=== PATIENT | female | born 1980 ===

== ENCOUNTER 2017-04-30 23:40 | Emergency (ER) | payer OTHER | END 2017-05-01 00:08 | disposition left against medical advice (07) | LOC: ED 23:40 | DX: Z02.89 Encounter for other administrative examinations (principal); R10.9 Unspecified abdominal pain ==

== ENCOUNTER 2017-12-29 09:25 | Emergency (ER) | payer OTHER ==
[2017-12-29 09:26] VITALS: BMI 22.7
[2017-12-29] MEDS ORDERED: Lactated Ringer's 1,000 ML IV SCH (10:00)
--- NOTE | 2017-12-29 10:28 | ED PDOC ---
Arrival/HPI - General Chief Complaint: Abdominal Pain Time Seen by Provider: 12/29/17 09:35 Historian: Patient - History of Present Illness Narrative History of Present Illness (Text): 12/29/17 10:27 A 37 year old female, whose past medical history includes end stage renal disease under the care of Dr. Dana Seth, presents to the emergency department for 1 day of vomiting copious amounts of vomit yellow in color with associated epigastric pain. Pt states that she gets dialysis 3 times a week with the next one scheduled tomorrow. Pt was previously seen by Dr. Chaparro for placement of dialysis port. Denies fever, chest pain, shortness of breath, back pain, diarrhea, headache or any other complaints. 12/29/17 11:32 Time/Duration: 24 hours Symptom Onset: Sudden Symptom Course: Unchanged Quality: Other Severity Level: Mild Activities at Onset: Light Context: Home Past Medical History - Provider Review Nursing Documentation Reviewed: Yes - Travel History Have you recently traveled outside [place] w/in the past 3 mons?: No - Infectious Disease Hx of Infectious Diseases: None - Reproductive Menopause: No - Cardiac Hx Cardiac Disorders: Yes Hx Congestive Heart Failure: Yes (April 12 2017) Hx MD: Yes (Questionable per pt) Hx Hypertension: Yes - Pulmonary Hx Respiratory Disorders: No - Neurological Hx Neurological Disorder: No - HEENT Hx HEENT Disorder: No Other/Comment: eyeglasses for reading - Renal Hx Renal Disorder: Yes Type of Dialysis Access: right permacath Date of Last Dialysis Treatment: 11/27/17 Hx Kidney Stones: Yes (Left) Hx Renal Failure: Yes - Endocrine/Metabolic Hx Endocrine Disorders: No - Hematological/Oncological Hx Blood Disorders: Yes Hx Anemia: Yes - Integumentary Hx Dermatological Disorder: No - Musculoskeletal/Rheumatological Hx Musculoskeletal Disorders: No - Gastrointestinal Hx Gastrointestinal Disorders: Yes (Peritonitis) Hx Gall Bladder Disease: Yes - Genitourinary/Gynecological Hx Genitourinary Disorders: No - Psychiatric Hx Psychophysiologic Disorder: Yes Hx Anxiety: Yes Hx Depression: Yes Hx Substance Use: No - Surgical History Hx Cholecystectomy: Yes Hx Vascular Surgery: Yes (AV fistula ) Hx Vascular Access Device: Yes (Perma cath) Other/Comment: Peritoneal dialysis cath insertion and removal - Anesthesia Hx Anesthesia: Yes Hx Anesthesia Reactions: No Hx Malignant Hyperthermia: No Family/Social History - Physician Review Nursing Documentation Reviewed: Yes Family/Social History: No Known Family HX Smoking Status: Light Smoker < 10 Cigarettes Daily Hx Alcohol Use: No Hx Substance Use: No Allergies/Home Meds Allergies/Adverse Reactions: Allergies No Known Allergies Allergy (Verified 12/29/17 09:43) PER PATIENT Home Medications: Home Meds Medication Instructions Recorded Confirmed Escitalopram [Lexapro] 10 mg PO HS 06/05/17 12/30/17 Clonidine HCl [Catapres] 0.2 mg PO BID 08/28/17 12/30/17 Lisinopril [Zestril] 20 mg PO DAILY 08/28/17 12/30/17 amLODIPine [Norvasc] 10 mg PO DAILY 10/28/17 12/30/17 Review of Systems - Physician Review All systems were reviewed & negative as marked: Yes - Review of Systems Constitutional: Normal Eyes: Normal Respiratory: Normal Cardiovascular: Normal Gastrointestinal: Abdominal Pain, Nausea, Vomiting Skin: Normal Neurological: Normal Endocrine: Normal Hemo/Lymphatic: Normal Psychiatric: Normal Physical Exam Vital Signs Reviewed: Yes Vital Signs Temp Pulse Resp BP Pulse Ox 12/29/17 18:09 98.6 F 72 16 128/84 99 12/29/17 17:17 94 H 18 132/83 100 12/29/17 15:23 104 H 18 155/88 H 100 12/29/17 13:41 101 H 18 152/86 H 100 12/29/17 12:44 99 H 18 156/92 H 100 12/29/17 11:31 120 H 223/139 H 12/29/17 11:30 109 H 223/139 H 12/29/17 11:09 102 H 18 231/139 H 100 12/29/17 09:32 98.3 F 127 H 19 240/177 H 100 Temperature: Afebrile Blood Pressure: Hypertensive Pulse: Tachycardic Respiratory Rate: Normal Appearance: Positive for: Non-Toxic, Ill-Appearing, Uncomfortable Pain Distress: Moderate Mental Status: Positive for: Alert and Oriented X 3 - Systems Exam Head: Present: Atraumatic, Normocephalic Pupils: Present: PERRL Extroacular Muscles: Present: EOMI Conjunctiva: Present: Normal Mouth: Present: Moist Mucous Membranes Neck: Present: Normal Range of Motion Respiratory/Chest: Present: Clear to Auscultation, Good Air Exchange. No: Respiratory Distress, Accessory Muscle Use Cardiovascular: Present: Regular Rate and Rhythm, Normal S1, S2. No: Murmurs Abdomen: Present: Tenderness (epigastric tenderness ), Normal Bowel Sounds. No : Distention, Peritoneal Signs, Rebound, Guarding, McBurney's Point Tender, Rovsing's Sign Present, Hernias, Feeding Tubes, Ostomy Tubes, Mass/Organomegaly , Scars, Other Rectal: No: Occult Blood, Rectal Tenderness, Gross Blood, Melena, Hemorrhoids, Normal Rectal Tone, Fissures, Nodule/Mass/Lesions, Other Back: Present: Normal Inspection. No: CVA Tenderness, Midline Tenderness, Paraspinal Tenderness, Pain with Leg Raise, Decubitus Ulcer, Other Upper Extremity: Present: Normal Inspection. No: Cyanosis, Edema Lower Extremity: Present: Normal Inspection. No: Edema Neurological: Present: GCS=15, CN II-XII Intact, Speech Normal Skin: Present: Warm, Dry, Normal Color. No: Rashes Psychiatric: Present: Alert, Oriented x 3, Normal Insight, Normal Concentration Medical Decision Making ED Course and Treatment: 12/29/17 10:28 Impression: A 37 year old female with episodes of vomiting Differential Diagnosis included but are not limited to: Hypertensive urgency Gastroenteritis (viral or bacterial) Gastritis Plan: -- Labs -- Pepcid, LR, Reglan -- Urinalysis -- Reassess and disposition Prior Visits: Notes and results from previous visits were reviewed. Patient was last seen in the [facility] emergency department Progress Notes: Pt continued to vomit aggressively until receiving Reglan and fluids given BP remains elevated as she was unable to take her meds this am; Oral doses of Lisinopril, amlodipine and clonidine given STAT Pt's BP stabilized well; vomiting ceased acetaminophen for pain Discussed homecare and advised to return if vomiting continues along with severe abdominal pain; Tramadol 50mg PO given for mild abdominal pain,likely due to the aggressive vomiting and retching earlier Encouraged Pt to not miss scheduled dialysis appt Saturday VSS and pt ambulated well out of the ED 12/29/17 11:22 - Lab Interpretations Lab Results: 12/29/17 10:20 12/29/17 10:20 Lab Results 12/29/17 10:30: Urine Color Yellow, Urine Appearance Clear, Urine pH 8.5, Ur Specific Spencer 1.015, Urine Protein 100 H, Urine Glucose (UA) Negative, Urine Ketones Negative, Urine Blood Trace-intact H, Urine Nitrate Negative, Urine Bilirubin Negative, Urine Urobilinogen 0.2, Ur Leukocyte Esterase Negative, Urine RBC 1 - 3, Urine WBC 0 - 2, Ur Epithelial Cells 0 - 2, Urine Bacteria Trace 12/29/17 10:20: Sodium 143, Potassium 4.9, Chloride 102, Carbon Dioxide 25, Anion Gap 22 H, BUN 32 H, Creatinine 3.6 H, Est GFR ( Amer) 17, Est GFR ( Non-Af Amer) 14, Random Glucose 118 H, Calcium 10.9 H, Total Bilirubin 0.4, AST 28, ALT 55, Alkaline Phosphatase 132 H D, Total Protein 8.6 H, Albumin 5.0 H, Globulin 3.6, Albumin/Globulin Ratio 1.4 12/29/17 10:20: WBC 16.1 H, RBC 4.41, Hgb 13.7, Hct 40.4, MCV 91.6, MCH 31.1, MCHC 33.9, RDW 12.9, Plt Count 443, MPV 9.1, Gran % 90.1 H, Lymph % (Auto) 7.6 L , Gove % (Auto) 1.7, Eos % (Auto) 0.4 L, Baso % (Auto) 0.2, Gran # 14.44 H, Lymph # (Auto) 1.2, Gove # (Auto) 0.3, Eos # (Auto) 0.1, Baso # (Auto) 0.04, Neutrophils % (Manual) 90 H, Band Neutrophils % 1, Lymphocytes % (Manual) 8 L, Monocytes % (Manual) 1, Platelet Evaluation Normal I have reviewed the lab results: Yes (Labs indicative of ESRD; has scheduled dialysis tomorrow) - Medication Orders Current Medication Orders: Discontinued Medications Acetaminophen (Tylenol 325mg Tab) 650 mg PO STAT STA Stop: 12/29/17 11:31 Last Admin: 12/29/17 12:00 Dose: 650 mg MAR Pain/Vitals Document 12/29/17 12:00 EQ (Rec: 12/29/17 12:17 EQ [id number]) Pain Reassessment Is This A Pain ReAssessment? No Sleep Is patient sleeping during reassessment? No Presence of Pain Presence of Pain Yes Amlodipine Besylate (Norvasc) 10 mg PO STAT STA Stop: 12/29/17 11:21 Last Admin: 12/29/17 11:30 Dose: 10 mg MAR Blood Pressure Document 12/29/17 11:30 EQ (Rec: 12/29/17 11:31 EQ [id number]) Blood Pressure Blood Pressure (100/60-150/90) 223/139 Clonidine HCl (Catapres) 0.2 mg PO STAT STA Stop: 12/29/17 11:19 Last Admin: 12/29/17 11:31 Dose: 0.2 mg MAR Pulse and Blood Pressure Document 12/29/17 11:31 EQ (Rec: 12/29/17 11:31 EQ [id number]) Pulse Pulse Rate (60-90) 120 Blood Pressure Blood Pressure (100/60-150/90) 223/139 Famotidine (Pepcid) 20 mg IVP STAT STA Stop: 12/29/17 09:56 Last Admin: 12/29/17 10:17 Dose: 20 mg IVP Administration Document 12/29/17 10:17 EQ (Rec: 12/29/17 10:17 EQ [id number]) Charges for Administration # of IVP Administrations 1 Lactated Ringer's (Lactated Ringer's) 1,000 mls @ 500 mls/hr IV .Q2H KANDACE Last Admin: 12/29/17 10:17 Dose: 500 mls/hr eMAR Start Stop Document 12/29/17 10:17 EQ (Rec: 12/29/17 10:17 EQ [id number]) Intravenous Solution Start Date 12/29/17 Start Time 10:17 Lisinopril (Zestril) 20 mg PO STAT STA Stop: 12/29/17 11:22 Last Admin: 12/29/17 11:30 Dose: 20 mg MAR Pulse and Blood Pressure Document 12/29/17 11:30 EQ (Rec: 12/29/17 11:30 EQ [id number]) Pulse Pulse Rate (60-90) 109 Blood Pressure Blood Pressure (100/60-150/90) 223/139 Metoclopramide HCl (Reglan) 10 mg IVP STAT STA Stop: 12/29/17 09:52 Last Admin: 12/29/17 10:20 Dose: 10 mg IVP Administration Document 12/29/17 10:20 EQ (Rec: 12/29/17 10:20 EQ [id number]) Charges for Administration # of IVP Administrations 1 Tramadol HCl (Ultram) 50 mg PO STAT STA Stop: 12/29/17 17:35 Last Admin: 12/29/17 18:05 Dose: 50 mg MAR Pain Assessment Document 12/29/17 18:05 TA (Rec: 12/29/17 18:06 TA [id number]) Pain Reassessment Is this a pain reassessment? Yes Sleep Is patient sleeping during reassessment? No Presence of Pain Presence of Pain Yes Pain Scale Used Pain Scale Used Numeric Location Pain Location Body Site Abdomen Description Description Dull - Scribe Statement The provider has reviewed the documentation as recorded by the Scribe Pham Cruz Provider Scribe Attestation: All medical record entries made by the Scribe were at my direction and personally dictated by me. I have reviewed the chart and agree that the record accurately reflects my personal performance of the history, physical exam, medical decision making, and the department course for this patient. I have also personally directed, reviewed, and agree with the discharge instructions and disposition. Disposition/Present on Arrival - Present on Arrival Any Indicators Present on Arrival: Yes History of DVT/PE: No History of Uncontrolled Diabetes: No Urinary Catheter: No History of Decub. Ulcer: No History Surgical Site Infection Following: None - Disposition Have Diagnosis and Disposition been Completed?: Yes Diagnosis: Gastroenteritis Disposition: HOME/ ROUTINE Disposition Time: 15:30 Patient Plan: Discharge Condition: STABLE Discharge Instructions (ExitCare): Gastroenteritis (ED) Additional Instructions: Jeff Carmona, Please take the medication we have provided to assist you with any nausea or vomiting. You can take Tylenol for pain; make sure that you drink plenty of fluids and get rest as this may be a viral gastroenteritis that requires supportive care. Should you experience any alarming symptoms, return to the ED immediately. Follow up with dialysis tomorrow and see your your Primary doctor in the next 24 hrs Continue to take your blood pressure medication as recommended. All the best in your recovery Referrals: Raimundo Miller [Primary Care Provider] - Follow up with primary Forms: [employer] ([place])
[2017-12-29 10:38] LABS: PH,URINE 8.5 (4.7-8.0); URINE APPEARANCE CLEAR (CLEAR); URINE BILIRUBIN NEGATIVE (NEGATIVE); URINE BLOOD TRACE-INTACT (NEGATIVE); URINE COLOR YELLOW (YELLOW); URINE GLUCOSE (UA) NEGATIVE (NEGATIVE); URINE LEUKOCYTE ESTERASE NEGATIVE Leu/uL (NEGATIVE); URINE PROTEIN 100 mg/dL (<30 mg/dL); URINE UROBILINOGEN 0.2 E.U./dL (<1 E.U./dL)
[2017-12-29 10:41] LABS: BASO # 0.04 K/mm3 (0.0-2.0); BASO % 0.2 % (0.0-3.0); EOS # 0.1 (0.0-0.7); EOS % 0.4 % (1.5-5.0); GRAN # 14.44 (1.4-6.5); GRAN % 90.1 % (50.0-68.0); HEMOGLOBIN 13.7 g/dL (12.0-16.0); LYMPH # 1.2 (1.2-3.4); LYMPH % 7.6 % (22.0-35.0); MEAN CELL VOLUME 91.6 fl (80.0-105.0); MEAN CORPUSCULAR HEMOGLOBIN 31.1 pg (25.0-35.0); MEAN CORPUSCULAR HGB CONC 33.9 g/dl (31.0-37.0); MEAN PLATELET VOLUME 9.1 fl (7.0-11.0); MONO # 0.3 (0.1-0.6); MONO % 1.7 % (1.0-6.0); PLATELET COUNT 443 10^3/uL (120.0-450.0); RBC 4.41 10^6/uL (3.5-6.1); RED CELL DISTRIBUTION WIDTH 12.9 % (11.5-14.5); WHITE BLOOD COUNT 16.1 10^3/ul (4.5-11.0)
[2017-12-29 10:47] LABS: URINE BACTERIA TRACE (NEG); URINE EPITHELIAL CELLS 0 - 2 /hpf (0-5); URINE WBC 0 - 2 /hpf (0-6)
[2017-12-29 10:55] LABS: ALB/GLOB RATIO 1.4 (1.1-1.8); CALCIUM 10.9 mg/dL (8.4-10.5)
[2017-12-29 11:03] LABS: BAND 1 % (0-2); LYMPHOCYTE 8 % (22.0-35.0); MONOCYTE 1 % (1.0-6.0); NEUTROPHIL 90 % (50.0-70.0); PLATELET ESTIMATE NORMAL (NORMAL)
[2017-12-29 18:09] VITALS: BP 128/84; PULSE 72; RESP 16; TEMP 98.6; O2SAT 99
== END 2017-12-29 18:09 | disposition home or self-care (01) ==
LOC: ED 09:25
DX: K52.9 Noninfective gastroenteritis and colitis, unspecified (principal); I12.0 Hypertensive chronic kidney disease with stage 5 chronic kidney disease or end stage renal disease; N18.6 End stage renal disease; Z99.2 Dependence on renal dialysis; F17.210 Nicotine dependence, cigarettes, uncomplicated
CPT/HCPCS: 80053; 81001; 85025; 96374; 96375; 99284; J2765; J7120

== ENCOUNTER 2018-03-17 15:07 | Emergency (ER) | payer OTHER ==
[2018-03-17 15:08] VITALS: BMI 22.7
[2018-03-17] MEDS ORDERED: Pantoprazole 40 mg EC Tab PO STA (15:42)
[2018-03-17] MEDS ORDERED: Morphine 4 mg/ml ISec IM STA ×2 (15:43→17:21)
[2018-03-17 15:49] VITALS: RESP 18; TEMP 98
--- NOTE | 2018-03-17 15:50 | ED PDOC ---
Arrival/HPI - General Chief Complaint: Abdominal Pain Time Seen by Provider: 03/17/18 15:09 Historian: Patient - History of Present Illness Narrative History of Present Illness (Text): 03/17/18 15:43 37yo female with pmhx of CKD bib EMS for epigastric abdominal pain. She reports nonbloody/billious vomiting with the pain. she notes that she was seen at [facility] today for the symptom and was told that they is nothing else that can be done for her. States she sees Dr. Starkey for the pain and he gives her Tramadol. states it doesn't help the pain. She was advised to see a pain management Doctor by her PMD, but she states she have not seen one yet. she denies melena, hematemesis, hematuria, urinary symptoms, fever, chest pain, any other complaint. Past Medical History - Provider Review Nursing Documentation Reviewed: Yes - Infectious Disease Hx of Infectious Diseases: None - Cardiac Hx Cardiac Disorders: Yes Hx Congestive Heart Failure: Yes Hx MN: Yes Hx Hypertension: Yes Hx Peripheral Edema: Yes - Pulmonary Hx Respiratory Disorders: Yes Hx Pneumonia: Yes - Neurological Hx Neurological Disorder: No - HEENT Hx HEENT Disorder: Yes Other/Comment: eyeglasses for reading - Renal Hx Renal Disorder: Yes Hx Dialysis: Yes Type of Dialysis Access: AV L A - Endocrine/Metabolic Hx Endocrine Disorders: No - Hematological/Oncological Hx Blood Disorders: Yes Hx Anemia: Yes - Integumentary Hx Dermatological Disorder: No - Musculoskeletal/Rheumatological Hx Musculoskeletal Disorders: No - Gastrointestinal Hx Gastrointestinal Disorders: Yes Hx Gall Bladder Disease: Yes Hx Vomiting: Yes - Genitourinary/Gynecological Hx Genitourinary Disorders: No - Psychiatric Hx Psychophysiologic Disorder: Yes Hx Anxiety: Yes Hx Depression: Yes Hx Substance Use: No - Surgical History Hx Cholecystectomy: Yes Hx Vascular Surgery: Yes Other/Comment: AV SHUNT - Anesthesia Hx Anesthesia: Yes Hx Anesthesia Reactions: No Hx Malignant Hyperthermia: No Family/Social History - Physician Review Nursing Documentation Reviewed: Yes Family/Social History: Unknown Family HX Smoking Status: Light Smoker < 10 Cigarettes Daily Hx Alcohol Use: No Hx Substance Use: No Allergies/Home Meds Allergies/Adverse Reactions: Allergies No Known Allergies Allergy (Verified 03/17/18 15:20) PER PATIENT Home Medications: Home Meds Medication Instructions Recorded Confirmed Escitalopram [Lexapro] 10 mg PO HS 06/05/17 03/17/18 Clonidine HCl [Catapres] 0.2 mg PO BID 08/28/17 03/17/18 amLODIPine [Norvasc] 10 mg PO DAILY 10/28/17 03/17/18 Review of Systems - Physician Review All systems were reviewed & negative as marked: Yes - Review of Systems Constitutional: Normal Eyes: Normal ENT: Normal Respiratory: Normal Cardiovascular: Normal Gastrointestinal: Abdominal Pain, Nausea, Vomiting. absent: Constipation, Diarrhea, Hematochezia, Hematemesis Genitourinary Female: Normal Musculoskeletal: Normal Skin: Normal Neurological: Normal Endocrine: Normal Hemo/Lymphatic: Normal Psychiatric: Normal Physical Exam Vital Signs Reviewed: Yes Vital Signs Temp Pulse Resp BP Pulse Ox 03/17/18 17:56 98 F 95 H 18 120/60 99 03/17/18 15:48 98 F 100 H 18 124/53 L 100 03/17/18 15:21 98.0 F 79 18 158/85 H 99 Temperature: Afebrile Blood Pressure: Normal Pulse: Regular Respiratory Rate: Normal Appearance: Positive for: Well-Appearing, Non-Toxic, Comfortable Pain Distress: None Mental Status: Positive for: Alert and Oriented X 3 - Systems Exam Head: Present: Atraumatic, Normocephalic Pupils: Present: PERRL Extroacular Muscles: Present: EOMI Conjunctiva: Present: Normal Mouth: Present: Moist Mucous Membranes Neck: Present: Normal Range of Motion Respiratory/Chest: Present: Clear to Auscultation, Good Air Exchange. No: Respiratory Distress, Accessory Muscle Use Cardiovascular: Present: Regular Rate and Rhythm, Normal S1, S2. No: Murmurs Abdomen: Present: Tenderness (Mild epigastric tenderness with deep palpation), Normal Bowel Sounds, Guarding (Voluntary), Other (Soft). No: Distention, Peritoneal Signs, Rebound, McBurney's Point Tender, Rovsing's Sign Present Back: Present: Normal Inspection Upper Extremity: Present: Normal Inspection. No: Cyanosis, Edema Lower Extremity: Present: Normal Inspection. No: Edema Neurological: Present: GCS=15, CN II-XII Intact, Speech Normal Skin: Present: Warm, Dry, Normal Color. No: Rashes Psychiatric: Present: Alert, Oriented x 3, Normal Insight, Normal Concentration Medical Decision Making ED Course and Treatment: 03/17/18 20:23 PT presented for stated history. On review of her chart, pt was seen at [facility] today for same complain and her labs was unremarkable. Pt have been seen in [facility] ED for same complaint multiple times and have had multiple abdominal CT. Pt was asking for pain medication, exhibiting signs of drug seeking behavior. She was treated with Morphine and Protonix in ED. On re evaluation she notes that her pain improved. she was strongly advised to f/u with a pain management for her chronic abdominal pain. - Medication Orders Current Medication Orders: Discontinued Medications Morphine Sulfate (Morphine) 4 mg IM STAT STA Stop: 03/17/18 15:44 Last Admin: 03/17/18 15:56 Dose: 4 mg MAR Pain Assessment Document 03/17/18 15:56 LA (Rec: 03/17/18 15:57 LA [id number]) Pain Reassessment Is this a pain reassessment? No Sleep Is patient sleeping during reassessment? No Presence of Pain Presence of Pain Yes Pain Scale Used Pain Scale Used Numeric Location Upper or Lower Lower Pain Location Body Site Abdomen Description Description Constant Intensity of Pain at present 10 Pain Behavior Guarding IM Administration Charges Document 03/17/18 15:56 LA (Rec: 03/17/18 15:57 LA [id number]) Injection Site MAR Injection Site Right Arm Charges for Administration # of IM Administrations 1 Re-Assess: MAR Pain Assessment Document 03/17/18 16:56 LA (Rec: 03/17/18 17:25 LA [id number]) Pain Reassessment Is this a pain reassessment? Yes Sleep Is patient sleeping during reassessment? No Presence of Pain Presence of Pain Yes Location Pain Location Body Site Abdomen Description Description Intermittent Intensity of Pain at present 5 Morphine Sulfate (Morphine) 4 mg IM STAT STA Stop: 03/17/18 17:22 Last Admin: 03/17/18 17:27 Dose: 4 mg MAR Pain Assessment Document 03/17/18 17:27 LA (Rec: 03/17/18 17:28 LA [id number]) Pain Reassessment Is this a pain reassessment? Yes Sleep Is patient sleeping during reassessment? No Presence of Pain Presence of Pain Yes Pain Scale Used Pain Scale Used Numeric Location Pain Location Body Site Abdomen Description Intensity of Pain at present 5 IM Administration Charges Document 03/17/18 17:27 LA (Rec: 03/17/18 17:28 LA [id number]) Injection Site MAR Injection Site Left Arm Charges for Administration # of IM Administrations 1 Ondansetron HCl (Zofran Inj) 4 mg IM STAT STA Stop: 03/17/18 15:53 Last Admin: 03/17/18 15:57 Dose: 4 mg IM Administration Charges Document 03/17/18 15:57 LA (Rec: 03/17/18 15:58 LA [id number]) Injection Site MAR Injection Site Right Arm Charges for Administration # of IM Administrations 1 Pantoprazole Sodium (Protonix Ec Tab) 40 mg PO STAT STA Stop: 03/17/18 15:43 Last Admin: 03/17/18 15:57 Dose: 40 mg Disposition/Present on Arrival - Present on Arrival Any Indicators Present on Arrival: No History of DVT/PE: No History of Uncontrolled Diabetes: No Urinary Catheter: No History of Decub. Ulcer: No History Surgical Site Infection Following: None - Disposition Have Diagnosis and Disposition been Completed?: Yes Diagnosis: Nausea & vomiting, Abdominal pain Disposition: HOME/ ROUTINE Disposition Time: 16:55 Patient Plan: Discharge Condition: STABLE Discharge Instructions (ExitCare): Acute Abdomen (Belly Pain), Nausea and Vomiting, Adult (DC) Additional Instructions: Follow up with your doctor/Pain management Return to ED for any new symptoms Prescriptions: Pantoprazole Sodium [Protonix] 40 mg PO DAILY #10 ect Referrals: Michelle Quarles MD [Primary Care Provider] - Follow up with primary Adalberto Lucero MD [Staff Provider] - Follow up with primary Forms: [employer] (Lao)
[2018-03-17 18:00] VITALS: BP 120/60; PULSE 95; O2SAT 99
--- NOTE | 2018-03-18 10:37 | CARD ---
APPROVED REPORT EKG Measurement Heart [id number] TN [id number] <Conclusion> Sinus tachycardia LVH by voltage
== END 2018-03-17 17:56 | disposition home or self-care (01) ==
LOC: ED 15:07
DX: R10.9 Unspecified abdominal pain (principal); R11.2 Nausea with vomiting, unspecified; I10 Essential (primary) hypertension; F17.210 Nicotine dependence, cigarettes, uncomplicated
CPT/HCPCS: 93005; 96372; 99283; J2270; J2405

== ENCOUNTER 2018-03-17 23:50 | Inpatient (IN) | payer OTHER ==
[2018-03-17 23:55] VITALS: BMI 25.0
[2018-03-18] MEDS ORDERED: Morphine 4 mg/ml ISec IVP STA ×2 (00:20→03:08)
--- NOTE | 2018-03-18 00:26 | ED PDOC ---
Arrival/HPI - General Time Seen by Provider: 03/17/18 23:57 Historian: Patient - Critical Care Critical Care Minutes: 45 minutes - History of Present Illness Narrative History of Present Illness (Text): 03/18/18 00:18 37 year old female, whose past medical history includes anxiety, CHF, depression , hypertension, renal stone, cholecystectomy, and ESRD on HD (M,W, F), presents to the emergency department complaining of epigastric abdominal pain over the past 1.5 days associated with nausea and multiple episodes of non-bloody/non- bilious vomiting. Patient was seen on two prior occasions in the emergency department for similar complaints and discharged. Patient states her symptoms have not improved. Patient denies any fever, chills, chest pain, shortness of breath, diarrhea, urinary symptoms, back pain, neck pain, headache, dizziness, or any other complaints. PMD: Dr. Delio Quarles Time/Duration: Other (1.5 days) Symptom Onset: Gradual Symptom Course: Unchanged Activities at Onset: Light Context: Home Past Medical History - Provider Review Nursing Documentation Reviewed: Yes - Infectious Disease Hx of Infectious Diseases: None - Cardiac Hx AK: Yes (Questionable per pt) - Pulmonary Hx Respiratory Disorders: No - Neurological Hx Neurological Disorder: No - HEENT Hx HEENT Disorder: Yes Other/Comment: eyeglasses for reading - Renal Hx Renal Disorder: Yes Hx Dialysis: Yes - Endocrine/Metabolic Hx Endocrine Disorders: No - Hematological/Oncological Hx Blood Disorders: Yes Hx Anemia: Yes - Integumentary Hx Dermatological Disorder: No - Musculoskeletal/Rheumatological Hx Musculoskeletal Disorders: No - Gastrointestinal Hx Gastrointestinal Disorders: Yes (Peritonitis) - Genitourinary/Gynecological Hx Genitourinary Disorders: No - Psychiatric Hx Psychophysiologic Disorder: Yes Hx Anxiety: Yes Hx Depression: Yes Hx Substance Use: No - Surgical History Hx Vascular Surgery: Yes (AV fistula ) Other/Comment: Peritoneal dialysis cath insertion and removal - Anesthesia Hx Anesthesia: Yes Hx Anesthesia Reactions: No Hx Malignant Hyperthermia: No Family/Social History - Physician Review Nursing Documentation Reviewed: Yes Family/Social History: No Known Family HX Smoking Status: Light Smoker < 10 Cigarettes Daily Hx Alcohol Use: No Hx Substance Use: No Allergies/Home Meds Allergies/Adverse Reactions: Allergies No Known Allergies Allergy (Verified 03/17/18 23:54) PER PATIENT Home Medications: Home Meds Medication Instructions Recorded Confirmed Escitalopram [Lexapro] 10 mg PO HS 06/05/17 03/18/18 Clonidine HCl [Catapres] 0.2 mg PO BID 08/28/17 03/18/18 amLODIPine [Norvasc] 10 mg PO DAILY 10/28/17 03/18/18 Review of Systems - Physician Review All systems were reviewed & negative as marked: Yes - Review of Systems Constitutional: absent: Fevers, Other (Chills) Respiratory: absent: SOB Cardiovascular: absent: Chest Pain Gastrointestinal: Abdominal Pain (Epigastric ), Nausea, Vomiting (Multiple episodes). absent: Diarrhea Genitourinary Female: absent: Dysuria, Frequency Musculoskeletal: absent: Back Pain, Neck Pain Neurological: absent: Headache, Dizziness Physical Exam Vital Signs Reviewed: Yes Vital Signs Temp Pulse Resp BP Pulse Ox 03/18/18 04:56 98.4 F 03/18/18 04:50 83 19 95 03/18/18 04:45 169/101 H 03/18/18 04:40 80 15 91 L 03/18/18 04:30 89 26 H 169/101 H 96 03/18/18 04:20 80 15 99 03/18/18 04:16 82 19 161/98 H 98 03/18/18 04:10 87 19 99 03/18/18 04:08 89 25 H 98 03/18/18 03:50 213/133 H 03/18/18 03:26 98.9 F 92 H 18 213/133 H 99 03/18/18 02:54 92 H 18 228/145 H 99 03/18/18 02:38 94 H 18 210/120 H 98 03/18/18 02:16 101 H 18 214/129 H 99 03/18/18 01:57 99 H 03/18/18 01:35 123 H 238/143 H 03/18/18 01:10 126 H 14 242/139 H 98 03/18/18 00:55 239/141 H 03/18/18 00:00 98.9 F 125 H 16 99 Temperature: Afebrile Blood Pressure: Hypertensive Pulse: Tachycardic Respiratory Rate: Normal Appearance: Positive for: Well-Appearing, Non-Toxic, Other (Actively vomiting) Pain Distress: Mild Mental Status: Positive for: Alert and Oriented X 3 - Systems Exam Head: Present: Atraumatic, Normocephalic Pupils: Present: PERRL Extroacular Muscles: Present: EOMI Conjunctiva: Present: Normal Mouth: Present: Moist Mucous Membranes Neck: Present: Normal Range of Motion Respiratory/Chest: Present: Clear to Auscultation, Good Air Exchange. No: Respiratory Distress, Accessory Muscle Use Cardiovascular: Present: Regular Rate and Rhythm, Normal S1, S2. No: Murmurs Abdomen: Present: Tenderness (Mild Epigastric tenderness). No: Distention, Peritoneal Signs Back: Present: Normal Inspection Upper Extremity: Present: Normal Inspection. No: Cyanosis, Edema Lower Extremity: Present: Normal Inspection. No: Edema Neurological: Present: GCS=15, CN II-XII Intact, Speech Normal Skin: Present: Warm, Dry, Normal Color. No: Rashes Psychiatric: Present: Alert, Oriented x 3, Normal Insight, Normal Concentration Medical Decision Making ED Course and Treatment: 03/18/18 00:18 Impression: 37 year old female presents complaining of epigastric abdominal pain associated with nausea, and multiple episodes of vomiting for the past 1.5 days. Plan: -- CT Abd & Pelvis w/p Po or IV Contrast -- Chest X-Ray -- Flagyl, Trandate, Pepcid, Rocephin, IV Fluids, Zofran Inj -- Blood Culture -- Reassess and disposition Prior Visits: Notes and results from previous visits were reviewed. On 03/17/18 patient came in complaining of epigastric abdominal pain associated with vomiting. Patient was discharged. Progress Notes: 03/18/18 01:50 Case discussed with House Wirer Helper and Dr. Sunny Turcios who is aware and agrees with the plan. Accepts patient into hospitalist service for abdominal pain and Hypertensive emergency. 03/18/18 02:51 CXR Impression: As read by me, no acute process. EXAM: CT Abdomen and Pelvis Without Intravenous Contrast Dictated and Authenticated by: Johnson Wagner MD 03/18/2018 3:45 AM IMPRESSION: 1. Left adnexal lesion. Recommend ultrasound. 2. Interlobular septal thickening, nonspecific. Clinical correlation is needed. 3. Mild cystitis vs underdistention. Correlate with urinalysis. 4. Increased density of visualized bones may represent renal osteodystrophy. Clinical correlation is needed. 5. Multiple lytic lesions within visualized bones, nonspecific. Metastases or multiple myeloma not excluded. 6. Incidental/non-acute findings are described above - Lab Interpretations Lab Results: 03/18/18 00:34 03/18/18 00:34 Lab Results 03/18/18 00:34: Beta HCG, Quant < 2.39 03/18/18 00:34: WBC 18.9 H, RBC 4.72, Hgb 14.4, Hct 42.4, MCV 89.8, MCH 30.5, MCHC 34.0, RDW 14.2, Plt Count 378, MPV 9.2 03/18/18 00:34: Sodium 143, Potassium 4.7, Chloride 103, Carbon Dioxide 18 L, Anion Gap 26 H, BUN 32 H, Creatinine 3.7 H, Est GFR ( Amer) 17, Est GFR ( Non-Af Amer) 14, Random Glucose 139 H, Calcium 10.8 H, Total Bilirubin 0.7, AST 21, ALT 16, Alkaline Phosphatase 118, Total Protein 8.8 H, Albumin 5.4 H, Globulin 3.4, Albumin/Globulin Ratio 1.6, Lipase 71 I have reviewed the lab results: Yes - RAD Interpretation Radiology Orders: 03/18/18 01:45 ABD & PELVIS W/O PO OR IV CONT [CT] Stat 03/18/18 01:48 CHEST PORTABLE [RAD] Stat - Medication Orders Current Medication Orders: Amlodipine Besylate (Norvasc) 10 mg PO DAILY KANDACE Clonidine HCl (Catapres) 0.2 mg PO BID KANDACE Sodium Chloride (Sodium Chloride 0.9%) 1,000 mls @ 50 mls/hr IV .Q20H KANDACE Last Admin: 03/18/18 00:41 Dose: 50 mls/hr eMAR Start Stop Document 03/18/18 00:41 JOYCE (Rec: 03/18/18 00:41 JOYCE [facility] [place]-[id number]) Intravenous Solution Start Date 03/18/18 Start Time 00:41 End Date 03/18/18 End time 00:56 Total Infusion Time 15 Labetalol HCl 100 mg/ Sodium (Chloride) 100 mls @ 60 mls/hr IV .Q1H40M PRN; Protocol; 1 MG/MIN PRN Reason: TITRATE PER MD ORDER Last Titration: 03/18/18 05:04 Dose: 0 mg/min, 0 mls/hr Titration Intervention Document 03/18/18 05:04 PHAN (Rec: 03/18/18 05:04 PHAN [facility] [id number]) Titration Intake Titration Intake 0 Cumulative Intake 0 Cumulative Intake (Rx) 100 Waste Amount 0 Container Volume 100 Titration Dosing Titration Dose 0 IV Rate 0 Intake/Decrease Paused Cumulative Dose 100 Ondansetron HCl (Zofran Inj) 4 mg IVP Q6H PRN PRN Reason: Nausea/Vomiting Pantoprazole Sodium (Protonix Inj) 40 mg IVP DAILY KANDACE Discontinued Medications Amlodipine Besylate (Norvasc) 10 mg PO STAT STA Stop: 03/18/18 03:17 Last Admin: 03/18/18 03:50 Dose: 10 mg MAR Blood Pressure Document 03/18/18 03:50 RG (Rec: 03/18/18 03:51 RG [facility] [id number]) Blood Pressure Blood Pressure (100/60-150/90 mm Hg) 213/133 Clonidine HCl (Catapres) 0.2 mg PO STAT STA Stop: 03/18/18 03:17 Last Admin: 03/18/18 03:51 Dose: 0.2 mg Famotidine (Pepcid) 20 mg IVP STAT STA Stop: 03/18/18 00:21 Last Admin: 03/18/18 00:43 Dose: 20 mg IVP Administration Document 03/18/18 00:43 RG (Rec: 03/18/18 00:43 RG [facility] [place]-[id number]) Charges for Administration # of IVP Administrations 1 Metronidazole (Flagyl) 500 mg in 100 mls @ 100 mls/hr IVPB STAT STA PRN Reason: Protocol Stop: 03/18/18 02:45 Last Admin: 03/18/18 02:46 Dose: 100 mls/hr eMAR Start Stop Document 03/18/18 02:46 PHAN (Rec: 03/18/18 04:48 PHAN [facility] [place]-[id number]) Intravenous Solution Start Date 03/18/18 Start Time 02:46 Ceftriaxone Sodium (Rocephin 1 Gram Ivpb) 1 gm in 100 mls @ 200 mls/hr IV ONCE STA PRN Reason: Protocol Stop: 03/18/18 02:14 Last Admin: 03/18/18 02:21 Dose: 200 mls/hr eMAR Start Stop Document 03/18/18 02:21 RG (Rec: 03/18/18 02:21 [id number] Intravenous Solution Start Date 03/18/18 Start Time 02:21 End Date 03/18/18 Labetalol HCl (Trandate) 20 mg IV STAT STA Stop: 03/18/18 01:23 Last Admin: 03/18/18 01:35 Dose: 20 mg eMAR Start Stop Document 03/18/18 01:35 RG (Rec: 03/18/18 01:38 [id number][facility] Intravenous Solution Start Date 03/18/18 Start Time 01:35 End Date 03/18/18 End time 01:37 Total Infusion Time 2 DEC Pulse and Blood Pressure Document 03/18/18 01:35 RG (Rec: 03/18/18 01:38 [id number]) Pulse Pulse Rate (60-90 beats/min) 123 Blood Pressure Blood Pressure (100/60-150/90 mm Hg) 238/143 Labetalol HCl (Trandate) 40 mg IV STAT STA Stop: 03/18/18 01:58 Last Admin: 03/18/18 01:58 Dose: 40 mg eMAR Start Stop Document 03/18/18 01:58 RG (Rec: 03/18/18 02:20 [id number]) Intravenous Solution Start Date 03/18/18 Start Time 01:58 End Date 03/18/18 End time 02:03 Total Infusion Time 5 Morphine Sulfate (Morphine) 4 mg IVP STAT STA Stop: 03/18/18 00:21 Last Admin: 03/18/18 01:06 Dose: 4 mg MAR Pain Assessment Document 03/18/18 01:06 JOYCE (Rec: 03/18/18 01:07 [id number]) Pain Reassessment Is this a pain reassessment? Yes Location Upper or Lower Upper Pain Location Body Site Abdomen Description Description Sharp Pain Behavior Moaning Rubbing Site IVP Administration Document 03/18/18 01:06 JOYCE (Rec: 03/18/18 01:07 [id number]) Charges for Administration # of IVP Administrations 1 Re-Assess: MAR Pain Assessment Document 03/18/18 02:06 JOYCE (Rec: 03/18/18 04:06 [id number]) Pain Reassessment Is this a pain reassessment? Yes Sleep Is patient sleeping during reassessment? Yes Morphine Sulfate (Morphine) 4 mg IVP STAT STA Stop: 03/18/18 03:09 Last Admin: 03/18/18 03:36 Dose: 4 mg MAR Pain Assessment Document 03/18/18 03:36 (Rec: 03/18/18 03:39 [id number]) Pain Reassessment Is this a pain reassessment? Yes Sleep Is patient sleeping during reassessment? No Presence of Pain Presence of Pain Yes Location Upper or Lower Upper Pain Location Body Site Abdomen Description Description Burning Pain Behavior Moaning IVP Administration Document 03/18/18 03:36 (Rec: 03/18/18 03:39 [id number]) Charges for Administration # of IVP Administrations 1 Ondansetron HCl (Zofran Inj) 4 mg IVP ONCE ONE Stop: 03/18/18 00:21 Last Admin: 03/18/18 00:33 Dose: 4 mg IVP Administration Document 03/18/18 00:33 RG (Rec: 03/18/18 00:41 [id number]) Charges for Administration # of IVP Administrations 1 Ondansetron HCl (Zofran Inj) 4 mg IVP ONCE ONE Stop: 03/18/18 01:48 Last Admin: 03/18/18 01:47 Dose: 4 mg IVP Administration Document 03/18/18 01:47 RG (Rec: 03/18/18 02:21 [id number]) Charges for Administration # of IVP Administrations 1 - Scribe Statement The provider has reviewed the documentation as recorded by the Claire Page Provider Scribe Attestation: All medical record entries made by the Claire were at my direction and personally dictated by me. I have reviewed the chart and agree that the record accurately reflects my personal performance of the history, physical exam, medical decision making, and the department course for this patient. I have also personally directed, reviewed, and agree with the discharge instructions and disposition. Disposition/Present on Arrival - Present on Arrival Any Indicators Present on Arrival: No History of DVT/PE: No History of Uncontrolled Diabetes: No Urinary Catheter: No History Surgical Site Infection Following: None - Disposition Have Diagnosis and Disposition been Completed?: Yes Diagnosis: Hypertensive emergency, ESRD (end stage renal disease), Intractable abdominal pain, Intractable vomiting Disposition: HOSPITALIZED Disposition Time: 02:25 Patient Plan: Admission Patient Problems: Current Active Problems Problem Status Onset ESRD (end stage renal disease) Acute Hypertensive emergency Acute Intractable abdominal pain Acute Intractable vomiting Acute Condition: STABLE
[2018-03-18] MEDS ORDERED: Sodium Chloride 0.9% 1,000 ML IV SCH (00:30)
[2018-03-18 00:50] LABS: HEMOGLOBIN 14.4 g/dL (12.0-16.0); MEAN CELL VOLUME 89.8 fl (80.0-105.0); MEAN CORPUSCULAR HEMOGLOBIN 30.5 pg (25.0-35.0); MEAN PLATELET VOLUME 9.2 fl (7.0-11.0); RBC 4.72 10^6/uL (3.5-6.1); RED CELL DISTRIBUTION WIDTH 14.2 % (11.5-14.5); WHITE BLOOD COUNT 18.9 10^3/ul (4.5-11.0)
[2018-03-18 00:53] LABS: ALB/GLOB RATIO 1.6 (1.1-1.8); ALBUMIN 5.4 g/dL (3.0-4.8); CALCIUM 10.8 mg/dL (8.4-10.5)
[2018-03-18] MEDS ORDERED: Labetalol 5 mg/ml Inj 20ML IV STA ×2 (01:22→01:57)
[2018-03-18] MEDS ORDERED: cefTRIAXone 1 gm 1 GM/100 ML BAG IV STA (01:45)
[2018-03-18] MEDS ORDERED: metroNIDAZOLE IV 500 mg/100 ml 500 MG/100 ML BAG IVPB STA (01:46)
[2018-03-18] MEDS: Labetalol 100 MG in Sodium Chloride 0.9% 80 ML IV PRN ×2 (01:57→04:45)
--- NOTE | 2018-03-18 03:02 | CP.PCM.HP ---
<Elizabet Arrington - Last Filed: 03/18/18 03:02> History of Present Illness - History of Present Illness History of Present Illness: Patient is a 37 year old female with a past medical history of HTN, CHF, ESRD ( on HD -), anxiety, depression, chronic abdominal pain, and nephrolithiasis, who presents to the ED complaining of abdominal pain. Patient says this started about 2 days ago and describes it as burning pain that radiates straight through and upward to her back. Patient says it started when she woke up and has gradually worsened to the point that she could not keep anything down by mouth including her medications. She tried an antacid without any relief. She admits to associated nausea and multiple episodes of bilious, nonbloody vomiting , as well as constipation (last BM >1 week ago) and SOB. Patient says she has this pain at least once a month and per EMR, she has been seen multiple times this year at [facility] and [facility] for the same thing. She has been told that she has gastritis and "possible pancreatitis" at past ED visits. Per EMR, patient exhibits "drug seeking behavior". Her PMD, Dr. Quarles prescribes her tramadol for this pain and and referred her to pain management. She currently denies fever, chills, headache, changes in vision/hearing, chest pain, palpitations, diarrhea, hematemesis, hematochezia, melena, urinary output , lower extremity pain/swelling. PMD: Dr. Quarles Senior Hydrogeologist: Dr. Seth PMH: HTN, CHF, ESRD (on HD -), anxiety, depression, chronic abdominal pain, and nephrolithiasis Meds: Xanax, tramadol, labetalol, clonidine, amlodipine Allergies: NKDA FH: Mom and brother with DM; Mom on with ESRD, cardiac disease and pacemaker; uncles with heart disease SH: smokes 5 cig/day x20 years, denies alcohol and drug use Present on Admission - Present on Admission Any Indicators Present on Admission: No Review of Systems - Review of Systems All systems: reviewed and no additional remarkable complaints except (as per HPI ) Past Patient History - Infectious Disease Hx of Infectious Diseases: None - Past Medical History & Family History Past Medical History?: Yes - Past Social History Smoking Status: Light Smoker < 10 Cigarettes Daily - CARDIAC Hx Heart Attack: Yes (Questionable per pt) - PULMONARY Hx Respiratory Disorders: No - NEUROLOGICAL Hx Neurological Disorder: No - HEENT Hx HEENT Problems: Yes Other/Comment: eyeglasses for reading - RENAL Hx Chronic Kidney Disease: Yes Hx Dialysis: Yes - ENDOCRINE/METABOLIC Hx Endocrine Disorders: No - HEMATOLOGICAL/ONCOLOGICAL Hx Blood Disorders: Yes Hx Anemia: Yes - INTEGUMENTARY Hx Dermatological Problems: No - MUSCULOSKELETAL/RHEUMATOLOGICAL Hx Musculoskeletal Disorders: No - GASTROINTESTINAL Hx Gastrointestinal Disorders: Yes (Peritonitis) - GENITOURINARY/GYNECOLOGICAL Hx Genitourinary Disorders: No - PSYCHIATRIC Hx Psychophysiologic Disorder: Yes Hx Anxiety: Yes Hx Depression: Yes Hx Substance Use: No - SURGICAL HISTORY Hx Vascular Surgery: Yes (AV fistula ) Other/Comment: Peritoneal dialysis cath insertion and removal - ANESTHESIA Hx Anesthesia: Yes Hx Anesthesia Reactions: No Hx Malignant Hyperthermia: No Meds Allergies/Adverse Reactions: Allergies Allergy/AdvReac Type Severity Reaction Status Date / Time No Known Allergies Allergy Verified 03/17/18 23:54 Physical Exam - Constitutional Appears: Non-toxic, No Acute Distress - Head Exam Head Exam: ATRAUMATIC, NORMAL INSPECTION, NORMOCEPHALIC - Eye Exam Eye Exam: EOMI, Normal appearance, PERRL - ENT Exam ENT Exam: Mucous Membranes Dry - Neck Exam Neck exam: Positive for: Normal Inspection. Negative for: Tenderness - Respiratory Exam Respiratory Exam: Clear to Auscultation Bilateral, NORMAL BREATHING PATTERN. absent: Accessory Muscle Use, Rales, Rhonchi, Wheezes, Respiratory Distress - Cardiovascular Exam Cardiovascular Exam: Tachycardia, REGULAR RHYTHM, +S1, +S2. absent: Diastolic murmur, Gallop, Rubs, Systolic Murmur - GI/Abdominal Exam GI & Abdominal Exam: Normal Bowel Sounds, Soft, Tenderness (mild epigastric and LUQ tenderness to deep palpation). absent: Bruit, Distended, Guarding, Hernia, Organomegaly, Pulsatile Mass, Rigid - Extremities Exam Extremities exam: Positive for: normal capillary refill, normal inspection. Negative for: calf tenderness, pedal edema - Neurological Exam Neurological exam: Alert, Oriented x3 - Psychiatric Exam Psychiatric exam: Normal Affect, Normal Mood - Skin Skin Exam: Dry, Intact, Normal Color, Warm Results - Vital Signs Recent Vital Signs: Last Vital Signs Temp 98.9 F 03/18/18 00:00 Pulse 123 H 03/18/18 01:35 Resp 14 03/18/18 01:10 BP 238/143 H 03/18/18 01:35 Pulse Ox 98 03/18/18 01:10 - Labs Result Diagrams: 03/18/18 00:34 03/18/18 00:34 Labs: Laboratory Results - last 24 hr 03/18/18 03/18/18 03/18/18 00:34 00:34 00:34 WBC 18.9 H RBC 4.72 Hgb 14.4 Hct 42.4 MCV 89.8 MCH 30.5 MCHC 34.0 RDW 14.2 Plt Count 378 MPV 9.2 Sodium 143 Potassium 4.7 Chloride 103 Carbon Dioxide 18 L Anion Gap 26 H BUN 32 H Creatinine 3.7 H Est GFR ( Amer) 17 Est GFR (Non-Af Amer) 14 Random Glucose 139 H Calcium 10.8 H Total Bilirubin 0.7 AST 21 ALT 16 Alkaline Phosphatase 118 Total Protein 8.8 H Albumin 5.4 H Globulin 3.4 Albumin/Globulin Ratio 1.6 Lipase 71 Beta HCG, Quant < 2.39 Assessment & Plan - Assessment and Plan (Free Text) Assessment: 37 year old female with a past medical history of HTN, CHF, ESRD (on HD -), anxiety, depression, chronic abdominal pain, and nephrolithiasis, who presents with chronic abdominal pain and hypertensive crisis. Plan: Neuro * A&Ox3 * No neurological deficits, stable Cardio * Tachycardic * Hypertensive (239/141) likely due to medication noncompliance * ECG: sinus tachycardia @ 127 bpm with possible left atrial enlargement * CXR: pending * Labetalol 20 mg and 40 mg given in ED without response then drip started * Ordered STAT dose of other home medications (Clonidine 0.2 mg and amlodipine 10 mg) and will continue Respiratory * O2 sat 99% on RA * stable Renal * BUN/Cr: 32/3.7 * Nephrology consult (Dr. Barraza) - help appreciated * HD on Sat-Sat-Sat schedule Fluids, electrolytes, nutrition * Electrolytes WNL * Bicarb 18 * Calcium 10.8 * Started on NS @ 50 cc/h in ED * Nutrition: Heart healthy decaf, renal diet Infectious disease * Temp: 98.9 * WBC 18.9 - possibly reactive, doubt GI infection given chronic nature but cannot be ruled out * f/u blood cultures * Given flagyl and ceftriaxone in the ED Hematology * H&H and plts WNL * Stable GI * LFTs WNL * Lipase WNL * CT abdomen/pelvis: pending * Protonix 40 mg IV daily * Zofran 4 mg Q6H prn Endocrine * Blood sugar controlled - monitor Prophylaxis * GI: Protonix 40 mg IV daily * DVT: SCDs <Nahun Turcios N - Last Filed: 03/18/18 05:52> Results - Vital Signs Recent Vital Signs: Last Vital Signs Temp 98.4 F 03/18/18 04:56 Pulse 83 03/18/18 04:50 Resp 19 03/18/18 04:50 BP 169/101 H 03/18/18 04:45 Pulse Ox 95 03/18/18 04:50 - Labs Result Diagrams: 03/18/18 00:34 03/18/18 00:34
--- NOTE | 2018-03-18 03:46 | CT ---
EXAM: CT Abdomen and Pelvis Without Intravenous Contrast CLINICAL HISTORY: 37 years old, female; Pain; Abdominal pain TECHNIQUE: Axial computed tomography images of the abdomen and pelvis without intravenous contrast. All CT scans at this facility use one or more dose reduction techniques, viz.: automated exposure control; ma/kV adjustment per patient size (including targeted exams where dose is matched to indication; i.e. head); or iterative reconstruction technique. Coronal and sagittal reformatted images were created and reviewed. COMPARISON: No relevant prior studies available. FINDINGS: Limitations: Lack of intravenous contrast. Lung bases: Minimal atelectasis/scarring. Interlobular septal thickening. Mediastinum: Small hiatal hernia. ABDOMEN: Liver: Small calcification. Gallbladder and bile ducts: Cholecystectomy. No significant ductal dilation. Pancreas: Unremarkable. No ductal dilation. Spleen: No splenomegaly. Adrenals: Mild hypertrophy of adrenal glands. Kidneys and ureters: Mild atrophy of kidneys. Few small renal calculi. Too small to characterize lesion within LEFT kidney. No hydronephrosis. Stomach and bowel: Segmental areas of probable underdistention of sigmoid colon. No definite mural thickening. No obstruction. PELVIS: Appendix: Normal caliber. No inflammation. Bladder: Apparent mild bladder wall thickening. Incomplete distention, limiting evaluation. Incomplete distention, limiting evaluation. No stones. Reproductive: Lobulated uterus with periphery calcified fundal mass. 3.9 x 5.5 x 5.0 cm lobulated, septated hypodense lesion within LEFT adnexal region. ABDOMEN and PELVIS: Intraperitoneal space: No significant fluid collection. No free air. Bones/joints: Increased density of visualized bones. Multiple tiny lucencies throughout visualized bones. Mild degenerative changes of lower lumbar spine. No acute fracture. Soft tissues: Unremarkable. Vasculature: Minimal atherosclerotic disease. No aneurysm. Lymph nodes: No pathologically enlarged lymph nodes. IMPRESSION: 1. Left adnexal lesion. Recommend ultrasound. 2. Interlobular septal thickening, nonspecific. Clinical correlation is needed. 3. Mild cystitis vs underdistention. Correlate with urinalysis. 4. Increased density of visualized bones may represent renal osteodystrophy. Clinical correlation is needed. 5. Multiple lytic lesions within visualized bones, nonspecific. Metastases or multiple myeloma not excluded. 6. Incidental/non-acute findings are described above.
[2018-03-18 06:53] LABS: BASO # 0.04 K/mm3 (0.0-2.0); BASO % 0.3 % (0.0-3.0); GRAN # 11.08 (1.4-6.5); GRAN % 83.8 % (50.0-68.0); HEMOGLOBIN 12.8 g/dL (12.0-16.0); LYMPH # 1.5 (1.2-3.4); LYMPH % 11.4 % (22.0-35.0); MEAN CORPUSCULAR HEMOGLOBIN 30.2 pg (25.0-35.0); MEAN CORPUSCULAR HGB CONC 33.2 g/dl (31.0-37.0); MEAN PLATELET VOLUME 9.2 fl (7.0-11.0); MONO # 0.6 (0.1-0.6); MONO % 4.5 % (1.0-6.0); RBC 4.24 10^6/uL (3.5-6.1); RED CELL DISTRIBUTION WIDTH 14.2 % (11.5-14.5); WHITE BLOOD COUNT 13.2 10^3/ul (4.5-11.0)
[2018-03-18 07:40] LABS: ALB/GLOB RATIO 1.7 (1.1-1.8); ALBUMIN 4.3 g/dL (3.0-4.8); CALCIUM 9.8 mg/dL (8.4-10.5); TROPONIN I 0.15 ng/mL
--- NOTE | 2018-03-18 07:49 | RAD ---
HISTORY: epigastric pain COMPARISON: No prior. FINDINGS: LUNGS: No active pulmonary disease. PLEURA: No significant pleural effusion identified, no pneumothorax apparent. CARDIOVASCULAR: Mild vascular congestion OSSEOUS STRUCTURES: No significant abnormalities. VISUALIZED UPPER ABDOMEN: Normal. OTHER FINDINGS: None. IMPRESSION: Mild vascular congestion
[2018-03-18 10:38] LABS: HDL CHOLESTEROL 31 mg/dL (29-60)
[2018-03-18 10:50] LABS: LDL CHOLESTEROL 114 mg/dL (0-129)
--- NOTE | 2018-03-18 10:54 | CARD ---
APPROVED REPORT EKG Measurement Heart [id number] <Conclusion> Sinus tachycardia Possible Left atrial enlargement LVH by voltage PRWP Prolonged QTc
--- NOTE | 2018-03-18 12:27 | CP.PCM.CON ---
History of Present Illness - History of Present Illness History of Present Illness: 37 year old female with PMH of ESRD on HD, HTN, chronic CHF, anxiety, depression , chronic abdominal pain, history of nephrolithiasis came in to [facility] complaining of worsened abdominal pain for the past 2 days, with nausea but no vomiting and no diarrhea. She states that the abdominal pain is in the upper portion of the abdomen and it is exacerbated by food intake. She denies fever or chills, no headache or dizziness, no blurring of vision, no chest pain, no sore throat, no rhinorrhea or cough, no dysuria, no flank pain. In the ED, she was noted to have leukocytosis. Infectious diseases consult is requested to further evaluate and manage. Review of Systems - Review of Systems All systems: reviewed and no additional remarkable complaints except (as per HPI ) Past Patient History - Infectious Disease Hx of Infectious Diseases: None - Past Medical History & Family History Past Medical History?: Yes - Past Social History Smoking Status: Light Smoker < 10 Cigarettes Daily - CARDIAC Hx Heart Attack: Yes (Questionable per pt) - PULMONARY Hx Respiratory Disorders: No - NEUROLOGICAL Hx Neurological Disorder: No - HEENT Hx HEENT Problems: Yes Other/Comment: eyeglasses for reading - RENAL Hx Chronic Kidney Disease: Yes Hx Dialysis: Yes - ENDOCRINE/METABOLIC Hx Endocrine Disorders: No - HEMATOLOGICAL/ONCOLOGICAL Hx Blood Disorders: Yes Hx Anemia: Yes - INTEGUMENTARY Hx Dermatological Problems: No - MUSCULOSKELETAL/RHEUMATOLOGICAL Hx Musculoskeletal Disorders: No - GASTROINTESTINAL Hx Gastrointestinal Disorders: Yes (Peritonitis) - GENITOURINARY/GYNECOLOGICAL Hx Genitourinary Disorders: No - PSYCHIATRIC Hx Psychophysiologic Disorder: Yes Hx Anxiety: Yes Hx Depression: Yes Hx Substance Use: No - SURGICAL HISTORY Hx Vascular Surgery: Yes (AV fistula ) Other/Comment: Peritoneal dialysis cath insertion and removal - ANESTHESIA Hx Anesthesia: Yes Hx Anesthesia Reactions: No Hx Malignant Hyperthermia: No Meds Allergies/Adverse Reactions: Allergies Allergy/AdvReac Type Severity Reaction Status Date / Time No Known Allergies Allergy Verified 03/17/18 23:54 - Medications Medications: Current Medications Amlodipine Besylate (Norvasc) 10 mg PO DAILY [facility] Clonidine HCl (Catapres) 0.2 mg PO BID [facility] Ondansetron HCl (Zofran Inj) 4 mg IVP Q6H PRN PRN Reason: Nausea/Vomiting Pantoprazole Sodium (Protonix Inj) 40 mg IVP DAILY [facility] Physical Exam - Constitutional Appears: Chronically Ill - Head Exam Head Exam: NORMAL INSPECTION - ENT Exam ENT Exam: Mucous Membranes Moist - Neck Exam Neck exam: Negative for: Lymphadenopathy, Meningismus - Respiratory Exam Respiratory Exam: Decreased Breath Sounds - Cardiovascular Exam Cardiovascular Exam: +S1, +S2 - GI/Abdominal Exam GI & Abdominal Exam: Soft. absent: Tenderness Results - Vital Signs Recent Vital Signs: Last Vital Signs Temp 98.4 F 03/18/18 04:56 Pulse 66 03/18/18 05:58 Resp 13 03/18/18 05:41 BP 162/91 H 03/18/18 05:41 Pulse Ox 97 03/18/18 05:41 - Labs Result Diagrams: 03/18/18 06:00 03/18/18 06:00 Labs: Laboratory Results - last 24 hr 03/18/18 03/18/18 06:00 06:00 WBC 13.2 H D RBC 4.24 Hgb 12.8 Hct 38.6 MCV 91.0 MCH 30.2 MCHC 33.2 RDW 14.2 Plt Count 308 MPV 9.2 Gran % 83.8 H Lymph % (Auto) 11.4 L [place] % (Auto) 4.5 Eos % (Auto) 0.0 L Baso % (Auto) 0.3 Gran # 11.08 H Lymph # (Auto) 1.5 [place] # (Auto) 0.6 Eos # (Auto) 0.0 Baso # (Auto) 0.04 Sodium 141 Potassium 4.7 Chloride 105 Carbon Dioxide 20 L Anion Gap 20 BUN 34 H Creatinine 3.7 H Est GFR ( Amer) 17 Est GFR (Non-Af Amer) 14 Random Glucose 107 Calcium 9.8 Phosphorus 3.9 Magnesium 2.2 Total Bilirubin 0.4 AST 13 L D ALT 18 Alkaline Phosphatase 81 Lactate Dehydrogenase 349 Total Creatine Kinase 69 Troponin I 0.15 H* Total Protein 6.9 Albumin 4.3 Globulin 2.6 Albumin/Globulin Ratio 1.7 Assessment & Plan - Assessment and Plan (Free Text) Plan: Assessment Systemic Inflammatory response syndrome, R/O sepsis from intra-abdominal infection, R/O multiple myeloma in this patient with acute exacerbation of chronic abdominal pain ESRD on HD HTN chronic CHF anxiety depression chronic abdominal pain history of nephrolithiasis Plan Started patient on Zosyn pending blood, urine cx; CXR does not show infiltrates reviewed CT A/P which shows lytic lesions in the bone - follow up SPEP, UPEP will monitor clinically follow up HIV test
[2018-03-18] MEDS: Piperacillin/Tazobact 2.25gm 2.25 GM/100 ML BAG IVPB SCH ×2 (13:28→22:35)
--- NOTE | 2018-03-18 14:17 | CP.PCM.PN ---
Subjective - Date & Time of Evaluation Date of Evaluation: 03/18/18 Time of Evaluation: 07:05 - Subjective Subjective: Pt seen and examined. Reports no major complaints. Objective - Vital Signs/Intake and Output Vital Signs (last 24 hours): Temp Pulse Resp BP Pulse Ox 98.4 F 88 13 160/102 H 97 03/18/18 04:56 03/18/18 09:35 03/18/18 05:41 03/18/18 09:35 03/18/18 05:41 Intake and Output: 03/18/18 03/18/18 06:59 18:59 Intake Total 450 Output Total 0 Balance 450 - Medications Medications: Current Medications Amlodipine Besylate (Norvasc) 10 mg PO DAILY [facility] Last Admin: 03/18/18 09:35 Dose: 10 mg Aspirin (Aspirin Chewable) 81 mg PO DAILY [facility] Last Admin: 03/18/18 13:28 Dose: 81 mg Clonidine HCl (Catapres) 0.2 mg PO BID [facility] Last Admin: 03/18/18 09:35 Dose: 0.2 mg Docusate Sodium (Colace) 100 mg PO BID [facility] Piperacillin Sod/Tazobactam Sod (Zosyn 2.25 Gm In 0.9% 100 Ml) 2.25 gm in 100 mls @ 100 mls/hr IVPB Q8 [facility] PRN Reason: Protocol Stop: 03/25/18 14:01 Last Admin: 03/18/18 13:28 Dose: 100 mls/hr Ondansetron HCl (Zofran Inj) 4 mg IVP Q6H PRN PRN Reason: Nausea/Vomiting Pantoprazole Sodium (Protonix Inj) 40 mg IVP DAILY [facility] Last Admin: 03/18/18 09:35 Dose: 40 mg Polyethylene Glycol (Miralax) 17 gm PO BID [facility] Tramadol HCl (Ultram) 50 mg PO Q6 PRN PRN Reason: Pain, moderate (4-7) Last Admin: 03/18/18 11:38 Dose: 50 mg - Labs Labs: 03/18/18 06:00 03/18/18 06:00 - Constitutional Appears: Non-toxic, No Acute Distress - Head Exam Head Exam: NORMAL INSPECTION - Eye Exam Eye Exam: Normal appearance - ENT Exam ENT Exam: Mucous Membranes Moist - Neck Exam Neck Exam: Full ROM - Respiratory Exam Respiratory Exam: Clear to Ausculation Bilateral, NORMAL BREATHING PATTERN - Cardiovascular Exam Cardiovascular Exam: REGULAR RHYTHM, +S1, +S2 - GI/Abdominal Exam GI & Abdominal Exam: Soft, Normal Bowel Sounds - Extremities Exam Extremities Exam: Full ROM, Normal Inspection - Neurological Exam Neurological Exam: Alert, Awake, Oriented x3 Assessment and Plan - Assessment and Plan (Free Text) Assessment: 37 year old female with a past medical history of HTN, CHF, ESRD (on HD --), anxiety, depression, chronic abdominal pain, and nephrolithiasis, who presents to the ED with hypertensive emergency. Patient was on labetolol dirp, titrated off last night, currently on Norvasc, and Clonidine. Afebrile HD stable, comfortable in NAD, SBP 140-160s. Hypertensive urgency ESRD on HD HTN urgency Recommend: - supp o2 as needed - follow up cultures, UCx, BCx, procal, ID eval - BP control, resume home meds, goal map reduction by no more than 25% in 24hr - [facility] - lytic lesions, heme onc eval - Strap Cutting Machine Operator eval - GI ppx - DVT ppx - Stable transfer to telemetry
--- NOTE | 2018-03-18 14:47 | CP.PCM.CON ---
History of Present Illness - History of Present Illness History of Present Illness: Nephrology Consultation Note: Assessment: Stable severe uncontrolled HTN urgency, missed HD constipation b/l adrenal hypertrophy bone lytic lesions, adnexal lesion Hypertensive Chronic Kidney Disease (I12.0) End stage renal disease (N18.6) dependence on hemodialysis (Z99.2) (MWF) via AVG Anemia (D64.9), Hyperphosphatemia (E83.39), Secondary Hyperparathyroidism (E21.1 ), HTN (I12.0) Plan: Will plan for HD today as she missed yesterday. Will plan for dialysis tomorrow as per MWF schedule. Continue with Nephrovite 1 tab/day. PRBC as needed for anemia. Not on GOYO with dialysis as last Hb 12.8 Continue with phos binders, check phos level BP control with meds as ordered. Patient not on RAAS nisha consider to add. check renin/vic and metanephrines, renal artery doppler for sec HTN work up. Outpt Dexamethasone suppression test for hypercortisolism eval. Glycemic control, Dialysis consistent diet Further work up/management as per primary team Dose meds/antibiotics (if needed) for ESRD status. Avoid fleets enema/magnesium based laxatives. heme/onc eval for lytic lesions and INFORMATICS MANAGER eval for adnexal lesion SPEP/KIRSTEN and serum free light chain assay ordered. Thanks for allowing me to participate in care of your patient. Will follow patient with you. Please call if any Qs. d/w Team Dr Pramod Bobo Office: [phone] Chief Complaint: pain abdomen, nausea/vomiting reason for consult; ESRD management HPI: Pt is a 37 F with hx of ESRD on hemodialysis (MWF) via left AVG @ [facility] with Dr Seth for last 1 year (was also on PD in between but switched to HD due to recurrent peritonitis) , last dialysis saturday, chronic anemia, hyperphosphatemia, secondary hyperparathyroidism, hypertension presented with complaints of pain abdomen and nausea/vomitting, found to have HTN urgency and admitted to ICU Renal consult requested for ESRD management. Pt feels better now. SOB better. c/o constipation ROS: Cardiovascular: No chest pain. Pulmonary: No shortness of breath now Gastrointestinal: denies abdominal pain No nausea. No vomiting. has constipation Genitourinary: No pain while urinating. Denies blood in urine. All other negative except as mentioned in HPI Physical Examination: General Appearance: Comfortable, in no acute respiratory distress, co-operative . Vitals reviewed and noted as below Head; Atraumatic, normocephalic ENT: no ulcers no thrush. Tongue is midline. Oropharynx: no rash or ulcers. EYES: Pupils are equal, round and reactive to light accommodation. Eye muscles and extraocular movement intact. Sclera is anicteric. Neck; supple no lymphadenopathy, no thyromegaly or bruit Lungs: Normal respiratory rate/effort. Breath sounds bilateral equal and clear Heart: Normal rate. s1s2 normal. No rub or gallop. Extremities: no edema. No varicose veins Neurological: Patient is alert, awake and oriented to person, place and time. No focal deficit. Strength bilateral appropriate and equal Skin: Warm and dry. Normal turgor. No rash. Palpitation: Normal elasticity for age Abdomen: Abdomen is soft. Bowel sounds +. There is no abdominal tenderness, no guarding/rigidity or organomegaly Psych: normal insight and normal affect/mood MSK: no joint tenderness or swelling. Digits and nails normal, no deformity : kidney or bladder not palpable Access: left AVG Labs/imaging reviewed. Past medical history, past surgical history, family history, social history, allergy reviewed and noted as below Family Hx: mother was on HD due to DM. rest Non contributory Past Patient History - Infectious Disease Hx of Infectious Diseases: None - Past Medical History & Family History Past Medical History?: Yes - Past Social History Smoking Status: Light Smoker < 10 Cigarettes Daily - CARDIAC Hx Heart Attack: Yes (Questionable per pt) - PULMONARY Hx Respiratory Disorders: No - NEUROLOGICAL Hx Neurological Disorder: No - HEENT Hx HEENT Problems: Yes Other/Comment: eyeglasses for reading - RENAL Hx Chronic Kidney Disease: Yes Hx Dialysis: Yes - ENDOCRINE/METABOLIC Hx Endocrine Disorders: No - HEMATOLOGICAL/ONCOLOGICAL Hx Blood Disorders: Yes Hx Anemia: Yes - INTEGUMENTARY Hx Dermatological Problems: No - MUSCULOSKELETAL/RHEUMATOLOGICAL Hx Musculoskeletal Disorders: No - GASTROINTESTINAL Hx Gastrointestinal Disorders: Yes (Peritonitis) - GENITOURINARY/GYNECOLOGICAL Hx Genitourinary Disorders: No - PSYCHIATRIC Hx Psychophysiologic Disorder: Yes Hx Anxiety: Yes Hx Depression: Yes Hx Substance Use: No - SURGICAL HISTORY Hx Vascular Surgery: Yes (AV fistula ) Other/Comment: Peritoneal dialysis cath insertion and removal - ANESTHESIA Hx Anesthesia: Yes Hx Anesthesia Reactions: No Hx Malignant Hyperthermia: No Meds Allergies/Adverse Reactions: Allergies Allergy/AdvReac Type Severity Reaction Status Date / Time No Known Allergies Allergy Verified 03/17/18 23:54 - Medications Medications: Current Medications Amlodipine Besylate (Norvasc) 10 mg PO DAILY [facility] Last Admin: 03/18/18 09:35 Dose: 10 mg Aspirin (Aspirin Chewable) 81 mg PO DAILY [facility] Last Admin: 03/18/18 13:28 Dose: 81 mg Clonidine HCl (Catapres) 0.2 mg PO BID [facility] Last Admin: 03/18/18 09:35 Dose: 0.2 mg Docusate Sodium (Colace) 100 mg PO BID [facility] Piperacillin Sod/Tazobactam Sod (Zosyn 2.25 Gm In 0.9% 100 Ml) 2.25 gm in 100 mls @ 100 mls/hr IVPB Q8 [facility] PRN Reason: Protocol Stop: 03/25/18 14:01 Last Admin: 03/18/18 13:28 Dose: 100 mls/hr Ondansetron HCl (Zofran Inj) 4 mg IVP Q6H PRN PRN Reason: Nausea/Vomiting Pantoprazole Sodium (Protonix Inj) 40 mg IVP DAILY [facility] Last Admin: 03/18/18 09:35 Dose: 40 mg Polyethylene Glycol (Miralax) 17 gm PO BID [facility] Tramadol HCl (Ultram) 50 mg PO BID PRN PRN Reason: Pain, moderate (4-7) Results - Vital Signs Recent Vital Signs: Last Vital Signs Temp 98.4 F 03/18/18 04:56 Pulse 88 03/18/18 09:35 Resp 13 03/18/18 05:41 BP 160/102 H 03/18/18 09:35 Pulse Ox 97 03/18/18 05:41 - Labs Result Diagrams: 03/18/18 06:00 03/18/18 06:00 Labs: Laboratory Results - last 24 hr 03/18/18 03/18/18 03/18/18 06:00 06:00 06:00 WBC 13.2 H D RBC 4.24 Hgb 12.8 Hct 38.6 MCV 91.0 MCH 30.2 MCHC 33.2 RDW 14.2 Plt Count 308 MPV 9.2 Gran % 83.8 H Lymph % (Auto) 11.4 L [place] % (Auto) 4.5 Eos % (Auto) 0.0 L Baso % (Auto) 0.3 Gran # 11.08 H Lymph # (Auto) 1.5 [place] # (Auto) 0.6 Eos # (Auto) 0.0 Baso # (Auto) 0.04 Sodium 141 Potassium 4.7 Chloride 105 Carbon Dioxide 20 L Anion Gap 20 BUN 34 H Creatinine 3.7 H Est GFR ( Amer) 17 Est GFR (Non-Af Amer) 14 Random Glucose 107 Calcium 9.8 Phosphorus 3.9 Magnesium 2.2 Total Bilirubin 0.4 AST 13 L D ALT 18 Alkaline Phosphatase 81 Lactate Dehydrogenase 349 Total Creatine Kinase 69 Troponin I 0.15 H* Total Protein 6.9 Albumin 4.3 Globulin 2.6 Albumin/Globulin Ratio 1.7 Triglycerides 140 Cholesterol 182 LDL Cholesterol Direct 114 HDL Cholesterol 31 03/18/18 12:15 WBC RBC Hgb Hct MCV MCH MCHC RDW Plt Count MPV Gran % Lymph % (Auto) [place] % (Auto) Eos % (Auto) Baso % (Auto) Gran # Lymph # (Auto) [place] # (Auto) Eos # (Auto) Baso # (Auto) Sodium Potassium Chloride Carbon Dioxide Anion Gap BUN Creatinine Est GFR ( Amer) Est GFR (Non-Af Amer) Random Glucose Calcium Phosphorus Magnesium Total Bilirubin AST ALT Alkaline Phosphatase Lactate Dehydrogenase Total Creatine Kinase Troponin I 0.10 D Total Protein Albumin Globulin Albumin/Globulin Ratio Triglycerides Cholesterol LDL Cholesterol Direct HDL Cholesterol
--- NOTE | 2018-03-18 15:28 | US ---
HISTORY: Left adnexal lesion COMPARISON: CT abdomen and pelvis performed earlier the same day. TECHNIQUE: Transabdominal pelvic ultrasound was performed. FINDINGS: UTERUS: Measures 8.0 x 4.0 x 5.4 cm. Anteverted and normal in size. There is a 2.7 x 3.4 x 2.8 cm anterior wall intramural fibroid in the midbody of the uterus. ENDOMETRIUM: Measures 7.0 mm in diameter. The central endometrial echo complex is normal in appearance. CERVIX: No cervical abnormality identified. RIGHT OVARY: Measures 3.6 x 2.3 x 4.2 cm. No solid mass. Normal flow. LEFT OVARY: Measures 3.6 x 2.2 x 3.8 cm. No solid mass. Normal flow. There is a 3.7 x 2.2 x 3.5 cm simple cyst. FREE FLUID: No significant free fluid noted. OTHER FINDINGS: None. IMPRESSION: 1. 3.7 cm simple cyst in the left ovary. No evidence for torsion. Follow-up ultrasound in 3-6 month interval is recommended to assess stability/resolution. 2. 2.7 x 3.4 x 2.8 cm anterior wall intramural fibroid in the midbody of the uterus.
--- NOTE | 2018-03-18 16:24 | US ---
PROCEDURE: Bilateral renal artery duplex ultrasound. CLINICAL HISTORY: Renal artery stenosis. Uncontrolled hypertension. Evaluate for renovascular hypertension. PHYSICIAN(S): Yemi Gabriel M.D. TECHNIQUE: Duplex sonography with color-flow Doppler was used to evaluate the visualized segments of the main renal arteries. The patient was evaluated in a fasting state. Imaging in a supine and decubitus position was performed. Limited evaluation of the arcuate waveforms and resistive indices were performed. FINDINGS: The overall quality of the study is adequate. The renal parenchyma is normal in thickness but is very echogenic. There is poor cortical- medullary differentiation. The right kidney measures 9.4cm in length and the left kidney measures 9.8cm in length. No solid renal masses, abnormal calcifications, or hydronephrosis is seen. The main right renal artery is well visualized from the aorta to the hilum. The peak systolic velocity in the right main renal artery is 92 cm/sec. This is consistent with a 0 to 49% stenosis in the main right renal artery. The arcuate waveforms are normal. The resistive index is normal. The main left renal artery is also well seen from its origin to the renal hilum. The peak systolic velocity in the main left renal artery is 79cm/sec. This corresponds to a 0 to 49% stenosis in the main left renal artery. The arcuate waveforms and resistive indices are normal. IMPRESSION: 1. The main renal arteries are well visualized. 2. No sonographically significant stenosis is identified. 3. The renal parenchyma is echogenic. No evidence of solid mass or hydronephrosis is seen.
--- NOTE | 2018-03-18 16:28 | CP.PCM.CON ---
History of Present Illness - History of Present Illness History of Present Illness: 37 year old female with a history of CHF, HTN, ESRD on HD, presenting with abdominal pain, admitted with hypertensive urgency, found to have an adnexal mass with lytic bone lesions. The patient notes to intermittent but progressive abdominal pain associated with nausea. Her pain is worse when eating. She denies fevers and chills. She does note to a 10 pound weightloss in the last month. A CT A/P revealed multiple lytic lesions and a left adnexal mass. The patient also complains of a right sided breast mass. Past medical history: HTN, ESRD on HD, CHF Past surgical history: denies Family history: Denies hematologic and oncologic problems Social history: 5 cigs daily x 20 years, denies alcohol, and illicit drug use Allergies: NKA Review of systems: All remaining review of systems including HEENT, cardiovascular, respiratory, gastrointestinal, genitourinary musculoskeletal, dermatologic, neurologic, and psychiatric are negative unless mentioned in the HPI. Past Patient History - Infectious Disease Hx of Infectious Diseases: None - Past Medical History & Family History Past Medical History?: Yes - Past Social History Smoking Status: Light Smoker < 10 Cigarettes Daily - CARDIAC Hx Heart Attack: Yes (Questionable per pt) - PULMONARY Hx Respiratory Disorders: No - NEUROLOGICAL Hx Neurological Disorder: No - HEENT Hx HEENT Problems: Yes Other/Comment: eyeglasses for reading - RENAL Hx Chronic Kidney Disease: Yes Hx Dialysis: Yes - ENDOCRINE/METABOLIC Hx Endocrine Disorders: No - HEMATOLOGICAL/ONCOLOGICAL Hx Blood Disorders: Yes Hx Anemia: Yes - INTEGUMENTARY Hx Dermatological Problems: No - MUSCULOSKELETAL/RHEUMATOLOGICAL Hx Musculoskeletal Disorders: No - GASTROINTESTINAL Hx Gastrointestinal Disorders: Yes (Peritonitis) - GENITOURINARY/GYNECOLOGICAL Hx Genitourinary Disorders: No - PSYCHIATRIC Hx Psychophysiologic Disorder: Yes Hx Anxiety: Yes Hx Depression: Yes Hx Substance Use: No - SURGICAL HISTORY Hx Vascular Surgery: Yes (AV fistula ) Other/Comment: Peritoneal dialysis cath insertion and removal - ANESTHESIA Hx Anesthesia: Yes Hx Anesthesia Reactions: No Hx Malignant Hyperthermia: No Meds Allergies/Adverse Reactions: Allergies Allergy/AdvReac Type Severity Reaction Status Date / Time No Known Allergies Allergy Verified 03/17/18 23:54 - Medications Medications: Current Medications Amlodipine Besylate (Norvasc) 10 mg PO DAILY [facility] Last Admin: 03/18/18 09:35 Dose: 10 mg Aspirin (Aspirin Chewable) 81 mg PO DAILY [facility] Last Admin: 03/18/18 13:28 Dose: 81 mg Clonidine HCl (Catapres) 0.2 mg PO BID [facility] Last Admin: 03/18/18 09:35 Dose: 0.2 mg Docusate Sodium (Colace) 100 mg PO BID [facility] Heparin Sodium (Porcine) (Heparin) 2,000 units IVP MWF [facility] PRN Reason: Protocol Piperacillin Sod/Tazobactam Sod (Zosyn 2.25 Gm In 0.9% 100 Ml) 2.25 gm in 100 mls @ 100 mls/hr IVPB Q8 [facility] PRN Reason: Protocol Stop: 03/25/18 14:01 Last Admin: 03/18/18 13:28 Dose: 100 mls/hr Ondansetron HCl (Zofran Inj) 4 mg IVP Q6H PRN PRN Reason: Nausea/Vomiting Pantoprazole Sodium (Protonix Inj) 40 mg IVP DAILY [facility] Last Admin: 03/18/18 09:35 Dose: 40 mg Polyethylene Glycol (Miralax) 17 gm PO BID [facility] Tramadol HCl (Ultram) 50 mg PO BID PRN PRN Reason: Pain, moderate (4-7) Physical Exam - Head Exam Head Exam: ATRAUMATIC - Eye Exam Eye Exam: Normal appearance - ENT Exam ENT Exam: Mucous Membranes Dry - Respiratory Exam Respiratory Exam: NORMAL BREATHING PATTERN - Cardiovascular Exam Cardiovascular Exam: +S1, +S2 - GI/Abdominal Exam GI & Abdominal Exam: Normal Bowel Sounds - Extremities Exam Extremities exam: Positive for: pedal edema - Neurological Exam Neurological exam: Oriented x3 - Psychiatric Exam Psychiatric exam: Normal Affect, Normal Mood - Skin Skin Exam: Warm Results - Vital Signs Recent Vital Signs: Last Vital Signs Temp 98.4 F 03/18/18 04:56 Pulse 67 03/18/18 14:00 Resp 13 03/18/18 05:41 BP 160/102 H 03/18/18 09:35 Pulse Ox 97 03/18/18 05:41 - Labs Result Diagrams: 03/18/18 06:00 03/18/18 06:00 Labs: Laboratory Results - last 24 hr 03/18/18 03/18/18 03/18/18 06:00 06:00 06:00 WBC 13.2 H D RBC 4.24 Hgb 12.8 Hct 38.6 MCV 91.0 MCH 30.2 MCHC 33.2 RDW 14.2 Plt Count 308 MPV 9.2 Gran % 83.8 H Lymph % (Auto) 11.4 L [place] % (Auto) 4.5 Eos % (Auto) 0.0 L Baso % (Auto) 0.3 Gran # 11.08 H Lymph # (Auto) 1.5 [place] # (Auto) 0.6 Eos # (Auto) 0.0 Baso # (Auto) 0.04 Sodium 141 Potassium 4.7 Chloride 105 Carbon Dioxide 20 L Anion Gap 20 BUN 34 H Creatinine 3.7 H Est GFR ( Amer) 17 Est GFR (Non-Af Amer) 14 Random Glucose 107 Calcium 9.8 Phosphorus 3.9 Magnesium 2.2 Total Bilirubin 0.4 AST 13 L D ALT 18 Alkaline Phosphatase 81 Lactate Dehydrogenase 349 Total Creatine Kinase 69 Troponin I 0.15 H* Total Protein 6.9 Albumin 4.3 Globulin 2.6 Albumin/Globulin Ratio 1.7 Triglycerides 140 Cholesterol 182 LDL Cholesterol Direct 114 HDL Cholesterol 31 03/18/18 12:15 WBC RBC Hgb Hct MCV MCH MCHC RDW Plt Count MPV Gran % Lymph % (Auto) [place] % (Auto) Eos % (Auto) Baso % (Auto) Gran # Lymph # (Auto) [place] # (Auto) Eos # (Auto) Baso # (Auto) Sodium Potassium Chloride Carbon Dioxide Anion Gap BUN Creatinine Est GFR ( Amer) Est GFR (Non-Af Amer) Random Glucose Calcium Phosphorus Magnesium Total Bilirubin AST ALT Alkaline Phosphatase Lactate Dehydrogenase Total Creatine Kinase Troponin I 0.10 D Total Protein Albumin Globulin Albumin/Globulin Ratio Triglycerides Cholesterol LDL Cholesterol Direct HDL Cholesterol Assessment & Plan (1) Lytic bone lesions on xray Assessment and Plan: monoclonal protein w/u sent will send skeletal survey to further evaluate ? malignancy Status: Acute (2) Adnexal mass Assessment and Plan: recommend pelvic ultrasound for further evaluation will send CA-125 Status: Acute (3) Breast mass Assessment and Plan: pt reports to right sided mass recommend mammogram and breast ultrasound Status: Acute (4) Leukocytosis Assessment and Plan: improving with antibiotics Thank you for this interesting consult. Status: Acute
[2018-03-18] MEDS ORDERED: Labetalol 5 mg/ml Inj 20ML IV PRN (17:20)
[2018-03-18] MEDS ORDERED: POLYETHYLENE GLYCOL 3350 17 GM/Dose PACKET PO SCH (18:00)
--- NOTE | 2018-03-18 18:30 | CARD ---
APPROVED REPORT EXAM: Two-dimensional and M-mode echocardiogram with Doppler and color Doppler. INDICATION 2D DIMENSIONS Left Atrium (2D)3.6 (1.6-4.0cm)IVSd1.4 (0.7-1.1cm) LVDd5.1 (3.9-5.9cm)PWd1.2 (0.7-1.1cm) LVDs3.3 (2.5-4.0cm)FS (%) 35.2 % LVEF (%)64.3 (>50%) M-Mode DIMENSIONS Aortic Root3.30 (2.2-3.7cm)Aortic Cusp Exc.1.90 (1.5-2.0cm) Aortic Valve AoV Peak Axmsgkub647.0cm/Dariana Peak GR.13mmHg Mitral Valve MV E Uevymhei038.0cm/sMV A Crlferem15.0cm/sE/A ratio1.7 TDI Lateral E' Peak V7.21cm/sMedial E' Peak V6.43cm/sE/Lateral E'17.6 E/Medial E'19.8 Tricuspid Valve TR Peak Nvilkyqo783su/sRAP [id number] Peak Gr.45mmHg [id number] LEFT VENTRICLE The left ventricle is normal size. There is mild to moderate concentric left ventricular hypertrophy. The left ventricular function is normal. The left ventricular ejection fraction is within the normal range. There is normal LV segmental wall motion. RIGHT VENTRICLE The right ventricle is normal size. The right ventricular systolic function is normal. ATRIA The left atrium size is normal. The right atrium size is normal. The interatrial septum is intact with no evidence for an atrial septal defect. AORTIC VALVE The aortic valve is normal in structure. There is trace aortic regurgitation. There is no aortic valvular stenosis. MITRAL VALVE The mitral valve is normal in structure. Mitral regurgitation is mild. TRICUSPID VALVE The tricuspid valve is normal in structure. There is moderate tricuspid regurgitation. PULMONIC VALVE The pulmonary valve is normal in structure. GREAT VESSELS The aortic root is normal in size. The IVC is normal in size and collapses >50% with inspiration. PERICARDIAL EFFUSION There is no pleural effusion. There is no pericardial effusion. <Conclusion> Normal chamber size. Mild to moderate concentric LVH. Normal LV systolic function. Mild mitral regurgitation. Moderate tricuspid regurgitation.
[2018-03-19] MEDS: Piperacillin/Tazobact 2.25gm 2.25 GM/100 ML BAG IVPB SCH ×3 (06:11→22:51)
[2018-03-19 07:13] LABS: BASO # 0.04 K/mm3 (0.0-2.0); BASO % 0.5 % (0.0-3.0); EOS # 0.2 (0.0-0.7); EOS % 2.9 % (1.5-5.0); GRAN # 5.07 (1.4-6.5); GRAN % 64.2 % (50.0-68.0); HEMOGLOBIN 12.2 g/dL (12.0-16.0); LYMPH % 25.9 % (22.0-35.0); MEAN CORPUSCULAR HEMOGLOBIN 29.8 pg (25.0-35.0); MEAN CORPUSCULAR HGB CONC 33.2 g/dl (31.0-37.0); MEAN PLATELET VOLUME 9.4 fl (7.0-11.0); MONO # 0.5 (0.1-0.6); MONO % 6.5 % (1.0-6.0); RBC 4.09 10^6/uL (3.5-6.1); WHITE BLOOD COUNT 7.9 10^3/ul (4.5-11.0)
[2018-03-19 07:31] LABS: ALB/GLOB RATIO 1.5 (1.1-1.8); ALBUMIN 4.1 g/dL (3.0-4.8); CALCIUM 9.5 mg/dL (8.4-10.5)
--- NOTE | 2018-03-19 09:51 | RAD ---
PROCEDURE: SKELETAL SURVEY HISTORY: lytic lesions by CT COMPARISON: Abdomen and Pelvis CT examination 03/18/2018. TECHNIQUE: Multiple anterior-posterior radiographs of the axial and proximal appendicular skeleton and submitted for interpretation including the skull. FINDINGS: No suspicious destructive bony lesions appreciated in numerous axial and appendicular radiographs throughout the skeleton. IMPRESSION: Unremarkable bone survey. Numerous tiny lucent defects are identified in the bony elements of the abdomen pelvis CT examination not only throughout multiple vertebral bodies of the inferior thoracolumbar spine but also the sacrum and iliac bones. Whole-body nuclear bone scan may be helpful for added evaluation would be more sensitive than skeletal survey or possibly hematopoetic evaluation.
[2018-03-19] MEDS ORDERED: POLYETHYLENE GLYCOL 3350 17 GM/Dose PACKET PO SCH (10:00)
[2018-03-19] MEDS: POLYETHYLENE GLYCOL 3350 17 GM/Dose PACKET PO SCH ×2 (12:48→18:18)
[2018-03-19 12:50] LABS: ALBUMIN (PEP) 4.8 g/dL (3.8-4.8); ALPHA-1-GLOBULIN (PEP) 0.4 g/dL (0.2-0.3)
--- NOTE | 2018-03-19 13:48 | CP.PCM.PN ---
<Gunner Arce - Last Filed: 03/19/18 13:41> Subjective - Date & Time of Evaluation Date of Evaluation: 03/19/18 Time of Evaluation: 13:41 - Subjective Subjective: Patient seen and evaluated this AM. No acute events overnight. Patient denies chest pain, shortness of breath, diarrhea, nausea, vomiting. Patient stable. Objective - Vital Signs/Intake and Output Vital Signs (last 24 hours): Temp Pulse Resp BP Pulse Ox 98 F 101 H 18 177/97 H 98 03/19/18 12:00 03/19/18 12:00 03/19/18 12:00 03/19/18 12:00 03/19/18 06:00 Intake and Output: 03/19/18 03/19/18 06:59 18:59 Intake Total 440 Output Total 200 Balance 240 - Medications Medications: Current Medications Alprazolam (Xanax) 0.5 mg PO BID PRN; Protocol PRN Reason: Anxiety Amlodipine Besylate (Norvasc) 10 mg PO DAILY [facility] Last Admin: 03/18/18 09:35 Dose: 10 mg Aspirin (Aspirin Chewable) 81 mg PO DAILY [facility] Last Admin: 03/18/18 13:28 Dose: 81 mg Clonidine HCl (Catapres) 0.2 mg PO BID [facility] Last Admin: 03/18/18 09:35 Dose: 0.2 mg Docusate Sodium (Colace) 100 mg PO BID [facility] Last Admin: 03/19/18 09:08 Dose: 100 mg Heparin Sodium (Porcine) (Heparin) 2,000 units IVP MWF [facility] PRN Reason: Protocol Piperacillin Sod/Tazobactam Sod (Zosyn 2.25 Gm In 0.9% 100 Ml) 2.25 gm in 100 mls @ 100 mls/hr IVPB Q8 [facility] PRN Reason: Protocol Stop: 03/25/18 14:01 Last Admin: 03/19/18 06:11 Dose: 100 mls/hr Labetalol HCl (Trandate) 20 mg IV BID PRN PRN Reason: Systolic Blood Pressure Ondansetron HCl (Zofran Inj) 4 mg IVP Q6H PRN PRN Reason: Nausea/Vomiting Pantoprazole Sodium (Protonix Inj) 40 mg IVP DAILY [facility] Last Admin: 03/18/18 09:35 Dose: 40 mg Polyethylene Glycol (Miralax) 17 gm PO BID [facility] Last Admin: 03/19/18 12:48 Dose: Not Given Tramadol HCl (Ultram) 50 mg PO BID PRN PRN Reason: Pain, moderate (4-7) Last Admin: 03/19/18 06:11 Dose: 50 mg Zolpidem Tartrate (Ambien) 5 mg PO HS PRN; Protocol PRN Reason: Insomnia - Labs Labs: 03/19/18 06:30 03/19/18 06:30 - Constitutional Appears: No Acute Distress - Head Exam Head Exam: ATRAUMATIC, NORMAL INSPECTION, NORMOCEPHALIC - Eye Exam Eye Exam: EOMI, PERRL - ENT Exam ENT Exam: Mucous Membranes Moist - Respiratory Exam Respiratory Exam: Clear to Ausculation Bilateral, NORMAL BREATHING PATTERN. absent: Rhonchi, Wheezes - Cardiovascular Exam Cardiovascular Exam: +S1, +S2 - GI/Abdominal Exam GI & Abdominal Exam: Soft, Tenderness, Normal Bowel Sounds - Extremities Exam Extremities Exam: absent: Pedal Edema, Tenderness - Neurological Exam Neurological Exam: Alert, Awake, Normal Gait, Oriented x3 Neuro motor strength exam: Left Upper Extremity: 5, Right Upper Extremity: 5, Left Lower Extremity: 5, Right Lower Extremity: 5 - Psychiatric Exam Psychiatric exam: Normal Affect, Normal Mood - Skin Skin Exam: Dry, Warm Assessment and Plan - Assessment and Plan (Free Text) Assessment: 37 year old female with a past medical history of HTN, CHF, ESRD (on HD --), anxiety, depression, chronic abdominal pain, and nephrolithiasis, who presented to the ED with hypertensive emergency. Patient was placed on labetolol gtt and titrated off in past 24 hours. Patient BP stable on norvasc, clonidine and labatelol prn. Patient currently undergoing work up for etiology of lytic bone lesion and adrenal mass findings on imaging. Plan: Hypertensive Urgency - resolved - Initial elevation of BP - Initial elevation of troponin with downtrending, initial elevation likely secondary to renal insufficiency in setting of elevated BP - Patient off labatelol gtt - Continue current BP med regiment - BP stable, cont to monitor - Follow up further workup for HTN - Aldosterone level f/u Lytic bone lesions on CT imaging - Abd CT showing lytic bone lesions - Unknown etiology - Heme/onc consulted, f/u recs and testing - SPEP, UPEP, free light chains - CA 125 - Pelvic US: simple cyst of 3.7cm on Left ovary, recommend follow up within 3 -6 months, Fibroid at midbody of uterus - Recommending mammogram and breast US SIRS - resolved - ID consulted appreciate recs, f/u recs per note - r/o sepsis from intra-abdominal ifnfection, multiple myeloma in the patient with acute exacerbation of chronic abdominal pain - Started patient on Zosyn - f/u blood, urine clx - CXR negative for infiltrates - f/u SPEP, UPEP - HIV test negative - leukocytosis improved with antibiotics ESRD on HD - Nephrology consulted and following, recs per note - Felecia peter for BP - Check renin/vic and metanephrines - Renal artery doppler: negative - Outpatient dexamethasone suppresion test for hypercortisolism eval - Glycemic control - Continue nephrovite 1 tab/day, phos binders, follow up phos levels - HD MWF, HD today - Does not produce urine - Cr function Pelvic mass - Pelvic US showing simple cyst of 3.7cm on Left ovary, recommend follow up within 3-6 months, Fibroid at midbody of uterus - Supervisor Weaving consulted, recommending outpatient US f/u in 3 months HTN - Currently stable - Amlodipine, Clonidine, Labetolol prn - Continue to monitor GI/DVT ppx - Protonix - SCD Case and plan discussed with attending <Migdalia Chamberlain - Last Filed: 03/20/18 07:44> Objective - Vital Signs/Intake and Output Vital Signs (last 24 hours): Temp Pulse Resp BP Pulse Ox 98.4 F 72 18 129/86 96 03/20/18 05:58 03/20/18 05:58 03/20/18 05:58 03/20/18 05:58 03/20/18 05:58 Intake and Output: 03/20/18 03/20/18 06:59 18:59 Intake Total 360 Balance 360 - Medications Medications: Current Medications Alprazolam (Xanax) 0.5 mg PO BID PRN; Protocol PRN Reason: Anxiety Last Admin: 03/19/18 18:18 Dose: 0.5 mg Amlodipine Besylate (Norvasc) 10 mg PO DAILY [facility] Last Admin: 03/19/18 18:33 Dose: 10 mg Aspirin (Aspirin Chewable) 81 mg PO DAILY [facility] Last Admin: 03/19/18 18:19 Dose: 81 mg Clonidine HCl (Catapres) 0.2 mg PO Q8 [facility] Last Admin: 03/20/18 05:52 Dose: 0.2 mg Docusate Sodium (Colace) 100 mg PO BID [facility] Last Admin: 03/19/18 18:19 Dose: 100 mg Heparin Sodium (Porcine) (Heparin) 2,000 units IVP MWF [facility] PRN Reason: Protocol Last Admin: 03/19/18 10:30 Dose: Not Given Piperacillin Sod/Tazobactam Sod (Zosyn 2.25 Gm In 0.9% 100 Ml) 2.25 gm in 100 mls @ 100 mls/hr IVPB Q8 [facility] PRN Reason: Protocol Stop: 03/25/18 14:01 Last Admin: 03/20/18 05:53 Dose: 100 mls/hr Labetalol HCl (Trandate) 20 mg IV BID PRN PRN Reason: Systolic Blood Pressure Losartan Potassium (Cozaar) 100 mg PO QPM [facility] Last Admin: 03/19/18 18:18 Dose: 100 mg Ondansetron HCl (Zofran Inj) 4 mg IVP Q6H PRN PRN Reason: Nausea/Vomiting Pantoprazole Sodium (Protonix Inj) 40 mg IVP DAILY [facility] Last Admin: 03/19/18 18:17 Dose: 40 mg Polyethylene Glycol (Miralax) 17 gm PO BID [facility] Last Admin: 03/19/18 18:18 Dose: 17 gm Tramadol HCl (Ultram) 50 mg PO BID PRN PRN Reason: Pain, moderate (4-7) Last Admin: 03/19/18 18:32 Dose: 50 mg Zolpidem Tartrate (Ambien) 5 mg PO HS PRN; Protocol PRN Reason: Insomnia Last Admin: 03/20/18 01:17 Dose: 5 mg - Labs Labs: 03/19/18 06:30 03/19/18 06:30 Attending/Attestation - Attestation I have personally seen and examined this patient.: Yes I have fully participated in the care of the patient.: Yes I have reviewed all pertinent clinical information, including history, physical exam and plan: Yes Notes (Text): 03/19/18 37 year old female with past medical history of hypertension, CHF, ESRD, anxiety , depression and chronic abdominal pain who presented with hypertensive urgency possibly secondary to noncompliance. Her blood pressure has improved on labetalol prn, norvasc, and clonidine. She was counselled on medication compliance. Initial troponin was elevated but trended down. Patient denies any chest pain or shortness of breath. Cardiology evaluation was appreciated who recommended outpatient stress test. Nephrology is following and recommended outpatient dexamethasone suppression test. Renin/aldosterone levels ordered. Renal artery doppler study was negative. CT abd/pelvis showed lytic bone lesions. Hematology evaluation was appreciated and addition workup including SPEP/UPEP is ordered. Skeletal survey was reviewed. Hematology recommended mammogram, breast US and CA125. Case was discussed with gynecology, Dr. Weston, regarding ovarian cyst. He recommended outpatient gynecology follow up and repeat US in 3 months. Leukocytosis has improved. She is on iv antibiotics and ID is following. Continue with dialysis as per nephrology. Migdalia Chamberlain MD Hospitalist.
--- NOTE | 2018-03-19 14:44 | CP.PCM.PN ---
Subjective - Date & Time of Evaluation Date of Evaluation: 03/19/18 Time of Evaluation: 10:55 - Subjective Subjective: Improving abdominal pain, no fevers, not in distress. Objective - Vital Signs/Intake and Output Vital Signs (last 24 hours): Temp Pulse Resp BP Pulse Ox 98.7 F 71 18 143/86 98 03/19/18 06:00 03/19/18 06:00 03/19/18 06:00 03/19/18 06:00 03/19/18 06:00 Intake and Output: 03/19/18 03/19/18 06:59 18:59 Intake Total 440 Output Total 200 Balance 240 - Medications Medications: Current Medications Amlodipine Besylate (Norvasc) 10 mg PO DAILY [facility] Last Admin: 03/18/18 09:35 Dose: 10 mg Aspirin (Aspirin Chewable) 81 mg PO DAILY [facility] Last Admin: 03/18/18 13:28 Dose: 81 mg Clonidine HCl (Catapres) 0.2 mg PO BID [facility] Last Admin: 03/18/18 09:35 Dose: 0.2 mg Docusate Sodium (Colace) 100 mg PO BID [facility] Last Admin: 03/19/18 09:08 Dose: 100 mg Heparin Sodium (Porcine) (Heparin) 2,000 units IVP MWF [facility] PRN Reason: Protocol Piperacillin Sod/Tazobactam Sod (Zosyn 2.25 Gm In 0.9% 100 Ml) 2.25 gm in 100 mls @ 100 mls/hr IVPB Q8 [facility] PRN Reason: Protocol Stop: 03/25/18 14:01 Last Admin: 03/19/18 06:11 Dose: 100 mls/hr Labetalol HCl (Trandate) 20 mg IV BID PRN PRN Reason: Systolic Blood Pressure Ondansetron HCl (Zofran Inj) 4 mg IVP Q6H PRN PRN Reason: Nausea/Vomiting Pantoprazole Sodium (Protonix Inj) 40 mg IVP DAILY [facility] Last Admin: 03/18/18 09:35 Dose: 40 mg Polyethylene Glycol (Miralax) 17 gm PO BID [facility] Tramadol HCl (Ultram) 50 mg PO BID PRN PRN Reason: Pain, moderate (4-7) Last Admin: 03/19/18 06:11 Dose: 50 mg - Labs Labs: 03/19/18 06:30 03/19/18 06:30 - Constitutional Appears: Chronically Ill - Head Exam Head Exam: NORMAL INSPECTION - Neck Exam Neck Exam: absent: Meningismus - Respiratory Exam Respiratory Exam: Decreased Breath Sounds - Cardiovascular Exam Cardiovascular Exam: +S1, +S2 - GI/Abdominal Exam GI & Abdominal Exam: Soft. absent: Tenderness Assessment and Plan - Assessment and Plan (Free Text) Plan: Assessment Systemic Inflammatory response syndrome, R/O sepsis from intra-abdominal infection, R/O multiple myeloma in this patient with acute exacerbation of chronic abdominal pain ESRD on HD HTN chronic CHF anxiety depression chronic abdominal pain history of nephrolithiasis Plan continue Zosyn day 2 pending final blood, urine cx results; CXR does not show infiltrates reviewed CT A/P which shows lytic lesions in the bone - follow up SPEP, UPEP and Heme/Onc is follwoing will continue to monitor clinically HIV test is non-reactive
--- NOTE | 2018-03-19 16:03 | CP.PCM.PN ---
Subjective - Date & Time of Evaluation Date of Evaluation: 03/19/18 Time of Evaluation: 16:02 - Subjective Subjective: Nephrology Consultation Note: Assessment: Stable severe uncontrolled HTN urgency, missed HD constipation b/l adrenal hypertrophy bone lytic lesions, adnexal lesion Hypertensive Chronic Kidney Disease (I12.0) End stage renal disease (N18.6) dependence on hemodialysis (Z99.2) (MWF) via AVG Anemia (D64.9), Hyperphosphatemia (E83.39), Secondary Hyperparathyroidism (E21.1 ), HTN (I12.0) Plan: Will plan for HD today as per MWF schedule. Continue with Nephrovite 1 tab/day. PRBC as needed for anemia. Not on GOYO with dialysis as last Hb 12.8 Continue with phos binders, check phos level BP control with meds as ordered. Patient not on RAAS nisha hence started losartan 100 mg/day. check renin/vic and metanephrines, renal artery doppler ( NEG) for sec HTN work up. Outpt Dexamethasone suppression test for hypercortisolism eval. Glycemic control, Dialysis consistent diet Further work up/management as per primary team Dose meds/antibiotics (if needed) for ESRD status. Avoid fleets enema/magnesium based laxatives. heme/onc eval for lytic lesions and [employer] eval for adnexal lesion SPEP/KIRSTEN and serum free light chain assay ordered. Thanks for allowing me to participate in care of your patient. Will follow patient with you. Please call if any Qs. d/w Team Dr Pramod Bobo Office: [phone] Chief Complaint: pain abdomen, nausea/vomiting reason for consult; ESRD management HPI: Pt is a 37 F with hx of ESRD on hemodialysis (MWF) via left AVG @ [facility] with Dr Seth for last 1 year (was also on PD in between but switched to HD due to recurrent peritonitis) , last dialysis saturday, chronic anemia, hyperphosphatemia, secondary hyperparathyroidism, hypertension presented with complaints of pain abdomen and nausea/vomitting, found to have HTN urgency and admitted to ICU Renal consult requested for ESRD management. Pt feels better now. SOB better. c/o constipation ROS: Cardiovascular: No chest pain. Pulmonary: No shortness of breath now Gastrointestinal: denies abdominal pain No nausea. No vomiting. has constipation Genitourinary: No pain while urinating. Denies blood in urine. All other negative except as mentioned in HPI Physical Examination: seen on HD General Appearance: Comfortable, in no acute respiratory distress, co-operative . Vitals reviewed and noted as below Head; Atraumatic, normocephalic ENT: no ulcers no thrush. Tongue is midline. Oropharynx: no rash or ulcers. EYES: Pupils are equal, round and reactive to light accommodation. Eye muscles and extraocular movement intact. Sclera is anicteric. Neck; supple no lymphadenopathy, no thyromegaly or bruit Lungs: Normal respiratory rate/effort. Breath sounds bilateral equal and clear Heart: Normal rate. s1s2 normal. No rub or gallop. Extremities: no edema. No varicose veins Neurological: Patient is alert, awake and oriented to person, place and time. No focal deficit. Strength bilateral appropriate and equal Skin: Warm and dry. Normal turgor. No rash. Palpitation: Normal elasticity for age Abdomen: Abdomen is soft. Bowel sounds +. There is no abdominal tenderness, no guarding/rigidity or organomegaly Psych: normal insight and normal affect/mood MSK: no joint tenderness or swelling. Digits and nails normal, no deformity : kidney or bladder not palpable Access: left AVG Labs/imaging reviewed. Past medical history, past surgical history, family history, social history, allergy reviewed and noted as below Family Hx: mother was on HD due to DM. rest Non contributory Objective - Vital Signs/Intake and Output Vital Signs (last 24 hours): Temp Pulse Resp BP Pulse Ox 98 F 78 18 177/97 H 98 03/19/18 12:00 03/19/18 14:00 03/19/18 12:00 03/19/18 12:00 03/19/18 06:00 Intake and Output: 03/19/18 03/19/18 06:59 18:59 Intake Total 440 300 Output Total 200 300 Balance 240 0 - Medications Medications: Current Medications Alprazolam (Xanax) 0.5 mg PO BID PRN; Protocol PRN Reason: Anxiety Amlodipine Besylate (Norvasc) 10 mg PO DAILY [facility] Last Admin: 03/18/18 09:35 Dose: 10 mg Aspirin (Aspirin Chewable) 81 mg PO DAILY [facility] Last Admin: 03/18/18 13:28 Dose: 81 mg Clonidine HCl (Catapres) 0.2 mg PO BID [facility] Last Admin: 03/18/18 09:35 Dose: 0.2 mg Docusate Sodium (Colace) 100 mg PO BID [facility] Last Admin: 03/19/18 09:08 Dose: 100 mg Heparin Sodium (Porcine) (Heparin) 2,000 units IVP MWF [facility] PRN Reason: Protocol Piperacillin Sod/Tazobactam Sod (Zosyn 2.25 Gm In 0.9% 100 Ml) 2.25 gm in 100 mls @ 100 mls/hr IVPB Q8 [facility] PRN Reason: Protocol Stop: 03/25/18 14:01 Last Admin: 03/19/18 06:11 Dose: 100 mls/hr Labetalol HCl (Trandate) 20 mg IV BID PRN PRN Reason: Systolic Blood Pressure Losartan Potassium (Cozaar) 100 mg PO QPM [facility] Ondansetron HCl (Zofran Inj) 4 mg IVP Q6H PRN PRN Reason: Nausea/Vomiting Pantoprazole Sodium (Protonix Inj) 40 mg IVP DAILY [facility] Last Admin: 03/18/18 09:35 Dose: 40 mg Polyethylene Glycol (Miralax) 17 gm PO BID [facility] Last Admin: 03/19/18 12:48 Dose: Not Given Tramadol HCl (Ultram) 50 mg PO BID PRN PRN Reason: Pain, moderate (4-7) Last Admin: 03/19/18 06:11 Dose: 50 mg Zolpidem Tartrate (Ambien) 5 mg PO HS PRN; Protocol PRN Reason: Insomnia - Labs Labs: 03/19/18 06:30 03/19/18 06:30
--- NOTE | 2018-03-19 19:39 | CON ---
DATE: 03/19/2018 REQUESTING PHYSICIAN: Dr. Chamberlain. REASON FOR CONSULTATION: Chest pain, accelerated hypertension. HISTORY OF PRESENT ILLNESS: This is a 37-year-old woman with a history of hypertension, prior heart failure, and chronic renal failure, maintained on hemodialysis, followed by Dr. Erick Seth, who was admitted with complaints of abdominal discomfort and chest pain. She was noted be hypertensive and admitted for evaluation and management. She has been on dialysis for the past several months. Her renal failure is poorly on the basis of hypertensive nephrosclerosis. She is currently pain free. She denies any prior cardiac history. She does have a history of hypertension and she is not diabetic. She believes her cholesterol is normal. She is a smoker of several cigarettes a day. There is also a very strong family history of premature heart disease. PAST MEDICAL HISTORY: Her past history is known for the problems mentioned above. She also has a history of anxiety, depression, and chronic abdominal discomfort. MEDICATIONS: Her medications at home included Xanax, tramadol, labetalol, clonidine, and amlodipine. ALLERGIES: NONE. SOCIAL HISTORY: As mentioned, she has no history of alcohol use, but does smoke. FAMILY HISTORY: Her mother and brother are diabetic. Mother also has heart disease. Multiple other family members have premature heart disease as well. The 10-point review of systems is, otherwise, unremarkable. PHYSICAL EMANATION: GENERAL: She is a middle-aged woman, who appears comfortable at rest. VITAL SIGNS: Her blood pressure is 142/86 with a pulse of 60 in sinus, respirations are 16, blood pressure on admission have been 228/145. She is currently afebrile. HEENT: Head: Normocephalic, atraumatic. NECK: Supple. No JVD noted. CHEST: A few scattered rhonchi heard. HEART: PMI displaced laterally with a soft systolic murmur at the lower left sternal border. ABDOMEN: Soft, nontender, normoactive bowel sounds. EXTREMITIES: No clubbing, cyanosis, or edema. SKIN: Warm and dry. PSYCHIATRIC: Normal mood and affect. NEUROLOGIC: No gross motor or sensory appreciable. She is alert and oriented x3. DIAGNOSTICS DATA: Potassium 3.6, BUN and creatinine 26 and 3.2. White count 7.9, hemoglobin and hematocrit 12.2 and 36.8 with a platelet of 277,000. Electrocardiogram reveals sinus tachycardia, left atrial abnormality, and voltage criteria for LVH as well as poor R-wave progression. Chest x-ray reveals borderline cardiac silhouette enlargement with mild pulmonary vascular congestion. Echocardiogram was reviewed and this revealed normal chamber size with [id number] concentric LVH, normal LV systolic function, mild mitral regurgitation, moderate tricuspid regurgitation. IMPRESSION: 1. Accelerated hypertension, now clinically improved. 2. Chest pain, no clear evidence of cardiac ischemia. 3. Chronic renal failure, maintained on hemodialysis. 4. Rest of the problems as noted. RECOMMENDATIONS: 1. Continued intensified antihypertensive therapy is advised. 2. Smoking abstinence was strongly encouraged. 3. Despite her relatively young age, eventual outpatient stress test should be considered given her very strong family history of heart disease and other cardiac risk factors. Thank you for this consultation. We will be happy to follow along as needed. Tony Castañeda MD
[2018-03-20] MEDS: Piperacillin/Tazobact 2.25gm 2.25 GM/100 ML BAG IVPB SCH (05:53)
[2018-03-20 05:59] VITALS: RESP 18; TEMP 98.4; O2SAT 96
--- NOTE | 2018-03-20 09:28 | CP.PCM.PN ---
Subjective - Date & Time of Evaluation Date of Evaluation: 03/20/18 Time of Evaluation: 07:00 - Subjective Subjective: Stable on 2R. No CP or SOB. She feels better. V/S noted. RSR 129/86 PE: Lungs: clear Cor: S1S2 Abd.: soft Ext.: no edema Neuro.: alert I/O= 860/300 recorded Trops: 0.15, 0.10, 0.06 Echo noted: NL LV EF with conc. LVH, mild MR and mod. TR BC X 2 NG at 48 hrs ECGs noted. Objective - Vital Signs/Intake and Output Vital Signs (last 24 hours): Temp Pulse Resp BP Pulse Ox 98.4 F 72 18 129/86 96 03/20/18 05:58 03/20/18 05:58 03/20/18 05:58 03/20/18 05:58 03/20/18 05:58 Intake and Output: 03/20/18 03/20/18 06:59 18:59 Intake Total 560 Balance 560 - Medications Medications: Current Medications Alprazolam (Xanax) 0.5 mg PO BID PRN; Protocol PRN Reason: Anxiety Last Admin: 03/19/18 18:18 Dose: 0.5 mg Amlodipine Besylate (Norvasc) 10 mg PO DAILY [facility] Last Admin: 03/19/18 18:33 Dose: 10 mg Aspirin (Aspirin Chewable) 81 mg PO DAILY [facility] Last Admin: 03/19/18 18:19 Dose: 81 mg Clonidine HCl (Catapres) 0.2 mg PO Q8 [facility] [place] Last Admin: 03/20/18 05:52 Dose: 0.2 mg Docusate Sodium (Colace) 100 mg PO BID [facility] Last Admin: 03/19/18 18:19 Dose: 100 mg Heparin Sodium (Porcine) (Heparin) 2,000 units IVP MWF [facility] [place] PRN Reason: Protocol Last Admin: 03/19/18 10:30 Dose: Not Given Piperacillin Sod/Tazobactam Sod (Zosyn 2.25 Gm In 0.9% 100 Ml) 2.25 gm in 100 mls @ 100 mls/hr IVPB Q8 [facility] [place] PRN Reason: Protocol Stop: 03/25/18 14:01 Last Admin: 03/20/18 05:53 Dose: 100 mls/hr Labetalol HCl (Trandate) 20 mg IV BID PRN PRN Reason: Systolic Blood Pressure Losartan Potassium (Cozaar) 100 mg PO QPM [facility] [place] Last Admin: 03/19/18 18:18 Dose: 100 mg Ondansetron HCl (Zofran Inj) 4 mg IVP Q6H PRN PRN Reason: Nausea/Vomiting Pantoprazole Sodium (Protonix Inj) 40 mg IVP DAILY [facility] [place] Last Admin: 03/19/18 18:17 Dose: 40 mg Polyethylene Glycol (Miralax) 17 gm PO BID [facility] Last Admin: 03/19/18 18:18 Dose: 17 gm Tramadol HCl (Ultram) 50 mg PO BID PRN PRN Reason: Pain, moderate (4-7) Last Admin: 03/20/18 08:07 Dose: 50 mg Zolpidem Tartrate (Ambien) 5 mg PO HS PRN; Protocol PRN Reason: Insomnia Last Admin: 03/20/18 01:17 Dose: 5 mg - Labs Labs: 03/19/18 06:30 03/19/18 06:30 Assessment and Plan - Assessment and Plan (Free Text) Assessment: Nausea and vomiting Accelerated HBP CKD/HD CHF Smoker Strong FH of CAD Anxiety/Depression Ovarian Cyst/Fibroid Uterus Abn bones on CT and bone survey Chronic Abd. Pain Plan: Will arrange out-pt nuclear stress test in our office. D/C tobacco d/w her. BP meds to be titrated as per renal
[2018-03-20 09:37] LABS: HEMOGLOBIN 11.8 g/dL (12.0-16.0); MEAN CELL VOLUME 91.8 fl (80.0-105.0); MEAN CORPUSCULAR HEMOGLOBIN 30.3 pg (25.0-35.0); MEAN PLATELET VOLUME 9.5 fl (7.0-11.0); RBC 3.9 10^6/uL (3.5-6.1); RED CELL DISTRIBUTION WIDTH 14.2 % (11.5-14.5); WHITE BLOOD COUNT 7.3 10^3/ul (4.5-11.0)
[2018-03-20] MEDS: POLYETHYLENE GLYCOL 3350 17 GM/Dose PACKET PO SCH (09:51)
[2018-03-20 09:59] VITALS: BP 142/92
[2018-03-20 10:30] LABS: ALB/GLOB RATIO 1.8 (1.1-1.8); ALBUMIN 4.1 g/dL (3.0-4.8)
--- NOTE | 2018-03-20 13:15 | CP.PCM.PN ---
Subjective - Date & Time of Evaluation Date of Evaluation: 03/19/18 Time of Evaluation: 19:00 - Subjective Subjective: No complaints. Objective - Vital Signs/Intake and Output Vital Signs (last 24 hours): Temp Pulse Resp BP Pulse Ox 98.4 F 72 18 142/92 H 96 03/20/18 05:58 03/20/18 05:58 03/20/18 05:58 03/20/18 09:50 03/20/18 05:58 Intake and Output: 03/20/18 03/20/18 06:59 18:59 Intake Total 560 Balance 560 - Medications Medications: Current Medications Alprazolam (Xanax) 0.5 mg PO BID PRN; Protocol PRN Reason: Anxiety Last Admin: 03/19/18 18:18 Dose: 0.5 mg Amlodipine Besylate (Norvasc) 10 mg PO DAILY [facility] Last Admin: 03/20/18 09:50 Dose: 10 mg Aspirin (Aspirin Chewable) 81 mg PO DAILY [facility] Last Admin: 03/20/18 09:51 Dose: 81 mg Clonidine HCl (Catapres) 0.2 mg PO Q8 [facility] Last Admin: 03/20/18 05:52 Dose: 0.2 mg Docusate Sodium (Colace) 100 mg PO BID [facility] Last Admin: 03/20/18 09:51 Dose: 100 mg Heparin Sodium (Porcine) (Heparin) 2,000 units IVP MWF [facility] PRN Reason: Protocol Last Admin: 03/19/18 10:30 Dose: Not Given Piperacillin Sod/Tazobactam Sod (Zosyn 2.25 Gm In 0.9% 100 Ml) 2.25 gm in 100 mls @ 100 mls/hr IVPB Q8 [facility] PRN Reason: Protocol Stop: 03/25/18 14:01 Last Admin: 03/20/18 05:53 Dose: 100 mls/hr Labetalol HCl (Trandate) 20 mg IV BID PRN PRN Reason: Systolic Blood Pressure Losartan Potassium (Cozaar) 100 mg PO QPM [facility] Last Admin: 03/19/18 18:18 Dose: 100 mg Ondansetron HCl (Zofran Inj) 4 mg IVP Q6H PRN PRN Reason: Nausea/Vomiting Pantoprazole Sodium (Protonix Ec Tab) 40 mg PO ACB [facility] Polyethylene Glycol (Miralax) 17 gm PO BID [facility] Last Admin: 03/20/18 09:51 Dose: 17 gm Tramadol HCl (Ultram) 50 mg PO BID PRN PRN Reason: Pain, moderate (4-7) Last Admin: 03/20/18 08:07 Dose: 50 mg Zolpidem Tartrate (Ambien) 5 mg PO HS PRN; Protocol PRN Reason: Insomnia Last Admin: 03/20/18 01:17 Dose: 5 mg - Labs Labs: 03/20/18 09:30 03/20/18 09:30 - Head Exam Head Exam: ATRAUMATIC - Eye Exam Eye Exam: Normal appearance - ENT Exam ENT Exam: Mucous Membranes Dry - Respiratory Exam Respiratory Exam: NORMAL BREATHING PATTERN - Cardiovascular Exam Cardiovascular Exam: +S1, +S2 - GI/Abdominal Exam GI & Abdominal Exam: Normal Bowel Sounds Assessment and Plan (1) Lytic bone lesions on xray Assessment & Plan: not seen on skeletal survey f/u monoclonal protein w/u; if positive, will need outpatient bone marrow evaluation may need outpatient PET CT scan for further evaluation Status: Acute (2) Adnexal mass Assessment & Plan: 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
--- NOTE | 2018-03-20 13:30 | CP.PCM.DIS ---
Provider - Provider Date of Admission: 03/18/18 02:14 Attending physician: Migdlaia Chamberlain MD Primary care physician: Michelle Quarles MD Consults: Cardiology: Dr. Grimes Infectious Disease: Dr. Montemayor Nephrology: Dr. Bobo Heme/Onc: Dr. Morris Time Spent in preparation of Discharge (in minutes): 40 Hospital Course - Lab Results Lab Results: Micro Results 03/18/18 05:10 Naris MRSA Culture (Admit) - Final MRSA NOT DETECTED Most Recent Lab Values WBC 7.3 10^3/ul (4.5-11.0) 03/20/18 09:30 RBC 3.90 10^6/uL (3.5-6.1) 03/20/18 09:30 Hgb 11.8 g/dL (12.0-16.0) L 03/20/18 09:30 Hct 35.8 % (36.0-48.0) L 03/20/18 09:30 MCV 91.8 fl (80.0-105.0) 03/20/18 09:30 MCH 30.3 pg (25.0-35.0) 03/20/18 09:30 MCHC 33.0 g/dl (31.0-37.0) 03/20/18 09:30 RDW 14.2 % (11.5-14.5) 03/20/18 09:30 Plt Count 257 10^3/uL (120.0-450.0) 03/20/18 09:30 MPV 9.5 fl (7.0-11.0) 03/20/18 09:30 Gran % 64.2 % (50.0-68.0) 03/19/18 06:30 Lymph % (Auto) 25.9 % (22.0-35.0) 03/19/18 06:30 Garfield % (Auto) 6.5 % (1.0-6.0) H 03/19/18 06:30 Eos % (Auto) 2.9 % (1.5-5.0) 03/19/18 06:30 Baso % (Auto) 0.5 % (0.0-3.0) 03/19/18 06:30 Gran # 5.07 (1.4-6.5) 03/19/18 06:30 Lymph # (Auto) 2.0 (1.2-3.4) 03/19/18 06:30 Garfield # (Auto) 0.5 (0.1-0.6) 03/19/18 06:30 Eos # (Auto) 0.2 (0.0-0.7) 03/19/18 06:30 Baso # (Auto) 0.04 K/mm3 (0.0-2.0) 03/19/18 06:30 Sodium 144 mmol/L (132-148) 03/20/18 09:30 Potassium 4.4 mmol/L (3.6-5.0) 03/20/18 09:30 Chloride 103 mmol/L (98-107) 03/20/18 09:30 Carbon Dioxide 26 mmol/L (21-33) 03/20/18 09:30 Anion Gap 19 (10-20) 03/20/18 09:30 BUN 33 mg/dL (7-21) H 03/20/18 09:30 Creatinine 3.1 mg/dl (0.7-1.2) H 03/20/18 09:30 Est GFR ( Amer) 20 03/20/18 09:30 Est GFR (Non-Af Amer) 17 03/20/18 09:30 Random Glucose 104 mg/dL (70-110) 03/20/18 09:30 Calcium 9.0 mg/dL (8.4-10.5) 03/20/18 09:30 Phosphorus 4.1 mg/dL (2.5-4.5) 03/20/18 09:30 Magnesium 2.3 mg/dL (1.7-2.2) H 03/20/18 09:30 Total Bilirubin 0.3 mg/dL (0.2-1.3) 03/20/18 09:30 AST 21 U/L (14-36) 03/20/18 09:30 ALT 23 U/L (7-56) 03/20/18 09:30 Alkaline Phosphatase 68 U/L (38-126) 03/20/18 09:30 Lactate Dehydrogenase 349 U/L (333-699) 03/18/18 06:00 Total Creatine Kinase 69 U/L (35-230) 03/18/18 06:00 Troponin I 0.06 ng/mL D 03/18/18 19:30 Total Protein 6.4 g/dL (5.8-8.3) 03/20/18 09:30 Total Protein (PEP) 7.4 g/dL (6.1-8.1) 03/18/18 09:29 Albumin 4.1 g/dL (3.0-4.8) 03/20/18 09:30 Albumin (PEP) 4.8 g/dL (3.8-4.8) 03/18/18 09:29 Globulin 2.3 gm/dL 03/20/18 09:30 Albumin/Globulin Ratio 1.8 (1.1-1.8) 03/20/18 09:30 Ukard-0-Zqqyidfnx 0.4 g/dL (0.2-0.3) H 03/18/18 09:29 Wajoj-4-Vbrrryomr 0.8 g/dL (0.5-0.9) 03/18/18 09:29 Ihbk-1-Gpsglqmr 0.4 g/dL (0.4-0.6) 03/18/18 09:29 Oqaq-4-Wbzvjctc 0.3 g/dL (0.2-0.5) 03/18/18 09:29 Gamma Globulins 0.8 g/dL (0.8-1.7) 03/18/18 09:29 Abnorm Protein Band 1 TEST NOT PERFORMED 03/18/18 09:29 Abnorm Protein Band 2 TEST NOT PERFORMED 03/18/18 09:29 Abnorm Protein Band 3 TEST NOT PERFORMED 03/18/18 09:29 Triglycerides 140 mg/dL (35-160) 03/18/18 06:00 Cholesterol 182 mg/dL (130-200) 03/18/18 06:00 LDL Cholesterol Direct 114 mg/dL (0-129) 03/18/18 06:00 HDL Cholesterol 31 mg/dL (29-60) 03/18/18 06:00 Lipase 71 U/L (23-300) 03/18/18 00:34 Beta HCG, Quant < 2.39 mIU/mL (0-6.15) 03/18/18 00:34 PTH Intact Whole Molec 121 pg/mL (14-64) H 03/18/18 13:15 KIRSTEN & SPEP Interp See note 03/18/18 09:29 Serum Immunofixation Not detected (Not Detected) 03/18/18 13:15 HIV 1&2 Ag/Ab, 4th Gen Nonreactive (Nonreactive) 03/18/18 13:15 Discharge Exam - Head Exam Head Exam: ATRAUMATIC - Eye Exam Eye Exam: EOMI, PERRL - Neck Exam Neck exam: Full Rom - Respiratory Exam Respiratory Exam: Clear to PA & Lateral, NORMAL BREATHING PATTERN - Cardiovascular Exam Cardiovascular Exam: REGULAR RHYTHM, +S1, +S2 - GI/Abdominal Exam GI & Abdominal Exam: Normal Bowel Sounds, Soft. absent: Tenderness - Extremities Exam Extremities exam: normal capillary refill, pedal pulses present - Neurological Exam Neurological exam: Alert, CN II-XII Intact, Normal Gait, Oriented x3 - Psychiatric Exam Psychiatric exam: Normal Affect, Normal Mood - Skin Skin Exam: Dry, Warm - Additional Findings Additional findings: Breast Exam in presence of female hide tanner - Right breast with 1x1 cm firm nodule, mobile in upper lateral quad Discharge Plan - Follow Up Plan Condition: STABLE Disposition: HOME/ ROUTINE Instructions: Renal Failure Diet (DC) Additional Instructions: Follow up with primary care physician within 3-5 days of discharge Follow up with heme/onc Dr. Morris within 1-2 weeks of discharge, phone number [phone] Follow up with tool radial drill press set up operator Dr. Weston for appointment, you will need a repeat of your pelvic ultrasound in the next 3 months Follow up with your Promotion Producer within 1-2 weeks of discharge Take medications as prescribed to you Return to ED if you begin experiencing chest pain, shortness of breath, nausea, vomiting, changes in vision, extreme headache Referrals: Michelle Quarles MD [Primary Care Provider] -
--- NOTE | 2018-03-20 13:35 | CP.PCM.PN ---
Subjective - Date & Time of Evaluation Date of Evaluation: 03/20/18 Time of Evaluation: 09:45 - Subjective Subjective: No fevers, not in distress, no abdominal pain, no headache. Objective - Vital Signs/Intake and Output Vital Signs (last 24 hours): Temp Pulse Resp BP Pulse Ox 98.4 F 72 18 129/86 96 03/20/18 05:58 03/20/18 05:58 03/20/18 05:58 03/20/18 05:58 03/20/18 05:58 Intake and Output: 03/20/18 03/20/18 06:59 18:59 Intake Total 560 Balance 560 - Medications Medications: Current Medications Alprazolam (Xanax) 0.5 mg PO BID PRN; Protocol PRN Reason: Anxiety Last Admin: 03/19/18 18:18 Dose: 0.5 mg Amlodipine Besylate (Norvasc) 10 mg PO DAILY [facility] Last Admin: 03/19/18 18:33 Dose: 10 mg Aspirin (Aspirin Chewable) 81 mg PO DAILY [facility] Last Admin: 03/19/18 18:19 Dose: 81 mg Clonidine HCl (Catapres) 0.2 mg PO Q8 [facility] Last Admin: 03/20/18 05:52 Dose: 0.2 mg Docusate Sodium (Colace) 100 mg PO BID [facility] Last Admin: 03/19/18 18:19 Dose: 100 mg Heparin Sodium (Porcine) (Heparin) 2,000 units IVP MWF [facility] PRN Reason: Protocol Last Admin: 03/19/18 10:30 Dose: Not Given Piperacillin Sod/Tazobactam Sod (Zosyn 2.25 Gm In 0.9% 100 Ml) 2.25 gm in 100 mls @ 100 mls/hr IVPB Q8 [facility] PRN Reason: Protocol Stop: 03/25/18 14:01 Last Admin: 03/20/18 05:53 Dose: 100 mls/hr Labetalol HCl (Trandate) 20 mg IV BID PRN PRN Reason: Systolic Blood Pressure Losartan Potassium (Cozaar) 100 mg PO QPM [facility] Last Admin: 03/19/18 18:18 Dose: 100 mg Ondansetron HCl (Zofran Inj) 4 mg IVP Q6H PRN PRN Reason: Nausea/Vomiting Pantoprazole Sodium (Protonix Inj) 40 mg IVP DAILY [facility] Last Admin: 03/19/18 18:17 Dose: 40 mg Polyethylene Glycol (Miralax) 17 gm PO BID [facility] Last Admin: 03/19/18 18:18 Dose: 17 gm Tramadol HCl (Ultram) 50 mg PO BID PRN PRN Reason: Pain, moderate (4-7) Last Admin: 03/20/18 08:07 Dose: 50 mg Zolpidem Tartrate (Ambien) 5 mg PO HS PRN; Protocol PRN Reason: Insomnia Last Admin: 03/20/18 01:17 Dose: 5 mg - Labs Labs: 03/19/18 06:30 03/19/18 06:30 - Constitutional Appears: Non-toxic, Chronically Ill - Head Exam Head Exam: NORMAL INSPECTION - Respiratory Exam Respiratory Exam: Decreased Breath Sounds - Cardiovascular Exam Cardiovascular Exam: +S1, +S2 - GI/Abdominal Exam GI & Abdominal Exam: Soft. absent: Tenderness Assessment and Plan - Assessment and Plan (Free Text) Plan: Assessment Systemic Inflammatory response syndrome, R/O multiple myeloma in this patient with acute exacerbation of chronic abdominal pain - no evidence of infection or sepsis identified ESRD on HD HTN chronic CHF anxiety depression chronic abdominal pain history of nephrolithiasis Plan cultures are negative, CT A/P did not show source of infection, CXR does not show infiltrates - will d/c antibiotics and observe reviewed CT A/P which shows lytic lesions in the bone - follow up SPEP, UPEP and Heme/Onc is following will continue to monitor clinically HIV test is non-reactive
--- NOTE | 2018-03-20 14:06 | CP.PCM.PN ---
Subjective - Date & Time of Evaluation Date of Evaluation: 03/20/18 Time of Evaluation: 14:04 - Subjective Subjective: Nephrology Consultation Note: Assessment: Stable severe uncontrolled HTN urgency, missed HD constipation b/l adrenal hypertrophy bone lytic lesions, adnexal lesion Hypertensive Chronic Kidney Disease (I12.0) End stage renal disease (N18.6) dependence on hemodialysis (Z99.2) (MWF) via AVG Anemia (D64.9), Hyperphosphatemia (E83.39), Secondary Hyperparathyroidism (E21.1 ), HTN (I12.0) Plan: Will plan for HD tomorrow as per MWF schedule. Continue with Nephrovite 1 tab/ day. PRBC as needed for anemia. Not on GOYO with dialysis as last Hb 12.8 Continue with phos binders, check phos level BP control with meds as ordered. Patient not on RAAS nisha hence started losartan 100 mg/day. check renin/vic and metanephrines, renal artery doppler ( NEG) for sec HTN work up. Outpt Dexamethasone suppression test for hypercortisolism eval. Glycemic control, Dialysis consistent diet Further work up/management as per primary team Dose meds/antibiotics (if needed) for ESRD status. Avoid fleets enema/magnesium based laxatives. heme/onc eval for lytic lesions and DESIGN TECHNICIAN eval for adnexal lesion SPEP/KIRSTEN and serum free light chain assay ordered. pt stable for d/c from renal perspective when planned. she was advised to f/up her Renal within 1 week post d/c Thanks for allowing me to participate in care of your patient. Please call if any Qs. had d/w Team Dr Pramod Bobo Office: [phone] Chief Complaint: none now reason for consult; ESRD management HPI: Pt is a 37 F with hx of ESRD on hemodialysis (MWF) via left AVG @ [facility] with Dr Seth for last 1 year (was also on PD in between but switched to HD due to recurrent peritonitis) , last dialysis saturday, chronic anemia, hyperphosphatemia, secondary hyperparathyroidism, hypertension presented with complaints of pain abdomen and nausea/vomitting, found to have HTN urgency and admitted to ICU Renal consult requested for ESRD management. Pt feels better now. SOB better. c/o constipation ROS: Cardiovascular: No chest pain. Pulmonary: No shortness of breath now Gastrointestinal: denies abdominal pain No nausea. No vomiting. had constipation Genitourinary: No pain while urinating. Denies blood in urine. All other negative except as mentioned in HPI Physical Examination: General Appearance: Comfortable, in no acute respiratory distress, co-operative . Vitals reviewed and noted as below Head; Atraumatic, normocephalic ENT: no ulcers no thrush. Tongue is midline. Oropharynx: no rash or ulcers. EYES: Pupils are equal, round and reactive to light accommodation. Eye muscles and extraocular movement intact. Sclera is anicteric. Neck; supple no lymphadenopathy, no thyromegaly or bruit Lungs: Normal respiratory rate/effort. Breath sounds bilateral equal and clear Heart: Normal rate. s1s2 normal. No rub or gallop. Extremities: no edema. No varicose veins Neurological: Patient is alert, awake and oriented to person, place and time. No focal deficit. Strength bilateral appropriate and equal Skin: Warm and dry. Normal turgor. No rash. Palpitation: Normal elasticity for age Abdomen: Abdomen is soft. Bowel sounds +. There is no abdominal tenderness, no guarding/rigidity or organomegaly Psych: normal insight and normal affect/mood MSK: no joint tenderness or swelling. Digits and nails normal, no deformity : kidney or bladder not palpable Access: left AVG Labs/imaging reviewed. Past medical history, past surgical history, family history, social history, allergy reviewed and noted as below Family Hx: mother was on HD due to DM. rest Non contributory Objective - Vital Signs/Intake and Output Vital Signs (last 24 hours): Temp Pulse Resp BP Pulse Ox 98.4 F 72 18 142/92 H 96 03/20/18 05:58 03/20/18 05:58 03/20/18 05:58 03/20/18 09:50 03/20/18 05:58 Intake and Output: 03/20/18 03/20/18 06:59 18:59 Intake Total 560 Balance 560 - Medications Medications: Current Medications Alprazolam (Xanax) 0.5 mg PO BID PRN; Protocol PRN Reason: Anxiety Last Admin: 03/19/18 18:18 Dose: 0.5 mg Amlodipine Besylate (Norvasc) 10 mg PO DAILY [facility] Last Admin: 03/20/18 09:50 Dose: 10 mg Aspirin (Aspirin Chewable) 81 mg PO DAILY [facility] Last Admin: 03/20/18 09:51 Dose: 81 mg Clonidine HCl (Catapres) 0.2 mg PO Q8 [facility] Last Admin: 03/20/18 05:52 Dose: 0.2 mg Docusate Sodium (Colace) 100 mg PO BID [facility] Last Admin: 03/20/18 09:51 Dose: 100 mg Heparin Sodium (Porcine) (Heparin) 2,000 units IVP MWF [facility] PRN Reason: Protocol Last Admin: 03/19/18 10:30 Dose: Not Given Labetalol HCl (Trandate) 20 mg IV BID PRN PRN Reason: Systolic Blood Pressure Losartan Potassium (Cozaar) 100 mg PO QPM [facility] Last Admin: 03/19/18 18:18 Dose: 100 mg Ondansetron HCl (Zofran Inj) 4 mg IVP Q6H PRN PRN Reason: Nausea/Vomiting Pantoprazole Sodium (Protonix Ec Tab) 40 mg PO ACB [facility] Polyethylene Glycol (Miralax) 17 gm PO BID [facility] Last Admin: 03/20/18 09:51 Dose: 17 gm Tramadol HCl (Ultram) 50 mg PO BID PRN PRN Reason: Pain, moderate (4-7) Last Admin: 03/20/18 08:07 Dose: 50 mg Zolpidem Tartrate (Ambien) 5 mg PO HS PRN; Protocol PRN Reason: Insomnia Last Admin: 03/20/18 01:17 Dose: 5 mg - Labs Labs: 03/20/18 09:30 03/20/18 09:30
[2018-03-20 15:31] VITALS: PULSE 57
[2018-03-21] MEDS ORDERED: Pantoprazole 40 mg EC Tab PO SCH (07:30)
[2018-03-22 03:40] LABS: ALDO/PRA RATIO 3.4 Ratio (0.9-28.9)
== END 2018-03-20 15:53 | disposition home or self-care (01) | DRG 543 ==
LOC: ED 23:50 → ERH 03-18 02:14 → ICU 03-18 04:06 → 2RNO 03-18 19:11 → 2RSO 03-19 02:05
PROVIDERS: ADMIT Internal Medicine; ATTEND Internal Medicine
PROC: 5A1D70Z Performance of Urinary Filtration, Intermittent, Less than 6 Hours Per Day (ICD-10-PCS; principal; 2018-03-18)
PROC: 5A1D70Z Performance of Urinary Filtration, Intermittent, Less than 6 Hours Per Day (ICD-10-PCS; 2018-03-19)
DX: I16.1 Hypertensive emergency (principal); R65.10 Systemic inflammatory response syndrome (SIRS) of non-infectious origin without acute organ dysfunction; I50.9 Heart failure, unspecified; N18.6 End stage renal disease; I13.2 Hypertensive heart and chronic kidney disease with heart failure and with stage 5 chronic kidney disease, or end stage renal disease; D25.9 Leiomyoma of uterus, unspecified; D64.9 Anemia, unspecified; D72.829 Elevated white blood cell count, unspecified; E83.39 Other disorders of phosphorus metabolism; F17.210 Nicotine dependence, cigarettes, uncomplicated; F32.89 Other specified depressive episodes; F41.9 Anxiety disorder, unspecified; G89.29 Other chronic pain; I25.2 Old myocardial infarction; K29.70 Gastritis, unspecified, without bleeding; K59.00 Constipation, unspecified; N25.81 Secondary hyperparathyroidism of renal origin; N63.0 Unspecified lump in unspecified breast; N83.209 Unspecified ovarian cyst, unspecified side; Z76.5 Malingerer [conscious simulation]; Z87.442 Personal history of urinary calculi; Z99.2 Dependence on renal dialysis; Z82.49 Family history of ischemic heart disease and other diseases of the circulatory system; Z83.3 Family history of diabetes mellitus; R00.0 Tachycardia, unspecified; Z91.14 Patient's other noncompliance with medication regimen; R40.2412 Glasgow coma scale score 13-15, at arrival to emergency department

== ENCOUNTER 2018-03-23 22:17 | Emergency (ER) | payer OTHER ==
[2018-03-23 22:17] VITALS: BMI 25.0
[2018-03-23 22:27] VITALS: PULSE 120; RESP 18; TEMP 97.9; O2SAT 100
[2018-03-23 22:34] VITALS: BP 190/121
--- NOTE | 2018-03-23 22:52 | ED PDOC ---
Arrival/HPI - General Chief Complaint: Pain, Chronic Time Seen by Provider: 03/23/18 22:18 Historian: Patient - History of Present Illness Narrative History of Present Illness (Text): 03/23/18 22:48 37 year old female, whose past medical history includes anxiety, CHF, depression , htn, renal stone, and ESRD on HD, who presents to the emergency department complaining of general body aches. Patient was recently seen in the Emergency department this week. Patient denies any fevers, chills, chest pain, shortness of breath, nausea, vomiting, diarrhea, headache, dizziness, or any other complaint. Time/Duration: Prior to Arrival Symptom Onset: Sudden Symptom Course: Unchanged Activities at Onset: Light Context: Home Past Medical History - Provider Review Nursing Documentation Reviewed: Yes - Infectious Disease Hx of Infectious Diseases: None - Cardiac Hx Cardiac Disorders: Yes Hx [place]: Yes (Questionable per pt) Hx Hypertension: Yes - Pulmonary Hx Respiratory Disorders: No - Neurological Hx Neurological Disorder: No - HEENT Hx HEENT Disorder: Yes Other/Comment: eyeglasses for reading - Renal Hx Renal Disorder: Yes Hx Dialysis: Yes (MWF) Type of Dialysis Access: LUE graft Date of Last Dialysis Treatment: 03/21/18 - Endocrine/Metabolic Hx Endocrine Disorders: No - Hematological/Oncological Hx Blood Disorders: Yes Hx Anemia: Yes - Integumentary Hx Dermatological Disorder: No - Musculoskeletal/Rheumatological Hx Musculoskeletal Disorders: No - Gastrointestinal Hx Gastrointestinal Disorders: Yes (Peritonitis) - Genitourinary/Gynecological Hx Genitourinary Disorders: No - Psychiatric Hx Psychophysiologic Disorder: Yes Hx Anxiety: Yes Hx Depression: Yes Hx Substance Use: No - Surgical History Hx Cholecystectomy: Yes Hx Vascular Surgery: Yes (AV fistula ) Other/Comment: Peritoneal dialysis cath insertion and removal - Anesthesia Hx Anesthesia: Yes Hx Anesthesia Reactions: No Hx Malignant Hyperthermia: No Family/Social History - Physician Review Nursing Documentation Reviewed: Yes Family/Social History: Unknown Family HX Smoking Status: Light Smoker < 10 Cigarettes Daily Hx Alcohol Use: No Hx Substance Use: No Allergies/Home Meds Allergies/Adverse Reactions: Allergies No Known Allergies Allergy (Verified 03/17/18 23:54) PER PATIENT Home Medications: Home Meds Medication Instructions Recorded Confirmed Clonidine HCl [Catapres] 0.2 mg PO DAILY 08/28/17 03/23/18 amLODIPine [Norvasc] 20 mg PO DAILY 10/28/17 03/23/18 Alprazolam [Xanax] 0.5 mg PO BID 03/23/18 03/23/18 Labetalol Hydrochloride [Normodyne] 300 mg PO DAILY 03/23/18 03/23/18 traMADol [Ultram] 50 mg PO Q6 PRN 03/23/18 03/23/18 Review of Systems - Physician Review All systems were reviewed & negative as marked: Yes - Review of Systems Constitutional: Normal Eyes: Normal ENT: Normal Respiratory: Normal. absent: SOB, Cough Cardiovascular: Normal. absent: Chest Pain Gastrointestinal: Normal. absent: Abdominal Pain Genitourinary Female: Normal. absent: Dysuria, Frequency, Hematuria, Urine Output Changes Musculoskeletal: Other (General Body aches) Skin: Normal. absent: Rash Neurological: Normal. absent: Headache, Dizziness Endocrine: Normal Hemo/Lymphatic: Normal Psychiatric: Normal Physical Exam Vital Signs Reviewed: Yes Vital Signs Temp Pulse Resp BP Pulse Ox 03/23/18 22:33 190/121 H 03/23/18 22:26 97.9 F 120 H 18 100 Temperature: Afebrile Blood Pressure: Normal Pulse: Tachycardic Respiratory Rate: Normal Appearance: Positive for: Well-Appearing, Non-Toxic, Comfortable Pain Distress: None Mental Status: Positive for: Alert and Oriented X 3 - Systems Exam Head: Present: Atraumatic, Normocephalic Pupils: Present: PERRL Extroacular Muscles: Present: EOMI Conjunctiva: Present: Normal Mouth: Present: Moist Mucous Membranes Neck: Present: Normal Range of Motion Respiratory/Chest: Present: Clear to Auscultation, Good Air Exchange. No: Respiratory Distress, Accessory Muscle Use Cardiovascular: Present: Regular Rate and Rhythm, Normal S1, S2. No: Murmurs Abdomen: No: Tenderness, Distention, Peritoneal Signs Back: Present: Normal Inspection. No: CVA Tenderness, Midline Tenderness, Paraspinal Tenderness Upper Extremity: Present: Normal Inspection. No: Cyanosis, Edema Lower Extremity: Present: Normal Inspection. No: Edema, CALF TENDERNESS Neurological: Present: GCS=15, CN II-XII Intact, Speech Normal Skin: Present: Warm, Dry, Normal Color. No: Rashes Psychiatric: Present: Alert, Oriented x 3, Normal Insight, Normal Concentration Medical Decision Making ED Course and Treatment: 03/23/18 22:52 Impression: 29 year old female who presents to the emergency department complaining of generalized body aches. Plan: -- Labs -- Tylenol -- HCG, Qualitative Urine Stat -- Urinalysis -- Reassess and disposition Progress Notes: 03/24/18 02:57 pt eloped prior to final dsipo reassessement with iv in place [place] notified. - Lab Interpretations Lab Results: 03/23/18 23:00 03/23/18 23:00 Lab Results 03/23/18 23:00: Beta HCG, Quant < 2.39 03/23/18 23:00: Sodium 143, Potassium 4.0, Chloride 110 H, Carbon Dioxide 16 L, Anion Gap 21 H, BUN 44 H, Creatinine 3.2 H, Est GFR ( Amer) 20, Est GFR ( Non-Af Amer) 16, Random Glucose 122 H, Calcium 9.1, Total Bilirubin 0.3, AST 18 , ALT 48, Alkaline Phosphatase 82, Total Protein 6.9, Albumin 4.2, Globulin 2.7 , Albumin/Globulin Ratio 1.5 03/23/18 23:00: PT 9.9, INR 0.87 L, APTT 27.8 03/23/18 23:00: WBC 11.5 H D, RBC 3.98, Hgb 12.0, Hct 35.7 L, MCV 89.7, MCH 30.2 , MCHC 33.6, RDW 13.8, Plt Count 306, MPV 9.2, Gran % 66.7, Lymph % (Auto) 22.8 , [place] % (Auto) 4.5, Eos % (Auto) 5.4 H, Baso % (Auto) 0.6, Gran # 7.65 H, Lymph # (Auto) 2.6, [place] # (Auto) 0.5, Eos # (Auto) 0.6, Baso # (Auto) 0.07 - Medication Orders Current Medication Orders: Discontinued Medications Acetaminophen (Tylenol 325mg Tab) 975 mg PO STAT STA Stop: 03/23/18 22:47 Last Admin: 03/23/18 23:05 Dose: 975 mg - Scribe Statement The provider has reviewed the documentation as recorded by the Scribe Cayla Fatima All medical record entries made by the Scribe were at my direction and personally dictated by me. I have reviewed the chart and agree that the record accurately reflects my personal performance of the history, physical exam, medical decision making, and the department course for this patient. I have also personally directed, reviewed, and agree with the discharge instructions and disposition. Disposition/Present on Arrival - Present on Arrival Any Indicators Present on Arrival: No History of DVT/PE: No History of Uncontrolled Diabetes: No Urinary Catheter: No History of Decub. Ulcer: No History Surgical Site Infection Following: None - Disposition Have Diagnosis and Disposition been Completed?: Yes Diagnosis: Body aches Disposition: ELOPEMENT - ER ONLY Disposition Time: 22:00 Condition: UNKNOWN Discharge Instructions (ExitCare): Acute Pain, Adult, Chronic Pain Additional Instructions: please follow up with your doctor. return to emergency room with worsening symptoms or concerns. Forms: [employer] (Czech)
[2018-03-23 23:20] LABS: BASO # 0.07 K/mm3 (0.0-2.0); BASO % 0.6 % (0.0-3.0); EOS # 0.6 (0.0-0.7); EOS % 5.4 % (1.5-5.0); GRAN # 7.65 (1.4-6.5); GRAN % 66.7 % (50.0-68.0); LYMPH # 2.6 (1.2-3.4); LYMPH % 22.8 % (22.0-35.0); MEAN CELL VOLUME 89.7 fl (80.0-105.0); MEAN CORPUSCULAR HEMOGLOBIN 30.2 pg (25.0-35.0); MEAN CORPUSCULAR HGB CONC 33.6 g/dl (31.0-37.0); MEAN PLATELET VOLUME 9.2 fl (7.0-11.0); MONO # 0.5 (0.1-0.6); MONO % 4.5 % (1.0-6.0); RBC 3.98 10^6/uL (3.5-6.1); RED CELL DISTRIBUTION WIDTH 13.8 % (11.5-14.5); WHITE BLOOD COUNT 11.5 10^3/ul (4.5-11.0)
[2018-03-23 23:24] LABS: ALB/GLOB RATIO 1.5 (1.1-1.8); ALBUMIN 4.2 g/dL (3.0-4.8); CALCIUM 9.1 mg/dL (8.4-10.5)
[2018-03-23 23:44] LABS: INR 0.87 (0.93-1.08); PARTIAL THROMBOPLASTIN TIME 27.8 Seconds (25.1-36.5); PROTHROMBIN TIME 9.9 SECONDS (9.4-12.5)
== END 2018-03-24 00:15 | disposition left against medical advice (07) ==
LOC: ED 22:17
DX: R52 Pain, unspecified (principal); F17.210 Nicotine dependence, cigarettes, uncomplicated; I12.0 Hypertensive chronic kidney disease with stage 5 chronic kidney disease or end stage renal disease; N18.6 End stage renal disease; I50.9 Heart failure, unspecified; Z99.2 Dependence on renal dialysis

== ENCOUNTER 2018-05-02 20:15 | Inpatient (IN) | payer OTHER ==
--- NOTE | 2018-05-02 21:30 | ED PDOC ---
Arrival/HPI - General Chief Complaint: Abdominal Pain Time Seen by Provider: 05/02/18 21:03 Historian: Patient - History of Present Illness Narrative History of Present Illness (Text): 05/02/18 21:31 A 37 year old female, whose past medical history includes ESRD, hypertension, depression, and anxiety, presents to the emergency department complaining of multiple episodes of non-bilious/non-bloody vomiting and epigastric pain since this morning. Patient reports during dialysis patient began experiencing symptoms. She was instructed after dialysis if symptoms continued to go to the ER. Patient denies any chest pain, shortness of breath, fever, chills, or any other complaints. No PMD Past Medical History - Provider Review Nursing Documentation Reviewed: Yes - Infectious Disease Hx of Infectious Diseases: None - Cardiac Hx Cardiac Disorders: Yes Hx [place]: Yes (Questionable per pt) Hx Hypertension: Yes - Pulmonary Hx Respiratory Disorders: No - Neurological Hx Neurological Disorder: No - HEENT Hx HEENT Disorder: Yes Other/Comment: eyeglasses for reading - Renal Hx Renal Disorder: Yes Hx Dialysis: Yes (MWF) Date of Last Dialysis Treatment: 03/21/18 - Endocrine/Metabolic Hx Endocrine Disorders: No - Hematological/Oncological Hx Blood Disorders: Yes Hx Anemia: Yes - Integumentary Hx Dermatological Disorder: No - Musculoskeletal/Rheumatological Hx Musculoskeletal Disorders: No - Gastrointestinal Hx Gastrointestinal Disorders: Yes (Peritonitis) - Genitourinary/Gynecological Hx Genitourinary Disorders: No - Psychiatric Hx Psychophysiologic Disorder: Yes Hx Anxiety: Yes Hx Depression: Yes Hx Substance Use: No - Surgical History Hx Cholecystectomy: Yes Hx Vascular Surgery: Yes (AV fistula ) Other/Comment: Peritoneal dialysis cath insertion and removal - Anesthesia Hx Anesthesia: Yes Hx Anesthesia Reactions: No Hx Malignant Hyperthermia: No Family/Social History - Physician Review Nursing Documentation Reviewed: Yes Family/Social History: No Known Family HX Smoking Status: Light Smoker < 10 Cigarettes Daily Hx Alcohol Use: No Hx Substance Use: No Allergies/Home Meds Allergies/Adverse Reactions: Allergies No Known Allergies Allergy (Verified 05/02/18 20:56) PER PATIENT Home Medications: Home Meds Medication Instructions Recorded Confirmed Clonidine HCl [Catapres] 0.2 mg PO DAILY 08/28/17 05/02/18 Alprazolam [Xanax] 0.5 mg PO BID 03/23/18 05/02/18 Labetalol Hydrochloride [Normodyne] 300 mg PO DAILY 03/23/18 05/02/18 Review of Systems - Physician Review All systems were reviewed & negative as marked: Yes - Review of Systems Constitutional: absent: Fevers, Night Sweats Respiratory: absent: SOB Cardiovascular: absent: Chest Pain Gastrointestinal: Abdominal Pain (epigastric pain), Vomiting Physical Exam Vital Signs Reviewed: Yes Vital Signs Temp Pulse Resp BP Pulse Ox 05/02/18 22:08 85 19 144/98 H 96 05/02/18 20:51 99.2 F 97 H 19 172/113 H 97 Temperature: Afebrile Blood Pressure: Normal Pulse: Regular Respiratory Rate: Normal Appearance: Positive for: Well-Appearing, Non-Toxic, Comfortable Pain Distress: None Mental Status: Positive for: Alert and Oriented X 3 - Systems Exam Head: Present: Atraumatic, Normocephalic Pupils: Present: PERRL Extroacular Muscles: Present: EOMI Conjunctiva: Present: Normal Mouth: Present: Moist Mucous Membranes Neck: Present: Normal Range of Motion Respiratory/Chest: Present: Clear to Auscultation, Good Air Exchange. No: Respiratory Distress, Accessory Muscle Use Cardiovascular: Present: Regular Rate and Rhythm, Normal S1, S2. No: Murmurs Abdomen: Present: Tenderness (epigastric). No: Distention, Peritoneal Signs, Rebound, Guarding Back: Present: Normal Inspection Upper Extremity: Present: Normal Inspection. No: Cyanosis, Edema Lower Extremity: Present: Normal Inspection. No: Edema Neurological: Present: GCS=15, CN II-XII Intact, Speech Normal Skin: Present: Warm, Dry, Normal Color. No: Rashes Psychiatric: Present: Alert, Oriented x 3, Normal Insight, Normal Concentration Medical Decision Making ED Course and Treatment: 05/02/18 21:33 Impression: 37 year old female with non-bilious/non-bloody vomiting and epigastric pain. Plan: -- EKG -- Labs -- Chest X-ray -- Pepcid -- Zofran -- Reassess and disposition Progress Notes: EKG: Ordered, reviewed, and independently interpreted the EKG. Rate : 82 BPM Rhythm : NSR Interpretation : No ST-segment elevations or depressions, no T-wave inversions, normal intervals, LVH. Comparison : No previous EKG for comparison. - Lab Interpretations Lab Results: 05/02/18 21:17 05/02/18 21:17 Lab Results 05/02/18 21:17: Sodium 143, Chloride 95 L, Potassium 4.0, Carbon Dioxide 30, Anion Gap 21 H, BUN 16, Creatinine 2.3 H, Est GFR ( Amer) 29, Est GFR ( Non-Af Amer) 24, Random Glucose 130 H, Calcium 10.4, Magnesium 2.0, Total Bilirubin 0.6, AST 42 H D, ALT 47, Alkaline Phosphatase 124, Total Protein 8.8 H , Albumin 5.3 H, Globulin 3.6, Albumin/Globulin Ratio 1.5, Lipase 258 05/02/18 21:17: pO2 43, VBG pH 7.43, VBG pCO2 52.0, VBG HCO3 34.5 H, VBG Total CO2 36.1 H, VBG O2 Sat (Calc) 84.2 H, VBG Base Excess 8.5 H, VBG Potassium 4.0, Sodium 139.0, Chloride 100.0, Glucose 137 H, Lactate 1.0, FiO2 21.0, Venous Blood Potassium 4.0 05/02/18 21:17: Urine Color Yellow, Urine Appearance Clear, Urine pH 7.5, Ur Specific Hessel 1.020, Urine Protein >=300 H, Urine Glucose (UA) Negative, Urine Ketones Negative, Urine Blood Negative, Urine Nitrate Negative, Urine Bilirubin Negative, Urine Urobilinogen 0.2, Ur Leukocyte Esterase Trace H, Urine RBC 0 - 2, Urine WBC 5 - 10, Ur Epithelial Cells 3 - 4, Urine Bacteria Mod 05/02/18 21:17: WBC 17.1 H D, RBC 4.56, Hgb 13.6, Hct 39.2, MCV 86.0 D, MCH 29.8, MCHC 34.7, RDW 14.1, Plt Count 360, MPV 8.3, Gran % 88.6 H, Lymph % (Auto ) 6.9 L, [place] % (Auto) 3.5, Eos % (Auto) 0.7 L, Baso % (Auto) 0.3, Gran # 15.17 H, Lymph # (Auto) 1.2, [place] # (Auto) 0.6, Eos # (Auto) 0.1, Baso # (Auto) 0.05 - RAD Interpretation Radiology Orders: 05/02/18 21:17 CXR [CHEST ONE VIEW] [RAD] Stat - Medication Orders Current Medication Orders: Ceftriaxone Sodium (Rocephin 1 Gram Ivpb) 1 gm in 100 mls @ 200 mls/hr IVPB STAT STA PRN Reason: Protocol Stop: 05/02/18 22:37 Discontinued Medications Famotidine (Pepcid) 20 mg IVP STAT STA Stop: 05/02/18 21:04 Last Admin: 05/02/18 21:33 Dose: 20 mg IVP Administration Document 05/02/18 21:33 MS (Rec: 05/02/18 21:33 MS [id number]) Charges for Administration # of IVP Administrations 1 Ondansetron HCl (Zofran Inj) 4 mg IVP STAT STA Stop: 05/02/18 21:04 Last Admin: 05/02/18 21:32 Dose: 4 mg IVP Administration Document 05/02/18 21:32 MS (Rec: 05/02/18 21:32 MS [id number]) Charges for Administration # of IVP Administrations 1 - Scribe Statement The provider has reviewed the documentation as recorded by the Claire Savage Provider Scribe Attestation: All medical record entries made by the Trishaibcarline were at my direction and personally dictated by me. I have reviewed the chart and agree that the record accurately reflects my personal performance of the history, physical exam, medical decision making, and the department course for this patient. I have also personally directed, reviewed, and agree with the discharge instructions and disposition. Disposition/Present on Arrival - Present on Arrival Any Indicators Present on Arrival: No History of DVT/PE: No History of Uncontrolled Diabetes: No Urinary Catheter: No History of Decub. Ulcer: No History Surgical Site Infection Following: None - Disposition Have Diagnosis and Disposition been Completed?: Yes Diagnosis: Pyelonephritis, ESRD (end stage renal disease) Disposition Time: 22:35 Patient Plan: Admission Condition: GOOD Forms: [employer] (Romansh)
[2018-05-02 21:32] LABS: VENOUS BLOOD GAS BASE EXCESS 8.5 mmol/L (0.0-2.0); VENOUS BLOOD GAS PO2 43 mm/Hg (30-55); VENOUS BLOOD PH 7.43 (7.32-7.43)
[2018-05-02 21:38] LABS: BASO # 0.05 K/mm3 (0.0-2.0); BASO % 0.3 % (0.0-3.0); EOS # 0.1 (0.0-0.7); EOS % 0.7 % (1.5-5.0); GRAN # 15.17 (1.4-6.5); GRAN % 88.6 % (50.0-68.0); HEMOGLOBIN 13.6 g/dL (12.0-16.0); LYMPH # 1.2 (1.2-3.4); LYMPH % 6.9 % (22.0-35.0); MEAN CORPUSCULAR HEMOGLOBIN 29.8 pg (25.0-35.0); MEAN CORPUSCULAR HGB CONC 34.7 g/dl (31.0-37.0); MEAN PLATELET VOLUME 8.3 fl (7.0-11.0); MONO # 0.6 (0.1-0.6); MONO % 3.5 % (1.0-6.0); RBC 4.56 10^6/uL (3.5-6.1); RED CELL DISTRIBUTION WIDTH 14.1 % (11.5-14.5); WHITE BLOOD COUNT 17.1 10^3/ul (4.5-11.0)
[2018-05-02 21:39] LABS: PH,URINE 7.5 (4.7-8.0); URINE BILIRUBIN NEGATIVE (NEGATIVE); URINE BLOOD NEGATIVE (NEGATIVE); URINE GLUCOSE (UA) NEGATIVE (NEGATIVE); URINE LEUKOCYTE ESTERASE TRACE Leu/uL (NEGATIVE); URINE PROTEIN >=300 mg/dL (<30 mg/dL); URINE UROBILINOGEN 0.2 E.U./dL (<1 E.U./dL)
[2018-05-02 21:42] LABS: ALB/GLOB RATIO 1.5 (1.1-1.8); ALBUMIN 5.3 g/dL (3.0-4.8); CALCIUM 10.4 mg/dL (8.4-10.5)
[2018-05-02 21:47] LABS: URINE APPEARANCE CLEAR (CLEAR); URINE COLOR YELLOW (YELLOW)
[2018-05-02 21:58] LABS: URINE BACTERIA MOD (NEG); URINE RBC 0 - 2 /hpf (0-2)
[2018-05-02] MEDS ORDERED: cefTRIAXone 1 gm 1 GM/100 ML BAG IVPB STA (22:08)
[2018-05-02] MEDS ORDERED: DiphenhydrAMINE 50 mg/ml Inj ONE (23:20)
[2018-05-02] MEDS ORDERED: Sodium Chloride 0.9% 1,000 ML IV SCH (23:45)
[2018-05-02] MEDS ORDERED: Linezolid 600 mg in D5W 300 ml 600 MG/300 ML BAG IVPB SCH (23:45)
[2018-05-03] MEDS ORDERED: Piperacillin/Tazobact 3.375 gm 100 ML IVPB SCH
--- NOTE | 2018-05-03 00:03 | CP.PCM.HP ---
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 Stated that abdominal pain woke her up on 7 AM w/ abdominal pain. States that the abdominal pain is located in her epigastric region, and her LUQ and radiates to the R side of her back. She says that the pain is constant, and has worsened since onset this morning, described it as a burning sensation, 10/10 severity. Pain is not described as a throbbing/ pulsatile sensation. Not associated w/ any PO intake, nothing alleviates the pain or worsens it. Does report multiple episodes of NBNB vomitus. She reports that she was diagnosed w/ acute pancreatitis approximately 2 months ago. Upon ROS pt denies: headache, blurry vision, chest pain, palpitations, shortness of breath, cough, diarrhea constipation, dysuria, LE weakness/ numbness. Remainder of 12 system ROS otherwise negative. Of note, patient [place] [facility] [place], she has had multiple hospitalizations. Prior ED note states that patient sees Dr. Quarles for pain management During previous admission, patient was found to be in hypertensive urgency, and sepsis 2/2 intraabdominal infection. Patient underwent multiple myeloma work up as well. She was instructed upon discharge to follow up outpatient with mammogram and breast ultrasound. Also was noted to have ovarian cyst on pelvic ultrasound, and recommended for outpatient gynecology follow up with repeat US. Follows up w/ E[facility] Ritchie for dialysis MWF PMD: Michelle Florentino Pharmacy: [id number] PMH: As above PSH: Cholecystectomy Home Rx: Amlodipine, Labetolol, Clonidine, Xanax Social: Denies EtOH, Smokes 10 cig/day, denies illicit drug use Present on Admission - Present on Admission Any Indicators Present on Admission: No Review of Systems - Review of Systems All systems: reviewed and no additional remarkable complaints except Review of Systems: As per HPI Past Patient History - Infectious Disease Hx of Infectious Diseases: None - Past Medical History & Family History Past Medical History?: Yes - Past Social History Smoking Status: Light Smoker < 10 Cigarettes Daily - CARDIAC Hx Cardiac Disorders: Yes Hx Heart Attack: Yes (Questionable per pt) Hx Hypertension: Yes - PULMONARY Hx Respiratory Disorders: No - NEUROLOGICAL Hx Neurological Disorder: No - HEENT Hx HEENT Problems: Yes Other/Comment: eyeglasses for reading - RENAL Hx Chronic Kidney Disease: Yes Hx Dialysis: Yes (MWF) Date of Last Dialysis Treatment: 03/21/18 - ENDOCRINE/METABOLIC Hx Endocrine Disorders: No - HEMATOLOGICAL/ONCOLOGICAL Hx Blood Disorders: Yes Hx Anemia: Yes - INTEGUMENTARY Hx Dermatological Problems: No - MUSCULOSKELETAL/RHEUMATOLOGICAL Hx Musculoskeletal Disorders: No - GASTROINTESTINAL Hx Gastrointestinal Disorders: Yes (Peritonitis) - GENITOURINARY/GYNECOLOGICAL Hx Genitourinary Disorders: No - PSYCHIATRIC Hx Psychophysiologic Disorder: Yes Hx Anxiety: Yes Hx Depression: Yes Hx Substance Use: No - SURGICAL HISTORY Hx Cholecystectomy: Yes Hx Vascular Surgery: Yes (AV fistula ) Other/Comment: Peritoneal dialysis cath insertion and removal - ANESTHESIA Hx Anesthesia: Yes Hx Anesthesia Reactions: No Hx Malignant Hyperthermia: No Meds Allergies/Adverse Reactions: Allergies Allergy/AdvReac Type Severity Reaction Status Date / Time No Known Allergies Allergy Verified 05/02/18 20:56 Physical Exam - Constitutional Additional comments: Appearing to be uncomfortable, acutely distressed 2/2 pain. - Head Exam Head Exam: ATRAUMATIC, NORMOCEPHALIC - Eye Exam Eye Exam: EOMI, PERRL. absent: Scleral icterus - ENT Exam ENT Exam: Mucous Membranes Moist - Respiratory Exam Respiratory Exam: Clear to Auscultation Bilateral, NORMAL BREATHING PATTERN. absent: Rhonchi, Wheezes - Cardiovascular Exam Cardiovascular Exam: RRR, +S1, +S2 - GI/Abdominal Exam GI & Abdominal Exam: Hypoactive Bowel Sounds, Soft, Tenderness (Epigastric/ LUQ) - Extremities Exam Extremities exam: Positive for: normal inspection, pedal pulses present Additional comments: JUAN FRANCISCO Fistula w/ thrill; 1/2 cm lesion proximal to AV fistula; possible abscess. - Back Exam Back exam: absent: CVA tenderness (L), CVA tenderness (R), vertebral tenderness - Neurological Exam Neurological exam: Alert, CN II-XII Intact, Oriented x3 - Psychiatric Exam Psychiatric exam: Normal Mood - Skin Skin Exam: Dry, Intact, Warm Results - Vital Signs Recent Vital Signs: Last Vital Signs Temp 99.2 F 05/02/18 20:51 Pulse 85 05/02/18 22:08 Resp 19 05/02/18 22:08 BP 144/98 H 05/02/18 22:08 Pulse Ox 96 05/02/18 22:08 - Labs Result Diagrams: 05/02/18 21:17 05/02/18 21:17 Assessment & Plan - Assessment and Plan (Free Text) Assessment: 37F w/ a PMH of HTN, ESRD (on HD --), anxiety, depression, chronic abdominal pain, and nephrolithiasis, presented to [facility] ED on 05/02 PM w/ a chief complaint of epigastric and LUQ abdominal pain w/ assoc intractable nausea/ vomit x1 day. Chronic Abdominal Pain w/ Nausea/Vomiting Unknown etiology; CT AP - No acute findings; C/w pain management - Ultram 50mg Q6H PRN NPO IVF - NS 150/hr Zofran 4mg Q4 PRN Zosyn Blood cx pending Urine cx pending Procal pending CBC/ CMP/ ID Consulted Hx Hypertension continue home Clonididne 0.2 mg daily continue home Labetalol 300 QD Hx End stage renal disease w/ HD on MWF Nephorlogy consulted GI/DVT - [place]/ SCD Pt. seen and examined at bedside w/ attending physician Dr. 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 - Date & Time Date: 05/03/18 Time: 05:02 <Celio Gregory - Last Filed: 05/03/18 06:47> Results - Vital Signs Recent Vital Signs: Last Vital Signs Temp 98.2 F 05/03/18 02:05 Pulse 82 05/03/18 02:05 Resp 18 05/03/18 02:05 BP 150/90 05/03/18 02:05 Pulse Ox 94 L 05/03/18 00:10 - Labs Result Diagrams: 05/03/18 06:00 05/02/18 21:17 Labs: Laboratory Results - last 24 hr 05/03/18 06:00 WBC 16.3 H RBC 4.32 Hgb 12.7 Hct 37.1 MCV 85.9 MCH 29.4 MCHC 34.2 RDW 14.2 Plt Count 386 MPV 8.4 Gran % 91.8 H Lymph % (Auto) 6.3 L [place] % (Auto) 1.6 Eos % (Auto) 0.1 L Baso % (Auto) 0.2 Gran # 14.93 H Lymph # (Auto) 1.0 L [place] # (Auto) 0.3 Eos # (Auto) 0.0 Baso # (Auto) 0.04 Attending/Attestation - Attestation Notes (Text): Patient seen and examined with the residents, agree with above f/u on CT imaging of the abdomen possible UTI - f/u on urine cx and started on Abx
[2018-05-03] MEDS ORDERED: Morphine 2 mg/ml ISec IVP STA (03:21)
[2018-05-03 04:37] VITALS: BMI 23.9
[2018-05-03 06:30] LABS: BASO # 0.04 K/mm3 (0.0-2.0); BASO % 0.2 % (0.0-3.0); EOS % 0.1 % (1.5-5.0); GRAN # 14.93 (1.4-6.5); GRAN % 91.8 % (50.0-68.0); HEMOGLOBIN 12.7 g/dL (12.0-16.0); LYMPH % 6.3 % (22.0-35.0); MEAN CELL VOLUME 85.9 fl (80.0-105.0); MEAN CORPUSCULAR HEMOGLOBIN 29.4 pg (25.0-35.0); MEAN CORPUSCULAR HGB CONC 34.2 g/dl (31.0-37.0); MEAN PLATELET VOLUME 8.4 fl (7.0-11.0); MONO # 0.3 (0.1-0.6); MONO % 1.6 % (1.0-6.0); PLATELET COUNT 386 10^3/uL (120.0-450.0); RBC 4.32 10^6/uL (3.5-6.1); RED CELL DISTRIBUTION WIDTH 14.2 % (11.5-14.5); WHITE BLOOD COUNT 16.3 10^3/ul (4.5-11.0)
[2018-05-03 07:21] LABS: ALB/GLOB RATIO 1.6 (1.1-1.8); ALBUMIN 5.2 g/dL (3.0-4.8); CALCIUM 10.3 mg/dL (8.4-10.5)
[2018-05-03 09:01] LABS: EOSINOPHIL 1 % (0.0-3.0); HYPOCHROMIA 1+; LYMPHOCYTE 5 % (22.0-35.0); MONOCYTE 2 % (1.0-6.0); NEUTROPHIL 92 % (50.0-70.0); PLATELET ESTIMATE HIGH (NORMAL); ROULEAU 1+; TOXIC GRANULATION 2+
[2018-05-03] MEDS: Morphine 2 mg/ml ISec IVP PRN ×3 (10:21→23:14)
--- NOTE | 2018-05-03 12:15 | CARD ---
APPROVED REPORT Date of service: 05/02/2018 EKG Measurement Heart [id number] <Conclusion> Normal sinus rhythm Minimal voltage criteria for LVH, may be normal variant Borderline ECG
[2018-05-03] MEDS: Meropenem 500 MG in Sodium Chloride 0.9% 50 ML IVPB SCH (12:30)
--- NOTE | 2018-05-03 12:59 | CT ---
Date of service: 05/03/2018 PROCEDURE: CT Abdomen and Pelvis without intravenous contrast HISTORY: abdominal pain and n/v COMPARISON: 03/18/2018. TECHNIQUE: CT scan of the abdomen and pelvis was performed without administration of intravenous contrast. Oral contrast was not administered. Coronal and sagittal reformatted images were obtained. Radiation dose: Total exam DLP = 267.82 mGy-cm. This CT exam was performed using one or more of the following dose reduction techniques: Automated exposure control, adjustment of the mA and/or kV according to patient size, and/or use of iterative reconstruction technique. FINDINGS: LOWER THORAX: The visualized lungs are clear. LIVER: Normal in size. Stable nonspecific calcification, likely a granuloma in the right hepatic No gross lesion or ductal dilatation. GALLBLADDER AND BILE DUCTS: Surgically absent. PANCREAS: Normal in size. No gross lesion or ductal dilatation. SPLEEN: Normal in size. ADRENALS: Bilateral adrenal gland thickening without discrete nodule. KIDNEYS AND URETERS: Normal in size. Punctate nonobstructing stones in the left upper pole. No hydronephrosis. Stable subcentimeter high attenuation cyst in the left lower pole, likely a hemorrhagic cyst. VASCULATURE: No aortic aneurysm. BOWEL: Scratched the small bowel loops are normal in caliber. There is moderate amount of stool in the colon. No bowel dilatation or obstruction. APPENDIX: Normal appendix. PERITONEUM: No free fluid. No free air. LYMPH NODES: No enlarged lymph nodes. BLADDER: Unremarkable. REPRODUCTIVE: The uterus is bulky. There is a 4.0 cm peripherally calcified fibroid posterior wall. There is a 4.8 x 3.0 cm complicated cyst in the left ovary. 4.4 x 1.9 cm complicated cyst in the right ovary. BONES: No acute fracture. Redemonstration of tiny lucent lesions in the bones. The osseous architecture is abnormal and renal osteodystrophy remains a differential consideration. Clinical follow-up is advised. OTHER FINDINGS: None. IMPRESSION: 1. No acute abdominal or pelvic abnormality. Punctate nonobstructing stones in the upper pole of the left kidney. 2. 4.8 x 3.0 cm complicated cyst in the left ovary. 4.4 x 1.9 cm complicated cyst in the right ovary. Please correlate with pelvic ultrasound. 3. 4.0 cm peripherally calcified posterior wall fibroid. A preliminary report was provided by [employer].
--- NOTE | 2018-05-03 13:28 | RAD ---
Date of service: 05/02/2018 PROCEDURE: CHEST RADIOGRAPH, 1 VIEW HISTORY: epigastric pain and vomiting COMPARISON: 03/18/2018. FINDINGS: LUNGS: The lungs are well inflated and clear. PLEURA: No pneumothorax or pleural fluid seen. CARDIOVASCULAR: Normal. OSSEOUS STRUCTURES: No significant abnormalities. VISUALIZED UPPER ABDOMEN: Normal. OTHER FINDINGS: None. IMPRESSION: No active pulmonary disease.
--- NOTE | 2018-05-03 14:46 | US ---
Date of service: 05/03/2018 HISTORY: abd pain / bili tree size of cbd COMPARISON: CT abdomen and pelvis from 05/03/2018 TECHNIQUE: Sonographic evaluation of the abdomen. FINDINGS: LIVER: Measures 13.1 cm. There is mild diffuse increased echogenicity of the liver parenchyma most compatible with fatty infiltration. No mass. No intrahepatic bile duct dilatation. GALLBLADDER: Surgically absent. COMMON BILE DUCT: Measures 8.2 mm. No stones. Mild diffuse dilatation is likely in keeping with postcholecystectomy status. PANCREAS: Unremarkable as visualized. No mass. No ductal dilatation. RIGHT KIDNEY: Measures 9.6cm. Normal echogenicity. No calculus, mass, or hydronephrosis. LEFT KIDNEY: Measures 9.2cm. Normal echogenicity. No calculus, mass, or hydronephrosis. There is a 3 x 2 x 4 mm nonobstructing stone in the upper pole. SPLEEN: Normal in size and contour. No mass. AORTA: No aneurysmal dilatation. IVC: Unremarkable. OTHER FINDINGS: None. IMPRESSION: 3 mm nonobstructing stone in the upper pole of the left kidney. No hydronephrosis. Mild diffuse dilatation of the common bile duct is likely in keeping with cholecystectomy status place
[2018-05-03 15:06] VITALS: RESP 20
--- NOTE | 2018-05-03 15:18 | CON ---
DATE: 05/03/2018 LOCATION: The patient is seen earlier today in room 571, bed 2. CHIEF COMPLAINT: Epigastric pain times several days' duration. HISTORY OF PRESENT ILLNESS: This is a 37-year-old female with history of hypertension; congestive heart failure; end-stage renal disease, on hemodialysis; depression; anxiety; who was admitted with epigastric pain associated with vomiting. The pain is dull in nature without radiation. At times, it radiates to the back. There are no fevers and no chills. No shortness of breath or cough. No diarrhea or constipation. No dysuria or frequency. REVIEW OF SYSTEMS: A 12-point review of systems performed. PAST MEDICAL HISTORY: Significant for hypertension; chronic renal failure, on hemodialysis; congestive heart failure; depression; anxiety; coronary artery disease; myocardial infarction. PAST SURGICAL HISTORY: Significant for cholecystectomy in 03/2017, left arm arteriovenous shunt placement 6 months ago. The patient did have peritoneal dialysis cath, which was removed. MEDICATIONS AT HOME: Revealed the Catapres, Xanax, labetalol. ALLERGIES: THE PATIENT HAS NO KNOWN ALLERGY TO ANY ANTIBIOTICS. PHYSICAL EXAMINATION: GENERAL: On exam, the patient is in bed. VITAL SIGNS: Temperature of 99.2, heart rate of 97, respiratory rate of 19, blood pressure of 170/113, pulse oximetry is 97. The patient's BMI is 24, the highest. She did have a heart rate of up to 100 and respiratory rate of up to 19. HEENT: Examination of HEENT is unremarkable. NECK: Supple. LUNGS: Have decreased breath sounds. HEART: Normal S1, S2. ABDOMEN: Mild tenderness in the epigastric area. No rebound or guarding. No masses. There is no CVA tenderness. LABORATORY DATA: Laboratory examination reveals a white count of 17,100, hemoglobin of 13, platelets of 360. Chemistries reveals a BUN of 16, creatinine of 2.3, the patient's lipase is 258 and glucose is 130 and AST is 42 and bilirubin is normal. Urinalysis is unremarkable. Review of microbiology from previously shows urine culture in 11/2017 of gram-positive cocci. Blood cultures have been negative in the past. The patient also had a CAT scan of the abdomen and pelvis, which has not been read. The emergency room chart is reviewed. The chest x-ray is also results are not available. Dr. Peterson's history and physical examination is noted. ASSESSMENT AND PLAN: A 37-year-old female with chronic renal failure, on hemodialysis; hypertension; congestive heart failure; depression; anxiety; coronary artery disease; myocardial infarction. Presenting with tachycardia, low-grade fevers and with systemic inflammatory response syndrome, leukocytosis of 17,000 with an unremarkable urinalysis. #1 is systemic inflammatory response syndrome. We will treat the patient with meropenem pending blood cultures and urine cultures, CAT scan of the abdomen and pelvis, chest x-ray and initial workup results and the patient had an human immunodeficiency virus test in 03/2018, which was negative. We will follow closely with you. Lucho Rollins MD
--- NOTE | 2018-05-03 16:06 | CP.PCM.CON ---
History of Present Illness - History of Present Illness History of Present Illness: renal consult note 37F w/ a PMH of HTN, ESRD (on HD --), anxiety, depression, chronic abdominal pain, and nephrolithiasis, presented to [facility] ED on 05/02 PM w/ a chief complaint of abdominal pain and intractable nausea/ vomit x1 day. complete ros is negative f/h negative for renal disease social hx non smoker, no alcohol medications reviewed her hd days are mwf, at [facility] with Dr Seth group pe: vitals reviewed heent normal op moist no jvd no icterus s1s2 present no resp distress abd soft bs+ tender ao times 3 skin normal cooperative A&P: esrd/htn/abdominal pain hd days mwf continue per schedule, no missed hd sessions lytes reviewed anemia stable epo with hd bp ok abdominal pain work up per primary team Past Patient History - Infectious Disease Hx of Infectious Diseases: None - Past Medical History & Family History Past Medical History?: Yes - Past Social History Smoking Status: Light Smoker < 10 Cigarettes Daily - CARDIAC Hx Cardiac Disorders: Yes Hx Heart Attack: Yes (Questionable per pt) Hx Hypertension: Yes - PULMONARY Hx Respiratory Disorders: No - NEUROLOGICAL Hx Neurological Disorder: No - HEENT Hx HEENT Problems: Yes Other/Comment: eyeglasses for reading - RENAL Hx Chronic Kidney Disease: Yes Hx Dialysis: Yes (MWF) Date of Last Dialysis Treatment: 03/21/18 - ENDOCRINE/METABOLIC Hx Endocrine Disorders: No - HEMATOLOGICAL/ONCOLOGICAL Hx Blood Disorders: Yes Hx Anemia: Yes - INTEGUMENTARY Hx Dermatological Problems: No - MUSCULOSKELETAL/RHEUMATOLOGICAL Hx Musculoskeletal Disorders: No - GASTROINTESTINAL Hx Gastrointestinal Disorders: Yes (Peritonitis) - GENITOURINARY/GYNECOLOGICAL Hx Genitourinary Disorders: No - PSYCHIATRIC Hx Psychophysiologic Disorder: Yes Hx Anxiety: Yes Hx Depression: Yes Hx Substance Use: No - SURGICAL HISTORY Hx Cholecystectomy: Yes Hx Vascular Surgery: Yes (AV fistula ) Other/Comment: Peritoneal dialysis cath insertion and removal - ANESTHESIA Hx Anesthesia: Yes Hx Anesthesia Reactions: No Hx Malignant Hyperthermia: No Meds Allergies/Adverse Reactions: Allergies Allergy/AdvReac Type Severity Reaction Status Date / Time No Known Allergies Allergy Verified 05/02/18 20:56 - Medications Medications: Current Medications Clonidine HCl (Catapres) 0.2 mg PO DAILY [facility] Sodium Chloride (Sodium Chloride 0.9%) 1,000 mls @ 150 mls/hr IV .Q6H40M [facility] Meropenem 500 mg/ Sodium (Chloride) 50 mls @ 100 mls/hr IVPB Q12 [facility] PRN Reason: Protocol Stop: 05/12/18 11:01 Last Admin: 05/03/18 12:30 Dose: 100 mls/hr Labetalol HCl (Trandate) 300 mg PO DAILY [facility] Last Admin: 05/03/18 10:09 Dose: 300 mg Morphine Sulfate (Morphine) 1 mg IVP Q4H PRN PRN Reason: Pain, severe (8-10) Last Admin: 05/03/18 10:21 Dose: 1 mg Ondansetron HCl (Zofran Inj) 4 mg IVP Q4H PRN PRN Reason: Nausea/Vomiting Last Admin: 05/03/18 02:46 Dose: 4 mg Pantoprazole Sodium (Protonix Inj) 40 mg IVP DAILY [facility] Last Admin: 05/03/18 10:10 Dose: 40 mg Tramadol HCl (Ultram) 50 mg PO Q6H PRN PRN Reason: Pain, severe (8-10) Results - Vital Signs Recent Vital Signs: Last Vital Signs Temp 98.7 F 05/03/18 15:05 Pulse 71 05/03/18 15:05 Resp 20 05/03/18 15:05 BP 143/87 05/03/18 15:05 Pulse Ox 100 05/03/18 15:05 - Labs Result Diagrams: 05/03/18 06:00 05/03/18 06:00 Labs: Laboratory Results - last 24 hr 05/03/18 05/03/18 06:00 06:00 WBC 16.3 H RBC 4.32 Hgb 12.7 Hct 37.1 MCV 85.9 MCH 29.4 MCHC 34.2 RDW 14.2 Plt Count 386 MPV 8.4 Gran % 91.8 H Lymph % (Auto) 6.3 L Bulloch % (Auto) 1.6 Eos % (Auto) 0.1 L Baso % (Auto) 0.2 Gran # 14.93 H Lymph # (Auto) 1.0 L Bulloch # (Auto) 0.3 Eos # (Auto) 0.0 Baso # (Auto) 0.04 Neutrophils % (Manual) 92 H Lymphocytes % (Manual) 5 L Monocytes % (Manual) 2 Eosinophils % (Manual) 1 Toxic Granulation 2+ Platelet Evaluation High Hypochromasia 1+ Rouleaux 1+ Sodium 139 Potassium 4.1 Chloride 96 L Carbon Dioxide 27 Anion Gap 20 BUN 20 Creatinine 2.8 H Est GFR ( Amer) 23 Est GFR (Non-Af Amer) 19 Random Glucose 140 H Calcium 10.3 Phosphorus 3.3 Magnesium 2.0 Total Bilirubin 0.7 AST 35 ALT 40 Alkaline Phosphatase 119 Total Protein 8.5 H Albumin 5.2 H Globulin 3.3 Albumin/Globulin Ratio 1.6
--- NOTE | 2018-05-03 17:58 | CP.PCM.PN ---
Subjective - Date & Time of Evaluation Date of Evaluation: 05/03/18 Time of Evaluation: 09:40 - Subjective Subjective: This is a follow up visit to overnight admission. Patient states she is having pain. Complains of epigastric pain. Patient does not radiate and is constant. States tramadol is not helping the pain. States she has been having associated nausea and vomiting. No chest pain or shortness of breath. No fevers or chills. No headaches or dizziness. No dysuria. No diarrhea or constipation. Physical exam: Gen: Awake and alert lying in bed in no acute distress HEENT: Normocephalic atraumatic. Extraocular muscles intact, pupils equal reactive. Oropharynx is pink and moist, no pharyngeal erythema or exudate appreciated. Neck is supple. Cardiovascular: Normal rhythm, normal S1-S2. No rubs or gallops appreciated. Positive bruit from AV fistula LUE. Pulmonary: Normal respiratory effort. No rhonchi, rales or wheezing appreciated. Gastrointestinal: Soft, positive epigastric tenderness, nondistended, positive bowel sounds all 4 quadrants, no guarding Musculoskeletal: Moves all extremities, no calf tenderness Central nervous system: AAOx3 Dermatologic: Skin warm and dry Assessment and plan: Patient is a 37-year-old female with past medical history significant for a hypertension, end-stage renal disease on dialysis Saturday, Saturday, Saturday, anxiety, depression, chronic abdominal pain, and nephrolithiasis that presented to the emergency room with abdominal pain and intractable nausea and vomiting. 1. Nausea, vomiting, abdominal pain. CT abd/pelvis from admission per radiologist shows no acute abdominal or pelvic abnormality, punctate nonobstructing stones in the upper pole of left kidney, 4.8 x 3 cm complicated cyst in the left ovary, 4.4 x 1.9 cm complicated cyst in the right ovary, 4 cm peripherally calcified posterior wall fibroid. Abdominal ultrasound per radiologist shows 3 mm nonobstructing stone in the upper pole of the left kidney , no hydronephrosis, mild diffuse dilatation of the common bile duct likely in keeping with cholecystectomy status place. Repeat CT abdomen pelvis with contrast ordered. GI consulted, follow up recommendations. Continue Protonix. Continue Zofran as needed 2. Leukocytosis. Patient afebrile. ID consulted. Recommendations appreciated. Patient started on meropenem. UA shows possible infection however patient asymptomatic. Blood cultures pending. 3. Ovarian cyst seen on CT abdomen and pelvis. Will get pelvic ultrasound 4. End-stage renal disease on dialysis. Nephrology following, recommendations appreciated. Continue dialysis Saturday, Saturday, Saturday 5. Essential hypertension. Continue Clonidine and Labetalol. 6. GI/DVT prophylaxis. Protonix and SCDs with early ambulation Case was discussed in detail with the patient regarding current diagnosis and treatment plan. Objective - Vital Signs/Intake and Output Vital Signs (last 24 hours): Temp Pulse Resp BP Pulse Ox 98.7 F 71 20 143/87 100 05/03/18 15:05 05/03/18 15:05 05/03/18 15:05 05/03/18 15:05 05/03/18 15:05 Intake and Output: 05/03/18 05/03/18 06:59 18:59 Intake Total 0 Balance 0 - Medications Medications: Current Medications Clonidine HCl (Catapres) 0.2 mg PO DAILY [facility] Sodium Chloride (Sodium Chloride 0.9%) 1,000 mls @ 150 mls/hr IV .Q6H40M [facility] Meropenem 500 mg/ Sodium (Chloride) 50 mls @ 100 mls/hr IVPB Q12 [facility] PRN Reason: Protocol Stop: 05/12/18 11:01 Last Admin: 05/03/18 12:30 Dose: 100 mls/hr Labetalol HCl (Trandate) 300 mg PO DAILY [facility] Last Admin: 05/03/18 10:09 Dose: 300 mg Morphine Sulfate (Morphine) 1 mg IVP Q4H PRN PRN Reason: Pain, severe (8-10) Last Admin: 05/03/18 10:21 Dose: 1 mg Ondansetron HCl (Zofran Inj) 4 mg IVP Q4H PRN PRN Reason: Nausea/Vomiting Last Admin: 05/03/18 02:46 Dose: 4 mg Pantoprazole Sodium (Protonix Inj) 40 mg IVP DAILY [facility] Last Admin: 05/03/18 10:10 Dose: 40 mg Tramadol HCl (Ultram) 50 mg PO Q6H PRN PRN Reason: Pain, severe (8-10) - Labs Labs: 05/03/18 06:00 05/03/18 06:00
[2018-05-03 19:11] LABS: URINE BILIRUBIN NEGATIVE (NEGATIVE); URINE BLOOD TRACE-LYSED (NEGATIVE); URINE GLUCOSE (UA) NEGATIVE (NEGATIVE); URINE LEUKOCYTE ESTERASE TRACE Leu/uL (NEGATIVE); URINE PROTEIN 100 mg/dL (<30 mg/dL); URINE UROBILINOGEN 0.2 E.U./dL (<1 E.U./dL)
[2018-05-03 19:17] LABS: URINE APPEARANCE SLIGHT-CLOUDY (CLEAR); URINE COLOR YELLOW (YELLOW)
[2018-05-03 19:23] LABS: URINE BACTERIA RARE (NEG)
[2018-05-04] MEDS ORDERED: Iohexol 240 (50 ml) ONE (08:20)
[2018-05-04 08:27] VITALS: O2SAT 98
[2018-05-04] MEDS: Meropenem 500 MG in Sodium Chloride 0.9% 50 ML IVPB SCH (09:12)
--- NOTE | 2018-05-04 09:44 | CP.PCM.CON ---
<Maranda Bill - Last Filed: 05/04/18 09:38> History of Present Illness - History of Present Illness History of Present Illness: GI Fellow PGY5 Consult Note This is a 37yF with a PMH of HTN, ESRD (on HD ), anxiety, depression, chronic abdominal pain, and nephrolithiasis, presented to [facility] ED for abdominal pain and nausea/ vomit x1 day. She states that the abdominal pain is located in her epigastric region, described it as a burning sensation. Not associated w/ any PO intake, nothing alleviates the pain or worsens it. Pt had a EGD on 2016 and found to have gastritis and 1cm hiatal hernia, path neg for H.pylori. Pt denies being on any acid suppressive medication like PPI. She also endorses constipation with no BM for days and is not on a bowel regimen at home, last BM was last week. Denies any rectal bleeding or melena. Pt has an US which showed non obstructing 3mm kidney stone and CT without contrast showed calcified fibroid and BL ovarian cysts. ROS: A 12pt ROS was negative except as above PMH: As above PSH: Cholecystectomy Social: Denies EtOH, Smokes 10 cig/day, denies illicit drug use FHx: neg for colon cancer Past Patient History - Infectious Disease Hx of Infectious Diseases: None - Past Medical History & Family History Past Medical History?: Yes - Past Social History Smoking Status: Light Smoker < 10 Cigarettes Daily - CARDIAC Hx Cardiac Disorders: Yes Hx Heart Attack: Yes (Questionable per pt) Hx Hypertension: Yes - PULMONARY Hx Respiratory Disorders: No - NEUROLOGICAL Hx Neurological Disorder: No - HEENT Hx HEENT Problems: Yes Other/Comment: eyeglasses for reading - RENAL Hx Chronic Kidney Disease: Yes Hx Dialysis: Yes (MWF) Date of Last Dialysis Treatment: 03/21/18 - ENDOCRINE/METABOLIC Hx Endocrine Disorders: No - HEMATOLOGICAL/ONCOLOGICAL Hx Blood Disorders: Yes Hx Anemia: Yes - INTEGUMENTARY Hx Dermatological Problems: No - MUSCULOSKELETAL/RHEUMATOLOGICAL Hx Musculoskeletal Disorders: No - GASTROINTESTINAL Hx Gastrointestinal Disorders: Yes (Peritonitis) - GENITOURINARY/GYNECOLOGICAL Hx Genitourinary Disorders: No - PSYCHIATRIC Hx Psychophysiologic Disorder: Yes Hx Anxiety: Yes Hx Depression: Yes Hx Substance Use: No - SURGICAL HISTORY Hx Cholecystectomy: Yes Hx Vascular Surgery: Yes (AV fistula ) Other/Comment: Peritoneal dialysis cath insertion and removal - ANESTHESIA Hx Anesthesia: Yes Hx Anesthesia Reactions: No Hx Malignant Hyperthermia: No Meds Allergies/Adverse Reactions: Allergies Allergy/AdvReac Type Severity Reaction Status Date / Time No Known Allergies Allergy Verified 05/02/18 20:56 - Medications Medications: Current Medications Clonidine HCl (Catapres) 0.2 mg PO DAILY [facility] Last Admin: 05/04/18 09:13 Dose: 0.2 mg Sodium Chloride (Sodium Chloride 0.9%) 1,000 mls @ 150 mls/hr IV .Q6H40M [facility] Meropenem 500 mg/ Sodium (Chloride) 50 mls @ 100 mls/hr IVPB Q12 [facility]ACE PRN Reason: Protocol Stop: 05/12/18 11:01 Last Admin: 05/04/18 09:12 Dose: 100 mls/hr Labetalol HCl (Trandate) 300 mg PO DAILY [facility] Last Admin: 05/04/18 09:15 Dose: 300 mg Morphine Sulfate (Morphine) 1 mg IVP Q4H PRN PRN Reason: Pain, severe (8-10) Last Admin: 05/03/18 23:14 Dose: 1 mg Ondansetron HCl (Zofran Inj) 4 mg IVP Q4H PRN PRN Reason: Nausea/Vomiting Last Admin: 05/03/18 02:46 Dose: 4 mg Pantoprazole Sodium (Protonix Inj) 40 mg IVP [facility]ILY [facility] Last Admin: 05/04/18 09:12 Dose: 40 mg Polyethylene Glycol (Miralax) 17 gm PO DAILY [facility] Tramadol HCl (Ultram) 50 mg PO Q6H PRN PRN Reason: Pain, severe (8-10) Last Admin: 05/04/18 05:51 Dose: 50 mg Physical Exam - Constitutional Appears: Non-toxic, No Acute Distress - Head Exam Head Exam: ATRAUMATIC, NORMAL INSPECTION, NORMOCEPHALIC - Eye Exam Eye Exam: EOMI, Normal appearance, PERRL Pupil Exam: PERRL - ENT Exam ENT Exam: Mucous Membranes Moist - Neck Exam Neck exam: Positive for: Normal Inspection - Respiratory Exam Respiratory Exam: Clear to Auscultation Bilateral, NORMAL BREATHING PATTERN - Cardiovascular Exam Cardiovascular Exam: REGULAR RHYTHM - GI/Abdominal Exam GI & Abdominal Exam: Normal Bowel Sounds, Soft, Tenderness. absent: Distended, Guarding, Organomegaly - Extremities Exam Extremities exam: Positive for: full ROM, normal inspection - Neurological Exam Neurological exam: Alert, Oriented x3 - Psychiatric Exam Psychiatric exam: Normal Affect, Normal Mood - Skin Skin Exam: Dry, Intact, Normal Color Results - Vital Signs Recent Vital Signs: Last Vital Signs Temp 98.4 F 05/04/18 06:00 Pulse 86 05/04/18 09:15 Resp 20 05/04/18 06:00 BP 166/109 H 05/04/18 09:15 Pulse Ox 98 05/04/18 06:00 - Labs Result Diagrams: 05/03/18 06:00 05/03/18 06:00 Labs: Laboratory Results - last 24 hr 05/03/18 19:00 Urine Color Yellow Urine Appearance Slight-cloudy Urine pH 7.0 Ur Specific [place] 1.015 Urine Protein 100 H Urine Glucose (UA) Negative Urine Ketones Trace H Urine Blood Trace-lysed H Urine Nitrate Negative Urine Bilirubin Negative Urine Urobilinogen 0.2 Ur Leukocyte Esterase Trace H Urine RBC 1 - 3 Urine WBC 5 - 10 Ur Epithelial Cells 1 - 3 Urine Bacteria Rare Assessment & Plan - Assessment and Plan (Free Text) Assessment: This is a 37yF presenting with complaints of abdominal pain, N/V. 1. Abdominal pain, epigastric 2. GERD 3. Hiatal hernia 4. Constipation Plan: -Continue supportive care -Epigatric abdominal pain likely from GERD -EGD 04/2017 with gastritis, hiatal hernia, path neg H.pylori -Recommend PPI 40mg daily -Pepcid prn qhs for GERD -Constipation, will start bowel regimen with miralax daily, this can be causing abdominal pain and nausea -Please followup as an outpt for colonoscopy <Norman Underwood - Last Filed: 05/04/18 11:30> Meds - Medications Medications: Current Medications Clonidine HCl (Catapres) 0.2 mg PO [facility]ILY [facility] Last Admin: 05/04/18 09:13 Dose: 0.2 mg Sodium Chloride (Sodium Chloride 0.9%) 1,000 mls @ 150 mls/hr IV .Q6H40M [facility] Meropenem 500 mg/ Sodium (Chloride) 50 mls @ 100 mls/hr IVPB Q12 KANDACE PRN Reason: Protocol Stop: 05/12/18 11:01 Last Admin: 05/04/18 09:12 Dose: 100 mls/hr Labetalol HCl (Trandate) 300 mg PO [facility]ILY [facility] Last Admin: 05/04/18 09:15 Dose: 300 mg Morphine Sulfate (Morphine) 1 mg IVP Q4H PRN PRN Reason: Pain, severe (8-10) Last Admin: 05/03/18 23:14 Dose: 1 mg Ondansetron HCl (Zofran Inj) 4 mg IVP Q4H PRN PRN Reason: Nausea/Vomiting Last Admin: 05/03/18 02:46 Dose: 4 mg Pantoprazole Sodium (Protonix Inj) 40 mg IVP [facility] Last Admin: 05/04/18 09:12 Dose: 40 mg Polyethylene Glycol (Miralax) 17 gm PO [facility] Tramadol HCl (Ultram) 50 mg PO Q6H PRN PRN Reason: Pain, severe (8-10) Last Admin: 05/04/18 05:51 Dose: 50 mg Results - Vital Signs Recent Vital Signs: Last Vital Signs Temp 98.4 F 05/04/18 06:00 Pulse 86 05/04/18 09:15 Resp 20 05/04/18 06:00 BP 166/109 H 05/04/18 09:15 Pulse Ox 98 05/04/18 06:00 - Labs Result Diagrams: 05/04/18 10:00 05/04/18 10:00 Labs: Laboratory Results - last 24 hr 05/03/18 05/04/18 05/04/18 19:00 10:00 10:00 WBC 9.6 D RBC 3.74 Hgb 11.1 L Hct 32.9 L MCV 88.0 MCH 29.7 MCHC 33.7 RDW 14.5 Plt Count 281 MPV 8.6 Gran % 74.1 H Lymph % (Auto) 19.0 L [place] % (Auto) 5.6 Eos % (Auto) 0.9 L Baso % (Auto) 0.4 Gran # 7.08 H Lymph # (Auto) 1.8 [place] # (Auto) 0.5 Eos # (Auto) 0.1 Baso # (Auto) 0.04 Sodium 140 Potassium 4.1 Chloride 102 Carbon Dioxide 23 Anion Gap 19 BUN 29 H Creatinine 3.5 H Est GFR ( Amer) 18 Est GFR (Non-Af Amer) 15 Random Glucose 90 Calcium 8.9 Total Bilirubin 0.5 AST 13 L D ALT 32 Alkaline Phosphatase 75 Total Protein 6.3 Albumin 3.9 Globulin 2.4 Albumin/Globulin Ratio 1.6 Urine Color Yellow Urine Appearance Slight-cloudy Urine pH 7.0 Ur Specific [place] 1.015 Urine Protein 100 H Urine Glucose (UA) Negative Urine Ketones Trace H Urine Blood Trace-lysed H Urine Nitrate Negative Urine Bilirubin Negative Urine Urobilinogen 0.2 Ur Leukocyte Esterase Trace H Urine RBC 1 - 3 Urine WBC 5 - 10 Ur Epithelial Cells 1 - 3 Urine Bacteria Rare Attending/Attestation - Attestation I have personally seen and examined this patient.: Yes I have fully participated in the care of the patient.: Yes I have reviewed all pertinent clinical information: Yes Notes (Text): 05/04/18 11:27 This is a 37 year old F presenting with complaints of abdominal pain, nausea and vomiting which has all resolved now. On antibiotics for presumed UTI ? Last EGD last year showed hiatal hernia and gastritis, H pylori negative. Continue supportive care. Epigatric abdominal pain likely from GERD. PPI daily and bowel regimen for chronic cnstipation. No further GI work up. Thank you for letting us participate in the care of your patient
[2018-05-04] MEDS ORDERED: POLYETHYLENE GLYCOL 3350 17 GM/Dose PACKET PO SCH (10:00)
[2018-05-04 10:45] LABS: ALB/GLOB RATIO 1.6 (1.1-1.8); ALBUMIN 3.9 g/dL (3.0-4.8); CALCIUM 8.9 mg/dL (8.4-10.5)
[2018-05-04 10:47] LABS: BASO # 0.04 K/mm3 (0.0-2.0); BASO % 0.4 % (0.0-3.0); EOS # 0.1 (0.0-0.7); EOS % 0.9 % (1.5-5.0); GRAN # 7.08 (1.4-6.5); GRAN % 74.1 % (50.0-68.0); HEMOGLOBIN 11.1 g/dL (12.0-16.0); LYMPH # 1.8 (1.2-3.4); MEAN CORPUSCULAR HEMOGLOBIN 29.7 pg (25.0-35.0); MEAN CORPUSCULAR HGB CONC 33.7 g/dl (31.0-37.0); MEAN PLATELET VOLUME 8.6 fl (7.0-11.0); MONO # 0.5 (0.1-0.6); MONO % 5.6 % (1.0-6.0); RBC 3.74 10^6/uL (3.5-6.1); RED CELL DISTRIBUTION WIDTH 14.5 % (11.5-14.5); WHITE BLOOD COUNT 9.6 10^3/ul (4.5-11.0)
--- NOTE | 2018-05-04 12:22 | CT ---
Date of service: 05/04/2018 PROCEDURE: CT Abdomen and Pelvis with contrast HISTORY: r/o collection COMPARISON: 05/03/2018. TECHNIQUE: CT scan of the abdomen and pelvis was performed without administration of intravenous contrast. Oral contrast was administered. Coronal and sagittal reformatted images were obtained. Radiation dose: Total exam DLP = 338.33 mGy-cm. This CT exam was performed using one or more of the following dose reduction techniques: Automated exposure control, adjustment of the mA and/or kV according to patient size, and/or use of iterative reconstruction technique. FINDINGS: LOWER THORAX: The visualized right lung is clear. There is a 5 mm subpleural nodule in the left lung base. There is minimal subsegmental atelectasis in the left lower lobe. LIVER: Normal in size. Nonspecific benign calcifications. No gross lesion or ductal dilatation. GALLBLADDER AND BILE DUCTS: Surgically absent. PANCREAS: Normal in size. No gross lesion or ductal dilatation. SPLEEN: Normal in size. ADRENALS: No discrete nodule. Bilateral adrenal thickening. KIDNEYS AND URETERS: Normal in size. No hydronephrosis. Punctate nonobstructing stones in the left. VASCULATURE: No aortic aneurysm. BOWEL: The small bowel loops are normal in caliber. Scattered left colonic diverticulosis without CT evidence for acute diverticulitis. No bowel dilatation or obstruction. APPENDIX: Normal appendix. PERITONEUM: No free fluid. No free air. LYMPH NODES: No enlarged lymph nodes. BLADDER: Grossly normal in appearance. REPRODUCTIVE: The uterus is normal in size. There is redemonstration of 4.6 x 2.5 cm complicated cyst in the right ovary and 4.1 x 3.1 cm complicated cyst in the left ovary. BONES: No acute fracture. Stable in appearance with osseous changes of renal osteodystrophy. OTHER FINDINGS: None. IMPRESSION: 1. No evidence of fluid collection in the abdomen or pelvis. 2. Redemonstration of complicated cysts in both ovaries. 3. No other significant interval change.
--- NOTE | 2018-05-04 14:39 | PN ---
DATE: 05/04/2018 SUBJECTIVE: The patient is seen early this morning in room 572, bed 2. The patient is doing much better. She is comfortable. No fevers, no chills. Her abdominal pain is improved. PHYSICAL EXAMINATION: VITAL SIGNS: Temperature of 98, blood pressure is 170/90, respiratory rate of 20, heart rate of 84. HEENT: Examination of HEENT is unremarkable. NECK: Supple. LUNGS: Have decreased breath sounds. HEART: Normal S1, S2. ABDOMEN: Soft, nontender. LABORATORY DATA: Laboratory examination reveals a white count 9.6, hemoglobin 11, platelets of 281 and 92% granulocytosis. The patient's BUN of 29, creatinine of 3.5. Procalcitonin is elevated at 0.66. Urinalysis is unremarkable. Microbiology reveals blood cultures are no growth. Urine culture has gram-positive cocci and with less than 10,000 colonies. The patient had a CAT scan of the abdomen and pelvis, which no evidence of fluid collection in the abdomen, a cyst in the ovary. No significant findings. ASSESSMENT AND PLAN: A 37-year-old female with chronic renal failure, on hemodialysis with hypertension, congestive heart failure, depression, anxiety, coronary artery disease, myocardial infarction, presenting with tachycardia, low-grade fevers with systemic inflammatory response syndrome. The leukocytosis is resolved. Etiology of which is unclear with gram-positive cocci in the urine; however, the urinalysis is unremarkable with 5-10 wbc's. No real evidence of an infection. Mild elevation of procalcitonin and most likely from the renal failure and currently on meropenem day #2 with all cultures remain negative. We will discontinue the antibiotics in next 24 hours. Lucho Rollins MD
[2018-05-04 14:58] VITALS: BP 128/82; PULSE 61; TEMP 98.7
--- NOTE | 2018-05-04 15:42 | US ---
Date of service: 05/04/2018 HISTORY: complicated ovarian cysts COMPARISON: CT abdomen and pelvis from 05/04/2018 and 05/03/2018. . TECHNIQUE: Transabdominal pelvic ultrasound was performed FINDINGS: UTERUS: Measures 8.2 x 5.1 x 4.7 cm. Normal in size and appearance. There is a 2.7 x 2.1 x 2.5 cm intramural fibroid in the anterior wall. ENDOMETRIUM: Measures 7.1 mm in diameter. Unremarkable. CERVIX: No cervical abnormality identified. RIGHT OVARY: Measures 3.6 x 2.9 x 2.7 cm. No solid mass. Normal flow. There is a 1.8 x 1.7 x 2.1 cm septated cyst. LEFT OVARY: Measures 3.7 x 3.1 x 3.2 cm. No solid mass. Normal flow. There is a 3.3 x 2.1 x 2.4 cm septated cyst. FREE FLUID: No significant free fluid noted. OTHER FINDINGS: None. IMPRESSION: 1. 2.7 x 2.1 x 2.5 cm intramural peripherally calcified fibroid in the midbody of the anterior wall of the uterus. 2. 1.8 x 1.7 x 2.1 cm septated cyst in the right ovary. 3. 3.3 x 2.1 x 2.4 cm septated cyst in the left ovary.
--- NOTE | 2018-05-04 18:14 | CP.PCM.DIS ---
Provider - Provider Date of Admission: 05/02/18 22:26 Attending physician: Cherry Peterson DO Primary care physician: Michelle Quarles MD Consults: Gastroenterology: Dr. Underwood Infectious Disease: Dr. Montemayor Nephrology: Dr. Marsh Time Spent in preparation of Discharge (in minutes): 45 Diagnosis - Discharge Diagnosis (1) GERD (gastroesophageal reflux disease) Status: Chronic Priority: Medium (2) DANIELLA (acute kidney injury) Status: Chronic Priority: Medium (3) ESRD (end stage renal disease) Status: Chronic Priority: Medium Hospital Course - Lab Results Lab Results: Micro Results 05/03/18 06:15 Blood-Venous Blood Culture - Preliminary NO GROWTH AFTER 24 HOURS 05/03/18 06:00 Blood-Venous Blood Culture - Preliminary NO GROWTH AFTER 24 HOURS Most Recent Lab Values WBC 9.6 10^3/ul (4.5-11.0) D 05/04/18 10:00 RBC 3.74 10^6/uL (3.5-6.1) 05/04/18 10:00 Hgb 11.1 g/dL (12.0-16.0) L 05/04/18 10:00 Hct 32.9 % (36.0-48.0) L 05/04/18 10:00 MCV 88.0 fl (80.0-105.0) 05/04/18 10:00 MCH 29.7 pg (25.0-35.0) 05/04/18 10:00 MCHC 33.7 g/dl (31.0-37.0) 05/04/18 10:00 RDW 14.5 % (11.5-14.5) 05/04/18 10:00 Plt Count 281 10^3/uL (120.0-450.0) 05/04/18 10:00 MPV 8.6 fl (7.0-11.0) 05/04/18 10:00 Gran % 74.1 % (50.0-68.0) H 05/04/18 10:00 Lymph % (Auto) 19.0 % (22.0-35.0) L 05/04/18 10:00 [place] % (Auto) 5.6 % (1.0-6.0) 05/04/18 10:00 Eos % (Auto) 0.9 % (1.5-5.0) L 05/04/18 10:00 Baso % (Auto) 0.4 % (0.0-3.0) 05/04/18 10:00 Gran # 7.08 (1.4-6.5) H 05/04/18 10:00 Lymph # (Auto) 1.8 (1.2-3.4) 05/04/18 10:00 Harris # (Auto) 0.5 (0.1-0.6) 05/04/18 10:00 Eos # (Auto) 0.1 (0.0-0.7) 05/04/18 10:00 Baso # (Auto) 0.04 K/mm3 (0.0-2.0) 05/04/18 10:00 Neutrophils % (Manual) 92 % (50.0-70.0) H 05/03/18 06:00 Lymphocytes % (Manual) 5 % (22.0-35.0) L 05/03/18 06:00 Monocytes % (Manual) 2 % (1.0-6.0) 05/03/18 06:00 Eosinophils % (Manual) 1 % (0.0-3.0) 05/03/18 06:00 Toxic Granulation 2+ 05/03/18 06:00 Platelet Evaluation High (NORMAL) 05/03/18 06:00 Hypochromasia 1+ 05/03/18 06:00 Rouleaux 1+ 05/03/18 06:00 pO2 43 mm/Hg (30-55) 05/02/18 21: VBG pH 7.43 (7.32-7.43) 05/02/18 21: VBG pCO2 52.0 (40-60) 05/02/18 21: VBG HCO3 34.5 mmol/l (21-28) H 05/02/18 21:17 VBG Total CO2 36.1 mmol.L (22-28) H 05/02/18 21: VBG O2 Sat (Calc) 84.2 % (40-65) H 05/02/18 21:17 VBG Base Excess 8.5 mmol/L (0.0-2.0) H 05/02/18 21: VBG Potassium 4.0 mmol/L (3.6-5.2) 05/02/18 21:17 Sodium 139.0 mmol/L (132-148) 05/02/18 21:17 Chloride 100.0 mmol/L (98-107) 05/02/18 21:17 Glucose 137 mg/dl (65-105) H 05/02/18 21:17 Lactate 1.0 mmol/L (0.7-2.1) 05/02/18 21:17 FiO2 21.0 % 05/02/18 21:17 Sodium 140 mmol/L (132-148) 05/04/18 10:00 Potassium 4.1 mmol/L (3.6-5.0) 05/04/18 10:00 Chloride 102 mmol/L (98-107) 05/04/18 10:00 Carbon Dioxide 23 mmol/L (21-33) 05/04/18 10:00 Anion Gap 19 (10-20) 05/04/18 10:00 BUN 29 mg/dL (7-21) H 05/04/18 10:00 Creatinine 3.5 mg/dl (0.7-1.2) H 05/04/18 10:00 Est GFR ( Amer) 18 05/04/18 10:00 Est GFR (Non-Af Amer) 15 05/04/18 10:00 Random Glucose 90 mg/dL (70-110) 05/04/18 10:00 Calcium 8.9 mg/dL (8.4-10.5) 05/04/18 10:00 Phosphorus 3.3 mg/dL (2.5-4.5) 05/03/18 06:00 Magnesium 2.0 mg/dL (1.7-2.2) 05/03/18 06:00 Total Bilirubin 0.5 mg/dL (0.2-1.3) 05/04/18 10:00 AST 13 U/L (14-36) L D 05/04/18 10:00 ALT 32 U/L (7-56) 05/04/18 10:00 Alkaline Phosphatase 75 U/L (38-126) 05/04/18 10:00 Total Protein 6.3 g/dL (5.8-8.3) 05/04/18 10:00 Albumin 3.9 g/dL (3.0-4.8) 05/04/18 10:00 Globulin 2.4 gm/dL 05/04/18 10:00 Albumin/Globulin Ratio 1.6 (1.1-1.8) 05/04/18 10:00 Amylase 114 U/L (35-125) 05/02/18 21:17 Lipase 258 U/L (23-300) 05/02/18 21:17 Procalcitonin 0.66 NG/ML (0.19-0.49) H 05/02/18 21:17 Venous Blood Potassium 4.0 mmol/L (3.6-5.2) 05/02/18 21:17 Urine Color Yellow (YELLOW) 05/03/18 19:00 Urine Appearance Slight-cloudy (CLEAR) 05/03/18 19:00 Urine pH 7.0 (4.7-8.0) 05/03/18 19:00 Ur Specific [place] 1.015 (1.005-1.035) 05/03/18 19:00 Urine Protein 100 mg/dL (<30 mg/dL) H 05/03/18 19:00 Urine Glucose (UA) Negative mg/dL (NEGATIVE) 05/03/18 19:00 Urine Ketones Trace mg/dL (NEGATIVE) H 05/03/18 19:00 Urine Blood Trace-lysed (NEGATIVE) H 05/03/18 19:00 Urine Nitrate Negative (NEGATIVE) 05/03/18 19:00 Urine Bilirubin Negative (NEGATIVE) 05/03/18 19:00 Urine Urobilinogen 0.2 E.U./dL (<1 E.U./dL) 05/03/18 19:00 Ur Leukocyte Esterase Trace Davy/uL (NEGATIVE) H 05/03/18 19:00 Urine RBC 1 - 3 /hpf (0-2) 05/03/18 19:00 Urine WBC 5 - 10 /hpf (0-6) 05/03/18 19:00 Ur Epithelial Cells 1 - 3 /hpf (0-5) 05/03/18 19:00 Urine Bacteria Rare (NEG) 05/03/18 19:00 - Hospital Course Hospital Course: Faraz Strickland PGY1 -- Discharge Summary Hospital Course Patient is a 37 year old female with past medical history of ESRD (on hemodialysis M-W-F), anxiety, CAD, CHF, [place], hypertension, depression, chronic abdominal pain, and nephrolithiasis who presented to [facility] ED for abdominal pain and nausea / vomiting for 1 day. Of note, patient is frequently seen in [facility] ED for abdominal pain, and she has had multiple hospitalizations. While in the ED, the patient was given pecpid and zofran for her symptoms. EKG was obtained and showed normal sinus rhythm at 82bpm. Chest x-ray was obtained and showed no active pulmonary disease. CBC was obtained and revealed leukocytosis. Patient was treated with empiric rocephin 1 gm IVPB. Patient was subsequently admitted for evaluation and treatment of her nausea and vomiting. Patient was placed NPO and received IVF. Intake/output was monitored. CT abdomen and pelvis revealed no acute findings, and the patient's pain and nausea were managed medically. Nephrology was consulted and recommended to continue monitoring electrolytes and blood pressure, and for the patient to continue with dialysis as scheduled. Gastroenterology was consulted and noted that the patient underwent EGD on in April 2017. Per report, the patient was found to have gastritis and 1cm hiatal hernia. Pathology negative for H.pylori. Patient continued to receive supportive care, and was treated with pepcid and protonix daily abdominal pain secondary to GERD. Patient is to follow-up for outpatient colonoscopy, as it could be exacerbating her symptoms, per GI recommendation. Urine cultures revealed gram-positive cocci. Infectious disease was consulted and recommended treatment with meropenem IVP. Patient received 2 days of antibiotics. On hospital day 2, the patient's leukocytosis improved, and the patient admitted her pain was improved. Furthermore, CT abdomen and pelvis obtained on April 02, 2018 revealed 2 complicated ovarian cysts 4.8x3.0cm on left ovary and 4.4x1.9cm on right ovary. CT abdomen and pelvis also revealed 4cm peripherally calcified posterior wall fibroid. note, during a previous admission, the patient was found to be in hypertensive urgency and sepsis secondary to intraabdominal infection. Upon being discharged from her previous admission, the patient was instructed to follow up outpatient with mammogram and breast ultrasound. Patient was instructed to follow-up with gynecology as an outpatient again. The patient also has a history of hypertension. Patient was started on home meds , and blood pressure was monitored. On hospital day 3, the patient's leukocytosis resolved, and the patient said she felt better. Patient stated she wanted to go home, and patient refused to continue antibiotics for 1 more day, which was recommended by infectious disease. Patient proceeded to sign out of the hospital against medical advice despite being informed of the possible complications and risks that could occur. Discharge Medications: Alprazolam 0.5mg PO BID Catapres 0.2mg PO Daily Normodyne 300mg PO Daily Pantoprazole 40mg PO Daily - Rx Discharge Exam - Head Exam Head Exam: ATRAUMATIC, NORMAL INSPECTION, NORMOCEPHALIC - Eye Exam Eye Exam: EOMI, Normal appearance, PERRL. absent: Scleral icterus - ENT Exam ENT Exam: Mucous Membranes Moist - Respiratory Exam Respiratory Exam: NORMAL BREATHING PATTERN, UNREMARKABLE. absent: Rhonchi, Wheezes, Respiratory Distress - Cardiovascular Exam Cardiovascular Exam: REGULAR RHYTHM, Systolic Murmur (loud harsh murmur appreciated upon auscultation of the right second intercostal space along the sternal boarder ) - GI/Abdominal Exam GI & Abdominal Exam: Normal Bowel Sounds, Soft, Unremarkable - Extremities Exam Extremities exam: normal inspection, pedal pulses present Additional comments: left upper extremity AV fistula with thrill. - Back Exam Back exam: NORMAL INSPECTION. absent: CVA tenderness (L), CVA tenderness (R) - Neurological Exam Neurological exam: Alert, Normal Gait, Oriented x3 - Psychiatric Exam Psychiatric exam: Normal Affect, Normal Mood - Skin Skin Exam: Dry, Intact Discharge Plan - Discharge Medications Prescriptions: Pantoprazole [Protonix] 40 mg PO DAILY #14 ect - Follow Up Plan Condition: IMPROVED Disposition: AGAINST MEDICAL ADVICE Instructions: Acute Abdominal Pain (DC), Acute Abdominal Pain (GEN) Referrals: Michelle Quarles MD [Primary Care Provider] -
== END 2018-05-04 19:36 | disposition left against medical advice (07) | DRG 551 ==
LOC: ED 20:15 → ERH 22:26 → 5RSO 05-03 00:28
PROVIDERS: ADMIT Hospitalist; ATTEND Hospitalist
DX: K21.9 Gastro-esophageal reflux disease without esophagitis (principal); N17.9 Acute kidney failure, unspecified; R65.10 Systemic inflammatory response syndrome (SIRS) of non-infectious origin without acute organ dysfunction; I13.2 Hypertensive heart and chronic kidney disease with heart failure and with stage 5 chronic kidney disease, or end stage renal disease; N18.6 End stage renal disease; I50.9 Heart failure, unspecified; N20.0 Calculus of kidney; I25.10 Atherosclerotic heart disease of native coronary artery without angina pectoris; K29.70 Gastritis, unspecified, without bleeding; K44.9 Diaphragmatic hernia without obstruction or gangrene; N83.292 Other ovarian cyst, left side; N83.291 Other ovarian cyst, right side; F17.210 Nicotine dependence, cigarettes, uncomplicated; K59.00 Constipation, unspecified; F41.8 Other specified anxiety disorders; I25.2 Old myocardial infarction; Z99.2 Dependence on renal dialysis

== ENCOUNTER 2018-05-08 16:53 | Emergency (ER) | payer OTHER ==
[2018-05-08 17:03] VITALS: BMI 25.2
[2018-05-08 17:10] VITALS: TEMP 99.5
--- NOTE | 2018-05-08 17:48 | ED PDOC ---
Arrival/HPI - General Chief Complaint: Abdominal Pain Time Seen by Provider: 05/08/18 17:11 Historian: Patient - History of Present Illness Narrative History of Present Illness (Text): 05/08/18 17:35 A 37 year old female, whose past medical history includes ESRD, hypertension, depression, and anxiety, presents to the emergency room with a complaint of left sided abdominal pain. Patient states that she normally has chronic epigastric abdominal pain, but today she is experiencing similar pain to the left side. Her last dialysis treatment was yesterday. The patient requests Morphine for her pain. The patient denies fevers, chills, headache, dizziness, sore throat, cough, chest pain, shortness of breath, dyspnea on exertion, nausea , vomiting, diarrhea, neck/back pain, urinary/bowel changes, hematuria, dysuria or any other complaint. Time/Duration: Other (Today) Symptom Onset: Sudden Symptom Course: Unchanged Activities at Onset: Rest, Light Context: Home Past Medical History - Provider Review Nursing Documentation Reviewed: Yes - Infectious Disease Hx of Infectious Diseases: None - Cardiac Hx Cardiac Disorders: Yes Hx VT: Yes (march 2017) Hx Hypertension: Yes - Pulmonary Hx Respiratory Disorders: No - Neurological Hx Neurological Disorder: No - HEENT Hx HEENT Disorder: Yes Other/Comment: eyeglasses for reading - Renal Hx Renal Disorder: Yes Hx Dialysis: Yes (MWF) Date of Last Dialysis Treatment: 03/21/18 - Endocrine/Metabolic Hx Endocrine Disorders: No - Hematological/Oncological Hx Blood Disorders: Yes Hx Anemia: Yes - Integumentary Hx Dermatological Disorder: No - Musculoskeletal/Rheumatological Hx Musculoskeletal Disorders: No - Gastrointestinal Hx Gastrointestinal Disorders: Yes (Peritonitis) - Genitourinary/Gynecological Hx Genitourinary Disorders: No - Psychiatric Hx Psychophysiologic Disorder: Yes Hx Anxiety: Yes Hx Depression: Yes Hx Substance Use: No - Surgical History Hx Cholecystectomy: Yes Hx Vascular Surgery: Yes (AV fistula ) Other/Comment: Peritoneal dialysis cath insertion and removal - Anesthesia Hx Anesthesia: Yes Hx Anesthesia Reactions: No Hx Malignant Hyperthermia: No Family/Social History - Physician Review Nursing Documentation Reviewed: Yes Family/Social History: No Known Family HX Smoking Status: Light Smoker < 10 Cigarettes Daily Hx Alcohol Use: No Hx Substance Use: No Allergies/Home Meds Allergies/Adverse Reactions: Allergies No Known Allergies Allergy (Verified 05/02/18 20:56) PER PATIENT Home Medications: Home Meds Medication Instructions Recorded Confirmed RX: Clonidine HCl [Catapres] 0.2 mg PO DAILY 08/28/17 05/08/18 Alprazolam [Xanax] 0.5 mg PO BID 03/23/18 05/08/18 Labetalol Hydrochloride [Normodyne] 300 mg PO DAILY 03/23/18 05/08/18 RX: amLODIPine [Norvasc] 10 mg PO DAILY 05/08/18 05/08/18 Review of Systems - Physician Review All systems were reviewed & negative as marked: Yes - Review of Systems Constitutional: absent: Fevers, Night Sweats Respiratory: absent: SOB, Cough Cardiovascular: absent: Chest Pain, AL[place]A Gastrointestinal: Abdominal Pain. absent: Diarrhea, Nausea, Vomiting Genitourinary Female: absent: Dysuria, Hematuria, Urine Output Changes Musculoskeletal: absent: Back Pain, Neck Pain Neurological: absent: Headache, Dizziness Physical Exam Vital Signs Reviewed: Yes Vital Signs Temp Pulse Resp BP Pulse Ox 05/08/18 19:02 120 H 204/130 H 05/08/18 16:53 99.5 F 124 H 18 210/130 H 99 Temperature: Afebrile Blood Pressure: Hypertensive Pulse: Tachycardic Respiratory Rate: Normal Appearance: Positive for: Well-Appearing, Non-Toxic, Comfortable Pain Distress: None Mental Status: Positive for: Alert and Oriented X 3 - Systems Exam Head: Present: Atraumatic, Normocephalic Pupils: Present: PERRL Extroacular Muscles: Present: EOMI Conjunctiva: Present: Normal Mouth: Present: Moist Mucous Membranes Neck: Present: Normal Range of Motion Respiratory/Chest: Present: Clear to Auscultation, Good Air Exchange. No: Respiratory Distress, Accessory Muscle Use Cardiovascular: Present: Regular Rate and Rhythm, Normal S1, S2. No: Murmurs Abdomen: No: Tenderness, Distention, Peritoneal Signs Back: Present: Normal Inspection Upper Extremity: Present: Normal Inspection. No: Cyanosis, Edema Lower Extremity: Present: Normal Inspection. No: Edema Neurological: Present: GCS=15, CN II-XII Intact, Speech Normal Skin: Present: Warm, Dry, Normal Color. No: Rashes Psychiatric: Present: Alert, Oriented x 3, Normal Insight, Normal Concentration Medical Decision Making ED Course and Treatment: 05/08/18 17:49 Impression: A 37 year old female pesents to the emergency room with a complaint of left sided abdominal pain. Plan: -- Labs -- Morphine -- Reassess and disposition Progress Notes: 05/08/18 19:03: On re-evaluation, patient states that she feels better. She will be following up with GI. Patient is toleration PO. Patient is hypertensive , but denies any symptoms. Will give home blood pressure medication. 05/08/18 19:07 Patient is in no acute distress. I have discussed the results and plan with the patient, who expresses understanding. Patient given the opportunity to ask question, all questions were answered and there is agreement with the plan to discharge the patient home. Patient is stable for discharge. - Lab Interpretations Lab Results: 05/08/18 17:43 05/08/18 17:43 Lab Results 05/08/18 17:43: Sodium 146, Potassium 3.6, Chloride 104, Carbon Dioxide 27, Anion Gap 19, BUN 27 H, Creatinine 3.0 H, Est GFR ( Amer) 21, Est GFR ( Non-Af Amer) 17, Random Glucose 107, Calcium 9.3, Total Bilirubin 0.5, AST 16, ALT 24, Alkaline Phosphatase 84, Total Protein 7.6, Albumin 4.7, Globulin 2.9, Albumin/Globulin Ratio 1.6 05/08/18 17:43: WBC 12.0 H D, RBC 4.12, Hgb 12.1, Hct 36.0, MCV 87.4, MCH 29.4, MCHC 33.6, RDW 14.6 H, Plt Count 314, MPV 8.8, Gran % 73.3 H, Lymph % (Auto) 18.8 L, [place] % (Auto) 4.7, Eos % (Auto) 2.7, Baso % (Auto) 0.5, Gran # 8.81 H, Lymph # (Auto) 2.3, [place] # (Auto) 0.6, Eos # (Auto) 0.3, Baso # (Auto) 0.06 - Medication Orders Current Medication Orders: Discontinued Medications Labetalol HCl (Trandate) 20 mg IV STAT STA Stop: 05/08/18 19:03 Morphine Sulfate (Morphine) 1 mg IVP STAT STA Stop: 05/08/18 17:50 Last Admin: 05/08/18 18:11 Dose: 1 mg MAR Pain Assessment Document 05/08/18 18:11 SF (Rec: 05/08/18 18:11 [id number]) Pain Reassessment Is this a pain reassessment? Yes Sleep Is patient sleeping during reassessment? No Presence of Pain Presence of Pain Yes Pain Scale Used Pain Scale Used Numeric IVP Administration Document 05/08/18 18:11 SF (Rec: 05/08/18 18:11 SF [id number]) Charges for Administration # of IVP Administrations 1 - Scribe Statement The provider has reviewed the documentation as recorded by the Scribe Lilly Mijares Provider Scribe Attestation: All medical record entries made by the Scribe were at my direction and personally dictated by me. I have reviewed the chart and agree that the record accurately reflects my personal performance of the history, physical exam, medical decision making, and the department course for this patient. I have also personally directed, reviewed, and agree with the discharge instructions and disposition. Disposition/Present on Arrival - Present on Arrival Any Indicators Present on Arrival: No History of DVT/PE: No History of Uncontrolled Diabetes: No Urinary Catheter: No History of Decub. Ulcer: No History Surgical Site Infection Following: Abdominal Surgery - Disposition Have Diagnosis and Disposition been Completed?: Yes Diagnosis: Abdominal pain Disposition: HOME/ ROUTINE Disposition Time: 18:57 Patient Plan: Discharge Patient Problems: Current Active Problems Problem Status Onset Abdominal pain Acute Condition: GOOD Discharge Instructions (ExitCare): Chronic Pain (DC) Additional Instructions: Follow-up with PMD within 2 days. Return to ED if condition worsens. Follow- up with GI Forms: [employer] (Kyrgyz)
[2018-05-08] MEDS ORDERED: Morphine 2 mg/ml ISec IVP STA (17:49)
[2018-05-08 18:20] LABS: BASO # 0.06 K/mm3 (0.0-2.0); BASO % 0.5 % (0.0-3.0); EOS # 0.3 (0.0-0.7); EOS % 2.7 % (1.5-5.0); GRAN # 8.81 (1.4-6.5); GRAN % 73.3 % (50.0-68.0); HEMOGLOBIN 12.1 g/dL (12.0-16.0); LYMPH # 2.3 (1.2-3.4); LYMPH % 18.8 % (22.0-35.0); MEAN CELL VOLUME 87.4 fl (80.0-105.0); MEAN CORPUSCULAR HEMOGLOBIN 29.4 pg (25.0-35.0); MEAN CORPUSCULAR HGB CONC 33.6 g/dl (31.0-37.0); MEAN PLATELET VOLUME 8.8 fl (7.0-11.0); MONO # 0.6 (0.1-0.6); MONO % 4.7 % (1.0-6.0); RBC 4.12 10^6/uL (3.5-6.1); RED CELL DISTRIBUTION WIDTH 14.6 % (11.5-14.5)
[2018-05-08 18:30] LABS: ALB/GLOB RATIO 1.6 (1.1-1.8); ALBUMIN 4.7 g/dL (3.0-4.8); CALCIUM 9.3 mg/dL (8.4-10.5)
[2018-05-08] MEDS ORDERED: Labetalol 5 mg/ml Inj 20ML IV STA (19:02)
[2018-05-08 19:53] VITALS: BP 191/120; PULSE 100; RESP 17; O2SAT 99
== END 2018-05-08 19:54 | disposition home or self-care (01) ==
LOC: ED 16:53
DX: R10.9 Unspecified abdominal pain (principal); I12.0 Hypertensive chronic kidney disease with stage 5 chronic kidney disease or end stage renal disease; N18.6 End stage renal disease; F17.210 Nicotine dependence, cigarettes, uncomplicated; Z99.2 Dependence on renal dialysis
CPT/HCPCS: 80053; 85025; 96374; 99285; J2270

== ENCOUNTER 2018-05-09 21:55 | Emergency (ER) | payer OTHER ==
[2018-05-09 21:55] VITALS: BMI 25.2
[2018-05-09 22:11] VITALS: TEMP 98.4
--- NOTE | 2018-05-09 22:33 | ED PDOC ---
Arrival/HPI - General Chief Complaint: Abdominal Pain Time Seen by Provider: 05/09/18 22:13 Historian: Patient - History of Present Illness Narrative History of Present Illness (Text): 05/09/18 22:27 Kristine Brizuela is a 37 year old female, whose past medical history includes ESRD , hypertension, depression, anxiety, and cholecystectomy, who presents to the Emergency department complaining of intermittent left sided aching abdominal pain. Patient presented to emergency department yesterday on 05/08/2018 for same complaint, was discharged, also recently admitted for same and signed out Leaving Against Medical Advice (AMA). Patient notes she did not get Dialysis today as scheduled due feeling unwell. Patient notes she has not taken medication for hypertension. Patient notes she has not taken her medication for reflux, as she has lost it. Patient denies any chills, chest pain, shortness of breath, nausea, vomiting, diarrhea, back pain, neck pain, urinary symptoms, headache, dizziness, or any other complaint. Time/Duration: < week (went to ER for same complaint yesterday) Symptom Onset: Gradual Symptom Course: Unchanged Quality: Aching Activities at Onset: Light Past Medical History - Provider Review Nursing Documentation Reviewed: Yes - Infectious Disease Hx of Infectious Diseases: None - Cardiac Hx Cardiac Disorders: Yes Hx CA: Yes Hx Hypertension: Yes - Pulmonary Hx Respiratory Disorders: No - Neurological Hx Neurological Disorder: No - HEENT Hx HEENT Disorder: Yes Other/Comment: eyeglasses for reading - Renal Hx Renal Disorder: Yes Hx Dialysis: Yes (MWF) - Endocrine/Metabolic Hx Endocrine Disorders: No - Hematological/Oncological Hx Blood Disorders: Yes Hx Anemia: Yes - Integumentary Hx Dermatological Disorder: No - Musculoskeletal/Rheumatological Hx Musculoskeletal Disorders: No - Gastrointestinal Hx Gastrointestinal Disorders: Yes - Genitourinary/Gynecological Hx Genitourinary Disorders: No - Psychiatric Hx Psychophysiologic Disorder: Yes Hx Anxiety: Yes Hx Depression: Yes Hx Substance Use: No - Surgical History Hx Cholecystectomy: Yes Hx Vascular Surgery: Yes (AV SHUNT) - Anesthesia Hx Anesthesia: Yes Hx Anesthesia Reactions: No Hx Malignant Hyperthermia: No Family/Social History - Physician Review Nursing Documentation Reviewed: Yes Family/Social History: No Known Family HX Smoking Status: Light Smoker < 10 Cigarettes Daily Hx Alcohol Use: No Hx Substance Use: No Allergies/Home Meds Allergies/Adverse Reactions: Allergies No Known Allergies Allergy (Verified 05/09/18 22:03) PER PATIENT Home Medications: Home Meds Medication Instructions Recorded Confirmed Clonidine HCl [Catapres] 0.2 mg PO BID 08/28/17 05/09/18 Alprazolam [Xanax] 0.5 mg PO BID 03/23/18 05/09/18 Labetalol Hydrochloride [Normodyne] 300 mg PO BID 03/23/18 05/09/18 amLODIPine [Norvasc] 10 mg PO DAILY 05/08/18 05/09/18 Review of Systems - Physician Review All systems were reviewed & negative as marked: Yes - Review of Systems Respiratory: absent: SOB Cardiovascular: absent: Chest Pain Physical Exam - Physical Exam Narrative Physical Exam (Text): 05/09/18 22:27 Constitutional: No acute distress. Head: Normocephalic. Atraumatic. Eyes: PERRL. ENT: Moist mucous membranes. Neck: Supple. Cardiovascular: Regular rate. Chest: No tenderness. Respiratory: Clear to auscultation bilaterally. GI: Soft. Nontender. Nondistended. Back: No CVA tenderness. Musculoskeletal: No tenderness or swelling of extremities. Skin: No rash. Neurologic: Alert, no focal deficit. Vital Signs Reviewed: Yes Vital Signs Temp Pulse Resp BP Pulse Ox 05/10/18 00:36 94 H 18 189/105 H 100 05/10/18 00:35 94 H 19 189/105 H 100 05/09/18 22:31 96 H 18 194/118 H 100 05/09/18 22:04 98.4 F 114 H 19 232/143 H 99 Temperature: Afebrile Blood Pressure: Hypertensive Pulse: Tachycardic Respiratory Rate: Normal Appearance: Positive for: Well-Appearing, Non-Toxic Mental Status: Positive for: Alert and Oriented X 3 Medical Decision Making ED Course and Treatment: 05/09/18 22:27 Impression: Kristine Brizuela is a 37 year old female who presents to the emergency department complaining of abdominal pain. Plan: -- Labs --X-Ray of chest -- Pepcid -- Protonix -- Urinalysis -- Reassess and disposition Prior Visits: Notes and results from previous visits were reviewed. Patient was last seen in the emergency department on 05/08/18 for same complaint. Progress Notes: 05/09/18 22:42 Chest X-RAY read by me, shows: No active disease. Re-advised patient to follow up with OBGYN and Sewing Room Supervisor, based on her previous admission findings. Discharged on antibiotics. No indication for emergent dialysis but instructed patient to return to ED for emergent dialysis before Saturday if she develops any worsening symptoms. - Lab Interpretations Lab Results: 05/09/18 22:38 05/09/18 22:38 Lab Results 05/09/18 22:38: Sodium 146, Potassium 3.7, Chloride 107, Carbon Dioxide 24, Anion Gap 19, BUN 26 H, Creatinine 3.1 H, Est GFR ( Amer) 20, Est GFR ( Non-Af Amer) 17, Random Glucose 94, Calcium 9.8, Total Bilirubin 0.4, AST 14, ALT 18, Alkaline Phosphatase 88, Total Protein 7.3, Albumin 4.8, Globulin 2.5, Albumin/Globulin Ratio 1.9 H, Lipase 528 H 05/09/18 22:38: WBC 13.2 H, RBC 4.04, Hgb 12.2, Hct 35.4 L, MCV 87.6, MCH 30.2, MCHC 34.5, RDW 14.6 H, Plt Count 324, MPV 8.7, Gran % 76.0 H, Lymph % (Auto) 18.1 L, [place] % (Auto) 4.3, Eos % (Auto) 1.4 L, Baso % (Auto) 0.2, Gran # 10.02 H , Lymph # (Auto) 2.4, [place] # (Auto) 0.6, Eos # (Auto) 0.2, Baso # (Auto) 0.03 05/09/18 22:10: Urine Color Yellow, Urine Appearance Clear, Urine pH 7.0, Ur Specific [place] 1.020, Urine Protein 100 H, Urine Glucose (UA) 250 H, Urine Ketones Negative, Urine Blood Trace-lysed H, Urine Nitrate Negative, Urine Bilirubin Negative, Urine Urobilinogen 0.2, Ur Leukocyte Esterase Negative, Urine RBC Negative, Urine WBC Negative, Ur Epithelial Cells 4 - 5, Urine Bacteria Neg, Urine HCG, Qual Negative - RAD Interpretation Radiology Orders: 05/09/18 22:27 CHEST PORTABLE [RAD] Stat Broom Handle Dipper: ED Physician - Medication Orders Current Medication Orders: Discontinued Medications Famotidine (Pepcid) 20 mg IVP STAT STA Stop: 05/09/18 22:29 Last Admin: 05/09/18 22:40 Dose: 20 mg IVP Administration Document 05/09/18 22:40 RD (Rec: 05/09/18 22:40 RD [id number]) Charges for Administration # of IVP Administrations 1 Pantoprazole Sodium (Protonix Inj) 40 mg IVP STAT STA Stop: 05/09/18 22:29 Last Admin: 05/09/18 22:38 Dose: 40 mg IVP Administration Document 05/09/18 22:38 RD (Rec: 05/09/18 22:40 RD [id number]) Charges for Administration # of IVP Administrations 1 - Scribe Statement The provider has reviewed the documentation as recorded by the Scribe Elba Lehman All medical record entries made by the Scribe were at my direction and personally dictated by me. I have reviewed the chart and agree that the record accurately reflects my personal performance of the history, physical exam, medical decision making, and the department course for this patient. I have also personally directed, reviewed, and agree with the discharge instructions and disposition. Disposition/Present on Arrival - Present on Arrival Any Indicators Present on Arrival: No History of DVT/PE: No History of Uncontrolled Diabetes: No Urinary Catheter: No History of Decub. Ulcer: No History Surgical Site Infection Following: None - Disposition Have Diagnosis and Disposition been Completed?: Yes Diagnosis: Abdominal pain Disposition: HOME/ ROUTINE Disposition Time: 00:19 Patient Plan: Discharge Condition: STABLE Discharge Instructions (ExitCare): Acute Abdomen (Belly Pain) Additional Instructions: You need to make appointments with Gastroenterology and OBGYN. Please ask Dr. Quarles for these referrals. Prescriptions: Amoxicillin/Clavulanate [Augmentin 875 MG-125 MG] 1 tab PO BID #20 tab Referrals: Michelle Quarles MD [Family Provider] - Follow up with primary Forms: [employer] (Nepali)
[2018-05-09 22:35] VITALS: O2SAT 100
[2018-05-09 23:05] LABS: BASO # 0.03 K/mm3 (0.0-2.0); BASO % 0.2 % (0.0-3.0); EOS # 0.2 (0.0-0.7); EOS % 1.4 % (1.5-5.0); GRAN # 10.02 (1.4-6.5); HEMOGLOBIN 12.2 g/dL (12.0-16.0); LYMPH # 2.4 (1.2-3.4); LYMPH % 18.1 % (22.0-35.0); MEAN CELL VOLUME 87.6 fl (80.0-105.0); MEAN CORPUSCULAR HEMOGLOBIN 30.2 pg (25.0-35.0); MEAN CORPUSCULAR HGB CONC 34.5 g/dl (31.0-37.0); MEAN PLATELET VOLUME 8.7 fl (7.0-11.0); MONO # 0.6 (0.1-0.6); MONO % 4.3 % (1.0-6.0); RBC 4.04 10^6/uL (3.5-6.1); RED CELL DISTRIBUTION WIDTH 14.6 % (11.5-14.5); WHITE BLOOD COUNT 13.2 10^3/ul (4.5-11.0)
[2018-05-09 23:06] LABS: URINE APPEARANCE CLEAR (CLEAR); URINE BILIRUBIN NEGATIVE (NEGATIVE); URINE BLOOD TRACE-LYSED (NEGATIVE); URINE COLOR YELLOW (YELLOW); URINE GLUCOSE (UA) 250 mg/dL (NEGATIVE); URINE LEUKOCYTE ESTERASE NEGATIVE Leu/uL (NEGATIVE); URINE PROTEIN 100 mg/dL (<30 mg/dL); URINE UROBILINOGEN 0.2 E.U./dL (<1 E.U./dL)
[2018-05-09 23:09] LABS: URINE BACTERIA NEG (NEG); URINE RBC NEGATIVE /hpf (0-2); URINE WBC NEGATIVE /hpf (0-6)
[2018-05-09 23:10] LABS: HCG,QUALITATIVE URINE NEGATIVE (NEGATIVE)
[2018-05-09 23:23] LABS: ALB/GLOB RATIO 1.9 (1.1-1.8); ALBUMIN 4.8 g/dL (3.0-4.8); CALCIUM 9.8 mg/dL (8.4-10.5)
[2018-05-10 00:35] VITALS: BP 189/105; PULSE 94
[2018-05-10 00:37] VITALS: RESP 18
--- NOTE | 2018-05-10 10:26 | RAD ---
Date of service: 05/09/2018 HISTORY: Abdominal pain. COMPARISON: 05/02/2018. FINDINGS: LUNGS: No active pulmonary disease. PLEURA: No significant pleural effusion identified, no pneumothorax apparent. CARDIOVASCULAR: Normal. OSSEOUS STRUCTURES: No significant abnormalities. VISUALIZED UPPER ABDOMEN: Normal. OTHER FINDINGS: None. IMPRESSION: No active disease.
== END 2018-05-10 00:35 | disposition home or self-care (01) ==
LOC: ED 21:55
DX: R10.9 Unspecified abdominal pain (principal); I12.0 Hypertensive chronic kidney disease with stage 5 chronic kidney disease or end stage renal disease; N18.6 End stage renal disease; I25.2 Old myocardial infarction; Z99.2 Dependence on renal dialysis; Z90.49 Acquired absence of other specified parts of digestive tract; F17.210 Nicotine dependence, cigarettes, uncomplicated
CPT/HCPCS: 71045; 80053; 81001; 83690; 84703; 85025; 87086; 96374; 96375; 99283; C9113

== ENCOUNTER 2018-06-03 09:46 | Emergency (ER) | payer MEDICAID, OTHER ==
[2018-06-03 09:46] VITALS: BMI 25.2
[2018-06-03 10:05] VITALS: RESP 18; TEMP 99.5
--- NOTE | 2018-06-03 10:46 | ED PDOC ---
Arrival/HPI - General Chief Complaint: Lower Extremity Problem/Injury Time Seen by Provider: 06/03/18 09:53 - History of Present Illness Narrative History of Present Illness (Text): PGY-[address] Whitney Miss Brizuela is a 37 year old female with PMHx HTN and ESRD on HD MWF who presents with L leg pain. The patient states that on Saturday afternoon she noticed both legs become very swollen which was followed by severe pain in her L buttocks and hip, shooting into proximal leg. She had spent about 6 hours walking around a parade on Saturday prior the onset of her symptoms, but denies any history of trauma or injury. The patient states that the edema subsided by Saturday, but her pain remained. Pain does not shoot past the knee. She is able to bear weight but ambulation has been significantly limited secondary to pain. Patient did mention that a few months ago she was diagnosed with ovarian cysts and on CT the radiologist found some lesions which were noted to be possible metastatic lesions, however the patient did not have any prior diagnosis of cancer. She was referred to oncology and was sent for PET scan, from which she is awaiting results. She has taken toradol that she had at home which did not provide much relief. Pt denies any fevers, chills, chest pain, headaches, dizziness, calf swelling. (Yoni Veliz) Past Medical History - Provider Review Nursing Documentation Reviewed: Yes - Infectious Disease Hx of Infectious Diseases: None - Reproductive Menopause: No - Cardiac Hx Cardiac Disorders: Yes Hx VT: Yes Hx Hypertension: Yes - Pulmonary Hx Respiratory Disorders: No - Neurological Hx Neurological Disorder: No - HEENT Hx HEENT Disorder: Yes Other/Comment: eyeglasses for reading - Renal Hx Renal Disorder: Yes Hx Dialysis: Yes (MWF) Date of Last Dialysis Treatment: 06/02/18 Hx Renal Failure: Yes - Endocrine/Metabolic Hx Endocrine Disorders: No - Hematological/Oncological Hx Blood Disorders: Yes Hx Anemia: Yes - Integumentary Hx Dermatological Disorder: No - Musculoskeletal/Rheumatological Hx Musculoskeletal Disorders: No - Gastrointestinal Hx Gastrointestinal Disorders: Yes - Genitourinary/Gynecological Hx Genitourinary Disorders: No - Psychiatric Hx Psychophysiologic Disorder: Yes Hx Anxiety: Yes Hx Depression: Yes Hx Substance Use: No - Surgical History Hx Cholecystectomy: Yes Hx Vascular Surgery: Yes ([facility]) - Anesthesia Hx Anesthesia: Yes Hx Anesthesia Reactions: No Hx Malignant Hyperthermia: No Family/Social History - Physician Review Nursing Documentation Reviewed: Yes Family/Social History: Unknown Family HX Smoking Status: Light Smoker < 10 Cigarettes Daily Hx Alcohol Use: No Hx Substance Use: No Allergies/Home Meds Allergies/Adverse Reactions: Allergies No Known Allergies Allergy (Verified 05/09/18 22:03) PER PATIENT Home Medications: Home Meds Medication Instructions Recorded Confirmed Clonidine HCl [Catapres] 0.2 mg PO BID 08/28/17 06/03/18 Alprazolam [Xanax] 0.5 mg PO BID 03/23/18 06/03/18 Labetalol Hydrochloride [Normodyne] 300 mg PO BID 03/23/18 06/03/18 amLODIPine [Norvasc] 10 mg PO DAILY 05/08/18 06/03/18 Review of Systems - Physician Review All systems were reviewed & negative as marked: Yes - Review of Systems Constitutional: Normal. absent: Fatigue, Weight Change, Fevers Eyes: Normal. absent: Vision Changes ENT: Normal. absent: Sore Throat, Rhinorrhea Respiratory: Normal. absent: SOB, Cough Cardiovascular: Normal. absent: Chest Pain, Palpitations Gastrointestinal: Normal. absent: Abdominal Pain, Nausea, Vomiting Genitourinary Female: Other (On dialysis MWF). absent: Dysuria, Frequency Musculoskeletal: Back Pain. absent: Neck Pain Skin: Normal. absent: Rash, Pruritis Neurological: Normal. absent: Headache, Dizziness Physical Exam Vital Signs Reviewed: Yes Temperature: Afebrile Blood Pressure: Hypertensive Pulse: Regular Respiratory Rate: Normal Appearance: Positive for: Uncomfortable Pain Distress: Moderate Mental Status: Positive for: Alert and Oriented X 3. No: Confused, Agitated - Systems Exam Head: Present: Atraumatic, Normocephalic Pupils: Present: PERRL. No: Sluggish, Non-Reactive Extroacular Muscles: Present: EOMI Conjunctiva: Present: Normal. No: Injected, Icteric Mouth: Present: Moist Mucous Membranes, Normal Tounge, Normal Teeth Nose (External): Present: Atraumatic. No: Abrasion Neck: Present: Normal Range of Motion. No: JVD Respiratory/Chest: Present: Clear to Auscultation, Good Air Exchange. No: Respiratory Distress, Accessory Muscle Use, Wheezes, Rhonchi Cardiovascular: Present: Regular Rate and Rhythm, Normal S1, S2. No: Murmurs Abdomen: Present: Normal Bowel Sounds. No: Tenderness, Distention Back: No: Midline Tenderness, Paraspinal Tenderness, Pain with Leg Raise Upper Extremity: Present: Normal Inspection, NORMAL PULSES. No: Cyanosis, Edema , Tenderness, Swelling Lower Extremity: Present: NORMAL PULSES, Other (+Pain in L buttocks radiating to leg, not tender to palpation. Pain is reproducable with internal rotation.) . No: Edema, CALF TENDERNESS, Cyanosis, Tenderness, Swelling Neurological: Present: GCS=15, CN II-XII Intact, Speech Normal Skin: Present: Warm, Dry, Normal Color. No: Rashes Psychiatric: Present: Alert, Oriented x 3 Vital Signs Temp Pulse Resp BP Pulse Ox 06/03/18 16:14 99 06/03/18 16:13 18 168/101 H 99 06/03/18 14:00 98 H 18 170/109 H 99 06/03/18 12:20 92 H 17 171/121 H 99 06/03/18 09:59 99.5 F 102 H 18 173/113 H 96 Medical Decision Making - RAD Interpretation [employer] Clerk: Radiologist ED Course and Treatment: 06/03/18 11:22 Left leg pain (DDx: Fracture vs metastatic disease vs MSK/radicular causes ie piriformis syndrome): * L Hip X-ray 2 view * LLE dopplers * CBC w dif * CMP * UA * POC Urine * Tylenol 650 PO stat for pain 06/03/18 15:58 * Plan to d/c, discussed pt to f/u with ortho and PMD * Discharged with crutches and instructed how to use * [place] [employer] checked, last Rx for tramadol was for 20 tabs on May 03 (Yoni Veliz) Patient Seen With Resident: In agreement with resident note which contains more details about the patient. Patient was seen and evaluated with resident. Came up with plan and treatment together. 06/03/18 18:30 Us unremarkable, negative for DVT XR unremarkable, negative for fx clear for d/c home (Ray Whitney) - Lab Interpretations Lab Results: 06/03/18 10:50 06/03/18 10:50 Lab Results 06/03/18 10:50: Sodium 139, Potassium 3.5 L, Chloride 99, Carbon Dioxide 25, Anion Gap 20, BUN 31 H, Creatinine 2.7 H, Est GFR ( Amer) 24, Est GFR ( Non-Af Amer) 20, Random Glucose 105, Calcium 9.6, Total Bilirubin 0.4, AST 26, ALT 55, Alkaline Phosphatase 122, Total Protein 7.2, Albumin 4.3, Globulin 3.0, Albumin/Globulin Ratio 1.4 06/03/18 10:50: Urine Color Yellow, Urine Appearance Clear, Urine pH 7.5, Ur Specific [place] 1.015, Urine Protein >=300 H, Urine Glucose (UA) Negative, Urine Ketones Negative, Urine Blood Trace-intact H, Urine Nitrate Negative, Urine Bilirubin Negative, Urine Urobilinogen 0.2, Ur Leukocyte Esterase Negative , Urine RBC 2 - 5, Urine WBC 1 - 3, Ur Epithelial Cells 6 - 8, Amorphous Sediment Few, Urine Bacteria Many, Coarse Granular Casts Trace H, Urine Other Uyeast 06/03/18 10:50: WBC 12.9 H, RBC 4.03, Hgb 12.0, Hct 35.2 L, MCV 87.3, MCH 29.8, MCHC 34.1, RDW 14.4, Plt Count 249, MPV 8.8, Gran % 85.3 H, Lymph % (Auto) 7.4 L , [place] % (Auto) 6.8 H, Eos % (Auto) 0.3 L, Baso % (Auto) 0.2, Gran # 10.97 H, Lymph # (Auto) 1.0 L, [place] # (Auto) 0.9 H, Eos # (Auto) 0.0, Baso # (Auto) 0.02 - RAD Interpretation Narrative RAD Interpretations (Text): Hip/Pelvis X-ray: No evidence of fracture or dislocation LE Dopplers negative for DVT (Yoni Veliz) Radiology Orders: 06/03/18 10:47 HIP MIN 2V W/ PELVIS LT [RAD] Stat 06/03/18 11:06 DUPLEX LOWER EXTRM VEIN LEFT [US] Stat - Medication Orders Current Medication Orders: Discontinued Medications Acetaminophen (Tylenol 325mg Tab) 650 mg PO STAT STA Stop: 06/03/18 10:54 Last Admin: 06/03/18 11:20 Dose: Cyclobenzaprine HCl (Flexeril) 5 mg PO STAT STA Stop: 06/03/18 12:47 Last Admin: 06/03/18 13:22 Dose: 5 mg Disposition/Present on Arrival - Present on Arrival Any Indicators Present on Arrival: No History of DVT/PE: No History of Uncontrolled Diabetes: No Urinary Catheter: No History of Decub. Ulcer: No History Surgical Site Infection Following: None - Disposition Have Diagnosis and Disposition been Completed?: Yes Disposition Time: 15:30 - Disposition Diagnosis: Left hip pain Disposition: HOME/ ROUTINE Condition: GOOD Prescriptions: Cyclobenzaprine [Flexeril] 5 mg PO Q12H PRN 2 Days #4 tab PRN Reason: Pain, Moderate (4-7) Referrals: Michelle Quarles MD [Primary Care Provider] - Follow up with primary Casimiro Rausch MD [Staff Provider] - Follow up with primary Forms: CareTriage (Serbian)
[2018-06-03 11:48] LABS: BASO # 0.02 K/mm3 (0.0-2.0); BASO % 0.2 % (0.0-3.0); EOS % 0.3 % (1.5-5.0); GRAN # 10.97 (1.4-6.5); GRAN % 85.3 % (50.0-68.0); LYMPH % 7.4 % (22.0-35.0); MEAN CELL VOLUME 87.3 fl (80.0-105.0); MEAN CORPUSCULAR HEMOGLOBIN 29.8 pg (25.0-35.0); MEAN CORPUSCULAR HGB CONC 34.1 g/dl (31.0-37.0); MEAN PLATELET VOLUME 8.8 fl (7.0-11.0); MONO # 0.9 (0.1-0.6); MONO % 6.8 % (1.0-6.0); RBC 4.03 10^6/uL (3.5-6.1); RED CELL DISTRIBUTION WIDTH 14.4 % (11.5-14.5); WHITE BLOOD COUNT 12.9 10^3/ul (4.5-11.0)
[2018-06-03 12:04] LABS: PH,URINE 7.5 (4.7-8.0); URINE BILIRUBIN NEGATIVE (NEGATIVE); URINE BLOOD TRACE-INTACT (NEGATIVE); URINE GLUCOSE (UA) NEGATIVE (NEGATIVE); URINE LEUKOCYTE ESTERASE NEGATIVE Leu/uL (NEGATIVE); URINE PROTEIN >=300 mg/dL (<30 mg/dL); URINE UROBILINOGEN 0.2 E.U./dL (<1 E.U./dL)
[2018-06-03 12:08] LABS: URINE APPEARANCE CLEAR (CLEAR); URINE COLOR YELLOW (YELLOW)
[2018-06-03 12:22] LABS: URINE AMORPHOUS SEDIMENT FEW; URINE BACTERIA MANY (NEG); URINE COARSE GRANULAR CAST TRACE /hpf (0-2)
--- NOTE | 2018-06-03 13:02 | RAD ---
PROCEDURE: Left Hip X-ray Radiographs. HISTORY: Pain COMPARISON: None. FINDINGS: BONES: Bone alignment and mineralization are normal. There is no acute displaced fracture or bone destruction. JOINTS: Normal. SOFT TISSUES: Normal. OTHER FINDINGS: None. IMPRESSION: No acute fracture or dislocation.
[2018-06-03 13:35] LABS: ALB/GLOB RATIO 1.4 (1.1-1.8); ALBUMIN 4.3 g/dL (3.0-4.8); CALCIUM 9.6 mg/dL (8.4-10.5)
[2018-06-03 16:12] VITALS: PULSE 98; O2SAT 99
[2018-06-03 16:14] VITALS: BP 168/101
--- NOTE | 2018-06-04 17:18 | US ---
PROCEDURE: Left lower extremity venous US HISTORY: Leg pain and swelling. Evaluate for DVT. PHYSICIAN(S): Yemi Gabriel MD. TECHNIQUE: Duplex sonography and color-flow Doppler with graded compression were used to evaluate the deep venous system of the left lower extremity. FINDINGS: The visualized deep venous system of the left lower extremity is sonographically normal and compressible. Normal wave forms and augmentation are seen. There is no sonographic evidence for deep venous thrombosis in the visualized segments of the left lower extremity. IMPRESSION: 1. No sonographic evidence for deep venous thrombosis in the visualized segments of the left lower extremity.
== END 2018-06-03 16:14 | disposition home or self-care (01) ==
LOC: ED 09:46
DX: M25.552 Pain in left hip (principal); I12.0 Hypertensive chronic kidney disease with stage 5 chronic kidney disease or end stage renal disease; N18.6 End stage renal disease; F17.210 Nicotine dependence, cigarettes, uncomplicated; Z99.2 Dependence on renal dialysis

== ENCOUNTER 2018-07-12 05:55 | Observation (INO) | payer MEDICAID, OTHER ==
[2018-07-12 06:06] VITALS: BMI 23.3
[2018-07-12] MEDS ORDERED: Morphine 2 mg/ml ISec IVP STA (06:21)
[2018-07-12] MEDS ORDERED: Sodium Chloride 0.9% 1,000 ML IV SCH (06:30)
--- NOTE | 2018-07-12 06:33 | ED PDOC ---
Arrival/HPI - General Time Seen by Provider: 07/12/18 06:14 Historian: Patient - History of Present Illness Narrative History of Present Illness (Text): 07/12/18 06:20 Kristine Brizuela is a 37 year old female, whose past medical history includes ESRD on HD, CHF, hypertension, cholecystectomy, depression, and anxiety, who presents to the ED brought in by EMS complaining of vomiting. Patient states she has been experiencing nausea with associated multiple episodes of vomiting and upper abdominal pain for the past 2 days. Patient notes she was fully dialyzed yesterday and seen at [facility] afterwards for hypertension. Patient denies diarrhea, fever, chills, urinary symptoms, headache, dizziness, or any other complaints. Time/Duration: < week Symptom Onset: Gradual Symptom Course: Unchanged Activities at Onset: Light Context: Home Past Medical History - Provider Review Nursing Documentation Reviewed: Yes - Infectious Disease Hx of Infectious Diseases: None - Cardiac Hx Congestive Heart Failure: Yes Hx Hypertension: Yes Hx Peripheral Edema: Yes - Pulmonary Hx Pneumonia: Yes - Neurological Hx Neurological Disorder: No - HEENT Hx HEENT Disorder: Yes Other/Comment: eyeglasses for reading - Renal Date of Last Dialysis Treatment: 07/07/18 - Endocrine/Metabolic Hx Endocrine Disorders: No - Hematological/Oncological Hx Anemia: Yes - Integumentary Hx Dermatological Disorder: No - Musculoskeletal/Rheumatological Hx Arthritis: Yes (L HIP) - Gastrointestinal Hx Gall Bladder Disease: Yes - Genitourinary/Gynecological Hx Genitourinary Disorders: No - Psychiatric Hx Anxiety: Yes Hx Depression: Yes Hx Substance Use: No - Surgical History Hx Cholecystectomy: Yes - Anesthesia Hx Anesthesia: Yes Hx Anesthesia Reactions: No Hx Malignant Hyperthermia: No Family/Social History - Physician Review Nursing Documentation Reviewed: Yes Family/Social History: Unknown Family HX Smoking Status: Light Smoker < 10 Cigarettes Daily Hx Alcohol Use: No Hx Substance Use: No Allergies/Home Meds Allergies/Adverse Reactions: Allergies No Known Allergies Allergy (Verified 07/12/18 06:00) PER PATIENT Home Medications: Home Meds Medication Instructions Recorded Confirmed Clonidine HCl [Catapres] 0.2 mg PO BID 08/28/17 07/12/18 Labetalol Hydrochloride [Normodyne] 300 mg PO BID 03/23/18 07/12/18 amLODIPine [Norvasc] 10 mg PO DAILY 05/08/18 07/12/18 Alprazolam [Xanax] 0.5 mg PO BID 07/11/18 07/12/18 Ondansetron HCl [Zofran] 4 mg PO PRN PRN 07/11/18 07/12/18 Review of Systems - Physician Review All systems were reviewed & negative as marked: Yes - Review of Systems Constitutional: Normal. absent: Fevers Eyes: Normal ENT: Normal Respiratory: Normal. absent: SOB, Cough Cardiovascular: Normal. absent: Chest Pain Gastrointestinal: Abdominal Pain, Nausea, Vomiting. absent: Diarrhea Genitourinary Female: Normal. absent: Dysuria, Frequency, Hematuria, Urine Output Changes Musculoskeletal: Normal. absent: Back Pain, Neck Pain Skin: Normal. absent: Rash Neurological: Normal. absent: Headache, Dizziness Endocrine: Normal Hemo/Lymphatic: Normal Psychiatric: Normal Physical Exam Vital Signs Reviewed: Yes Temperature: Afebrile Blood Pressure: Normal Pulse: Regular Respiratory Rate: Normal Appearance: Positive for: Well-Appearing, Non-Toxic, Comfortable Pain Distress: None Mental Status: Positive for: Alert and Oriented X 3 - Systems Exam Head: Present: Atraumatic, Normocephalic Pupils: Present: PERRL Extroacular Muscles: Present: EOMI Conjunctiva: Present: Normal Mouth: Present: Moist Mucous Membranes Neck: Present: Normal Range of Motion Respiratory/Chest: Present: Clear to Auscultation, Good Air Exchange. No: Res piratory Distress, Accessory Muscle Use Cardiovascular: Present: Regular Rate and Rhythm, Normal S1, S2. No: Murmurs Abdomen: Present: Tenderness (Upper abdominal tenderness). No: Distention, Peritoneal Signs Back: Present: Normal Inspection Upper Extremity: Present: Normal Inspection. No: Cyanosis, Edema Lower Extremity: Present: Normal Inspection. No: Edema Neurological: Present: GCS=15, CN II-XII Intact, Speech Normal Skin: Present: Warm, Dry, Normal Color. No: Rashes Psychiatric: Present: Alert, Oriented x 3, Normal Insight, Normal Concentration Medical Decision Making ED Course and Treatment: 07/12/18 06:20 Impression: 37 year old female c/o nausea, vomiting, and upper abdominal pain x 2 days. Plan: -- EKG -- CXR -- Labs, Beta-HCG, lipase -- IV fluids -- Morphine -- Pepcid -- Zofran -- Reassess and disposition Prior Visits: Notes and results from previous visits were reviewed. Progress Notes: Reviewed EKG, sinus bradycardia at [address]pm[address] Non-specific ST/T wave changes. 07/12/18 07:[address] Weeks, pending labs, imaging, re-evaluation, and disposition. - RAD Interpretation Radiology Orders: 07/12/18 06:19 CHEST PORTABLE [RAD] Stat - EKG Interpretation Interpreted by ED Physician: Yes Type: 12 lead EKG - Medication Orders Current Medication Orders: Sodium Chloride (Sodium Chloride 0.9%) 1,000 mls @ 50 mls/hr IV .Q20H KANDACE Discontinued Medications Famotidine (Pepcid) 20 mg IVP STAT STA Stop: 07/12/18 06:21 Morphine Sulfate (Morphine) 2 mg IVP STAT STA Stop: 07/12/18 06:22 Ondansetron HCl (Zofran Inj) 4 mg IVP ONCE ONE Stop: 07/12/18 06:21 - Scribe Statement The provider has reviewed the documentation as recorded by the Scribcarline Colmenares All medical record entries made by the Scribe were at my direction and personally dictated by me. I have reviewed the chart and agree that the record accurately reflects my personal performance of the history, physical exam, medical decision making, and the department course for this patient. I have also personally directed, reviewed, and agree with the discharge instructions and disposition. Disposition/Present on Arrival - Present on Arrival Any Indicators Present on Arrival: No History of DVT/PE: No History of Uncontrolled Diabetes: No Urinary Catheter: No History of Decub. Ulcer: No History Surgical Site Infection Following: None - Disposition Have Diagnosis and Disposition been Completed?: No Diagnosis: Abdominal pain, Vomiting Disposition Time: 07:00 Condition: STABLE Referrals: Michelle Quarles MD [Primary Care Provider] - Follow up with primary
[2018-07-12 06:56] LABS: HEMOGLOBIN 13.2 g/dL (12.0-16.0); MEAN CELL VOLUME 87.6 fl (80.0-105.0); MEAN CORPUSCULAR HEMOGLOBIN 30.8 pg (25.0-35.0); MEAN CORPUSCULAR HGB CONC 35.2 g/dl (31.0-37.0); MEAN PLATELET VOLUME 9.5 fl (7.0-11.0); RBC 4.28 10^6/uL (3.5-6.1); RED CELL DISTRIBUTION WIDTH 13.4 % (11.5-14.5); WHITE BLOOD COUNT 13.9 10^3/ul (4.5-11.0)
[2018-07-12 07:01] LABS: ALB/GLOB RATIO 1.7 (1.1-1.8); ALBUMIN 5.2 g/dL (3.0-4.8); CALCIUM 10.8 mg/dL (8.4-10.5)
[2018-07-12] MEDS ORDERED: Morphine 4 mg/ml ISec IVP STA (07:23)
[2018-07-12 08:42] LABS: INR 0.98; PROTHROMBIN TIME 11.3 SECONDS (9.4-12.5)
[2018-07-12 08:53] LABS: PH,URINE 8.5 (4.7-8.0); URINE BILIRUBIN MODERATE (NEGATIVE); URINE BLOOD LARGE (NEGATIVE); URINE GLUCOSE (UA) 100 mg/dL (NEGATIVE); URINE LEUKOCYTE ESTERASE NEGATIVE Leu/uL (NEGATIVE); URINE PROTEIN >=300 mg/dL (<30 mg/dL)
[2018-07-12 08:58] LABS: URINE APPEARANCE SL CLOUDY (CLEAR); URINE COLOR YELLOW (YELLOW)
[2018-07-12 09:12] LABS: URINE RBC 20 - 25 /hpf (0-2)
--- NOTE | 2018-07-12 09:12 | CARD ---
APPROVED REPORT Date of service: 07/12/2018 EKG Measurement Heart [id number] ID [id number] <Conclusion> Sinus bradycardia with sinus arrhythmia Moderate voltage criteria for LVH, may be normal variant No change
[2018-07-12 09:13] LABS: URINE BACTERIA MANY (NEG)
[2018-07-12 09:14] LABS: URINE AMORPHOUS SEDIMENT FEW
[2018-07-12 09:29] LABS: BENZODIAZEPINES, UR NEGATIVE (NEGATIVE); OPIATES, UR NEGATIVE (NEGATIVE)
[2018-07-12 09:35] LABS: BARBITURATES, UR NEGATIVE (NEGATIVE); PHENCYCLIDINE, UR NEGATIVE (NEGATIVE)
--- NOTE | 2018-07-12 13:35 | RAD ---
Date of service: 07/12/2018 HISTORY: Abdominal pain. COMPARISON: 05/09/2018. FINDINGS: LUNGS: No active pulmonary disease. PLEURA: No significant pleural effusion identified, no pneumothorax apparent. CARDIOVASCULAR: No radiographic findings to suggest acute or significant cardiovascular disease. Venous access catheter in satisfactory position. OSSEOUS STRUCTURES: No significant abnormalities. VISUALIZED UPPER ABDOMEN: Normal. OTHER FINDINGS: None. IMPRESSION: No active disease. Satisfactory position of recently placed venous access catheter.
--- NOTE | 2018-07-12 14:17 | US ---
Date of service: 07/12/2018 HISTORY: elevated LFT, r/o CBD stone COMPARISON: 05/03/2018 TECHNIQUE: Sonographic evaluation of the abdomen. FINDINGS: LIVER: Measures 14.2 cm. Hepatopedal blood flow. Fatty infiltration manifest ultrasonographically as increased echogenicity of the liver parenchyma. No mass. No intrahepatic bile duct dilatation. GALLBLADDER: Status post cholecystectomy. No abnormality is seen in the gallbladder fossa. COMMON BILE DUCT: Measures 10.6 mm. Dilated common bile duct 10.6 mm. No intrahepatic bile duct dilatation. The findings are likely post cholecystectomy related. On the prior study the common duct measured 8.2 mm. PANCREAS: Unremarkable as visualized. No mass. No ductal dilatation. RIGHT KIDNEY: Measures 4.6 x 9.3cm. Normal echogenicity. No calculus, mass, or hydronephrosis. LEFT KIDNEY: Measures 4.4 x 9.3cm. Echogenic focus lower pole 2 x 5 mm in likely nonobstructing calculus. SPLEEN: Normal in size and contour. No mass. AORTA: No aneurysmal dilatation. IVC: Unremarkable. OTHER FINDINGS: None. IMPRESSION: Status post cholecystectomy with persistent dilated common duct 10.6 mm. Nonobstructing calculus left kidney. No significant interval changes compared to the prior study 05/03/2018.
[2018-07-12] MEDS ORDERED: Pneumococcal 23-Valent Vaccine IM ONE (14:25)
[2018-07-12] MEDS ORDERED: Influenza Vaccine 60 mcg/0.5 mL SYR (4YR UP) IM ONE (14:25)
--- NOTE | 2018-07-12 15:03 | CP.PCM.CON ---
History of Present Illness - History of Present Illness History of Present Illness: Nephrology Consultation Note: Assessment: Stable pancreatitis with abnormal LFT severe uncontrolled HTN urgency constipation b/l adrenal hypertrophy Hypertensive Chronic Kidney Disease (I12.0) End stage renal disease (N18.6) dependence on hemodialysis (Z99.2) (MWF) via PC Anemia (D64.9), Hyperphosphatemia (E83.39), Secondary Hyperparathyroidism (E21.1), HTN (I12.0) Plan: Will plan for HD saturday as per [facility] schedule. Continue with Nephrovite 1 tab/day. PRBC as needed for anemia. Not on GOYO with dialysis as last Hb 13.2 Continue with phos binders, check phos level BP control with meds as ordered. Patient not on RAAS nisha hence started losartan 100 mg/day. renin/vic and metanephrines, renal artery doppler for sec HTN work up NEGATIVE in past. Outpt Dexamethasone suppression test for hypercortisolism eval. Glycemic control, Dialysis consistent diet Further work up/management as per primary team Dose meds/antibiotics (if needed) for ESRD status. Avoid fleets enema/magnesium based laxatives. Thanks for allowing me to participate in care of your patient. Please call if any Qs. Dr Pramod Bobo Office: [phone] Chief Complaint: abdomen pain reason for consult; ESRD management HPI: Pt is a 37 F with hx of ESRD on hemodialysis (MWF) via left AVG @ [facility] with Dr Seth for last 1 year (was also on PD in between but switched to HD due to recurrent peritonitis) , last dialysis saturday, chronic anemia, hyperphosphatemia, secondary hyperparathyroidism, hypertension presented with complaints of pain abdomen and nausea/vomitting, found to have HTN urgency and admitted to hospital Renal consult requested for ESRD management. Pt feels better now. denies SOB. has chronic constipation. pain abdomen and nausea/vomitting better ROS: Cardiovascular: No chest pain. Pulmonary: No shortness of breath Gastrointestinal: improved abdominal pain No nausea. No vomiting. had constipation Genitourinary: No pain while urinating. Denies blood in urine. All other negative except as mentioned in HPI Physical Examination: General Appearance: Comfortable, in no acute respiratory distress, co-operative . Vitals reviewed and noted as below Head; Atraumatic, normocephalic ENT: no ulcers no thrush. Tongue is midline. Oropharynx: no rash or ulcers. EYES: Pupils are equal, round and reactive to light accommodation. Eye muscles and extraocular movement intact. Sclera is anicteric. Neck; supple no lymphadenopathy, no thyromegaly or bruit Lungs: Normal respiratory rate/effort. Breath sounds bilateral equal and clear Heart: Normal rate. s1s2 normal. No rub or gallop. Extremities: no edema. No varicose veins Neurological: Patient is alert, awake and oriented to person, place and time. No focal deficit. Strength bilateral appropriate and equal Skin: Warm and dry. Normal turgor. No rash. Palpitation: Normal elasticity for age Abdomen: Abdomen is soft. Bowel sounds +. There is no abdominal tenderness, no guarding/rigidity or organomegaly Psych: normal insight and normal affect/mood MSK: no joint tenderness or swelling. Digits and nails normal, no deformity : kidney or bladder not palpable Access: permacath Labs/imaging reviewed. Past medical history, past surgical history, family history, social history, allergy reviewed and noted as below Family Hx: mother was on HD due to DM. rest Non contributory Past Patient History - Infectious Disease Hx of Infectious Diseases: None - Past Medical History & Family History Past Medical History?: Yes - Past Social History Smoking Status: Current Some Days Smoker - CARDIAC Hx Cardiac Disorders: Yes Hx Congestive Heart Failure: Yes Hx Hypertension: Yes Hx Peripheral Edema: Yes - PULMONARY Hx Respiratory Disorders: Yes Hx Pneumonia: Yes - NEUROLOGICAL Hx Neurological Disorder: No - HEENT Hx HEENT Problems: Yes Other/Comment: eyeglasses for reading - RENAL Hx Chronic Kidney Disease: Yes Date of Last Dialysis Treatment: 07/11/18 Hx Kidney Stones: Yes (Left) - ENDOCRINE/METABOLIC Hx Endocrine Disorders: No - HEMATOLOGICAL/ONCOLOGICAL Hx Blood Disorders: Yes Hx Anemia: Yes - INTEGUMENTARY Hx Dermatological Problems: Yes Other/Comment: SCARRING TO LEFT UPPER ARM DUE TO PLACEMENT OF SHUNT. NF.3X HAD SURGERY. - MUSCULOSKELETAL/RHEUMATOLOGICAL Hx Musculoskeletal Disorders: Yes Hx Arthritis: Yes (L HIP) Hx Falls: No - GASTROINTESTINAL Hx Gastrointestinal Disorders: Yes (CHRONIC ABDOMINAL PAIN,H/O PERITONEAL DIALYSIS.) Hx Gall Bladder Disease: Yes (CHOLECYSTECTOMY) Hx Pancreatitis: Yes (07-12-18) Hx Ulcer: Yes Other/Comment: GASTROENTERITIS - GENITOURINARY/GYNECOLOGICAL Hx Genitourinary Disorders: No - PSYCHIATRIC Hx Psychophysiologic Disorder: Yes Hx Anxiety: Yes Hx Depression: Yes Hx Substance Use: No - SURGICAL HISTORY Hx Surgeries: Yes Hx Cholecystectomy: Yes Other/Comment: 3 X HAD SURGERY TO LEFT UPPER ARM FOR PLACEMENT OF SHUNT.RIGHT CHEST WALL UDALL. H/O PERITONEAL DIALYSIS. - ANESTHESIA Hx Anesthesia: Yes Hx Anesthesia Reactions: No Hx Malignant Hyperthermia: No Meds Allergies/Adverse Reactions: Allergies Allergy/AdvReac Type Severity Reaction Status Date / Time No Known Allergies Allergy Verified 07/12/18 12:31 - Medications Medications: Current Medications Amlodipine Besylate (Norvasc) 10 mg PO DAILY [facility] Last Admin: 07/12/18 11:29 Dose: Not Given Clonidine HCl (Catapres) 0.2 mg PO BID [facility] Last Admin: 07/12/18 08:30 Dose: 0.2 mg Heparin Sodium (Porcine) (Heparin) 2,000 units IV MWF [facility] Sodium Chloride (Sodium Chloride 0.9%) 1,000 mls @ 50 mls/hr IV .Q20H [facility] Last Admin: 07/12/18 06:35 Dose: 50 mls/hr Labetalol HCl (Trandate) 200 mg PO BID [facility] Last Admin: 07/12/18 11:29 Dose: Not Given Losartan Potassium (Cozaar) 100 mg PO DAILY [facility] Last Admin: 07/12/18 11:30 Dose: Not Given Ondansetron HCl (Zofran Inj) 4 mg IVP Q6H [facility] Vitamin B Complex/Vit C/Folic Acid (Nephro-Socorro) 1 tab PO 0800 [facility] Results - Vital Signs Recent Vital Signs: Last Vital Signs Temp 98.3 F 07/12/18 13:55 Pulse 85 07/12/18 13:55 Resp 19 07/12/18 13:55 BP 146/87 07/12/18 13:55 Pulse Ox 97 07/12/18 09:49 - Labs Result Diagrams: 07/12/18 06:20 07/12/18 06:20 Labs: Laboratory Results - last 24 hr 07/12/18 07/12/18 07/12/18 06:20 06:20 06:20 WBC 13.9 H RBC 4.28 Hgb 13.2 Hct 37.5 MCV 87.6 MCH 30.8 MCHC 35.2 RDW 13.4 Plt Count 301 MPV 9.5 PT INR Sodium 139 Potassium 3.5 L Chloride 100 Carbon Dioxide 26 Anion Gap 17 BUN 31 H Creatinine 3.4 H Est GFR ( Amer) 18 Est GFR (Non-Af Amer) 15 Random Glucose 148 H Calcium 10.8 H Phosphorus 3.9 Magnesium 2.0 Total Bilirubin 4.4 H AST 1683 H ALT 657 H Alkaline Phosphatase 159 H D Total Protein 8.2 Albumin 5.2 H Globulin 3.0 Albumin/Globulin Ratio 1.7 Lipase 1158 H Beta HCG, Quant < 2.39 Urine Color Urine Appearance Urine pH Ur Specific [place] Urine Protein Urine Glucose (UA) Urine Ketones Urine Blood Urine Nitrate Urine Bilirubin Urine Urobilinogen Ur Leukocyte Esterase Urine RBC Urine WBC Ur Epithelial Cells Amorphous Sediment Urine Bacteria Urine Other Urine Opiates Screen Urine Methadone Screen Acetaminophen Ur Barbiturates Screen Ur Phencyclidine Scrn Ur Amphetamines Screen U Benzodiazepines Scrn U Oth Cocaine Metabols U Cannabinoids Screen Alcohol, Quantitative 07/12/18 07/12/18 07/12/18 08:20 08:20 08:20 WBC RBC Hgb Hct MCV MCH MCHC RDW Plt Count MPV PT 11.3 INR 0.98 Sodium Potassium Chloride Carbon Dioxide Anion Gap BUN Creatinine Est GFR ( Amer) Est GFR (Non-Af Amer) Random Glucose Calcium Phosphorus Magnesium Total Bilirubin AST ALT Alkaline Phosphatase Total Protein Albumin Globulin Albumin/Globulin Ratio Lipase Beta HCG, Quant Urine Color Urine Appearance Urine pH Ur Specific [place] Urine Protein Urine Glucose (UA) Urine Ketones Urine Blood Urine Nitrate Urine Bilirubin Urine Urobilinogen Ur Leukocyte Esterase Urine RBC Urine WBC Ur Epithelial Cells Amorphous Sediment Urine Bacteria Urine Other Urine Opiates Screen Urine Methadone Screen Acetaminophen < 10.0 L Ur Barbiturates Screen Ur Phencyclidine Scrn Ur Amphetamines Screen U Benzodiazepines Scrn U Oth Cocaine Metabols U Cannabinoids Screen Alcohol, Quantitative < 10 07/12/18 07/12/18 08:30 08:30 WBC RBC Hgb Hct MCV MCH MCHC RDW Plt Count MPV PT INR Sodium Potassium Chloride Carbon Dioxide Anion Gap BUN Creatinine Est GFR ( Amer) Est GFR (Non-Af Amer) Random Glucose Calcium Phosphorus Magnesium Total Bilirubin AST ALT Alkaline Phosphatase Total Protein Albumin Globulin Albumin/Globulin Ratio Lipase Beta HCG, Quant Urine Color Yellow Urine Appearance Sl cloudy Urine pH 8.5 Ur Specific [place] 1.020 Urine Protein >=300 H Urine Glucose (UA) 100 H Urine Ketones Negative Urine Blood Large H Urine Nitrate Positive H Urine Bilirubin Moderate H Urine Urobilinogen 1.0 H Ur Leukocyte Esterase Negative Urine RBC 20 - 25 Urine WBC 1 - 3 Ur Epithelial Cells None Amorphous Sediment Few Urine Bacteria Many Urine Other Uyeast Urine Opiates Screen Negative Urine Methadone Screen Negative Acetaminophen Ur Barbiturates Screen Negative Ur Phencyclidine Scrn Negative Ur Amphetamines Screen Negative U Benzodiazepines Scrn Negative U Oth Cocaine Metabols Negative U Cannabinoids Screen Negative Alcohol, Quantitative
--- NOTE | 2018-07-12 15:17 | CP.PCM.HP ---
<Shabbir Argueta - Last Filed: 07/12/18 15:13> History of Present Illness - History of Present Illness History of Present Illness: Shabbir Argueta PGY1 H&P for Dr. Chamberlain This is a 37 year old female, with a past medical history of ESRD on HD, CHF, hypertension, cholecystectomy, constipation, depression, and anxiety who was admitted after presenting to the emergency department with 1 day history of 20/10 left upper quadrant abdominal pain with associated nausea and vomiting. One day ago she was sent to the [facility] ED for elevated blood pressure after being fully dialyzed. Upon discharge from the ED, symptoms gradually worsened and she was unable to tolerate PO. Patient also began experiencing hot flashes and cold sweats. She took Protonix, but experienced no relief, prompting her to return to the hospital. Patient notes that she has similar episodes of pain and vomiting every few months, for which she was counseled to use Protonix; however, she rarely experiences relief and usually presents to the hospital for management. Patient notes that she has been told that she has pancreatitis in the past, but did not receive treatment for it. She denies alcohol and drug use, but admits to smoking 5 cigarettes a day. She also states that her overnight her urine was very dark, which has never happened in the past. She usually urinates 3x a day. Denies hematuria and dysuria. She notes midsternal chest discomfort that radiates to the back. She denies SOB, cough, congestion, vision changes, PHAN, arm or jaw pain. ED: CXR negative. Elevated lipase and transaminases. SxH: cholecystectomy FamHx: Mother- at 49 y/o due to diabetes; father - COPD. SocHx: denies alcohol use Allergies: NKDA PMD: Dr. Quarles Present on Admission - Present on Admission Any Indicators Present on Admission: No Review of Systems - Review of Systems Review of Systems: as per HPI Past Patient History - Infectious Disease Hx of Infectious Diseases: None - Past Medical History & Family History Past Medical History?: Yes - Past Social History Smoking Status: Current Some Days Smoker - CARDIAC Hx Cardiac Disorders: Yes Hx Congestive Heart Failure: Yes Hx Hypertension: Yes Hx Peripheral Edema: Yes - PULMONARY Hx Respiratory Disorders: Yes Hx Pneumonia: Yes - NEUROLOGICAL Hx Neurological Disorder: No - HEENT Hx HEENT Problems: Yes Other/Comment: eyeglasses for reading - RENAL Hx Chronic Kidney Disease: Yes Date of Last Dialysis Treatment: 07/11/18 Hx Kidney Stones: Yes (Left) - ENDOCRINE/METABOLIC Hx Endocrine Disorders: No - HEMATOLOGICAL/ONCOLOGICAL Hx Blood Disorders: Yes Hx Anemia: Yes - INTEGUMENTARY Hx Dermatological Problems: Yes Other/Comment: SCARRING TO LEFT UPPER ARM DUE TO PLACEMENT OF SHUNT. NF.3X HAD SURGERY. - MUSCULOSKELETAL/RHEUMATOLOGICAL Hx Musculoskeletal Disorders: Yes Hx Arthritis: Yes (L HIP) Hx Falls: No - GASTROINTESTINAL Hx Gastrointestinal Disorders: Yes (CHRONIC ABDOMINAL PAIN,H/O PERITONEAL DIALYSIS.) Hx Gall Bladder Disease: Yes (CHOLECYSTECTOMY) Hx Pancreatitis: Yes (07-12-18) Hx Ulcer: Yes Other/Comment: GASTROENTERITIS - GENITOURINARY/GYNECOLOGICAL Hx Genitourinary Disorders: No - PSYCHIATRIC Hx Psychophysiologic Disorder: Yes Hx Anxiety: Yes Hx Depression: Yes Hx Substance Use: No - SURGICAL HISTORY Hx Surgeries: Yes Hx Cholecystectomy: Yes Other/Comment: 3 X HAD SURGERY TO LEFT UPPER ARM FOR PLACEMENT OF SHUNT.RIGHT CHEST WALL UDALL. H/O PERITONEAL DIALYSIS. - ANESTHESIA Hx Anesthesia: Yes Hx Anesthesia Reactions: No Hx Malignant Hyperthermia: No Meds Allergies/Adverse Reactions: Allergies Allergy/AdvReac Type Severity Reaction Status Date / Time No Known Allergies Allergy Verified 07/12/18 12:31 Physical Exam - Constitutional Appears: In Acute Distress - Head Exam Head Exam: ATRAUMATIC, NORMOCEPHALIC - Eye Exam Eye Exam: EOMI, PERRL Pupil Exam: NORMAL ACCOMODATION - Respiratory Exam Respiratory Exam: Clear to Auscultation Bilateral, NORMAL BREATHING PATTERN. absent: Decreased Breath Sounds, Rales, Rhonchi, Wheezes - Cardiovascular Exam Cardiovascular Exam: REGULAR RHYTHM, +S1, +S2. absent: Gallop, Rubs, Systolic Murmur - GI/Abdominal Exam GI & Abdominal Exam: Normal Bowel Sounds, Soft, Tenderness. absent: Distended, Firm, Guarding Additional comments: tenderness to palpation of epigastric region and LUQ - Extremities Exam Extremities exam: Positive for: normal inspection. Negative for: pedal edema - Back Exam Back exam: absent: CVA tenderness (L), CVA tenderness (R), paraspinal tenderness - Neurological Exam Neurological exam: Alert, Oriented x3 Results - Vital Signs Recent Vital Signs: Last Vital Signs Temp 98.3 F 07/12/18 13:55 Pulse 85 07/12/18 13:55 Resp 19 07/12/18 13:55 BP 146/87 07/12/18 13:55 Pulse Ox 97 07/12/18 09:49 - Labs Result Diagrams: 07/12/18 06:20 07/12/18 06:20 Labs: Laboratory Results - last 24 hr 07/12/18 07/12/18 07/12/18 06:20 06:20 06:20 WBC 13.9 H RBC 4.28 Hgb 13.2 Hct 37.5 MCV 87.6 MCH 30.8 MCHC 35.2 RDW 13.4 Plt Count 301 MPV 9.5 PT INR Sodium 139 Potassium 3.5 L Chloride 100 Carbon Dioxide 26 Anion Gap 17 BUN 31 H Creatinine 3.4 H Est GFR ( Amer) 18 Est GFR (Non-Af Amer) 15 Random Glucose 148 H Calcium 10.8 H Phosphorus 3.9 Magnesium 2.0 Total Bilirubin 4.4 H AST 1683 H ALT 657 H Alkaline Phosphatase 159 H D Total Protein 8.2 Albumin 5.2 H Globulin 3.0 Albumin/Globulin Ratio 1.7 Lipase 1158 H Beta HCG, Quant < 2.39 Urine Color Urine Appearance Urine pH Ur Specific Hunt Urine Protein Urine Glucose (UA) Urine Ketones Urine Blood Urine Nitrate Urine Bilirubin Urine Urobilinogen Ur Leukocyte Esterase Urine RBC Urine WBC Ur Epithelial Cells Amorphous Sediment Urine Bacteria Urine Other Urine Opiates Screen Urine Methadone Screen Acetaminophen Ur Barbiturates Screen Ur Phencyclidine Scrn Ur Amphetamines Screen U Benzodiazepines Scrn U Oth Cocaine Metabols U Cannabinoids Screen Alcohol, Quantitative 07/12/18 07/12/18 07/12/18 08:20 08:20 08:20 WBC RBC Hgb Hct MCV MCH MCHC RDW Plt Count MPV PT 11.3 INR 0.98 Sodium Potassium Chloride Carbon Dioxide Anion Gap BUN Creatinine Est GFR ( Amer) Est GFR (Non-Af Amer) Random Glucose Calcium Phosphorus Magnesium Total Bilirubin AST ALT Alkaline Phosphatase Total Protein Albumin Globulin Albumin/Globulin Ratio Lipase Beta HCG, Quant Urine Color Urine Appearance Urine pH Ur Specific Hunt Urine Protein Urine Glucose (UA) Urine Ketones Urine Blood Urine Nitrate Urine Bilirubin Urine Urobilinogen Ur Leukocyte Esterase Urine RBC Urine WBC Ur Epithelial Cells Amorphous Sediment Urine Bacteria Urine Other Urine Opiates Screen Urine Methadone Screen Acetaminophen < 10.0 L Ur Barbiturates Screen Ur Phencyclidine Scrn Ur Amphetamines Screen U Benzodiazepines Scrn U Oth Cocaine Metabols U Cannabinoids Screen Alcohol, Quantitative < 10 07/12/18 07/12/18 08:30 08:30 WBC RBC Hgb Hct MCV MCH MCHC RDW Plt Count MPV PT INR Sodium Potassium Chloride Carbon Dioxide Anion Gap BUN Creatinine Est GFR ( Amer) Est GFR (Non-Af Amer) Random Glucose Calcium Phosphorus Magnesium Total Bilirubin AST ALT Alkaline Phosphatase Total Protein Albumin Globulin Albumin/Globulin Ratio Lipase Beta HCG, Quant Urine Color Yellow Urine Appearance Sl cloudy Urine pH 8.5 Ur Specific Hunt 1.020 Urine Protein >=300 H Urine Glucose (UA) 100 H Urine Ketones Negative Urine Blood Large H Urine Nitrate Positive H Urine Bilirubin Moderate H Urine Urobilinogen 1.0 H Ur Leukocyte Esterase Negative Urine RBC 20 - 25 Urine WBC 1 - 3 Ur Epithelial Cells None Amorphous Sediment Few Urine Bacteria Many Urine Other Uyeast Urine Opiates Screen Negative Urine Methadone Screen Negative Acetaminophen Ur Barbiturates Screen Negative Ur Phencyclidine Scrn Negative Ur Amphetamines Screen Negative U Benzodiazepines Scrn Negative U Oth Cocaine Metabols Negative U Cannabinoids Screen Negative Alcohol, Quantitative Assessment & Plan - Assessment and Plan (Free Text) Assessment: 37yoF PMH ESRD on HD, CHF, HTN, depression, anxiety presents with abdominal pain, admitted for evaluation and treatment of abdominal pain and transaminitis Plan: Abdominal Pain - likely secondary to pancreatitis - CT abdomen: no acute findings - WBC 13.9 - lipase 1158 - UA: leuk esterase negative, nitrate + - UCx: pending - morphine 4mg given in ED - zofran 4mg IVP q6h - clear liquid diet, as per GI - f/u Hep panel, IgG, ESME, mitochondrial AB, smAB, as per GI - GI consulted, Dr. Barrera, recs appreciated ESRD - BUN/Cr 31/3.4 - f/u CMP, phosph as per nephro - start Vit B, as per nephro - start hep 2000u MWF, as per nephro - MWF dialysis, as per nephro - Nephro consulted, Dr. Bobo, recs appreciated HTN - BP 193/87, now 146/87 - start home clonidine 0.2 BID - start home losartan 100 daily - start home labetalol 200 BID Transaminitis - possibly secondary to etoh (<10) - AST 1683, ALT 657 - Alk phos 159 - lipase 1158 - continue to monitor Hypokalemia - 3.5, repleted - monitor PPx - pepcid - SCD Case seen, plan reviewed and discussed with Dr. Chamberlain <Migdalia Chamberlain - Last Filed: 07/12/18 15:58> Results - Vital Signs Recent Vital Signs: Last Vital Signs Temp 98.3 F 07/12/18 13:55 Pulse 85 07/12/18 13:55 Resp 19 07/12/18 13:55 BP 146/87 07/12/18 13:55 Pulse Ox 97 07/12/18 09:49 - Labs Result Diagrams: 07/12/18 06:20 07/12/18 06:20 Labs: Laboratory Results - last 24 hr 07/12/18 07/12/18 07/12/18 06:20 06:20 06:20 WBC 13.9 H RBC 4.28 Hgb 13.2 Hct 37.5 MCV 87.6 MCH 30.8 MCHC 35.2 RDW 13.4 Plt Count 301 MPV 9.5 PT INR Sodium 139 Potassium 3.5 L Chloride 100 Carbon Dioxide 26 Anion Gap 17 BUN 31 H Creatinine 3.4 H Est GFR ( Amer) 18 Est GFR (Non-Af Amer) 15 Random Glucose 148 H Calcium 10.8 H Phosphorus 3.9 Magnesium 2.0 Total Bilirubin 4.4 H AST 1683 H ALT 657 H Alkaline Phosphatase 159 H D Total Protein 8.2 Albumin 5.2 H Globulin 3.0 Albumin/Globulin Ratio 1.7 Lipase 1158 H Beta HCG, Quant < 2.39 Urine Color Urine Appearance Urine pH Ur Specific Hunt Urine Protein Urine Glucose (UA) Urine Ketones Urine Blood Urine Nitrate Urine Bilirubin Urine Urobilinogen Ur Leukocyte Esterase Urine RBC Urine WBC Ur Epithelial Cells Amorphous Sediment Urine Bacteria Urine Other Urine Opiates Screen Urine Methadone Screen Acetaminophen Ur Barbiturates Screen Ur Phencyclidine Scrn Ur Amphetamines Screen U Benzodiazepines Scrn U Oth Cocaine Metabols U Cannabinoids Screen Alcohol, Quantitative 07/12/18 07/12/18 07/12/18 08:20 08:20 08:20 WBC RBC Hgb Hct MCV MCH MCHC RDW Plt Count MPV PT 11.3 INR 0.98 Sodium Potassium Chloride Carbon Dioxide Anion Gap BUN Creatinine Est GFR ( Amer) Est GFR (Non-Af Amer) Random Glucose Calcium Phosphorus Magnesium Total Bilirubin AST ALT Alkaline Phosphatase Total Protein Albumin Globulin Albumin/Globulin Ratio Lipase Beta HCG, Quant Urine Color Urine Appearance Urine pH Ur Specific Hunt Urine Protein Urine Glucose (UA) Urine Ketones Urine Blood Urine Nitrate Urine Bilirubin Urine Urobilinogen Ur Leukocyte Esterase Urine RBC Urine WBC Ur Epithelial Cells Amorphous Sediment Urine Bacteria Urine Other Urine Opiates Screen Urine Methadone Screen Acetaminophen < 10.0 L Ur Barbiturates Screen Ur Phencyclidine Scrn Ur Amphetamines Screen U Benzodiazepines Scrn U Oth Cocaine Metabols U Cannabinoids Screen Alcohol, Quantitative < 10 07/12/18 07/12/18 08:30 08:30 WBC RBC Hgb Hct MCV MCH MCHC RDW Plt Count MPV PT INR Sodium Potassium Chloride Carbon Dioxide Anion Gap BUN Creatinine Est GFR ( Amer) Est GFR (Non-Af Amer) Random Glucose Calcium Phosphorus Magnesium Total Bilirubin AST ALT Alkaline Phosphatase Total Protein Albumin Globulin Albumin/Globulin Ratio Lipase Beta HCG, Quant Urine Color Yellow Urine Appearance Sl cloudy Urine pH 8.5 Ur Specific Hunt 1.020 Urine Protein >=300 H Urine Glucose (UA) 100 H Urine Ketones Negative Urine Blood Large H Urine Nitrate Positive H Urine Bilirubin Moderate H Urine Urobilinogen 1.0 H Ur Leukocyte Esterase Negative Urine RBC 20 - 25 Urine WBC 1 - 3 Ur Epithelial Cells None Amorphous Sediment Few Urine Bacteria Many Urine Other Uyeast Urine Opiates Screen Negative Urine Methadone Screen Negative Acetaminophen Ur Barbiturates Screen Negative Ur Phencyclidine Scrn Negative Ur Amphetamines Screen Negative U Benzodiazepines Scrn Negative U Oth Cocaine Metabols Negative U Cannabinoids Screen Negative Alcohol, Quantitative Attending/Attestation - Attestation I have personally seen and examined this patient.: Yes I have fully participated in the care of the patient.: Yes I have reviewed all pertinent clinical information: Yes Notes (Text): 07/12/18 15:41 37 year old female with past medical history of ESRD on HD and hypertension who presents with complaint of abdominal pain, nausea and vomiting. She was found to have pancreatitis and transaminitis. She denies any recent alcohol use. Reports history of cholecystectomy in the past. She was also found to have significantly elevated blood pressure. Will start on liquid diet as tolerated. GI evaluation is requested. Trend LFTs. Recent hepatitis panel was negative. Alcohol level and tylenol levels were negative. US abdomen shows fatty liver, persistently dilated CBD 10.6 mm s/p cholecystectomy. Will resume home medications, clonidine, labetalol and norvasc for hypertension. Nephrology evaluation was appreciated and losartan was started as well. Continue with HD as per nephrology. Next session will be on Saturday. Migdalia Chamberlain MD Hospitalist.
[2018-07-12] MEDS ORDERED: Potassium Chloride 20 mEq ER Tab PO ONE (15:33)
[2018-07-12] MEDS ORDERED: Morphine 2 mg/ml ISec IVP PRN (15:41)
[2018-07-12 18:00] VITALS: BP 140/88; PULSE 55; RESP 20; TEMP 98.5; O2SAT 100
--- NOTE | 2018-07-12 21:33 | CP.PCM.DIS ---
Provider - Provider Date of Admission: 07/12/18 07:28 Attending physician: Migdalia Chamberlain MD Primary care physician: Michelle Quarles MD Consults: Nephrology: Dr. Bobo Gastroenterology: Dr. Barrera Time Spent in preparation of Discharge (in minutes): 35 Diagnosis - Discharge Diagnosis (1) Epigastric abdominal pain Status: Acute (2) HTN (hypertension) Status: Chronic (3) Hypertensive chronic kidney disease with stage 5 chronic kidney disease or end stage renal disease Status: Chronic (4) Pancreatitis Status: Acute Hospital Course - Lab Results Lab Results: Most Recent Lab Values WBC 13.9 10^3/ul (4.5-11.0) H 07/12/18 06:20 RBC 4.28 10^6/uL (3.5-6.1) 07/12/18 06:20 Hgb 13.2 g/dL (12.0-16.0) 07/12/18 06:20 Hct 37.5 % (36.0-48.0) 07/12/18 06:20 MCV 87.6 fl (80.0-105.0) 07/12/18 06:20 MCH 30.8 pg (25.0-35.0) 07/12/18 06:20 MCHC 35.2 g/dl (31.0-37.0) 07/12/18 06:20 RDW 13.4 % (11.5-14.5) 07/12/18 06:20 Plt Count 301 10^3/uL (120.0-450.0) 07/12/18 06:20 MPV 9.5 fl (7.0-11.0) 07/12/18 06:20 PT 11.3 SECONDS (9.4-12.5) 07/12/18 08:20 INR 0.98 07/12/18 08:20 Sodium 139 mmol/L (132-148) 07/12/18 06:20 Potassium 3.5 mmol/L (3.6-5.0) L 07/12/18 06:20 Chloride 100 mmol/L (98-107) 07/12/18 06:20 Carbon Dioxide 26 mmol/L (21-33) 07/12/18 06:20 Anion Gap 17 (10-20) 07/12/18 06:20 BUN 31 mg/dL (7-21) H 07/12/18 06:20 Creatinine 3.4 mg/dl (0.7-1.2) H 07/12/18 06:20 Est GFR ( Amer) 18 07/12/18 06:20 Est GFR (Non-Af Amer) 15 07/12/18 06:20 Random Glucose 148 mg/dL (70-110) H 07/12/18 06:20 Calcium 10.8 mg/dL (8.4-10.5) H 07/12/18 06:20 Phosphorus 3.9 mg/dL (2.5-4.5) 07/12/18 06:20 Magnesium 2.0 mg/dL (1.7-2.2) 07/12/18 06:20 Total Bilirubin 4.4 mg/dL (0.2-1.3) H 07/12/18 06:20 AST 1683 U/L (14-36) H 07/12/18 06:20 ALT 657 U/L (7-56) H 07/12/18 06:20 Alkaline Phosphatase 159 U/L (38-126) H D 07/12/18 06:20 Total Protein 8.2 g/dL (5.8-8.3) 07/12/18 06:20 Albumin 5.2 g/dL (3.0-4.8) H 07/12/18 06:20 Globulin 3.0 gm/dL 07/12/18 06:20 Albumin/Globulin Ratio 1.7 (1.1-1.8) 07/12/18 06:20 Lipase 1158 U/L (23-300) H 07/12/18 06:20 Beta HCG, Quant < 2.39 mIU/mL (0-6.15) 07/12/18 06:20 Urine Color Yellow (YELLOW) 07/12/18 08:30 Urine Appearance Sl cloudy (CLEAR) 07/12/18 08:30 Urine pH 8.5 (4.7-8.0) 07/12/18 08:30 Ur Specific Davy 1.020 (1.005-1.035) 07/12/18 08:30 Urine Protein >=300 mg/dL (<30 mg/dL) H 07/12/18 08:30 Urine Glucose (UA) 100 mg/dL (NEGATIVE) H 07/12/18 08:30 Urine Ketones Negative mg/dL (NEGATIVE) 07/12/18 08:30 Urine Blood Large (NEGATIVE) H 07/12/18 08:30 Urine Nitrate Positive (NEGATIVE) H 07/12/18 08:30 Urine Bilirubin Moderate (NEGATIVE) H 07/12/18 08:30 Urine Urobilinogen 1.0 E.U./dL (<1 E.U./dL) H 07/12/18 08:30 Ur Leukocyte Esterase Negative Davy/uL (NEGATIVE) 07/12/18 08:30 Urine RBC 20 - 25 /hpf (0-2) 07/12/18 08:30 Urine WBC 1 - 3 /hpf (0-6) 07/12/18 08:30 Ur Epithelial Cells None /hpf (0-5) 07/12/18 08:30 Amorphous Sediment Few 07/12/18 08:30 Urine Bacteria Many (NEG) 07/12/18 08:30 Urine Other Uyeast 07/12/18 08:30 Urine Opiates Screen Negative (NEGATIVE) 07/12/18 08:30 Urine Methadone Screen Negative (NEGATIVE) 07/12/18 08:30 Acetaminophen < 10.0 ug/ml (10.0-20.0) L 07/12/18 08:20 Ur Barbiturates Screen Negative (NEGATIVE) 07/12/18 08:30 Ur Phencyclidine Scrn Negative (NEGATIVE) 07/12/18 08:30 Ur Amphetamines Screen Negative (NEGATIVE) 07/12/18 08:30 U Benzodiazepines Scrn Negative (NEGATIVE) 07/12/18 08:30 U Oth Cocaine Metabols Negative (NEGATIVE) 07/12/18 08:30 U Cannabinoids Screen Negative (NEGATIVE) 07/12/18 08:30 Alcohol, Quantitative < 10 mg/dL (0-10) 07/12/18 08:20 IgG 743.0 mg/dL (700.0-1600.0) 07/12/18 11:40 Discharge Exam - Additional Findings Additional findings: Patient refusing exam, signing out AMA Discharge Plan - Follow Up Plan Condition: STABLE Disposition: AGAINST MEDICAL ADVICE
[2018-07-13] MEDS ORDERED: Multivitamin Vitamin B Complex (Nephro-Vite) Tab PO SCH (08:00)
[2018-07-13 08:43] LABS: HEPATITIS B SURFACE AG Negative (NEGATIVE)
[2018-07-13 08:49] LABS: HEPATITIS A IGM NEGATIVE (NEGATIVE); HEPATITIS B CORE AB NEGATIVE (NEGATIVE)
[2018-07-13 09:01] LABS: HEPATITIS C ANTIBODY NEGATIVE (NEGATIVE)
== END 2018-07-12 19:38 | disposition left against medical advice (07) ==
LOC: ED 05:55 → ERH 07:28 → INTOOBSV 07:28 → ERH 08:09 → 2RNO 09:39
PROVIDERS: ADMIT Internal Medicine; ATTEND Internal Medicine
DX: K85.90 Acute pancreatitis without necrosis or infection, unspecified (principal); I13.2 Hypertensive heart and chronic kidney disease with heart failure and with stage 5 chronic kidney disease, or end stage renal disease; I50.9 Heart failure, unspecified; N18.6 End stage renal disease; I16.0 Hypertensive urgency; D64.9 Anemia, unspecified; E83.39 Other disorders of phosphorus metabolism; F17.210 Nicotine dependence, cigarettes, uncomplicated; K59.00 Constipation, unspecified; N25.81 Secondary hyperparathyroidism of renal origin; Z87.442 Personal history of urinary calculi; Z87.01 Personal history of pneumonia (recurrent); Z90.49 Acquired absence of other specified parts of digestive tract; Z99.2 Dependence on renal dialysis; Z83.3 Family history of diabetes mellitus; Z82.5 Family history of asthma and other chronic lower respiratory diseases
CPT/HCPCS: 36415; 71045; 76700; 80053; 80074; 80320; 80324; 80329; 80345; 80346; 80349; 80353; 80358; 80361; 81001; 82784; 83690; 83735; 83992; 84100; 84702; 85027; 85610; 86039; 86255; 86376; 87086; 93005; 96374; 96375; 96376; 99285; G0378; J2270; J2405; J7030

== ENCOUNTER 2018-10-03 06:16 | Inpatient (IN) | payer MEDICAID, OTHER ==
[2018-10-03] MEDS ORDERED: Morphine 4 mg/ml ISec IVP STA ×4 (07:14→18:10)
[2018-10-03] MEDS ORDERED: Labetalol 5 mg/ml Inj 20ML IV STA (07:25)
--- NOTE | 2018-10-03 07:25 | ED PDOC ---
Arrival/HPI - General Chief Complaint: GI Problem Time Seen by Provider: 10/03/18 07:02 Historian: Patient - History of Present Illness Narrative History of Present Illness (Text): 10/03/18 07:22 A 37 year old female, whose past medical history includes ESRD (hemodialysis M, W, F), presents to the emergency department with a complaint of vomiting. Patient reports that she woke up vomiting and has not been able to keep anything down. Patient states that her symptoms are similar to when she had pancreatitis in the past. The patient also notes that after several episodes of vomiting, she developed epigastric abdominal pain. She notes that she is compliant with dialysis. Patient was recently admitted in June for pancreatitis. She had an abdominal ultrasound that showed fatty liver and chronically dialated CVD. Patient denies fevers, chills, headache, dizziness, chest pain, shortness of breath, dyspnea on exertion, cough, nausea, constipation, diarrhea, flank pain, back pain, neck pain, hematuria, dysuria, urinary/bowel changes, or any other complaint. Time/Duration: Other (This Morning) Symptom Onset: Sudden Symptom Course: Unchanged Activities at Onset: Rest, Light Context: Home Past Medical History - Provider Review Nursing Documentation Reviewed: Yes - Infectious Disease Hx of Infectious Diseases: None - Cardiac Hx Cardiac Disorders: Yes Hx Congestive Heart Failure: Yes Hx MS: Yes (03/2017) Hx Hypertension: Yes - Pulmonary Hx Respiratory Disorders: No - Neurological Hx Neurological Disorder: No - HEENT Hx HEENT Disorder: Yes Other/Comment: wears glasses - Renal Hx Renal Disorder: Yes Date of Last Dialysis Treatment: 08/27/18 Hx Renal Failure: Yes - Endocrine/Metabolic Hx Endocrine Disorders: No - Hematological/Oncological Hx Blood Disorders: No - Integumentary Hx Dermatological Disorder: Yes Other/Comment: SCARRING TO LEFT UPPER ARM DUE TO PLACEMENT OF SHUNT. NF.3X HAD SURGERY. - Musculoskeletal/Rheumatological Hx Musculoskeletal Disorders: No - Gastrointestinal Hx Gastrointestinal Disorders: No - Genitourinary/Gynecological Hx Genitourinary Disorders: Yes - Psychiatric Hx Psychophysiologic Disorder: Yes Hx Anxiety: Yes Hx Depression: Yes Hx Substance Use: No - Surgical History Hx Arteriovenous Shunt: Yes (x 2) Hx Cholecystectomy: Yes Other/Comment: peritenneal diaylsis - Anesthesia Hx Anesthesia: Yes Hx Anesthesia Reactions: No Hx Malignant Hyperthermia: No Family/Social History - Physician Review Nursing Documentation Reviewed: Yes Family/Social History: No Known Family HX Smoking Status: Light Smoker < 10 Cigarettes Daily Hx Alcohol Use: No Hx Substance Use: No Allergies/Home Meds Allergies/Adverse Reactions: Allergies No Known Allergies Allergy (Verified 10/03/18 06:22) PER PATIENT Home Medications: Home Meds Medication Instructions Recorded Confirmed Clonidine HCl [Catapres] 0.2 mg PO BID 08/28/17 10/03/18 Labetalol Hydrochloride [Normodyne] 300 mg PO BID 03/23/18 10/03/18 amLODIPine [Norvasc] 10 mg PO DAILY 05/08/18 10/03/18 Alprazolam [Xanax] 0.5 mg PO BID 07/11/18 10/03/18 Ondansetron HCl [Zofran] 4 mg PO PRN PRN 07/11/18 10/03/18 hydroCHLOROthiazide [Hydrodiuril] 25 tab PO DAILY 08/28/18 10/03/18 oxyCODONE/Acetaminophen [Percocet 5 tab PO Q6 08/28/18 10/03/18 5/325 mg Tab] Review of Systems - Review of Systems Constitutional: absent: Fevers ENT: absent: Sore Throat Respiratory: absent: SOB Cardiovascular: absent: Chest Pain Gastrointestinal: Abdominal Pain, Vomiting. absent: Constipation, Diarrhea, Nausea Genitourinary Female: absent: Dysuria, Hematuria, Urine Output Changes Musculoskeletal: absent: Back Pain, Neck Pain Neurological: absent: Headache, Dizziness Physical Exam Vital Signs Reviewed: Yes Vital Signs Temp Pulse Resp BP Pulse Ox 10/03/18 07:15 98.2 F 98 H 18 241/140 H 99 Temperature: Afebrile Blood Pressure: Hypertensive Pulse: Tachycardic Respiratory Rate: Normal Appearance: Positive for: Well-Appearing, Non-Toxic, Comfortable Pain Distress: None Mental Status: Positive for: Alert and Oriented X 3 - Systems Exam Head: Present: Atraumatic, Normocephalic Pupils: Present: PERRL Extroacular Muscles: Present: EOMI Conjunctiva: Present: Normal Mouth: Present: Moist Mucous Membranes Neck: Present: Normal Range of Motion Respiratory/Chest: Present: Clear to Auscultation, Good Air Exchange, Other (Permacath to righ tchest wall. ). No: Respiratory Distress, Accessory Muscle Use Cardiovascular: Present: Regular Rate and Rhythm, Normal S1, S2. No: Murmurs Abdomen: Present: Other (Patient actively vomiting.). No: Tenderness, Distention, Peritoneal Signs Back: Present: Normal Inspection Upper Extremity: Present: Normal Inspection. No: Cyanosis, Edema Lower Extremity: Present: Normal Inspection. No: Edema Neurological: Present: GCS=15, CN II-XII Intact, Speech Normal Skin: Present: Warm, Dry, Normal Color. No: Rashes Psychiatric: Present: Alert, Oriented x 3, Normal Insight, Normal Concentration Medical Decision Making ED Course and Treatment: 10/03/18 07:28 Impression: A 37 year old female presents to the emergency department with a complaint of several episodes of vomiting and epigastric abdominal pain. Plan: -- Chest X-ray -- Labs -- Urinalysis -- Blood/ Urine Culture -- Morphine, Trandate, Zofran, IV Fluids -- Reassess and disposition Prior Visits: Notes and results from previous visits were reviewed. Progress Notes: Chest X-ray Signed By: Nishant Barboza MD Date Signed: 10/03/18 0916 IMPRESSION: No active disease. PROCEDURE: CT Abdomen and Pelvis without intravenous contrast Signed By: Kenia Santiago MD Date Signed: 10/03/18 1040 IMPRESSION: Nonobstructing renal calculi. No evidence of hydronephrosis. No evidence of pancreatitis or appendicitis. Mildly enlarged uterus contains fibroids. Mildly-to - moderately enlarged adnexa contains multiple cysts. 10/03/18 12:02 Patient has leukocytosis with intratable vomiting. CT and xray negative. Needs dialysis today. Will transfer to hospitalist. 10/03/18 12:11: Spoke to Dr. Oswaldo Peterson (Hospitalist) who accepts patient to her service. 10/03/18 12:15: Dr. Bobo made aware. Will give dialysis today. - Lab Interpretations I have reviewed the lab results: Yes - RAD Interpretation Radiology Orders: 10/03/18 07:15 CHEST PORTABLE [RAD] Stat - Medication Orders Current Medication Orders: Sodium Chloride (Sodium Chloride 0.9%) 250 mls @ 250 mls/hr IV .Q1H KANDACE Discontinued Medications Morphine Sulfate (Morphine) 4 mg IVP STAT STA Stop: 10/03/18 07:15 Ondansetron HCl (Zofran Inj) 4 mg IVP STAT STA Stop: 10/03/18 07:03 Last Admin: 10/03/18 07:16 Dose: 4 mg IVP Administration Document 10/03/18 07:16 ELLEN (Rec: 10/03/18 07:17 ELLEN [id number]) Charges for Administration # of IVP Administrations 1 Ondansetron HCl (Zofran Inj) 4 mg IVP STAT STA Stop: 10/03/18 07:12 - Scribe Statement The provider has reviewed the documentation as recorded by the Claire Mijares Provider Scribe Attestation: All medical record entries made by the Scribe were at my direction and personally dictated by me. I have reviewed the chart and agree that the record accurately reflects my personal performance of the history, physical exam, medical decision making, and the department course for this patient. I have also personally directed, reviewed, and agree with the discharge instructions and disposition. Disposition/Present on Arrival - Present on Arrival Any Indicators Present on Arrival: No History of DVT/PE: No History of Uncontrolled Diabetes: No Urinary Catheter: No History of Decub. Ulcer: No History Surgical Site Infection Following: None - Disposition Have Diagnosis and Disposition been Completed?: Yes Diagnosis: Intractable vomiting Disposition: HOSPITALIZED Disposition Time: 12:03 Patient Plan: Observation Patient Problems: Current Active Problems Problem Status Onset Intractable vomiting Acute Condition: FAIR
[2018-10-03] MEDS ORDERED: Labetalol 5mg/ml (4ml) IV STA ×2 (07:27→07:58)
[2018-10-03] MEDS: Sodium Chloride 0.9% 250 ML IV SCH ×2 (07:28→13:43)
[2018-10-03 07:40] LABS: BASO # 0.04 K/mm3 (0.0-2.0); BASO % 0.2 % (0.0-3.0); EOS # 0.1 (0.0-0.7); EOS % 0.9 % (1.5-5.0); GRAN # 14.1 (1.4-6.5); GRAN % 85.9 % (50.0-68.0); HEMOGLOBIN 12.8 g/dL (12.0-16.0); LYMPH # 1.5 (1.2-3.4); LYMPH % 8.8 % (22.0-35.0); MEAN CELL VOLUME 91.4 fl (80.0-105.0); MEAN CORPUSCULAR HEMOGLOBIN 30.6 pg (25.0-35.0); MEAN CORPUSCULAR HGB CONC 33.5 g/dl (31.0-37.0); MEAN PLATELET VOLUME 9.6 fl (7.0-11.0); MONO # 0.7 (0.1-0.6); MONO % 4.2 % (1.0-6.0); RBC 4.18 10^6/uL (3.5-6.1); RED CELL DISTRIBUTION WIDTH 13.6 % (11.5-14.5); WHITE BLOOD COUNT 16.4 10^3/uL (4.5-11.0)
[2018-10-03 07:45] LABS: URINE BILIRUBIN NEGATIVE (NEGATIVE); URINE BLOOD TRACE-INTACT (NEGATIVE); URINE GLUCOSE (UA) 250 mg/dL (NEGATIVE); URINE LEUKOCYTE ESTERASE NEGATIVE Leu/uL (NEGATIVE); URINE PROTEIN 100 mg/dL (<30 mg/dL); URINE UROBILINOGEN 0.2 E.U./dL (<1 E.U./dL)
[2018-10-03 07:52] LABS: URINE APPEARANCE CLEAR (CLEAR); URINE COLOR YELLOW (YELLOW)
[2018-10-03 08:00] LABS: ALB/GLOB RATIO 1.6 (1.1-1.8); ALBUMIN 4.8 g/dL (3.0-4.8); CALCIUM 9.6 mg/dL (8.4-10.5)
[2018-10-03 08:03] LABS: URINE BACTERIA MOD /hpf; URINE RBC 0 - 2 /hpf (0-2)
--- NOTE | 2018-10-03 09:20 | RAD ---
Date of service: 10/03/2018 HISTORY: vomiting COMPARISON: 07/12/2018 FINDINGS: LUNGS: No active pulmonary disease. PLEURA: No significant pleural effusion identified, no pneumothorax apparent. CARDIOVASCULAR: No aortic atherosclerotic calcification present. Normal cardiac size. No pulmonary vascular congestion. OSSEOUS STRUCTURES: No significant abnormalities. VISUALIZED UPPER ABDOMEN: Normal. OTHER FINDINGS: Right-sided dialysis catheter IMPRESSION: No active disease.
--- NOTE | 2018-10-03 10:44 | CT ---
Date of service: 10/03/2018 PROCEDURE: CT Abdomen and Pelvis without intravenous contrast HISTORY: vomiting, abdominal pain, esrd on hd COMPARISON: Comparison is made to the previous study dated 05/04/2018 TECHNIQUE: Axial and reformatted coronal and sagittal CT images of the abdomen and pelvis were obtained without IV or oral contrast administration.. Contrast dose: 0 Radiation dose: Total exam DLP = 383.91 mGy-cm. This CT exam was performed using one or more of the following dose reduction techniques: Automated exposure control, adjustment of the mA and/or kV according to patient size, and/or use of iterative reconstruction technique. FINDINGS: LOWER THORAX: No evidence of acute pathology at the lung bases. No evidence of pleural effusion. Moderate size hiatus hernia is noted. LIVER: Unremarkable. No gross lesion or ductal dilatation. GALLBLADDER AND BILE DUCTS: Status post cholecystectomy. PANCREAS: Unremarkable. No gross lesion or ductal dilatation. SPLEEN: Unremarkable. ADRENALS: Unremarkable. No mass. KIDNEYS AND URETERS: There are bilateral small punctate nonobstructing renal calculi. The largest calculus is seen at the upper pole of the left kidney measures 2.5 millimeter. No evidence of hydronephrosis VASCULATURE: Unremarkable. No aortic aneurysm. Small foci aortic atherosclerotic calcification or mural plaque present. BOWEL: Unremarkable. No obstruction. No gross mural thickening. Mild constipation P APPENDIX: There is no evidence of appendicitis P PERITONEUM: Unremarkable. No free fluid. No free air. LYMPH NODES: Unremarkable. No enlarged lymph nodes. BLADDER: Unremarkable. REPRODUCTIVE: The uterus is mildly enlarged contains partially calcified fibroid. There are multiple cystic lesions in the adnexa which are mildly to moderately enlarged. BONES: No acute fracture. OTHER FINDINGS: None. IMPRESSION: Nonobstructing renal calculi. No evidence of hydronephrosis. No evidence of pancreatitis or appendicitis. Mildly enlarged uterus contains fibroid. [id number] enlarged adnexa contains multiple cyst.
--- NOTE | 2018-10-03 14:28 | CP.PCM.HP ---
<Gunner Garcia - Last Filed: 10/03/18 14:14> History of Present Illness - History of Present Illness History of Present Illness: Medicine History and Physical for Dr. Peterson CC: Intractable vomiting Patient is a 37 yo F with PMH of ESRD on HD MWF, diastolic CHF, HTN, constipation, depression, and anxiety presents to [facility] [place] for a one day history of intractable vomiting and abdominal pain. Patient complains of bilious, non- bloody vomiting since she woke up with epigastric abdominal pain. Patient states she ate sausage last night, others ate the same food, but did not get sick. Patient denies any sick contacts or recent travel. Patient was recently admitted in June for pancreatitis. Patient denied CP, SOB, fever, chills, PHAN, dizziness, or dysuria. PMD: [place] PMH: as above Surg: Cholecystectomy All: NKDA SH: Denied tobacco, EtOH, and illicit drug use FHx: Mother, at 49 from DM; Father, COPD Medications: Sensipar 30 mg daily, Ambien 10 mg HS, Percocet 5/325 mg prn, Xanax 0.5 mg prn, Norvasc 10 mg daily, Hydralazine 100 mg BID, Clondine 0.3 mg BID, Labetalol 300 mg BID Present on Admission - Present on Admission Any Indicators Present on Admission: No Review of Systems - Review of Systems All systems: reviewed and no additional remarkable complaints except (12 point ROS reviewed and is negative other than what is stated in HPI.) Past Patient History - Infectious Disease Hx of Infectious Diseases: None - Past Medical History & Family History Past Medical History?: Yes - Past Social History Smoking Status: Light Smoker < 10 Cigarettes Daily - CARDIAC Hx Cardiac Disorders: Yes Hx Congestive Heart Failure: Yes Hx Heart Attack: Yes (03/2017) Hx Hypertension: Yes - PULMONARY Hx Respiratory Disorders: No - NEUROLOGICAL Hx Neurological Disorder: No - HEENT Hx HEENT Problems: Yes Other/Comment: wears glasses - RENAL Hx Chronic Kidney Disease: Yes Date of Last Dialysis Treatment: 08/27/18 Hx Renal Failure: Yes - ENDOCRINE/METABOLIC Hx Endocrine Disorders: No - HEMATOLOGICAL/ONCOLOGICAL Hx Blood Disorders: No - INTEGUMENTARY Hx Dermatological Problems: Yes Other/Comment: SCARRING TO LEFT UPPER ARM DUE TO PLACEMENT OF SHUNT. NF.3X HAD SURGERY. - MUSCULOSKELETAL/RHEUMATOLOGICAL Hx Musculoskeletal Disorders: No - GASTROINTESTINAL Hx Gastrointestinal Disorders: No - GENITOURINARY/GYNECOLOGICAL Hx Genitourinary Disorders: Yes - PSYCHIATRIC Hx Psychophysiologic Disorder: Yes Hx Anxiety: Yes Hx Depression: Yes Hx Substance Use: No - SURGICAL HISTORY Hx Arteriovenous Shunt: Yes (x 2) Hx Cholecystectomy: Yes Other/Comment: peritenneal diaylsis - ANESTHESIA Hx Anesthesia: Yes Hx Anesthesia Reactions: No Hx Malignant Hyperthermia: No Meds Allergies/Adverse Reactions: Allergies Allergy/AdvReac Type Severity Reaction Status Date / Time No Known Allergies Allergy Verified 10/03/18 06:22 Physical Exam - Constitutional Appears: In Acute Distress - Head Exam Head Exam: NORMAL INSPECTION - Eye Exam Eye Exam: EOMI, Normal appearance, PERRL - ENT Exam ENT Exam: Mucous Membranes Moist - Neck Exam Neck exam: Positive for: Normal Inspection - Respiratory Exam Respiratory Exam: Clear to Auscultation Bilateral. absent: Rales, Rhonchi, Wheezes - Cardiovascular Exam Cardiovascular Exam: RRR, +S1, +S2. absent: Diastolic murmur, Gallop, Rubs, Systolic Murmur - GI/Abdominal Exam GI & Abdominal Exam: Soft. absent: Distended, Guarding, Rebound, Tenderness - Extremities Exam Extremities exam: Positive for: normal inspection - Back Exam Back exam: NORMAL INSPECTION - Neurological Exam Neurological exam: Alert, CN II-XII Intact, Oriented x3 - Psychiatric Exam Psychiatric exam: Normal Affect, Normal Mood - Skin Skin Exam: Dry, Intact, Normal Color, Warm Results - Vital Signs Recent Vital Signs: Last Vital Signs Temp 98.2 F 10/03/18 12:45 Pulse 75 10/03/18 12:45 Resp 18 10/03/18 12:45 BP 227/122 H 10/03/18 12:45 Pulse Ox 98 10/03/18 12:45 - Labs Result Diagrams: 10/03/18 06:35 10/03/18 06:35 Labs: Laboratory Results - last 24 hr 10/03/18 10/03/18 10/03/18 06:35 06:35 06:35 WBC 16.4 H RBC 4.18 Hgb 12.8 Hct 38.2 MCV 91.4 D MCH 30.6 MCHC 33.5 RDW 13.6 Plt Count 318 MPV 9.6 Gran % 85.9 H Lymph % (Auto) 8.8 L [place] % (Auto) 4.2 Eos % (Auto) 0.9 L Baso % (Auto) 0.2 Gran # 14.10 H Lymph # (Auto) 1.5 [place] # (Auto) 0.7 H Eos # (Auto) 0.1 Baso # (Auto) 0.04 Sodium 140 Potassium 3.3 L Chloride 102 Carbon Dioxide 25 Anion Gap 17 BUN 47 H Creatinine 3.5 H Est GFR ( Amer) 18 Est GFR (Non-Af Amer) 15 Random Glucose 151 H Calcium 9.6 Phosphorus 3.7 Magnesium 2.1 Total Bilirubin 0.4 AST 21 ALT 18 Alkaline Phosphatase 103 Total Protein 7.9 Albumin 4.8 Globulin 3.1 Albumin/Globulin Ratio 1.6 Lipase 364 H Urine Color Yellow Urine Appearance Clear Urine pH 8.0 Ur Specific [place] 1.020 Urine Protein 100 H Urine Glucose (UA) 250 H Urine Ketones Negative Urine Blood Trace-intact H Urine Nitrate Negative Urine Bilirubin Negative Urine Urobilinogen 0.2 Ur Leukocyte Esterase Negative Urine RBC 0 - 2 Urine WBC 2 - 5 Ur Epithelial Cells 6 - 8 H Urine Bacteria Mod Alcohol, Quantitative 10/03/18 06:35 WBC RBC Hgb Hct MCV MCH MCHC RDW Plt Count MPV Gran % Lymph % (Auto) [place] % (Auto) Eos % (Auto) Baso % (Auto) Gran # Lymph # (Auto) [place] # (Auto) Eos # (Auto) Baso # (Auto) Sodium Potassium Chloride Carbon Dioxide Anion Gap BUN Creatinine Est GFR ( Amer) Est GFR (Non-Af Amer) Random Glucose Calcium Phosphorus Magnesium Total Bilirubin AST ALT Alkaline Phosphatase Total Protein Albumin Globulin Albumin/Globulin Ratio Lipase Urine Color Urine Appearance Urine pH Ur Specific [place] Urine Protein Urine Glucose (UA) Urine Ketones Urine Blood Urine Nitrate Urine Bilirubin Urine Urobilinogen Ur Leukocyte Esterase Urine RBC Urine WBC Ur Epithelial Cells Urine Bacteria Alcohol, Quantitative < 10 Assessment & Plan - Assessment and Plan (Free Text) Assessment: 37 yo F with PMH of ESRD on HD MWF, diastolic CHF, HTN, constipation, depression, and anxiety admitted for observation for intractable nausea and vomi ting. Plan: 1. Intractable Nausea and Vomiting - CT abd/pelvis showed non-obstructing renal calculi, mildly enlarged uterus with fibroids, [id number] enlarged adnexa containing multiple cysts - Zofran prn for nausea - NPO - Blood/urine cultures ordered 2. Epigastric Pain - Morphine 2q4 prn for severe pain 3. ESRD on HD - HD MWF - Cont Sensipar - Nephrology consulted 4. HTN - Labetalol 20 mg x2 and Clonidine 0.3 mg given in ED - Cont home medications: Norvasc, Hydralazine, Clonidine, and Labetalol PPX - Protonix Patient seen and discussed in detail with Dr. Peterson. Colin Garcia, PGY2 <Cherry Peterson R - Last Filed: 10/03/18 18:10> Results - Vital Signs Recent Vital Signs: Last Vital Signs Temp 98.2 F 10/03/18 12:45 Pulse 116 H 10/03/18 17:56 Resp 22 10/03/18 17:36 BP 208/133 H 10/03/18 17:56 Pulse Ox 100 10/03/18 17:36 - Labs Result Diagrams: 10/03/18 06:35 10/03/18 06:35 Labs: Laboratory Results - last 24 hr 10/03/18 10/03/18 10/03/18 06:35 06:35 06:35 WBC 16.4 H RBC 4.18 Hgb 12.8 Hct 38.2 MCV 91.4 D MCH 30.6 MCHC 33.5 RDW 13.6 Plt Count 318 MPV 9.6 Gran % 85.9 H Lymph % (Auto) 8.8 L [place] % (Auto) 4.2 Eos % (Auto) 0.9 L Baso % (Auto) 0.2 Gran # 14.10 H Lymph # (Auto) 1.5 [place] # (Auto) 0.7 H Eos # (Auto) 0.1 Baso # (Auto) 0.04 Sodium 140 Potassium 3.3 L Chloride 102 Carbon Dioxide 25 Anion Gap 17 BUN 47 H Creatinine 3.5 H Est GFR ( Amer) 18 Est GFR (Non-Af Amer) 15 Random Glucose 151 H Calcium 9.6 Phosphorus 3.7 Magnesium 2.1 Total Bilirubin 0.4 AST 21 ALT 18 Alkaline Phosphatase 103 Total Protein 7.9 Albumin 4.8 Globulin 3.1 Albumin/Globulin Ratio 1.6 Lipase 364 H Urine Color Yellow Urine Appearance Clear Urine pH 8.0 Ur Specific [place] 1.020 Urine Protein 100 H Urine Glucose (UA) 250 H Urine Ketones Negative Urine Blood Trace-intact H Urine Nitrate Negative Urine Bilirubin Negative Urine Urobilinogen 0.2 Ur Leukocyte Esterase Negative Urine RBC 0 - 2 Urine WBC 2 - 5 Ur Epithelial Cells 6 - 8 H Urine Bacteria Mod Alcohol, Quantitative 10/03/18 06:35 WBC RBC Hgb Hct MCV MCH MCHC RDW Plt Count MPV Gran % Lymph % (Auto) [place] % (Auto) Eos % (Auto) Baso % (Auto) Gran # Lymph # (Auto) [place] # (Auto) Eos # (Auto) Baso # (Auto) Sodium Potassium Chloride Carbon Dioxide Anion Gap BUN Creatinine Est GFR ( Amer) Est GFR (Non-Af Amer) Random Glucose Calcium Phosphorus Magnesium Total Bilirubin AST ALT Alkaline Phosphatase Total Protein Albumin Globulin Albumin/Globulin Ratio Lipase Urine Color Urine Appearance Urine pH Ur Specific [place] Urine Protein Urine Glucose (UA) Urine Ketones Urine Blood Urine Nitrate Urine Bilirubin Urine Urobilinogen Ur Leukocyte Esterase Urine RBC Urine WBC Ur Epithelial Cells Urine Bacteria Alcohol, Quantitative < 10 Attending/Attestation - Attestation I have personally seen and examined this patient.: Yes I have fully participated in the care of the patient.: Yes I have reviewed all pertinent clinical information: Yes Notes (Text): Patient seen and examined by me with resident at 12:05 PM on 10/03/18. Case including HPI, physical exam, and assessment and plan discussed with resident. Agree with above with following additions/corrections. Patient is a 37-year-old female past medical history significant for incisional disease on dialysis Saturday/Saturday/Saturday, diastolic CHF, hypertension, constipation, depression, and anxiety that presents to the emergency room with intractable nausea and vomiting and epigastric pain. Patient states she went to sleep last night without any issues. She states she had sausage for dinner last night. She states that nobody else to had the same food became ill. Patient states that she woke up this morning with abdominal pain, nausea, and vomiting. Patient points to the epigastric region when asked where the pain is. Patient states that the pain as a 10 out of 10. She states that the pain is radiating to her back. She tried Percocet at home with no relief. She is unsure how any times she has thrown up. Vomitus is nonbloody and bilious. Pain is sharp in nature. Sitting up and leaning forward seems to make the pain a little bit better. Patient denies any chest pain or shortness of breath. No fevers or chills. No headaches or dizziness. No lightheadedness. Patient states that she is having bowel movements but no diarrhea. No dysuria. 12 point review of systems reviewed by me. Please see above HPI, all other systems negative. Physical exam: General: Awake and alert sitting up in bed in no acute distress HEENT: Normocephalic, atraumatic. Extraocular muscles intact, pupils equal and reactive, no scleral icterus. Oropharynx is pink. Positive residual green vomitus noted in mouth. Neck is supple. Hearing grossly intact. Ears and nose externally unremarkable. Cardiovascular: Regular rhythm. Normal S1 and S2.No murmurs, rubs, or gallops appreciated Pulmonary: Normal respiratory effort. No rhonchi, rales, or wheezing a ppreciated. Gastrointestinal: Soft, nondistended. Positive epigastric tenderness. Positive bowel sounds all 4 quadrants. No guarding. Musculoskeletal: Moves all extremities. No calf tenderness. No edema appreciated. No CVA tenderness. Central nervous system: AAO x3, CN II through XII grossly intact. 5/5 muscle strength all extremities. Dermatologic: Skin warm and dry. Assessment and plan: Patient is a 37-year-old female past medical history significant for incisional disease on dialysis Saturday/Saturday/Saturday, diastolic CHF, hypertension, constipation, depression, and anxiety that presents to the emergency room with intractable nausea and vomiting and epigastric pain. 1. Hypertensive urgency. Patient given labetalol 20mg IV x 2 in the emergency room without much improvement. Patient also given PO clonidine. Patient going for dialysis. Patient restarted on all of her home blood pressure medications: Norvasc 10mg PO daily, Clonidine 0.3mg PO BID, Hydralazine 100mg PO BID, and Labetalol 300mg PO BID. Nephrology following, recommendations appreciated. 2. Intractable nausea, vomiting, and epigastric pain. CT abd/pelvis per radiologist shows nonobstructing renal calculi, no evidence of hydronephrosis, no evidence of pancreatitis or appendicitis, mildly enlarged uterus contains fibroid, mild to moderately enlarged adnexa contains multiple cyst. Lipase elevated at 364. Has history of pancreatitis. Made NPO. Zofran as needed. Pain medications. 3. ESRD on HD. Patient for dialysis today. Patient seen by car customizer Dr. Bobo. Continue home Sensipar. HD M/W/F 4. Anxiety. Home xanax held for now as patient NPO with N/V 5. GI/DVT prophylaxis. Protonix/SCDs 6. Patient is a full code. Case was discussed in detail with the patient and car customizer Dr. Bobo regarding current diagnosis and treatment plan.
[2018-10-03] MEDS: Morphine 2 mg/ml ISec IVP PRN ×2 (17:32→21:29)
[2018-10-03] MEDS ORDERED: Labetalol 500 MG in Sodium Chloride 0.9% 400 ML IV PRN (18:12)
--- NOTE | 2018-10-03 18:26 | CP.PCM.CON ---
<Roel Dhaliwal - Last Filed: 10/03/18 18:50> History of Present Illness - History of Present Illness History of Present Illness: Roel Dhaliwal, PGY-1 Consult Note for ICU CC: Intractable vomiting HPI: Ms. Brizuela is a 37 yo F with PMHx of ESRD on HD MWF, diastolic CHF, HTN, constipation, depression, and anxiety presents to [facility] [place] for a one day history of intractable vomiting and abdominal pain. Patient complains of bilious, non- bloody vomiting since she woke up with epigastric abdominal pain. Patient states she ate sausage last night, others ate the same food, but did not get sick. Patient denies any sick contacts or recent travel. Patient was recently admitted in June for pancreatitis. Patient denied CP, SOB, fever, chills, PHAN, dizziness, or dysuria. Patient had abdominal U/S 07/01 which showed post cholecystectomy with persistent dilated common duct 10.6 mm. Nonobstructing calculus left kidney. PMD: Dr. Quarles PMH: as above Surg: Cholecystectomy All: NKDA SH: Denied tobacco, EtOH, and illicit drug use FHx: Mother, at 49 from DM; Father, COPD Medications: Sensipar 30 mg daily, Ambien 10 mg HS, Percocet 5/325 mg prn, Xanax 0.5 mg prn, Norvasc 10 mg daily, Hydralazine 100 mg BID, Clondine 0.3 mg BID, Labetalol 300 mg BID Review of Systems - Review of Systems Review of Systems: 12 point ROS completed and negative except as described in HPI. Past Patient History - Infectious Disease Hx of Infectious Diseases: None - Past Medical History & Family History Past Medical History?: Yes - Past Social History Smoking Status: Light Smoker < 10 Cigarettes Daily - CARDIAC Hx Cardiac Disorders: Yes Hx Congestive Heart Failure: Yes Hx Heart Attack: Yes (03/2017) Hx Hypertension: Yes - PULMONARY Hx Respiratory Disorders: No - NEUROLOGICAL Hx Neurological Disorder: No - HEENT Hx HEENT Problems: Yes Other/Comment: wears glasses - RENAL Hx Chronic Kidney Disease: Yes Date of Last Dialysis Treatment: 08/27/18 Hx Renal Failure: Yes - ENDOCRINE/METABOLIC Hx Endocrine Disorders: No - HEMATOLOGICAL/ONCOLOGICAL Hx Blood Disorders: No - INTEGUMENTARY Hx Dermatological Problems: Yes Other/Comment: SCARRING TO LEFT UPPER ARM DUE TO PLACEMENT OF SHUNT. NF.3X HAD SURGERY. - MUSCULOSKELETAL/RHEUMATOLOGICAL Hx Musculoskeletal Disorders: No - GASTROINTESTINAL Hx Gastrointestinal Disorders: No - GENITOURINARY/GYNECOLOGICAL Hx Genitourinary Disorders: Yes - PSYCHIATRIC Hx Psychophysiologic Disorder: Yes Hx Anxiety: Yes Hx Depression: Yes Hx Substance Use: No - SURGICAL HISTORY Hx Arteriovenous Shunt: Yes (x 2) Hx Cholecystectomy: Yes Other/Comment: peritenneal diaylsis - ANESTHESIA Hx Anesthesia: Yes Hx Anesthesia Reactions: No Hx Malignant Hyperthermia: No Meds Allergies/Adverse Reactions: Allergies Allergy/AdvReac Type Severity Reaction Status Date / Time No Known Allergies Allergy Verified 10/03/18 06:22 - Medications Medications: Current Medications Amlodipine Besylate (Norvasc) 10 mg PO DAILY [facility] Cinacalcet (Sensipar) 30 mg PO DAILY [facility] Clonidine HCl (Catapres) 0.3 mg PO BID [facility] Last Admin: 10/03/18 18:12 Dose: 0.3 mg Hydralazine HCl (Apresoline) 100 mg PO BID [facility] Last Admin: 10/03/18 17:56 Dose: 100 mg Labetalol HCl (Trandate) 300 mg PO BID [facility] Last Admin: 10/03/18 18:16 Dose: 300 mg Morphine Sulfate (Morphine) 2 mg IVP Q4H PRN PRN Reason: Pain, severe (8-10) Last Admin: 10/03/18 17:32 Dose: 2 mg Ondansetron HCl (Zofran Inj) 4 mg IVP Q6H PRN PRN Reason: Nausea/Vomiting Last Admin: 10/03/18 17:32 Dose: 4 mg Pantoprazole Sodium (Protonix Inj) 40 mg IVP DAILY [facility] Physical Exam - Additional Findings Additional findings: - Constitutional Appears: In Acute Distress - Head Exam Head Exam: NORMAL INSPECTION - Eye Exam Eye Exam: EOMI, Normal appearance, PERRL - ENT Exam ENT Exam: Mucous Membranes Moist - Neck Exam Neck exam: Positive for: Normal Inspection - Respiratory Exam Respiratory Exam: Clear to Auscultation Bilateral. absent: Rales, Rhonchi, Wheezes - Cardiovascular Exam Cardiovascular Exam: RRR, +S1, +S2. absent: Diastolic murmur, Gallop, Rubs, Systolic Murmur - GI/Abdominal Exam GI & Abdominal Exam: Soft. absent: Distended, Guarding, Rebound, Tenderness - Extremities Exam Extremities exam: Positive for: normal inspection. Reported leg spasm at time of evaluation - Back Exam Back exam: NORMAL INSPECTION - Neurological Exam Neurological exam: Alert, CN II-XII Intact, Oriented x3 - Psychiatric Exam Psychiatric exam: Normal Affect, Normal Mood - Skin Skin Exam: Dry, Intact, Normal Color, Warm Results - Vital Signs Recent Vital Signs: Last Vital Signs Temp 98.2 F 10/03/18 12:45 Pulse 127 H 10/03/18 18:16 Resp 22 10/03/18 17:36 BP 223/136 H 10/03/18 18:16 Pulse Ox 100 10/03/18 17:36 - Labs Result Diagrams: 10/03/18 06:35 10/03/18 06:35 Labs: Laboratory Results - last 24 hr 10/03/18 10/03/18 10/03/18 06:35 06:35 06:35 WBC 16.4 H RBC 4.18 Hgb 12.8 Hct 38.2 MCV 91.4 D MCH 30.6 MCHC 33.5 RDW 13.6 Plt Count 318 MPV 9.6 Gran % 85.9 H Lymph % (Auto) 8.8 L [place] % (Auto) 4.2 Eos % (Auto) 0.9 L Baso % (Auto) 0.2 Gran # 14.10 H Lymph # (Auto) 1.5 [place] # (Auto) 0.7 H Eos # (Auto) 0.1 Baso # (Auto) 0.04 Sodium 140 Potassium 3.3 L Chloride 102 Carbon Dioxide 25 Anion Gap 17 BUN 47 H Creatinine 3.5 H Est GFR ( Amer) 18 Est GFR (Non-Af Amer) 15 Random Glucose 151 H Calcium 9.6 Phosphorus 3.7 Magnesium 2.1 Total Bilirubin 0.4 AST 21 ALT 18 Alkaline Phosphatase 103 Total Protein 7.9 Albumin 4.8 Globulin 3.1 Albumin/Globulin Ratio 1.6 Lipase 364 H Urine Color Yellow Urine Appearance Clear Urine pH 8.0 Ur Specific [place] 1.020 Urine Protein 100 H Urine Glucose (UA) 250 H Urine Ketones Negative Urine Blood Trace-intact H Urine Nitrate Negative Urine Bilirubin Negative Urine Urobilinogen 0.2 Ur Leukocyte Esterase Negative Urine RBC 0 - 2 Urine WBC 2 - 5 Ur Epithelial Cells 6 - 8 H Urine Bacteria Mod Alcohol, Quantitative 12/21/18 06:35 WBC RBC Hgb Hct MCV MCH MCHC RDW Plt Count MPV Gran % Lymph % (Auto) [place] % (Auto) Eos % (Auto) Baso % (Auto) Gran # Lymph # (Auto) [place] # (Auto) Eos # (Auto) Baso # (Auto) Sodium Potassium Chloride Carbon Dioxide Anion Gap BUN Creatinine Est GFR ( Amer) Est GFR (Non-Af Amer) Random Glucose Calcium Phosphorus Magnesium Total Bilirubin AST ALT Alkaline Phosphatase Total Protein Albumin Globulin Albumin/Globulin Ratio Lipase Urine Color Urine Appearance Urine pH Ur Specific [place] Urine Protein Urine Glucose (UA) Urine Ketones Urine Blood Urine Nitrate Urine Bilirubin Urine Urobilinogen Ur Leukocyte Esterase Urine RBC Urine WBC Ur Epithelial Cells Urine Bacteria Alcohol, Quantitative < 10 Assessment & Plan - Assessment and Plan (Free Text) Assessment: 37 year old Female with PMHx of ESRD on HD MWF, diastolic CHF, HTN, constipation, depression, and anxiety admitted for hypertensive emergency. Plan: Neuro: AAOx3 Head CT pending Continue to monitor GI: - Intractable Nausea and bilious Vomiting - CT abd/pelvis showed non-obstructing renal calculi, mildly enlarged uterus with fibroids, [id number] enlarged adnexa containing multiple cysts - Zofran prn for nausea - NPO - Blood/urine cultures ordered - Pain control with Morphine 2q4 prn for severe pain Cardio: sBP>200 on admissin - Labetalol drip @ 1 mg/min - Labetalol 20 mg x2 and Clonidine 0.3 mg given in ED - Cont. home medications: Norvasc, Hydralazine, Clonidine - trend trps Nephro: - ESRD on HD MWF - Cont Sensipar - Nephrology consulted - recommendations appreciated PPX: - Protonix Patient seen, case reviewed and plan approved by Dr. Green. Roel Dhaliwal, PGY-1 <Mason Green - Last Filed: 10/03/18 19:10> Meds - Medications Medications: Current Medications Amlodipine Besylate (Norvasc) 10 mg PO DAILY [facility] Cinacalcet (Sensipar) 30 mg PO DAILY [facility] Clonidine HCl (Catapres) 0.3 mg PO BID [facility] Last Admin: 10/03/18 18:12 Dose: 0.3 mg Hydralazine HCl (Apresoline) 100 mg PO BID [facility] Last Admin: 10/03/18 17:56 Dose: 100 mg Labetalol HCl 500 mg/ Sodium (Chloride) 500 mls @ 60 mls/hr IV .Q8H20M PRN; Protocol PRN Reason: TITRATE PER MD ORDER Morphine Sulfate (Morphine) 2 mg IVP Q4H PRN PRN Reason: Pain, severe (8-10) Last Admin: 10/03/18 17:32 Dose: 2 mg Ondansetron HCl (Zofran Inj) 4 mg IVP Q6H PRN PRN Reason: Nausea/Vomiting Last Admin: 10/03/18 17:32 Dose: 4 mg Pantoprazole Sodium (Protonix Inj) 40 mg IVP DAILY [facility] Results - Vital Signs Recent Vital Signs: Last Vital Signs Temp 98.2 F 10/03/18 12:45 Pulse 108 H 10/03/18 19:01 Resp 19 10/03/18 19:01 BP 198/118 H 10/03/18 19:01 Pulse Ox 97 10/03/18 19:01 - Labs Result Diagrams: 10/03/18 06:35 10/03/18 06:35 Labs: Laboratory Results - last 24 hr 10/03/18 10/03/18 10/03/18 06:35 06:35 06:35 WBC 16.4 H RBC 4.18 Hgb 12.8 Hct 38.2 MCV 91.4 D MCH 30.6 MCHC 33.5 RDW 13.6 Plt Count 318 MPV 9.6 Gran % 85.9 H Lymph % (Auto) 8.8 L [place] % (Auto) 4.2 Eos % (Auto) 0.9 L Baso % (Auto) 0.2 Gran # 14.10 H Lymph # (Auto) 1.5 [place] # (Auto) 0.7 H Eos # (Auto) 0.1 Baso # (Auto) 0.04 Sodium 140 Potassium 3.3 L Chloride 102 Carbon Dioxide 25 Anion Gap 17 BUN 47 H Creatinine 3.5 H Est GFR ( Amer) 18 Est GFR (Non-Af Amer) 15 Random Glucose 151 H Calcium 9.6 Phosphorus 3.7 Magnesium 2.1 Total Bilirubin 0.4 AST 21 ALT 18 Alkaline Phosphatase 103 Total Protein 7.9 Albumin 4.8 Globulin 3.1 Albumin/Globulin Ratio 1.6 Lipase 364 H Urine Color Yellow Urine Appearance Clear Urine pH 8.0 Ur Specific [place] 1.020 Urine Protein 100 H Urine Glucose (UA) 250 H Urine Ketones Negative Urine Blood Trace-intact H Urine Nitrate Negative Urine Bilirubin Negative Urine Urobilinogen 0.2 Ur Leukocyte Esterase Negative Urine RBC 0 - 2 Urine WBC 2 - 5 Ur Epithelial Cells 6 - 8 H Urine Bacteria Mod Alcohol, Quantitative 10/03/18 06:35 WBC RBC Hgb Hct MCV MCH MCHC RDW Plt Count MPV Gran % Lymph % (Auto) [place] % (Auto) Eos % (Auto) Baso % (Auto) Gran # Lymph # (Auto) [place] # (Auto) Eos # (Auto) Baso # (Auto) Sodium Potassium Chloride Carbon Dioxide Anion Gap BUN Creatinine Est GFR ( Amer) Est GFR (Non-Af Amer) Random Glucose Calcium Phosphorus Magnesium Total Bilirubin AST ALT Alkaline Phosphatase Total Protein Albumin Globulin Albumin/Globulin Ratio Lipase Urine Color Urine Appearance Urine pH Ur Specific [place] Urine Protein Urine Glucose (UA) Urine Ketones Urine Blood Urine Nitrate Urine Bilirubin Urine Urobilinogen Ur Leukocyte Esterase Urine RBC Urine WBC Ur Epithelial Cells Urine Bacteria Alcohol, Quantitative < 10 Assessment & Plan - Assessment and Plan (Free Text) Assessment: Patient seen and examined on rounds with resident, agree with note with following additions/exceptions: Patient is 37yo female with PMHx of ESRD on HD MWF, diastolic CHF, HTN, constipation, depression, and anxiety presents to [facility] [place] for a one day history of intractable vomiting and abdominal pain, found to be hypertensive, SBP 200-230s, went for HD, could not complete full sessions, due to abdominal pain. CT A/P dont, no acute pathology. Currently hypertensive, SBP 220s, cannot take PO BP meds HTN Urgency Abd pain rule out ACS ESRD on HD Recommend: - supp o2 as needed, duonebs PRN - Panculture, UCx BCx, - BP control, start Labetolol drip - obtain Utox - NPO - check Troponin - Obtain EKG - HD as per renal - Admit to MICU
[2018-10-04 01:05] VITALS: BMI 24.7
[2018-10-04 06:28] LABS: BASO # 0.02 K/mm3 (0.0-2.0); BASO % 0.1 % (0.0-3.0); EOS % 0.3 % (1.5-5.0); GRAN # 11.89 (1.4-6.5); GRAN % 77.7 % (50.0-68.0); HEMOGLOBIN 11.4 g/dL (12.0-16.0); LYMPH # 2.4 (1.2-3.4); LYMPH % 15.6 % (22.0-35.0); MEAN CELL VOLUME 92.4 fl (80.0-105.0); MEAN CORPUSCULAR HEMOGLOBIN 29.8 pg (25.0-35.0); MEAN CORPUSCULAR HGB CONC 32.3 g/dl (31.0-37.0); MEAN PLATELET VOLUME 9.5 fl (7.0-11.0); MONO % 6.3 % (1.0-6.0); RBC 3.82 10^6/uL (3.5-6.1); RED CELL DISTRIBUTION WIDTH 13.9 % (11.5-14.5); WHITE BLOOD COUNT 15.3 10^3/uL (4.5-11.0)
[2018-10-04 06:38] LABS: ALB/GLOB RATIO 1.7 (1.1-1.8); ALBUMIN 4.5 g/dL (3.0-4.8); CALCIUM 9.8 mg/dL (8.4-10.5)
[2018-10-04 06:43] LABS: TROPONIN I 0.08 ng/mL
--- NOTE | 2018-10-04 09:15 | CARD ---
APPROVED REPORT Date of service: 10/03/2018 EKG Measurement Heart [id number] <Conclusion> Sinus tachycardia Nonspecific ST abnormality LVH Prolonged QTc
--- NOTE | 2018-10-04 09:32 | CARD ---
APPROVED REPORT Date of service: 10/04/2018 EKG Measurement Heart [id number] <Conclusion> Normal sinus rhythm Voltage criteria for left ventricular hypertrophy Nonspecific ST and T wave abnormality Prolonged QT C/W ECG 10/03/18: the rate is slower
--- NOTE | 2018-10-04 10:43 | CT ---
Date of service: 10/04/2018 PROCEDURE: CT HEAD WITHOUT CONTRAST. HISTORY: N/V with hypertensive urgency COMPARISON: None available. TECHNIQUE: Axial computed tomography images were obtained through the head/brain without intravenous contrast. Supplemental Coronal and Sagittal projections created and reviewed. Radiation dose: Total exam DLP = 908.65 mGy-cm. This CT exam was performed using one or more of the following dose reduction techniques: Automated exposure control, adjustment of the mA and/or kV according to patient size, and/or use of iterative reconstruction technique. FINDINGS: HEMORRHAGE: No intracranial hemorrhage. BRAIN: No mass effect or edema. No atrophy or chronic microvascular ischemic changes. VENTRICLES: Unremarkable. No hydrocephalus. CALVARIUM: Unremarkable. PARANASAL SINUSES: Unremarkable as visualized. No significant inflammatory changes. MASTOID AIR CELLS: Unremarkable as visualized. No inflammatory changes. OTHER FINDINGS: None. IMPRESSION: No acute intracranial abnormalities. No significant findings to account for the clinical presentation. Concordant results (preliminary interpretation) provided by [employer]. Procedure Completed: 02:56. Preliminary Report: Dictated and Authenticated: 03:53. Final Interpretation: 10:36.
--- NOTE | 2018-10-04 12:36 | CP.PCM.CON ---
History of Present Illness - History of Present Illness History of Present Illness: Nephrology Consultation Note: Assessment: critical abdomen pain severe uncontrolled HTN urgency, non-compliance with meds b/l adrenal hypertrophy Hypertensive Chronic Kidney Disease (I12.0) End stage renal disease (N18.6) dependence on hemodialysis (Z99.2) (MWF) via PC Anemia (D64.9), Hyperphosphatemia (E83.39), Secondary Hyperparathyroidism (E21.1), HTN (I12.0) Plan: Will plan for HD today as per [facility] schedule. Continue with Nephrovite 1 tab/day. PRBC as needed for anemia. Not on GOYO with dialysis as last Hb 11.2 Continue with phos binders BP control with meds as ordered. Patient not on RAAS nisha hence will start losartan 100 mg/day. renin/vic and metanephrines, renal artery doppler for sec HTN work up NEGATIVE in past. Outpt Dexamethasone suppression test for h ypercortisolism eval. Glycemic control, Dialysis consistent diet Further work up/management as per primary team Dose meds/antibiotics (if needed) for ESRD status. Avoid fleets enema/magnesium based laxatives. if BP remains uncontrolled then will benefit from ICU/CCU stay overnight and IV anti-hypertensive continuous drip Thanks for allowing me to participate in care of your patient. Please call if any Qs. had d/w team Dr Pramod Bobo Office: [phone] Chief Complaint: abdomen pain reason for consult; ESRD management HPI: Pt is a 37 F with hx of ESRD on hemodialysis (MWF) via [facility] [facility] with Dr Seth for last 1 year (was also on PD in between but switched to HD due to recurrent peritonitis) , chronic anemia, hyperphosphatemia, secondary hyperparathyroidism, hypertension presented with complaints of pain abdomen and nausea/vomitting, found to have HTN urgency and admitted to hospital Renal consult requested for ESRD management. Pt feels sick. denies SOB. has chronic constipation. pain abdomen and nausea/vo mitting not better ROS: Cardiovascular: No chest pain. Pulmonary: No shortness of breath Gastrointestinal: c/o abdominal pain c/o nausea. c/o vomiting. Genitourinary: No pain while urinating. Denies blood in urine. All other negative except as mentioned in HPI Physical Examination: seen in ER General Appearance: uncomfortable, in no acute respiratory distress, co- operative . Vitals reviewed and noted as below Head; Atraumatic, normocephalic ENT: no ulcers no thrush. Tongue is midline. Oropharynx: no rash or ulcers. EYES: Pupils are equal, round and reactive to light accommodation. Eye muscles and extraocular movement intact. Sclera is anicteric. Neck; supple no lymphadenopathy, no thyromegaly or bruit Lungs: Normal respiratory rate/effort. Breath sounds bilateral equal and clear Heart: Normal rate. s1s2 normal. No rub or gallop. Extremities: no edema. No varicose veins Neurological: Patient is alert, awake and oriented to person, place and time. No focal deficit. Strength bilateral appropriate and equal Skin: Warm and dry. Normal turgor. No rash. Palpitation: Normal elasticity for age Abdomen: Abdomen is soft. Bowel sounds +. There is abdominal tenderness, no guarding/rigidity or organomegaly Psych: normal insight and normal affect/mood MSK: no joint tenderness or swelling. Digits and nails normal, no deformity : kidney or bladder not palpable Access: permacath Labs/imaging reviewed. Past medical history, past surgical history, family history, social history, allergy reviewed and noted as below Family Hx: mother was on HD due to DM. rest Non contributory Past Patient History - Infectious Disease Hx of Infectious Diseases: None - Past Medical History & Family History Past Medical History?: Yes - Past Social History Smoking Status: Light Smoker < 10 Cigarettes Daily - CARDIAC Hx Cardiac Disorders: Yes Hx Congestive Heart Failure: Yes Hx Heart Attack: Yes (03/2017) Hx Hypertension: Yes - PULMONARY Hx Respiratory Disorders: No - NEUROLOGICAL Hx Neurological Disorder: No - HEENT Hx HEENT Problems: Yes Other/Comment: wears glasses - RENAL Hx Chronic Kidney Disease: Yes Date of Last Dialysis Treatment: 08/27/18 Hx Renal Failure: Yes - ENDOCRINE/METABOLIC Hx Endocrine Disorders: No - HEMATOLOGICAL/ONCOLOGICAL Hx Blood Disorders: No - INTEGUMENTARY Hx Dermatological Problems: Yes Other/Comment: SCARRING TO LEFT UPPER ARM DUE TO PLACEMENT OF SHUNT. NF.3X HAD SURGERY. - MUSCULOSKELETAL/RHEUMATOLOGICAL Hx Musculoskeletal Disorders: No - GASTROINTESTINAL Hx Gastrointestinal Disorders: No - GENITOURINARY/GYNECOLOGICAL Hx Genitourinary Disorders: Yes - PSYCHIATRIC Hx Psychophysiologic Disorder: Yes Hx Anxiety: Yes Hx Depression: Yes Hx Substance Use: No - SURGICAL HISTORY Hx Arteriovenous Shunt: Yes (x 2) Hx Cholecystectomy: Yes Other/Comment: peritenneal diaylsis - ANESTHESIA Hx Anesthesia: Yes Hx Anesthesia Reactions: No Hx Malignant Hyperthermia: No Meds Allergies/Adverse Reactions: Allergies Allergy/AdvReac Type Severity Reaction Status Date / Time No Known Allergies Allergy Verified 10/03/18 06:22 - Medications Medications: Current Medications Amlodipine Besylate (Norvasc) 10 mg PO DAILY [facility] Cinacalcet (Sensipar) 30 mg PO DAILY [facility] Clonidine HCl (Catapres) 0.3 mg PO BID [facility] Hydralazine HCl (Apresoline) 100 mg PO BID [facility] Labetalol HCl (Trandate) 300 mg PO BID [facility] Morphine Sulfate (Morphine) 2 mg IVP Q4H PRN PRN Reason: Pain, severe (8-10) Ondansetron HCl (Zofran Inj) 4 mg IVP Q6H PRN PRN Reason: Nausea/Vomiting Pantoprazole Sodium (Protonix Inj) 40 mg IVP DAILY [facility] Results - Vital Signs Recent Vital Signs: Last Vital Signs Temp 98.2 F 10/03/18 12:45 Pulse 75 10/03/18 12:45 Resp 18 10/03/18 12:45 BP 227/122 H 10/03/18 12:45 Pulse Ox 98 10/03/18 12:45 - Labs Result Diagrams: 10/04/18 05:30 10/04/18 05:30 Labs: Laboratory Results - last 24 hr 10/03/18 10/03/18 10/03/18 06:35 06:35 06:35 WBC 16.4 H RBC 4.18 Hgb 12.8 Hct 38.2 MCV 91.4 D MCH 30.6 MCHC 33.5 RDW 13.6 Plt Count 318 MPV 9.6 Gran % 85.9 H Lymph % (Auto) 8.8 L [place] % (Auto) 4.2 Eos % (Auto) 0.9 L Baso % (Auto) 0.2 Gran # 14.10 H Lymph # (Auto) 1.5 [place] # (Auto) 0.7 H Eos # (Auto) 0.1 Baso # (Auto) 0.04 Sodium 140 Potassium 3.3 L Chloride 102 Carbon Dioxide 25 Anion Gap 17 BUN 47 H Creatinine 3.5 H Est GFR ( Amer) 18 Est GFR (Non-Af Amer) 15 Random Glucose 151 H Calcium 9.6 Phosphorus 3.7 Magnesium 2.1 Total Bilirubin 0.4 AST 21 ALT 18 Alkaline Phosphatase 103 Total Protein 7.9 Albumin 4.8 Globulin 3.1 Albumin/Globulin Ratio 1.6 Lipase 364 H Urine Color Yellow Urine Appearance Clear Urine pH 8.0 Ur Specific [place] 1.020 Urine Protein 100 H Urine Glucose (UA) 250 H Urine Ketones Negative Urine Blood Trace-intact H Urine Nitrate Negative Urine Bilirubin Negative Urine Urobilinogen 0.2 Ur Leukocyte Esterase Negative Urine RBC 0 - 2 Urine WBC 2 - 5 Ur Epithelial Cells 6 - 8 H Urine Bacteria Mod Alcohol, Quantitative 10/03/18 06:35 WBC RBC Hgb Hct MCV MCH MCHC RDW Plt Count MPV Gran % Lymph % (Auto) [place] % (Auto) Eos % (Auto) Baso % (Auto) Gran # Lymph # (Auto) [place] # (Auto) Eos # (Auto) Baso # (Auto) Sodium Potassium Chloride Carbon Dioxide Anion Gap BUN Creatinine Est GFR ( Amer) Est GFR (Non-Af Amer) Random Glucose Calcium Phosphorus Magnesium Total Bilirubin AST ALT Alkaline Phosphatase Total Protein Albumin Globulin Albumin/Globulin Ratio Lipase Urine Color Urine Appearance Urine pH Ur Specific [place] Urine Protein Urine Glucose (UA) Urine Ketones Urine Blood Urine Nitrate Urine Bilirubin Urine Urobilinogen Ur Leukocyte Esterase Urine RBC Urine WBC Ur Epithelial Cells Urine Bacteria Alcohol, Quantitative < 10
--- NOTE | 2018-10-04 12:38 | CP.PCM.PN ---
Subjective - Date & Time of Evaluation Date of Evaluation: 10/04/18 Time of Evaluation: 12:37 - Subjective Subjective: Nephrology Consultation Note: Assessment: stable abdomen pain severe uncontrolled HTN urgency, non-compliance with meds b/l adrenal hypertrophy Hypertensive Chronic Kidney Disease (I12.0) End stage renal disease (N18.6) dependence on hemodialysis (Z99.2) (MWF) via [facility] Anemia (D64.9), Hyperphosphatemia (E83.39), Secondary Hyperparathyroidism (E21.1), HTN (I12.0) Plan: Will plan for HD as per MWF schedule. Continue with Nephrovite 1 tab/day. PRBC as needed for anemia. Not on GOYO with dialysis as last Hb 11.2 Continue with phos binders BP control with meds as ordered. Patient not on RAAS nisha hence will start losartan 100 mg/day. renin/vic and metanephrines, renal artery doppler for sec HTN work up NEGATIVE in past. Outpt Dexamethasone suppression test for hypercortisolism eval. Glycemic control, Dialysis consistent diet Further work up/management as per primary team Dose meds/antibiotics (if needed) for ESRD status. Avoid fleets enema/magnesium based laxatives. compliance to meds reinforced Thanks for allowing me to participate in care of your patient. Please call if any Qs. had d/w team Dr Pramod Bobo Office: [phone] Chief Complaint: abdomen pain reason for consult; ESRD management HPI: Pt is a 37 F with hx of ESRD on hemodialysis (MWF) via [facility] with Dr Seth for last 1 year (was also on PD in between but switched to HD due to recurrent peritonitis) , chronic anemia, hyperphosphatemia, secondary hyperparathyroidism, hypertension presented with complaints of pain abdomen and nausea/vomitting, found to have HTN urgency and admitted to hospital Renal consult requested for ESRD management. Pt feels sick. denies SOB. has chronic constipation. pain abdomen and na usea/vomitting not better ROS: Cardiovascular: No chest pain. Pulmonary: No shortness of breath Gastrointestinal: better abdominal pain no nausea. no vomiting. Genitourinary: No pain while urinating. Denies blood in urine. All other negative except as mentioned in HPI Physical Examination: General Appearance: comfortable, in no acute respiratory distress, co-operative . Vitals reviewed and noted as below Head; Atraumatic, normocephalic ENT: no ulcers no thrush. Tongue is midline. Oropharynx: no rash or ulcers. EYES: Pupils are equal, round and reactive to light accommodation. Eye muscles and extraocular movement intact. Sclera is anicteric. Neck; supple no lymphadenopathy, no thyromegaly or bruit Lungs: Normal respiratory rate/effort. Breath sounds bilateral equal and clear Heart: Normal rate. s1s2 normal. No rub or gallop. Extremities: no edema. No varicose veins Neurological: Patient is alert, awake and oriented to person, place and time. No focal deficit. Strength bilateral appropriate and equal Skin: Warm and dry. Normal turgor. No rash. Palpitation: Normal elasticity for age Abdomen: Abdomen is soft. Bowel sounds +. There is no abdominal tenderness, no guarding/rigidity or organomegaly Psych: normal insight and normal affect/mood MSK: no joint tenderness or swelling. Digits and nails normal, no deformity : kidney or bladder not palpable Access: permacath Labs/imaging reviewed. Past medical history, past surgical history, family history, social history, allergy reviewed and noted as below Family Hx: mother was on HD due to DM. rest Non contributory Objective - Vital Signs/Intake and Output Vital Signs (last 24 hours): Temp Pulse Resp BP Pulse Ox 98.3 F 75 18 147/59 L 97 10/04/18 04:00 10/04/18 10:40 10/04/18 10:40 10/04/18 10:30 10/04/18 08:40 Intake and Output: 10/04/18 10/04/18 06:59 18:59 Intake Total 1240 80 Output Total 120 Balance 1120 80 - Medications Medications: Current Medications Amlodipine Besylate (Norvasc) 10 mg PO DAILY [facility] Last Admin: 10/04/18 10:24 Dose: 10 mg Cinacalcet (Sensipar) 30 mg PO DAILY [facility] Last Admin: 10/04/18 10:25 Dose: 30 mg Clonidine HCl (Catapres) 0.3 mg PO BID [facility] Last Admin: 10/04/18 10:25 Dose: 0.3 mg Hydralazine HCl (Apresoline) 100 mg PO BID [facility] Last Admin: 10/04/18 10:24 Dose: 100 mg Labetalol HCl (Trandate) 300 mg PO BID [facility] Last Admin: 10/04/18 10:24 Dose: 300 mg Losartan Potassium (Cozaar) 100 mg PO DAILY [facility] Last Admin: 10/04/18 10:23 Dose: 100 mg Morphine Sulfate (Morphine) 2 mg IVP Q4H PRN PRN Reason: Pain, severe (8-10) Last Admin: 10/03/18 21:29 Dose: 2 mg Ondansetron HCl (Zofran Inj) 4 mg IVP Q6H PRN PRN Reason: Nausea/Vomiting Last Admin: 10/04/18 10:33 Dose: 4 mg Pantoprazole Sodium (Protonix Inj) 40 mg IVP DAILY [facility] Last Admin: 10/04/18 10:25 Dose: 40 mg Vitamin B Complex/Vit C/Folic Acid (Nephro-Socorro) 1 tab PO 0800 [facility] - Labs Labs: 10/04/18 05:30 10/04/18 05:30
--- NOTE | 2018-10-04 14:18 | PN ---
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 No complaints of nauseousness or vomiting. No chest pain. No fever or chills. No respiratory distress. The patient is off the labetalol and blood pressure is stable. PHYSICAL EXAMINATION: VITAL SIGNS: Her temperature is 98.3, pulse is 92, respirations are 23 and her BP is 135/84. SKIN: Warm and dry. HEENT: Head: Atraumatic, normocephalic. Eyes: Reactive to light. Ears, nose and throat seemed to be within normal limits. NECK: Supple. No JVD. No thyroid enlargement, no lymph nodes. HEART: Has a regular rate and rhythm. Normal S1, S2. LUNGS: Reveal good breath sounds bilaterally. ABDOMEN: Soft. Decreased bowel sounds. Genitalia and Rectal: Deferred. MUSCULOSKELETAL: No joint deformities. EXTREMITIES: Reveal trace lower extremity edema. NEUROLOGICAL: She seemed to be grossly intact. As far as her laboratories are concerned, her white count is 15.3, hemoglobin is 11.4, hematocrit 35.3 with platelets of 305,000. Sodium is 138, potassium 3.3, chloride 103, CO2 of 22 with a BUN of 36, creatinine of 3.5 and a glucose of 109. As far as my impression, this patient presented with hypertensive emergency with intractable vomiting. She is noted to have renal stones. The patient has a history of end-stage renal disease on hemodialysis, congestive heart failure and depression/anxiety. As far as our plan, we will continue with hydralazine, as well as Catapres and Cozaar. The patient is also on some Norvasc, some Protonix and labetalol. We will continue to treat aggressively and follow closely along with the other consultants and the primary care doctor. Gurpreet Thomas MD
--- NOTE | 2018-10-04 15:00 | CP.PCM.PN ---
<Rob Peterson - Last Filed: 10/04/18 14:55> Subjective - Date & Time of Evaluation Date of Evaluation: 10/04/18 Time of Evaluation: 14:56 - Subjective Subjective: Rob Peterson DO PGY1 - Internal Medicine Aircraft Navigator - Hospital Progress Note Patient was seen and evaluated at bedside this morning; no acute events reported overnight; No complaints of abd pain, N/V this morning Patient tolerating diet well. NO further complaints voiced at bedside. Objective - Vital Signs/Intake and Output Vital Signs (last 24 hours): Temp Pulse Resp BP Pulse Ox 99.8 F H 66 18 90/51 L 97 10/04/18 14:12 10/04/18 14:12 10/04/18 14:12 10/04/18 14:12 10/04/18 08:40 Intake and Output: 10/04/18 10/04/18 06:59 18:59 Intake Total 1240 80 Output Total 120 Balance 1120 80 - Medications Medications: Current Medications Amlodipine Besylate (Norvasc) 10 mg PO DAILY [facility] Last Admin: 10/04/18 10:24 Dose: 10 mg Cinacalcet (Sensipar) 30 mg PO DAILY [facility] Last Admin: 10/04/18 10:25 Dose: 30 mg Clonidine HCl (Catapres) 0.3 mg PO BID [facility] Last Admin: 10/04/18 10:25 Dose: 0.3 mg Hydralazine HCl (Apresoline) 100 mg PO BID [facility] Last Admin: 10/04/18 10:24 Dose: 100 mg Labetalol HCl (Trandate) 300 mg PO BID [facility] Last Admin: 10/04/18 10:24 Dose: 300 mg Losartan Potassium (Cozaar) 100 mg PO DAILY [facility] Last Admin: 10/04/18 10:23 Dose: 100 mg Morphine Sulfate (Morphine) 2 mg IVP Q4H PRN PRN Reason: Pain, severe (8-10) Last Admin: 10/03/18 21:29 Dose: 2 mg Ondansetron HCl (Zofran Inj) 4 mg IVP Q6H PRN PRN Reason: Nausea/Vomiting Last Admin: 10/04/18 10:33 Dose: 4 mg Pantoprazole Sodium (Protonix Inj) 40 mg IVP DAILY [facility] Last Admin: 10/04/18 10:25 Dose: 40 mg Vitamin B Complex/Vit C/Folic Acid (Nephro-Socorro) 1 tab PO 0800 [facility] - Labs Labs: 10/04/18 05:30 10/04/18 05:30 Physical Exam - Additional Findings Additional findings: - Constitutional Appears: In Acute Distress - Head Exam Head Exam: NORMAL INSPECTION - Eye Exam Eye Exam: EOMI, Normal appearance, PERRL - ENT Exam ENT Exam: Mucous Membranes Moist - Neck Exam Neck exam: Positive for: Normal Inspection - Respiratory Exam Respiratory Exam: Clear to Auscultation Bilateral. absent: Rales, Rhonchi, Wheezes - Cardiovascular Exam Cardiovascular Exam: RRR, +S1, +S2. absent: Diastolic murmur, Gallop, Rubs, Systolic Murmur - GI/Abdominal Exam GI & Abdominal Exam: Soft. absent: Distended, Guarding, Rebound, Tenderness - Extremities Exam Extremities exam: Positive for: normal inspection. Reported leg spasm at time of evaluation - Back Exam Back exam: NORMAL INSPECTION - Neurological Exam Neurological exam: Alert, CN II-XII Intact, Oriented x3 - Psychiatric Exam Psychiatric exam: Normal Affect, Normal Mood - Skin Skin Exam: Dry, Intact, Normal Color, Warm Assessment and Plan - Assessment and Plan (Free Text) Assessment: 37 yo F with PMH of ESRD on HD MWF, diastolic CHF, HTN, constipation, depression, and anxiety admitted for observation for intractable nausea and vomiting. Plan: 1. Intractable Nausea and Vomiting - CT abd/pelvis showed non-obstructing renal calculi, mildly enlarged uterus with fibroids, [id number] enlarged adnexa containing multiple cysts - Zofran prn for nausea - Diet advanced this morning; Tolerating diet well - Blood Cx - negative to date - Urine Cx - Contaminated 2. Epigastric Pain - Morphine 2q4 prn for severe pain 3. ESRD on HD - HD MWF - Cont Sensipar - Nephrology consulted 4. HTN - On labetolol overnight; DC'd this morning; Currently normotensive - Resume home medications: Norvasc, Hydralazine, Clonidine, and Labetalol - Cont. monitoring PPX - Protonix Dispo: Telemetry Floor <PetersonCherry R - Last Filed: 10/05/18 18:55> Objective - Vital Signs/Intake and Output Vital Signs (last 24 hours): Temp Pulse Resp BP Pulse Ox 98.1 F 100 H 18 145/100 H 97 10/05/18 12:00 10/05/18 16:09 10/05/18 12:00 10/05/18 16:44 10/05/18 09:00 Intake and Output: 10/05/18 10/05/18 06:59 18:59 Intake Total 2360 Balance 2360 - Medications Medications: Current Medications Amlodipine Besylate (Norvasc) 10 mg PO DAILY [facility] Last Admin: 10/05/18 14:52 Dose: 10 mg Bacitracin (Bacitracin) 0 gm TOP BID PRN PRN Reason: Abrasion Last Admin: 10/05/18 13:00 Dose: 1 gm Cinacalcet (Sensipar) 30 mg PO DAILY [facility] Last Admin: 10/05/18 10:24 Dose: 30 mg Hydralazine HCl (Apresoline) 100 mg PO BID [facility] Last Admin: 10/04/18 17:56 Dose: Not Given Labetalol HCl (Trandate) 300 mg PO BID [facility] Last Admin: 10/04/18 17:58 Dose: Not Given Losartan Potassium (Cozaar) 100 mg PO DAILY [facility] Last Admin: 10/04/18 10:23 Dose: 100 mg Morphine Sulfate (Morphine) 2 mg IVP Q4H PRN PRN Reason: Pain, severe (8-10) Last Admin: 10/03/18 21:29 Dose: 2 mg Ondansetron HCl (Zofran Inj) 4 mg IVP Q6H PRN PRN Reason: Nausea/Vomiting Last Admin: 10/04/18 10:33 Dose: 4 mg Pantoprazole Sodium (Protonix Inj) 40 mg IVP DAILY [facility] Last Admin: 10/05/18 10:23 Dose: 40 mg Sevelamer HCl (Renagel) 800 mg PO TID [facility] Last Admin: 10/05/18 17:53 Dose: 800 mg Vitamin B Complex/Vit C/Folic Acid (Nephro-Socorro) 1 tab PO 0800 [facility] Last Admin: 10/05/18 08:42 Dose: 1 tab - Labs Labs: 10/05/18 06:00 10/05/18 06:00 Attending/Attestation - Attestation I have personally seen and examined this patient.: Yes I have fully participated in the care of the patient.: Yes I have reviewed all pertinent clinical information, including history, physical exam and plan: Yes Notes (Text): Patient seen and examined by me with resident at 8:25AM on 10/04/18. Case including HPI, physical exam, and assessment and plan discussed with resident. Agree with above with following additions/corrections. Patient is a 37-year-old female past medical history significant for incisional disease on dialysis Saturday/Saturday/Saturday, diastolic CHF, hypertension, constipation, depression, and anxiety that presents to the emergency room with intractable nausea and vomiting and epigastric pain. Patient states she is feeling much better today. Patient states nausea and vomiting has resolved. Patient is tolerating diet this AM. Patient denies any c hest pain or shortness of breath. No fevers or chills. No headaches or dizziness. No lightheadedness. No dysuria. Physical exam: General: Awake and alert sitting up in bed in no acute distress HEENT: Normocephalic, atraumatic. Extraocular muscles intact, pupils equal and reactive, no scleral icterus. Oropharynx is pink and moist. Neck is supple. Cardiovascular: Regular rhythm. Normal S1 and S2.No murmurs, rubs, or gallops appreciated Pulmonary: Normal respiratory effort. No rhonchi, rales, or wheezing appreciated. Gastrointestinal: Soft, nondistended. Nontender. Positive bowel sounds all 4 quadrants. No guarding. Musculoskeletal: Moves all extremities. No calf tenderness. No edema appre ciated. No CVA tenderness. Central nervous system: AAO x3, CN 2-12 grossly intact. Dermatologic: Skin warm and dry. Assessment and plan: Patient is a 37-year-old female past medical history signif icant for incisional disease on dialysis Saturday/Saturday/Saturday, diastolic CHF, hypertension, constipation, depression, and anxiety that presents to the emergency room with intractable nausea and vomiting and epigastric pain. 1. Hypertensive urgency. Resolved. Patient was placed on labetalol drip over night. Home medications resumed: Norvasc 10mg PO daily, Clonidine 0.3mg PO BID, Hydralazine 100mg PO BID, and Labetalol 300mg PO BID. Nephrology following, recommendations appreciated. Head CT per radiologist showed no acute intracranial abnormalities. Will transfer to telemetry. 2. Intractable nausea, vomiting, and epigastric pain. Resolved. Tolerating diet. CT abd/pelvis per radiologist shows nonobstructing renal calculi, no evidence of hydronephrosis, no evidence of pancreatitis or appendicitis, mildly enlarged uterus contains fibroid, mild to moderately enlarged adnexa contains multiple cyst. Lipase elevated at 364. Has history of pancreatitis. 3. ESRD on HD. Nephrology following, recommendations appreciated. Continue home Sensipar. Continue dialysis M/W/F 4. Anxiety. Home xanax held for now. 5. GI/DVT prophylaxis. Protonix/SCDs 6. Patient is a full code. Case was discussed in detail with the patient regarding current diagnosis and treatment plan. All questions answered
[2018-10-04] MEDS ORDERED: Sodium Chloride 0.9% 250 ML IV STA (18:22)
[2018-10-04] MEDS: Sodium Chloride 0.9% 250 ML IV SCH (21:26)
[2018-10-05] MEDS: Bacitracin Ointment 30 GM TUBE TOP PRN ×2 (00:08→13:00)
[2018-10-05 00:51] VITALS: RESP 18
[2018-10-05 06:50] LABS: ALB/GLOB RATIO 1.6 (1.1-1.8); BASO # 0.04 K/mm3 (0.0-2.0); BASO % 0.4 % (0.0-3.0); CALCIUM 8.2 mg/dL (8.4-10.5); EOS # 0.2 (0.0-0.7); EOS % 1.9 % (1.5-5.0); GRAN # 7.1 (1.4-6.5); GRAN % 66.2 % (50.0-68.0); HEMOGLOBIN 11.4 g/dL (12.0-16.0); LYMPH # 2.7 (1.2-3.4); LYMPH % 25.3 % (22.0-35.0); MEAN CELL VOLUME 95.2 fl (80.0-105.0); MEAN CORPUSCULAR HEMOGLOBIN 30.3 pg (25.0-35.0); MEAN CORPUSCULAR HGB CONC 31.8 g/dl (31.0-37.0); MEAN PLATELET VOLUME 9.7 fl (7.0-11.0); MONO # 0.7 (0.1-0.6); MONO % 6.2 % (1.0-6.0); RBC 3.76 10^6/uL (3.5-6.1); RED CELL DISTRIBUTION WIDTH 14.3 % (11.5-14.5); WHITE BLOOD COUNT 10.7 10^3/uL (4.5-11.0)
[2018-10-05 06:56] VITALS: O2SAT 97
[2018-10-05] MEDS ORDERED: Multivitamin Vitamin B Complex (Nephro-Vite) Tab PO SCH (08:00)
[2018-10-05] MEDS: Sodium Chloride 0.9% 250 ML IV SCH (08:41)
--- NOTE | 2018-10-05 08:59 | CP.PCM.PN ---
Subjective - Date & Time of Evaluation Date of Evaluation: 10/05/18 Time of Evaluation: 08:59 Objective - Vital Signs/Intake and Output Vital Signs (last 24 hours): Temp Pulse Resp BP Pulse Ox 98.5 F 94 H 18 109/58 L 97 10/05/18 06:00 10/05/18 06:00 10/05/18 06:00 10/05/18 06:00 10/05/18 06:00 Intake and Output: 10/05/18 10/05/18 06:59 18:59 Intake Total 2360 Balance 2360 - Medications Medications: Current Medications Amlodipine Besylate (Norvasc) 10 mg PO DAILY [facility] Bacitracin (Bacitracin) 0 gm TOP BID PRN PRN Reason: Abrasion Last Admin: 10/05/18 00:08 Dose: 30 gm Cinacalcet (Sensipar) 30 mg PO DAILY [facility] Last Admin: 10/04/18 10:25 Dose: 30 mg Hydralazine HCl (Apresoline) 100 mg PO BID [facility] Last Admin: 10/04/18 17:56 Dose: Not Given Sodium Chloride (Sodium Chloride 0.9%) 250 mls @ 125 mls/hr IV .Q2H [facility] Last Admin: 10/05/18 08:41 Dose: Not Given Labetalol HCl (Trandate) 300 mg PO BID [facility] Last Admin: 10/04/18 17:58 Dose: Not Given Losartan Potassium (Cozaar) 100 mg PO DAILY [facility] Last Admin: 10/04/18 10:23 Dose: 100 mg Morphine Sulfate (Morphine) 2 mg IVP Q4H PRN PRN Reason: Pain, severe (8-10) Last Admin: 10/03/18 21:29 Dose: 2 mg Ondansetron HCl (Zofran Inj) 4 mg IVP Q6H PRN PRN Reason: Nausea/Vomiting Last Admin: 10/04/18 10:33 Dose: 4 mg Pantoprazole Sodium (Protonix Inj) 40 mg IVP DAILY [facility] Last Admin: 10/04/18 10:25 Dose: 40 mg Sevelamer HCl (Renagel) 800 mg PO TID [facility] Vitamin B Complex/Vit C/Folic Acid (Nephro-Socorro) 1 tab PO 0800 [facility] Last Admin: 10/05/18 08:42 Dose: 1 tab - Labs Labs: 10/05/18 06:00 10/05/18 06:00
[2018-10-05 09:37] LABS: BARBITURATES, UR NEGATIVE (NEGATIVE); BENZODIAZEPINES, UR POSITIVE (NEGATIVE); OPIATES, UR POSITIVE (NEGATIVE); PHENCYCLIDINE, UR NEGATIVE (NEGATIVE)
--- NOTE | 2018-10-05 11:26 | CP.PCM.PN ---
Subjective - Date & Time of Evaluation Date of Evaluation: 10/05/18 Time of Evaluation: 11:24 - Subjective Subjective: Nephrology Consultation Note: Assessment: stable abdomen pain severe uncontrolled HTN urgency, non-compliance with meds b/l adrenal hypertrophy Hypertensive Chronic Kidney Disease (I12.0) End stage renal disease (N18.6) dependence on hemodialysis (Z99.2) (MWF) via [facility] Anemia (D64.9), Hyperphosphatemia (E83.39), Secondary Hyperparathyroidism (E21.1), HTN (I12.0) Plan: Will plan for HD as per [facility] schedule. Continue with Nephrovite 1 tab/day. PRBC as needed for anemia. Not on GOYO with dialysis as last Hb 11.2 Continue with phos binders renin/vic and metanephrines, renal artery doppler for sec HTN work up NEGATIVE in past. Outpt Dexamethasone suppression test for hypercortisolism eval. Glycemic control, Dialysis consistent diet Further work up/management as per primary team Dose meds/antibiotics (if needed) for ESRD status. Avoid fleets enema/magnesium based laxatives. compliance to meds reinforced BP low when started all her home bp meds. hold today and pt can resume labetalol norvasc from tomorrow. further adjustment of her BP meds on outpt basis pt stable for d/c from renal perspective today Thanks for allowing me to participate in care of your patient. Please call if any Qs. had d/w team Dr Pramod Bobo Office: [phone] Chief Complaint: abdomen pain reason for consult; ESRD management HPI: Pt is a 37 F with hx of ESRD on hemodialysis (MWF) via [facility] with Dr Seth for last 1 year (was also on PD in between but switched to HD due to recurrent peritonitis) , chronic anemia, hyperphosphatemia, secondary hyperparathyroidism, hypertension presented with complaints of pain abdomen and nausea/vomitting, found to have HTN urgency and admitted to hospital Renal consult requested for ESRD management. Pt feels sick. denies SOB. has chronic constipation. pain abdomen and na usea/vomitting not better ROS: Cardiovascular: No chest pain. Pulmonary: No shortness of breath Gastrointestinal: better abdominal pain no nausea. no vomiting. Genitourinary: No pain while urinating. Denies blood in urine. All other negative except as mentioned in HPI Physical Examination: General Appearance: comfortable, in no acute respiratory distress, co-operative . Vitals reviewed and noted as below Head; Atraumatic, normocephalic ENT: no ulcers no thrush. Tongue is midline. Oropharynx: no rash or ulcers. EYES: Pupils are equal, round and reactive to light accommodation. Eye muscles and extraocular movement intact. Sclera is anicteric. Neck; supple no lymphadenopathy, no thyromegaly or bruit Lungs: Normal respiratory rate/effort. Breath sounds bilateral equal and clear Heart: Normal rate. s1s2 normal. No rub or gallop. Extremities: no edema. No varicose veins Neurological: Patient is alert, awake and oriented to person, place and time. No focal deficit. Strength bilateral appropriate and equal Skin: Warm and dry. Normal turgor. No rash. Palpitation: Normal elasticity for age Abdomen: Abdomen is soft. Bowel sounds +. There is no abdominal tenderness, no guarding/rigidity or organomegaly Psych: normal insight and normal affect/mood MSK: no joint tenderness or swelling. Digits and nails normal, no deformity : kidney or bladder not palpable Access: permacath Labs/imaging reviewed. Past medical history, past surgical history, family history, social history, allergy reviewed and noted as below Family Hx: mother was on HD due to DM. rest Non contributory Objective - Vital Signs/Intake and Output Vital Signs (last 24 hours): Temp Pulse Resp BP Pulse Ox 98.5 F 94 H 18 109/58 L 97 10/05/18 06:00 10/05/18 06:00 10/05/18 06:00 10/05/18 06:00 10/05/18 06:00 Intake and Output: 10/05/18 10/05/18 06:59 18:59 Intake Total 2360 Balance 2360 - Medications Medications: Current Medications Amlodipine Besylate (Norvasc) 10 mg PO DAILY [facility] Bacitracin (Bacitracin) 0 gm TOP BID PRN PRN Reason: Abrasion Last Admin: 10/05/18 00:08 Dose: 30 gm Cinacalcet (Sensipar) 30 mg PO DAILY [facility] Last Admin: 10/05/18 10:24 Dose: 30 mg Hydralazine HCl (Apresoline) 100 mg PO BID [facility] Last Admin: 10/04/18 17:56 Dose: Not Given Sodium Chloride (Sodium Chloride 0.9%) 250 mls @ 125 mls/hr IV .Q2H [facility] Last Admin: 10/05/18 08:41 Dose: Not Given Labetalol HCl (Trandate) 300 mg PO BID [facility] Last Admin: 10/04/18 17:58 Dose: Not Given Losartan Potassium (Cozaar) 100 mg PO DAILY [facility] Last Admin: 10/04/18 10:23 Dose: 100 mg Morphine Sulfate (Morphine) 2 mg IVP Q4H PRN PRN Reason: Pain, severe (8-10) Last Admin: 10/03/18 21:29 Dose: 2 mg Ondansetron HCl (Zofran Inj) 4 mg IVP Q6H PRN PRN Reason: Nausea/Vomiting Last Admin: 10/04/18 10:33 Dose: 4 mg Pantoprazole Sodium (Protonix Inj) 40 mg IVP DAILY [facility] Last Admin: 10/05/18 10:23 Dose: 40 mg Sevelamer HCl (Renagel) 800 mg PO TID [facility] Last Admin: 10/05/18 10:24 Dose: 800 mg Vitamin B Complex/Vit C/Folic Acid (Nephro-Socorro) 1 tab PO 0800 [facility] Last Admin: 10/05/18 08:42 Dose: 1 tab - Labs Labs: 10/05/18 06:00 10/05/18 06:00
[2018-10-05 12:13] VITALS: TEMP 98.1
[2018-10-05 16:10] VITALS: PULSE 100
[2018-10-05 16:44] VITALS: BP 145/100
--- NOTE | 2018-10-05 17:19 | CP.PCM.DIS ---
Provider - Provider Date of Admission: 10/03/18 18:07 Attending physician: Cherry Peterson DO Primary care physician: Michelle Quarles MD Consults: 10/03/18 12:10 Nephrology Consult Stat Comment: Consulting Provider: Pramod Bobo Consulting Physician: Pramod Bobo Reason for Consult: renal failure, esrd on hd 10/03/18 17:46 Critical Care Consult Routine Comment: Consulting Provider: Mason Green Consulting Physician: Mason Green Reason for Consult: uncontrolled hypertension Time Spent in preparation of Discharge (in minutes): 45 Diagnosis - Discharge Diagnosis (1) Abdominal pain Status: Acute (2) ESRD (end stage renal disease) on dialysis Status: Acute (3) Hypertensive urgency Status: Acute Hospital Course - Lab Results Lab Results: Micro Results 10/03/18 22:30 Naris MRSA Culture (Admit) - Final MRSA NOT DETECTED 10/03/18 09:45 Blood Blood Culture - Preliminary NO GROWTH AFTER 48 HOURS 10/03/18 09:20 Blood Blood Culture - Preliminary NO GROWTH AFTER 48 HOURS 10/03/18 06:35 Urine Urine Culture - Final <10,000 CFU/ML. MULTIPLE SPECIES. PROBABLE CONTAMINATION. Most Recent Lab Values WBC 10.7 10^3/uL (4.5-11.0) D 10/05/18 06:00 RBC 3.76 10^6/uL (3.5-6.1) 10/05/18 06:00 Hgb 11.4 g/dL (12.0-16.0) L 10/05/18 06:00 Hct 35.8 % (36.0-48.0) L 10/05/18 06:00 MCV 95.2 fl (80.0-105.0) 10/05/18 06:00 MCH 30.3 pg (25.0-35.0) 10/05/18 06:00 MCHC 31.8 g/dl (31.0-37.0) 10/05/18 06:00 RDW 14.3 % (11.5-14.5) 10/05/18 06:00 Plt Count 278 10^3/uL (120.0-450.0) 10/05/18 06:00 MPV 9.7 fl (7.0-11.0) 10/05/18 06:00 Gran % 66.2 % (50.0-68.0) 10/05/18 06:00 Lymph % (Auto) 25.3 % (22.0-35.0) 10/05/18 06:00 Tucker % (Auto) 6.2 % (1.0-6.0) H 10/05/18 06:00 Eos % (Auto) 1.9 % (1.5-5.0) 10/05/18 06:00 Baso % (Auto) 0.4 % (0.0-3.0) 10/05/18 06:00 Gran # 7.10 (1.4-6.5) H 10/05/18 06:00 Lymph # (Auto) 2.7 (1.2-3.4) 10/05/18 06:00 Tucker # (Auto) 0.7 (0.1-0.6) H 10/05/18 06:00 Eos # (Auto) 0.2 (0.0-0.7) 10/05/18 06:00 Baso # (Auto) 0.04 K/mm3 (0.0-2.0) 10/05/18 06:00 Sodium 135 mmol/L (132-148) 10/05/18 06:00 Potassium 3.7 mmol/L (3.6-5.0) 10/05/18 06:00 Chloride 101 mmol/L (98-107) 10/05/18 06:00 Carbon Dioxide 20 mmol/L (21-33) L 10/05/18 06:00 Anion Gap 19 (10-20) 10/05/18 06:00 BUN 56 mg/dL (7-21) H 10/05/18 06:00 Creatinine 6.9 mg/dl (0.7-1.2) H 10/05/18 06:00 Est GFR ( Amer) 8 10/05/18 06:00 Est GFR (Non-Af Amer) 7 10/05/18 06:00 Random Glucose 109 mg/dL (70-110) 10/05/18 06:00 Calcium 8.2 mg/dL (8.4-10.5) L 10/05/18 06:00 Phosphorus 6.9 mg/dL (2.5-4.5) H 10/05/18 06:00 Magnesium 2.0 mg/dL (1.7-2.2) 10/05/18 06:00 Total Bilirubin 0.4 mg/dL (0.2-1.3) 10/05/18 06:00 AST 28 U/L (14-36) 10/05/18 06:00 ALT 37 U/L (7-56) 10/05/18 06:00 Alkaline Phosphatase 88 U/L (38-126) 10/05/18 06:00 Troponin I 0.08 ng/mL 10/04/18 05:30 Total Protein 6.5 g/dL (5.8-8.3) 10/05/18 06:00 Albumin 4.0 g/dL (3.0-4.8) 10/05/18 06:00 Globulin 2.5 gm/dL 10/05/18 06:00 Albumin/Globulin Ratio 1.6 (1.1-1.8) 10/05/18 06:00 Lipase 364 U/L (23-300) H 10/03/18 06:35 Urine Color Yellow (YELLOW) 10/03/18 06:35 Urine Appearance Clear (CLEAR) 10/03/18 06:35 Urine pH 8.0 (4.7-8.0) 10/03/18 06:35 Ur Specific [place] 1.020 (1.005-1.035) 10/03/18 06:35 Urine Protein 100 mg/dL (<30 mg/dL) H 10/03/18 06:35 Urine Glucose (UA) 250 mg/dL (NEGATIVE) H 10/03/18 06:35 Urine Ketones Negative mg/dL (NEGATIVE) 10/03/18 06:35 Urine Blood Trace-intact (NEGATIVE) H 10/03/18 06:35 Urine Nitrate Negative (NEGATIVE) 10/03/18 06:35 Urine Bilirubin Negative (NEGATIVE) 10/03/18 06:35 Urine Urobilinogen 0.2 E.U./dL (<1 E.U./dL) 10/03/18 06:35 Ur Leukocyte Esterase Negative Davy/uL (NEGATIVE) 10/03/18 06:35 Urine RBC 0 - 2 /hpf (0-2) 10/03/18 06:35 Urine WBC 2 - 5 /hpf (0-6) 10/03/18 06:35 Ur Epithelial Cells 6 - 8 /hpf (0-5) H 10/03/18 06:35 Urine Bacteria Mod /hpf (NONE) 10/03/18 06:35 Urine Opiates Screen Positive (NEGATIVE) H 10/05/18 09:00 Urine Methadone Screen Negative (NEGATIVE) 10/05/18 09:00 Ur Barbiturates Screen Negative (NEGATIVE) 10/05/18 09:00 Ur Phencyclidine Scrn Negative (NEGATIVE) 10/05/18 09:00 Ur Amphetamines Screen Negative (NEGATIVE) 10/05/18 09:00 U Benzodiazepines Scrn Positive (NEGATIVE) H 10/05/18 09:00 U Oth Cocaine Metabols Negative (NEGATIVE) 10/05/18 09:00 U Cannabinoids Screen Negative (NEGATIVE) 10/05/18 09:00 Alcohol, Quantitative < 10 mg/dL (0-10) 10/03/18 06:35 - Hospital Course Hospital Course: Rob Peterson DO PGY1 - Internal Medicine [facility] [employer] - Hospital DC Summary Disclaimer: please note this is a brief synopsis of the patient's hospital course; for full hospital record please refer to EMR Patient is a 37F w/ a PMH of ESRD on HD MWF, diastolic CHF, HTN, constipation, depression, and anxiety presents to [facility] on 10/03 for a one day history of intractable vomiting and abdominal pain prior to presentation. In the ED, CTAP showed non-obstructing renal calculi w/o evidence of hydronephrosis, no evidence of pancreatitis or appendicitis, mildly enlarged uterus contains fibroid, mild- mod enlarged andexa contains multiple cysts; BP was noted to 241/140 and was given stat doses of labetalol, clonidine. Patient received HD shortly after presentation during which she began intermittently waking up anxious, c/o pain, asking to be taken off HD 1.5hr into treatment. She was subsequently admitted for workup and management of intractable nausea and vomiting as well as hypertensive urgency. Nephrology and critical care team were consulted, and patient was subsequently transferred to ICU and started on labetolol drip. During first night of hospital stay, patient tolerated labetolol drip well; abdominal pain improved, and was subsequently transferred to telemetry. Her PO BP Rx were resumed. On night 2 of hospital stay, patient was noted to have very low SBP, and subsequently required IVF bolus. BP rx were held, and her pressures returned normotensive. Patient subsequently became hypertensive following and BP rx were resumed. Prior to discharge patient was noted to have BP of 140/100, but was not voicing any symptoms of headache, chest pain, blurry vision. She was given extensive information on blood pressure management; and is to go her regularly scheduled dialysis on Saturday 10/06. Upon discharge patient is voicing no complaints, reports she is feeling better, and verbalizes medication and follow up instructions provided to her. Patient is medically optimized for discharge at this time, and does not require any further in patient management. Discharge Exam - Head Exam Head Exam: NORMAL INSPECTION - Eye Exam Eye Exam: EOMI, Normal appearance, PERRL - Respiratory Exam Respiratory Exam: Clear to PA & Lateral, NORMAL BREATHING PATTERN, UNREMARKABLE - Cardiovascular Exam Cardiovascular Exam: REGULAR RHYTHM, RRR, +S1, +S2 - Extremities Exam Extremities exam: pedal pulses present (2+ DP BL ) - Neurological Exam Neurological exam: Alert, CN II-XII Intact, Oriented x3 - Psychiatric Exam Psychiatric exam: Normal Affect, Normal Mood - Skin Skin Exam: Dry, Intact, Normal Color, Warm Discharge Plan - Follow Up Plan Condition: STABLE Disposition: HOME/ ROUTINE Instructions: High Blood Pressure (DC), High Blood Pressure Emergencies Additional Instructions: Please follow up with your primary care doctor, Dr. Quarles, within 3-5 days of discharge; please alert him that you were recently admitted and discharged from [facility] Please follow up with your presser hand Dr. Erick Seth within 2-3 days of discharge for blood pressure monitoring and medication adjustment. Please go to your hemodialysis as scheduled tomorrow Saturday10/05/18. Please resume the following home medications Sensipar 30 mg daily Ambien 10 mg at bedtime as needed for sleep Xanax 0.5 mg twice daily NEEDED FOR ANXIETY Norvasc 10 mg daily Labetalol 300 mg twice daily Please stop taking your previously prescribed hydralazine clonidine until you have seen your presser hand. If prior to seeing your presser hand, your systolic blood pressure is above 160 and you have taken your norvasc and labetalol, please take your hydralazine, this can be taken in the morning and evening. If your blood pressure remains uncontrolled, please return to the emergency room. It is recommended that you begin checking your blood pressure 3 times a day (mid morning, afternoon, and late evening) and recording your pressures in a diary. Please keep this diary and bring it with you to nephrology and primary care appointment. If you begin experiencing chest pain, blurry vision, palpitations, headaches/ dizziness, light headedness/ feelings of passing out; or if any new concerning symptoms arise, please go to your nearest emergency department immediately Referrals: Erick Seth MD [Medical Doctor] - Michelle Quarles MD [Primary Care Provider] -
== END 2018-10-05 20:07 | disposition home or self-care (01) | DRG 569 ==
LOC: ED 06:16 → ERH 12:24 → OBSVTOIN 18:07 → ERH 18:09 → CCU 21:03 → 2RNO 10-04 11:19
PROVIDERS: ADMIT Hospitalist; ATTEND Hospitalist
PROC: 5A1D70Z Performance of Urinary Filtration, Intermittent, Less than 6 Hours Per Day (ICD-10-PCS; principal; 2018-10-03)
DX: N20.0 Calculus of kidney (principal); I50.32 Chronic diastolic (congestive) heart failure; I13.2 Hypertensive heart and chronic kidney disease with heart failure and with stage 5 chronic kidney disease, or end stage renal disease; N18.6 End stage renal disease; R10.9 Unspecified abdominal pain; I16.0 Hypertensive urgency; N25.81 Secondary hyperparathyroidism of renal origin; D25.9 Leiomyoma of uterus, unspecified; D64.9 Anemia, unspecified; D72.829 Elevated white blood cell count, unspecified; E83.39 Other disorders of phosphorus metabolism; F41.9 Anxiety disorder, unspecified; I25.2 Old myocardial infarction; K76.0 Fatty (change of) liver, not elsewhere classified; Z82.5 Family history of asthma and other chronic lower respiratory diseases; Z83.3 Family history of diabetes mellitus; Z87.442 Personal history of urinary calculi; Z87.891 Personal history of nicotine dependence; Z90.49 Acquired absence of other specified parts of digestive tract; Z91.14 Patient's other noncompliance with medication regimen; Z99.2 Dependence on renal dialysis; R11.2 Nausea with vomiting, unspecified

== ENCOUNTER 2018-12-02 21:24 | Inpatient (IN) | payer MEDICAID, OTHER ==
[2018-12-02 21:25] VITALS: BMI 23.5
[2018-12-02 22:06] LABS: BASO # 0.03 K/mm3 (0.0-2.0); BASO % 0.2 % (0.0-3.0); EOS % 0.1 % (1.5-5.0); HEMOGLOBIN 13.7 g/dL (12.0-16.0); LYMPH # 1.1 (1.2-3.4); LYMPH % 6.8 % (22.0-35.0); MEAN CELL VOLUME 91.2 fl (80.0-105.0); MEAN CORPUSCULAR HEMOGLOBIN 30.9 pg (25.0-35.0); MEAN CORPUSCULAR HGB CONC 33.8 g/dl (31.0-37.0); MEAN PLATELET VOLUME 9.6 fl (7.0-11.0); MONO # 0.6 (0.1-0.6); MONO % 3.5 % (1.0-6.0); RBC 4.44 10^6/uL (3.5-6.1); RED CELL DISTRIBUTION WIDTH 13.1 % (11.5-14.5); WHITE BLOOD COUNT 16.7 10^3/uL (4.5-11.0)
[2018-12-02 22:14] LABS: INR 1.09; PARTIAL THROMBOPLASTIN TIME 33.9 Seconds (26.9-38.3); PROTHROMBIN TIME 12.1 SECONDS (9.4-12.5)
--- NOTE | 2018-12-02 22:17 | ED PDOC ---
Arrival/HPI - General Chief Complaint: Abdominal Pain Time Seen by Provider: 12/02/18 21:40 Historian: Patient - History of Present Illness Narrative History of Present Illness (Text): 12/02/18 22:12 38 year old female, whose past medical history includes Anemia, Anxiety, CHF, Depression, Choleycystectomy, HTN, Pancreatitis, ESRD on HD MWF via subclavian HD catheter, presents to the emergency department with nausea, vomiting, and abdominal pain. Patient informs last dialysis treatment was yesterday, and she completed treatment without complications. Patient states she has been vomiting since that treatment. Patient informs of some chest pain and headache associated with vomiting. Patient denies any fevers, back pain, neck pain, or any other complaint. Time/Duration: 24 hours Symptom Onset: Gradual Symptom Course: Unchanged Activities at Onset: Light Context: Home Past Medical History - Provider Review Nursing Documentation Reviewed: Yes - Infectious Disease Hx of Infectious Diseases: None - Cardiac Hx Congestive Heart Failure: Yes Hx Hypertension: Yes Hx Peripheral Edema: Yes - Pulmonary Hx Pneumonia: Yes - Neurological Hx Neurological Disorder: No - HEENT Hx HEENT Disorder: Yes Other/Comment: wears glasses - Renal Hx Renal Disorder: Yes Hx Kidney Stones: Yes - Endocrine/Metabolic Hx Endocrine Disorders: No - Hematological/Oncological Hx Anemia: Yes - Integumentary Hx Dermatological Disorder: Yes Other/Comment: SCARRING TO LEFT UPPER ARM DUE TO PLACEMENT OF SHUNT. NF.3X HAD SURGERY. - Musculoskeletal/Rheumatological Hx Arthritis: Yes (L HIP) - Gastrointestinal Hx Gall Bladder Disease: Yes (CHOLECYSTECTOMY) Hx Pancreatitis: Yes - Genitourinary/Gynecological Hx Genitourinary Disorders: Yes - Psychiatric Hx Anxiety: Yes Hx Depression: Yes Hx Substance Use: No - Surgical History Hx Cholecystectomy: Yes - Anesthesia Hx Anesthesia: Yes Hx Anesthesia Reactions: No Hx Malignant Hyperthermia: No Family/Social History - Physician Review Nursing Documentation Reviewed: Yes Family/Social History: No Known Family HX Smoking Status: Current Some Days Smoker Hx Alcohol Use: No Hx Substance Use: No Allergies/Home Meds Allergies/Adverse Reactions: Allergies No Known Allergies Allergy (Verified 11/17/18 17:39) PER PATIENT Home Medications: Home Meds Medication Instructions Recorded Confirmed Labetalol Hydrochloride [Normodyne] 300 mg PO BID 03/23/18 11/17/18 amLODIPine [Norvasc] 10 mg PO DAILY 05/08/18 11/17/18 Alprazolam [Xanax] 0.5 mg PO BID 07/11/18 11/17/18 Cinacalcet [Sensipar] 30 mg PO DAILY 10/03/18 11/17/18 Zolpidem [Ambien] 10 mg PO HS 10/03/18 11/17/18 Hydralazine HCl 100 mg PO BID PRN 10/05/18 11/17/18 Review of Systems - Physician Review All systems were reviewed & negative as marked: Yes - Review of Systems Constitutional: absent: Fevers Gastrointestinal: Abdominal Pain, Nausea, Vomiting Musculoskeletal: absent: Back Pain, Neck Pain Neurological: Headache Physical Exam Vital Signs Reviewed: Yes Vital Signs Temp Pulse Resp BP Pulse Ox 12/02/18 21:34 98.6 F 136 H 18 201/144 H 99 Temperature: Afebrile Blood Pressure: Hypertensive Pulse: Tachycardic Respiratory Rate: Normal Appearance: Positive for: Well-Appearing, Non-Toxic, Comfortable Pain Distress: None Mental Status: Positive for: Alert and Oriented X 3 - Systems Exam Head: Present: Atraumatic, Normocephalic Pupils: Present: PERRL Extroacular Muscles: Present: EOMI Conjunctiva: Present: Normal Mouth: Present: Moist Mucous Membranes Neck: Present: Normal Range of Motion Respiratory/Chest: Present: Clear to Auscultation, Good Air Exchange, Rales (Faint rales at bases). No: Respiratory Distress, Accessory Muscle Use, Wheezes, Rhonchi Cardiovascular: Present: Normal S1, S2, Tachycardic. No: Murmurs Abdomen: Present: Tenderness (Mildly tender epigastrium), Normal Bowel Sounds, Other (Catheter in right upper chest wall, clean and intact with some erythema surrounding it). No: Distention, Peritoneal Signs Back: Present: Normal Inspection Upper Extremity: Present: Normal Inspection. No: Cyanosis, Edema Lower Extremity: Present: Normal Inspection. No: Edema Neurological: Present: GCS=15, CN II-XII Intact, Speech Normal Skin: Present: Warm, Dry, Normal Color. No: Rashes Psychiatric: Present: Alert, Oriented x 3, Normal Insight, Normal Concentration Medical Decision Making ED Course and Treatment: 12/02/18 22:25 Impression: 38 year old female presents with nausea vomiting abdominal pain Plan: -- EKG -- Labs -- Chest X-ray -- Zofran -- Reassess and disposition Prior Visits: Notes and results from previous visits were reviewed. Progress Notes: 12/03/18 23:20 Patient is comfortable and is not vomiting after administration of Reglan 12/03/18 23:45 Chest X-ray reviewed by me, shows: No active disease 12/03/18 00:05 Patient was able to pass a bowel movement 12/03/18 00:[address] Ha who accepts patient for ICU admission - RAD Interpretation Radiology Orders: 12/02/18 21:55 CHEST PORTABLE [RAD] Stat - Medication Orders Current Medication Orders: Discontinued Medications Ondansetron HCl (Zofran Inj) 4 mg IVP STAT STA Stop: 12/02/18 21:56 Last Admin: 12/02/18 21:55 Dose: 4 mg IVP Administration Document 12/02/18 21:55 CNR (Rec: 12/02/18 22:09 CNR [id number]) Charges for Administration # of IVP Administrations 1 - Scribe Statement The provider has reviewed the documentation as recorded by the Trishaibe Yemi Yanez Provider Scribe Attestation: All medical record entries made by the Scribe were at my direction and personally dictated by me. I have reviewed the chart and agree that the record accurately reflects my personal performance of the history, physical exam, medical decision making, and the department course for this patient. I have also personally directed, reviewed, and agree with the discharge instructions and disposition. Disposition/Present on Arrival - Present on Arrival History of DVT/PE: No History of Uncontrolled Diabetes: No Urinary Catheter: No History of Decub. Ulcer: No History Surgical Site Infection Following: None - Disposition Referrals: Gordo Ragsdale MD [Primary Care Provider] - Follow up with primary Forms: [email or web address] (Welsh)
[2018-12-02 22:19] LABS: ALB/GLOB RATIO 1.6 (1.1-1.8); ALBUMIN 5.2 g/dL (3.0-4.8); CALCIUM 10.6 mg/dL (8.4-10.5)
[2018-12-02] MEDS ORDERED: Labetalol 5mg/ml (4ml) IV STA (22:32)
[2018-12-02 22:53] LABS: TROPONIN I 0.14 ng/mL
[2018-12-02 23:48] LABS: URINE BILIRUBIN NEGATIVE (NEGATIVE); URINE BLOOD NEGATIVE (NEGATIVE); URINE GLUCOSE (UA) NEGATIVE (NEGATIVE); URINE LEUKOCYTE ESTERASE NEGATIVE Leu/uL (NEGATIVE); URINE PROTEIN >=300 mg/dL (<30 mg/dL); URINE UROBILINOGEN 0.2 E.U./dL (<1 E.U./dL)
[2018-12-02 23:53] LABS: URINE APPEARANCE CLEAR (CLEAR); URINE COLOR YELLOW (YELLOW)
[2018-12-02] MEDS ORDERED: Aspirin 325 mg EC Tablets PO STA (23:58)
[2018-12-02 23:59] LABS: URINE BACTERIA OCC /hpf; URINE EPITHELIAL CELLS MANY /hpf (0-5); URINE RBC 0 - 2 /hpf (0-2); URINE WBC 0 - 2 /hpf (0-6)
[2018-12-03] MEDS ORDERED: Morphine 4 mg/ml ISec IVP STA (00:39)
[2018-12-03] MEDS ORDERED: Nitroglycerin 50mg in D5W 50 MG/250 ML BOTTLE IV PRN (00:42)
--- NOTE | 2018-12-03 01:33 | CP.PCM.HP ---
<Elliott Capone - Last Filed: 12/03/18 02:12> History of Present Illness - History of Present Illness History of Present Illness: 38 yo F with PMH of ESRD on HD MWF, diastolic CHF, HTN, constipation, depression, cholecystectomy, anxiety presents to [facility] [place] for a one day history of intractable nausea/vomiting and abdominal pain accompanied with chest pain. Patient states she started feeling nauseas and vomiting after her dialysis session yesterday. She states she has non bilious vomiting multiple times and with some blood on occasion with abdominal pain located throughout her abdomen. In addition she states she has chest tightness located in the middle of her chest, non radiating which is present at rest and is worse with palpation. Due to her nausea and vomiting she has not been able to take her blood pressure medications and blood pressure is elevated on admission. She denies any fever, chills, dysuria, sick contacts, headaches, dizziness, SOB, or any other complaints at this time. PMD: Willam PMH: as above Surg: Cholecystectomy All: NKDA SH: 3- 4 cigarettes a day, denies EtOH and illicit drug use FHx: Mother, at 49 from DM; Father, alive has COPD Medications: Sensipar 30 mg daily, Ambien 10 mg HS, Percocet 5/325 mg prn, Xanax 0.5 mg BID , Norvasc 10 mg daily, Hydralazine 100 mg BID, Clondine 0.3 mg BID, Labetalol 300 mg BID Present on Admission - Present on Admission Any Indicators Present on Admission: No Review of Systems - Constitutional Constitutional: absent: Chills, Fever, Headache - Cardiovascular Cardiovascular: Chest Pain, Chest Pain at Rest, Chest Pain with Activity. absent: Diaphoresis, Dyspnea, Dyspnea on Exertion, Irregular Heart Rhythm, Lightheadedness, Palpitations, Radiating Pain, Rapid Heart Rate, Slow Heart Rate, Syncope - Respiratory Respiratory: absent: Cough, Dyspnea, Dyspnea on Exertion, Wheezing - Gastrointestinal Gastrointestinal: Abdominal Pain, Nausea, Vomiting. absent: Constipation, Diarrhea, Melena - Genitourinary Genitourinary: absent: Change in Urinary Stream, Difficulty Urinating, Dysuria, Hematuria, Pyuria - Musculoskeletal Musculoskeletal: absent: Back Pain, Numbness, Tingling - Neurological Neurological: absent: Disequilibrium, Headaches, Weakness Past Patient History - Infectious Disease Hx of Infectious Diseases: None - Past Medical History & Family History Past Medical History?: Yes - Past Social History Smoking Status: Current Some Days Smoker - CARDIAC Hx Congestive Heart Failure: Yes Hx Hypertension: Yes Hx Peripheral Edema: Yes - PULMONARY Hx Pneumonia: Yes - NEUROLOGICAL Hx Neurological Disorder: No - HEENT Hx HEENT Problems: Yes Other/Comment: wears glasses - RENAL Hx Chronic Kidney Disease: Yes Hx Kidney Stones: Yes - ENDOCRINE/METABOLIC Hx Endocrine Disorders: No - HEMATOLOGICAL/ONCOLOGICAL Hx Anemia: Yes - INTEGUMENTARY Hx Dermatological Problems: Yes Other/Comment: SCARRING TO LEFT UPPER ARM DUE TO PLACEMENT OF SHUNT. NF.3X HAD SURGERY. - MUSCULOSKELETAL/RHEUMATOLOGICAL Hx Arthritis: Yes (L HIP) - GASTROINTESTINAL Hx Gall Bladder Disease: Yes (CHOLECYSTECTOMY) Hx Pancreatitis: Yes - GENITOURINARY/GYNECOLOGICAL Hx Genitourinary Disorders: Yes - PSYCHIATRIC Hx Anxiety: Yes Hx Depression: Yes Hx Substance Use: No - SURGICAL HISTORY Hx Cholecystectomy: Yes - ANESTHESIA Hx Anesthesia: Yes Hx Anesthesia Reactions: No Hx Malignant Hyperthermia: No Meds Allergies/Adverse Reactions: Allergies Allergy/AdvReac Type Severity Reaction Status Date / Time No Known Allergies Allergy Verified 11/17/18 17:39 Physical Exam - Constitutional Appears: In Acute Distress - Head Exam Head Exam: ATRAUMATIC, NORMAL INSPECTION, NORMOCEPHALIC - Eye Exam Eye Exam: EOMI, Normal appearance - ENT Exam ENT Exam: Mucous Membranes Moist - Respiratory Exam Respiratory Exam: Clear to Auscultation Bilateral, NORMAL BREATHING PATTERN - Cardiovascular Exam Cardiovascular Exam: REGULAR RHYTHM, +S1, +S2 - GI/Abdominal Exam GI & Abdominal Exam: Normal Bowel Sounds, Soft, Tenderness. absent: Guarding - Extremities Exam Extremities exam: Positive for: pedal pulses present. Negative for: pedal edema, tenderness - Neurological Exam Neurological exam: Alert, CN II-XII Intact, Oriented x3 - Psychiatric Exam Psychiatric exam: Anxious - Skin Skin Exam: Normal Color, Warm Results - Vital Signs Recent Vital Signs: Last Vital Signs Temp 98.6 F 12/02/18 21:34 Pulse 96 H 12/02/18 23:49 Resp 18 12/02/18 23:49 BP 242/143 H 12/03/18 01:00 Pulse Ox 94 L 12/02/18 23:49 - Labs Result Diagrams: 12/02/18 22:02 12/02/18 22:02 Labs: Laboratory Results - last 24 hr 12/02/18 12/02/18 12/02/18 22:02 22:02 22:02 WBC 16.7 H D RBC 4.44 Hgb 13.7 D Hct 40.5 MCV 91.2 D MCH 30.9 MCHC 33.8 RDW 13.1 Plt Count 441 MPV 9.6 Neut % (Auto) 89.4 H Lymph % (Auto) 6.8 L [place] % (Auto) 3.5 Eos % (Auto) 0.1 L Baso % (Auto) 0.2 Lymph # (Auto) 1.1 L [place] # (Auto) 0.6 Eos # (Auto) 0.0 Baso # (Auto) 0.03 Absolute Neuts (auto) 14.91 H PT 12.1 INR 1.09 APTT 33.9 Sodium 139 Potassium 3.1 L Chloride 98 Carbon Dioxide 24 Anion Gap 20 BUN 23 H Creatinine 3.2 H Est GFR ( Amer) 20 Est GFR (Non-Af Amer) 16 Random Glucose 182 H Calcium 10.6 H Phosphorus 3.6 Magnesium 1.9 Total Bilirubin 0.5 AST 25 ALT 10 Alkaline Phosphatase 130 H D Lactate Dehydrogenase 437 Total Creatine Kinase 64 Troponin I 0.14 H* D NT-Pro-B Natriuret Pep 27151 H Total Protein 8.4 H Albumin 5.2 H Globulin 3.2 Albumin/Globulin Ratio 1.6 Lipase 116 Beta HCG, Quant Urine Color Urine Appearance Urine pH Ur Specific [place] Urine Protein Urine Glucose (UA) Urine Ketones Urine Blood Urine Nitrate Urine Bilirubin Urine Urobilinogen Ur Leukocyte Esterase Urine RBC Urine WBC Ur Epithelial Cells Urine Bacteria 12/02/18 12/02/18 22:02 23:15 WBC RBC Hgb Hct MCV MCH MCHC RDW Plt Count MPV Neut % (Auto) Lymph % (Auto) [place] % (Auto) Eos % (Auto) Baso % (Auto) Lymph # (Auto) [place] # (Auto) Eos # (Auto) Baso # (Auto) Absolute Neuts (auto) PT INR APTT Sodium Potassium Chloride Carbon Dioxide Anion Gap BUN Creatinine Est GFR ( Amer) Est GFR (Non-Af Amer) Random Glucose Calcium Phosphorus Magnesium Total Bilirubin AST ALT Alkaline Phosphatase Lactate Dehydrogenase Total Creatine Kinase Troponin I NT-Pro-B Natriuret Pep Total Protein Albumin Globulin Albumin/Globulin Ratio Lipase Beta HCG, Quant < 2.39 Urine Color Yellow Urine Appearance Clear Urine pH 8.0 Ur Specific [place] 1.020 Urine Protein >=300 H Urine Glucose (UA) Negative Urine Ketones Negative Urine Blood Negative Urine Nitrate Negative Urine Bilirubin Negative Urine Urobilinogen 0.2 Ur Leukocyte Esterase Negative Urine RBC 0 - 2 Urine WBC 0 - 2 Ur Epithelial Cells Many H Urine Bacteria Occ Assessment & Plan - Assessment and Plan (Free Text) Assessment: 38 yo F with PMH of ESRD on HD MWF, diastolic CHF, HTN, constipation, depression, cholecystectomy, anxiety presents to [facility] [place] for a one day history of intractable nausea/vomiting and abdominal pain accompanied with chest pain. Patient admitted for Hypertensive Urgency and started on Nitro drip. Plan: 1. Hypertensive Urgency v. Emergency - BP on admission of 201/144 - hydralazine given in ED - started on nitroglycerin drip, will be monitored in ICU - clonidine patch .1mg/24 hour - resume home BP meds in AM if able to tolerate PO - continue to monitor, do not lower BP more than 25% initially 2. Chest Pain with positive troponin - EKG Normal Sinus Rhythm - chest xray pending official read - Trop .14, likely elevated due to ESRD, but will rule out ACS, less likely from HTN Urgency - Aspirin 300 rectal given - Cardiology consulted, Darvin, follow recs - trend trop x2 - repeat EKG in AM - mag, phos in AM 3. Intractable Nausea and Vomiting - Reglan 10mg IV Q6H - NPO - Blood/urine cultures pending - continue to monitor - morphine 2mg Q6 PRN 4. ESRD on HD - HD MWF - Continue Sensipar - last HD session was yesterday - Nephrology consulted, Dr. Gamino, follow recs 5. Leukocytosis - likely reactive - WBC count 16.7 - afebrile - blood cultures, urine cultures pending - holding off on antibiotics for now - procal pending - continue to monitor GI Prophylaxis: Protonix 40 IV NPO DVT Prophylaxis: Heparin <Nadja Ha - Last Filed: 12/03/18 19:11> Results - Vital Signs Recent Vital Signs: Last Vital Signs Temp 97.7 F 12/03/18 03:05 Pulse 85 12/03/18 18:00 Resp 42 H 12/03/18 17:40 BP 124/81 12/03/18 17:33 Pulse Ox 99 12/03/18 17:40 - Labs Result Diagrams: 12/03/18 05:30 12/03/18 05:30 Labs: Laboratory Results - last 24 hr 12/02/18 12/02/18 12/02/18 22:02 22:02 22:02 WBC 16.7 H D RBC 4.44 Hgb 13.7 D Hct 40.5 MCV 91.2 D MCH 30.9 MCHC 33.8 RDW 13.1 Plt Count 441 MPV 9.6 Neut % (Auto) 89.4 H Lymph % (Auto) 6.8 L [place] % (Auto) 3.5 Eos % (Auto) 0.1 L Baso % (Auto) 0.2 Lymph # (Auto) 1.1 L [place] # (Auto) 0.6 Eos # (Auto) 0.0 Baso # (Auto) 0.03 Absolute Neuts (auto) 14.91 H Neutrophils % (Manual) Lymphocytes % (Manual) Monocytes % (Manual) Platelet Evaluation PT 12.1 INR 1.09 APTT 33.9 Sodium 139 Potassium 3.1 L Chloride 98 Carbon Dioxide 24 Anion Gap 20 BUN 23 H Creatinine 3.2 H Est GFR ( Amer) 20 Est GFR (Non-Af Amer) 16 POC Glucose (mg/dL) Random Glucose 182 H Calcium 10.6 H Phosphorus 3.6 Magnesium 1.9 Total Bilirubin 0.5 AST 25 ALT 10 Alkaline Phosphatase 130 H D Lactate Dehydrogenase 437 Total Creatine Kinase 64 Troponin I 0.14 H* D NT-Pro-B Natriuret Pep 02867 H Total Protein 8.4 H Albumin 5.2 H Globulin 3.2 Albumin/Globulin Ratio 1.6 Lipase 116 Procalcitonin Beta HCG, Quant Cortisol AM Sample Urine Color Urine Appearance Urine pH Ur Specific [place] Urine Protein Urine Glucose (UA) Urine Ketones Urine Blood Urine Nitrate Urine Bilirubin Urine Urobilinogen Ur Leukocyte Esterase Urine RBC Urine WBC Ur Epithelial Cells Urine Bacteria Urine Opiates Screen Urine Methadone Screen Ur Barbiturates Screen Ur Phencyclidine Scrn Ur Amphetamines Screen U Benzodiazepines Scrn U Oth Cocaine Metabols U Cannabinoids Screen 12/02/18 12/02/18 12/03/18 22:02 23:15 01:00 WBC RBC Hgb Hct MCV MCH MCHC RDW Plt Count MPV Neut % (Auto) Lymph % (Auto) [place] % (Auto) Eos % (Auto) Baso % (Auto) Lymph # (Auto) [place] # (Auto) Eos # (Auto) Baso # (Auto) Absolute Neuts (auto) Neutrophils % (Manual) Lymphocytes % (Manual) Monocytes % (Manual) Platelet Evaluation PT INR APTT Sodium Potassium Chloride Carbon Dioxide Anion Gap BUN Creatinine Est GFR ( Amer) Est GFR (Non-Af Amer) POC Glucose (mg/dL) Random Glucose Calcium Phosphorus Magnesium Total Bilirubin AST ALT Alkaline Phosphatase Lactate Dehydrogenase Total Creatine Kinase Troponin I NT-Pro-B Natriuret Pep Total Protein Albumin Globulin Albumin/Globulin Ratio Lipase Procalcitonin Beta HCG, Quant < 2.39 Cortisol AM Sample Urine Color Yellow Urine Appearance Clear Urine pH 8.0 Ur Specific [place] 1.020 Urine Protein >=300 H Urine Glucose (UA) Negative Urine Ketones Negative Urine Blood Negative Urine Nitrate Negative Urine Bilirubin Negative Urine Urobilinogen 0.2 Ur Leukocyte Esterase Negative Urine RBC 0 - 2 Urine WBC 0 - 2 Ur Epithelial Cells Many H Urine Bacteria Occ Urine Opiates Screen Positive H Urine Methadone Screen Negative Ur Barbiturates Screen Negative Ur Phencyclidine Scrn Negative Ur Amphetamines Screen Negative U Benzodiazepines Scrn Positive H U Oth Cocaine Metabols Negative U Cannabinoids Screen Negative 12/03/18 12/03/18 12/03/18 02:35 02:35 05:30 WBC RBC Hgb Hct MCV MCH MCHC RDW Plt Count MPV Neut % (Auto) Lymph % (Auto) [place] % (Auto) Eos % (Auto) Baso % (Auto) Lymph # (Auto) [place] # (Auto) Eos # (Auto) Baso # (Auto) Absolute Neuts (auto) Neutrophils % (Manual) Lymphocytes % (Manual) Monocytes % (Manual) Platelet Evaluation PT INR APTT Sodium 138 Potassium 3.4 L Chloride 98 Carbon Dioxide 26 Anion Gap 18 BUN 27 H Creatinine 3.1 H Est GFR ( Amer) 20 Est GFR (Non-Af Amer) 17 POC Glucose (mg/dL) Random Glucose 158 H Calcium 10.2 Phosphorus 3.3 Magnesium 2.3 H Total Bilirubin 0.5 AST 27 ALT 10 Alkaline Phosphatase 113 Lactate Dehydrogenase Total Creatine Kinase Troponin I 0.14 H* 0.11 D NT-Pro-B Natriuret Pep 45582 H Total Protein 8.3 Albumin 5.0 H Globulin 3.3 Albumin/Globulin Ratio 1.5 Lipase Procalcitonin 0.28 Beta HCG, Quant Cortisol AM Sample Urine Color Urine Appearance Urine pH Ur Specific [place] Urine Protein Urine Glucose (UA) Urine Ketones Urine Blood Urine Nitrate Urine Bilirubin Urine Urobilinogen Ur Leukocyte Esterase Urine RBC Urine WBC Ur Epithelial Cells Urine Bacteria Urine Opiates Screen Urine Methadone Screen Ur Barbiturates Screen Ur Phencyclidine Scrn Ur Amphetamines Screen U Benzodiazepines Scrn U Oth Cocaine Metabols U Cannabinoids Screen 12/03/18 12/03/18 12/03/18 05:30 05:30 07:43 WBC 18.4 H RBC 4.18 Hgb 12.6 Hct 38.5 MCV 92.1 MCH 30.1 MCHC 32.7 RDW 13.3 Plt Count 451 H MPV 9.5 Neut % (Auto) 94.4 H Lymph % (Auto) 3.4 L [place] % (Auto) 2.1 Eos % (Auto) 0.0 L Baso % (Auto) 0.1 Lymph # (Auto) 0.6 L [place] # (Auto) 0.4 Eos # (Auto) 0.0 Baso # (Auto) 0.02 Absolute Neuts (auto) 17.40 H Neutrophils % (Manual) 95 H Lymphocytes % (Manual) 4 L Monocytes % (Manual) 1 Platelet Evaluation High PT INR APTT Sodium Potassium Chloride Carbon Dioxide Anion Gap BUN Creatinine Est GFR ( Amer) Est GFR (Non-Af Amer) POC Glucose (mg/dL) 125 H Random Glucose Calcium Phosphorus Magnesium Total Bilirubin AST ALT Alkaline Phosphatase Lactate Dehydrogenase Total Creatine Kinase Troponin I NT-Pro-B Natriuret Pep Total Protein Albumin Globulin Albumin/Globulin Ratio Lipase Procalcitonin Beta HCG, Quant Cortisol AM Sample 108.0 H Urine Color Urine Appearance Urine pH Ur Specific [place] Urine Protein Urine Glucose (UA) Urine Ketones Urine Blood Urine Nitrate Urine Bilirubin Urine Urobilinogen Ur Leukocyte Esterase Urine RBC Urine WBC Ur Epithelial Cells Urine Bacteria Urine Opiates Screen Urine Methadone Screen Ur Barbiturates Screen Ur Phencyclidine Scrn Ur Amphetamines Screen U Benzodiazepines Scrn U Oth Cocaine Metabols U Cannabinoids Screen 12/03/18 12/03/18 11:38 16:58 WBC RBC Hgb Hct MCV MCH MCHC RDW Plt Count MPV Neut % (Auto) Lymph % (Auto) [place] % (Auto) Eos % (Auto) Baso % (Auto) Lymph # (Auto) [place] # (Auto) Eos # (Auto) Baso # (Auto) Absolute Neuts (auto) Neutrophils % (Manual) Lymphocytes % (Manual) Monocytes % (Manual) Platelet Evaluation PT INR APTT Sodium Potassium Chloride Carbon Dioxide Anion Gap BUN Creatinine Est GFR ( Amer) Est GFR (Non-Af Amer) POC Glucose (mg/dL) 139 H 81 Random Glucose Calcium Phosphorus Magnesium Total Bilirubin AST ALT Alkaline Phosphatase Lactate Dehydrogenase Total Creatine Kinase Troponin I NT-Pro-B Natriuret Pep Total Protein Albumin Globulin Albumin/Globulin Ratio Lipase Procalcitonin Beta HCG, Quant Cortisol AM Sample Urine Color Urine Appearance Urine pH Ur Specific [place] Urine Protein Urine Glucose (UA) Urine Ketones Urine Blood Urine Nitrate Urine Bilirubin Urine Urobilinogen Ur Leukocyte Esterase Urine RBC Urine WBC Ur Epithelial Cells Urine Bacteria Urine Opiates Screen Urine Methadone Screen Ur Barbiturates Screen Ur Phencyclidine Scrn Ur Amphetamines Screen U Benzodiazepines Scrn U Oth Cocaine Metabols U Cannabinoids Screen Attending/Attestation - Attestation I have personally seen and examined this patient.: Yes I have fully participated in the care of the patient.: Yes I have reviewed all pertinent clinical information: Yes Notes (Text): 12/03/18 19:10 seen and examined with resident. A&P formulated with resident. HTN emergency with demand ischemia Gastroparesis plan as above
[2018-12-03] MEDS: Morphine 2 mg/ml ISec IVP PRN ×3 (01:57→09:10)
[2018-12-03] MEDS ORDERED: Labetalol 5mg/ml (4ml) IV PRN (06:27)
[2018-12-03 06:49] LABS: BASO # 0.02 K/mm3 (0.0-2.0); BASO % 0.1 % (0.0-3.0); HEMOGLOBIN 12.6 g/dL (12.0-16.0); LYMPH # 0.6 (1.2-3.4); LYMPH % 3.4 % (22.0-35.0); MEAN CELL VOLUME 92.1 fl (80.0-105.0); MEAN CORPUSCULAR HEMOGLOBIN 30.1 pg (25.0-35.0); MEAN CORPUSCULAR HGB CONC 32.7 g/dl (31.0-37.0); MEAN PLATELET VOLUME 9.5 fl (7.0-11.0); MONO # 0.4 (0.1-0.6); MONO % 2.1 % (1.0-6.0); PLATELET COUNT 451 10^3/uL (120.0-450.0); RBC 4.18 10^6/uL (3.5-6.1); RED CELL DISTRIBUTION WIDTH 13.3 % (11.5-14.5); WHITE BLOOD COUNT 18.4 10^3/uL (4.5-11.0)
[2018-12-03 07:18] LABS: ALB/GLOB RATIO 1.5 (1.1-1.8); CALCIUM 10.2 mg/dL (8.4-10.5)
[2018-12-03 07:19] LABS: BARBITURATES, UR NEGATIVE (NEGATIVE); BENZODIAZEPINES, UR POSITIVE (NEGATIVE); OPIATES, UR POSITIVE (NEGATIVE); PHENCYCLIDINE, UR NEGATIVE (NEGATIVE)
[2018-12-03 07:23] LABS: TROPONIN I 0.11 ng/mL
[2018-12-03 08:09] LABS: LYMPHOCYTE 4 % (22.0-35.0); MONOCYTE 1 % (1.0-6.0); NEUTROPHIL 95 % (50.0-70.0)
[2018-12-03 08:10] LABS: PLATELET ESTIMATE HIGH (NORMAL)
--- NOTE | 2018-12-03 08:58 | CP.CCUPN ---
<PaulFelecia - Last Filed: 12/03/18 10:58> CCU Subjective - Physician Review Subjective (Free Text): 12/03/18 09:02 Felecia Miller, PGY-1 ICU Progress Note Pt was seen and examined this AM at bedside with ICU team. Pt states that she is continuing to have R sided abd pain and non-radiating diffuse chest pain that is tender to palpation. She states that she does experience this after her dialysis sessions, though is usually not as bad. Pt is scheduled for dialysis today. CCU Objective - Vital Signs / Intake & Output Intake and Output (Last 8hrs): Intake & Output 12/02/18 12/03/18 12/03/18 22:59 06:59 14:59 Intake Total 50 Balance 50 Weight 150 lb 150 lb Intake: IV 50 - Physical Exam Head: Positive for: Atraumatic, Normocephalic Pupils: Positive for: PERRL Extroacular Muscles: Positive for: EOMI Conjunctiva: Positive for: Normal Mouth: Positive for: Moist Mucous Membranes Neck: Positive for: Normal Range of Motion Respiratory/Chest: Positive for: Clear to Auscultation, Good Air Exchange, Rales (Faint rales at bases), Tender to Palpation (diffusely tender). Negative for: Respiratory Distress, Accessory Muscle Use, Wheezes, Rhonchi Cardiovascular: Positive for: Normal S1, S2, Tachycardic. Negative for: Murmurs Abdomen: Positive for: Tenderness (Mildly tender epigastrium), Normal Bowel Sounds, Other (Catheter in right upper chest wall). Negative for: Distention, Peritoneal Signs Back: Positive for: Normal Inspection Upper Extremity: Positive for: Normal Inspection. Negative for: Cyanosis, Edema Lower Extremity: Positive for: Normal Inspection. Negative for: Edema Neurological: Positive for: GCS=15, CN II-XII Intact, Speech Normal Skin: Positive for: Warm, Dry, Normal Color. Negative for: Rashes Psychiatric: Positive for: Alert, Oriented x 3, Normal Insight, Normal Conc entration - Medications Active Medications: Active Medications Generic Name Dose Route Start Last Admin Trade Name Freq PRN Reason Stop Dose Admin Alprazolam 0.5 mg 12/03/18 10:00 Xanax PO BID [facility] Protocol Amlodipine Besylate 10 mg 12/03/18 10:00 Norvasc PO DAILY [facility] Cinacalcet 30 mg 12/03/18 10:00 Sensipar PO DAILY [facility] Clonidine HCl 0.3 mg 12/03/18 10:00 Catapres PO BID [facility] Heparin Sodium (Porcine) 5,000 units 12/03/18 10:00 Heparin SC Q12 [facility] Protocol Hydralazine HCl 100 mg 12/03/18 10:00 Apresoline PO BID PRN SBP >160 Nitroglycerin/Dextrose 50 mg in 250 mls @ 1.5 mls/hr 12/03/18 00:42 12/03/18 06:48 Nitroglycerin 50 Mg/250 Ml D5w IV 55 mcg/min .Q24H PRN 16.5 mls/hr hypertension Titration Protocol 5 MCG/MIN Labetalol HCl 300 mg 12/03/18 10:00 Trandate PO BID [facility] Labetalol HCl 10 mg 12/03/18 06:27 12/03/18 07:32 Trandate IV 10 mg Q2H PRN Administration hypotension Metoclopramide HCl 5 mg 12/03/18 01:53 12/03/18 02:11 Reglan IVP 5 mg Q6H [facility] Administration Morphine Sulfate 2 mg 12/03/18 01:27 12/03/18 05:33 Morphine IVP 2 mg Q4H PRN Administration Pain, severe (8-10) Pantoprazole Sodium 40 mg 12/03/18 01:30 12/03/18 01:57 Protonix Inj IVP 40 mg DAILY [facility] Administration Zolpidem Tartrate 5 mg 12/03/18 22:00 Ambien PO HS [facility] Protocol - Patient Studies Lab Studies: Lab Studies 12/03/18 12/03/18 12/03/18 Range/Units 05:30 05:30 02:35 WBC 18.4 H (4.5-11.0) 10^3/uL RBC 4.18 (3.5-6.1) 10^6/uL Hgb 12.6 (12.0-16.0) g/dL Hct 38.5 (36.0-48.0) % MCV 92.1 (80.0-105.0) fl MCH 30.1 (25.0-35.0) pg MCHC 32.7 (31.0-37.0) g/dl RDW 13.3 (11.5-14.5) % Plt Count 451 H (120.0-450.0) 10^3/uL MPV 9.5 (7.0-11.0) fl Neut % (Auto) 94.4 H (50.0-68.0) % Lymph % (Auto) 3.4 L (22.0-35.0) % Cook % (Auto) 2.1 (1.0-6.0) % Eos % (Auto) 0.0 L (1.5-5.0) % Baso % (Auto) 0.1 (0.0-3.0) % Lymph # (Auto) 0.6 L (1.2-3.4) Cook # (Auto) 0.4 (0.1-0.6) Eos # (Auto) 0.0 (0.0-0.7) Baso # (Auto) 0.02 (0.0-2.0) K/mm3 Absolute Neuts (auto) 17.40 H (1.4-6.5) Neutrophils % (Manual) 95 H (50.0-70.0) % Lymphocytes % (Manual) 4 L (22.0-35.0) % Monocytes % (Manual) 1 (1.0-6.0) % Platelet Evaluation High (NORMAL) PT (9.4-12.5) SECONDS INR APTT (26.9-38.3) Seconds Sodium 138 (132-148) mmol/L Potassium 3.4 L (3.6-5.0) mmol/L Chloride 98 (98-107) mmol/L Carbon Dioxide 26 (21-33) mmol/L Anion Gap 18 (10-20) BUN 27 H (7-21) mg/dL Creatinine 3.1 H (0.7-1.2) mg/dl Est GFR ( Amer) 20 Est GFR (Non-Af Amer) 17 Random Glucose 158 H (70-110) mg/dL Calcium 10.2 (8.4-10.5) mg/dL Phosphorus 3.3 (2.5-4.5) mg/dL Magnesium 2.3 H (1.7-2.2) mg/dL Total Bilirubin 0.5 (0.2-1.3) mg/dL AST 27 (14-36) U/L ALT 10 (7-56) U/L Alkaline Phosphatase 113 (38-126) U/L Lactate Dehydrogenase (333-699) U/L Total Creatine Kinase (35-230) U/L Troponin I 0.11 D 0.14 H* ng/mL NT-Pro-B Natriuret Pep 45195 H (0-450) pg/mL Total Protein 8.3 (5.8-8.3) g/dL Albumin 5.0 H (3.0-4.8) g/dL Globulin 3.3 gm/dL Albumin/Globulin Ratio 1.5 (1.1-1.8) Lipase (23-300) U/L Beta HCG, Quant (0-6.15) mIU/mL Urine Color (YELLOW) Urine Appearance (CLEAR) Urine pH (4.7-8.0) Ur Specific [place] (1.005-1.035) Urine Protein (<30 mg/dL) mg/dL Urine Glucose (UA) (NEGATIVE) mg/dL Urine Ketones (NEGATIVE) mg/dL Urine Blood (NEGATIVE) Urine Nitrate (NEGATIVE) Urine Bilirubin (NEGATIVE) Urine Urobilinogen (<1 E.U./dL) E.U./dL Ur Leukocyte Esterase (NEGATIVE) Davy/uL Urine RBC (0-2) /hpf Urine WBC (0-6) /hpf Ur Epithelial Cells (0-5) /hpf Urine Bacteria (NONE) /hpf Urine Opiates Screen (NEGATIVE) Urine Methadone Screen (NEGATIVE) Ur Barbiturates Screen (NEGATIVE) Ur Phencyclidine Scrn (NEGATIVE) Ur Amphetamines Screen (NEGATIVE) U Benzodiazepines Scrn (NEGATIVE) U Oth Cocaine Metabols (NEGATIVE) U Cannabinoids Screen (NEGATIVE) 12/03/18 12/02/18 12/02/18 Range/Units 01:00 23:15 22:02 WBC (4.5-11.0) 10^3/uL RBC (3.5-6.1) 10^6/uL Hgb (12.0-16.0) g/dL Hct (36.0-48.0) % MCV (80.0-105.0) fl MCH (25.0-35.0) pg MCHC (31.0-37.0) g/dl RDW (11.5-14.5) % Plt Count (120.0-450.0) 10^3/uL MPV (7.0-11.0) fl Neut % (Auto) (50.0-68.0) % Lymph % (Auto) (22.0-35.0) % Cook % (Auto) (1.0-6.0) % Eos % (Auto) (1.5-5.0) % Baso % (Auto) (0.0-3.0) % Lymph # (Auto) (1.2-3.4) Cook # (Auto) (0.1-0.6) Eos # (Auto) (0.0-0.7) Baso # (Auto) (0.0-2.0) K/mm3 Absolute Neuts (auto) (1.4-6.5) Neutrophils % (Manual) (50.0-70.0) % Lymphocytes % (Manual) (22.0-35.0) % Monocytes % (Manual) (1.0-6.0) % Platelet Evaluation (NORMAL) PT (9.4-12.5) SECONDS INR APTT (26.9-38.3) Seconds Sodium (132-148) mmol/L Potassium (3.6-5.0) mmol/L Chloride (98-107) mmol/L Carbon Dioxide (21-33) mmol/L Anion Gap (10-20) BUN (7-21) mg/dL Creatinine (0.7-1.2) mg/dl Est GFR ( Amer) Est GFR (Non-Af Amer) Random Glucose (70-110) mg/dL Calcium (8.4-10.5) mg/dL Phosphorus (2.5-4.5) mg/dL Magnesium (1.7-2.2) mg/dL Total Bilirubin (0.2-1.3) mg/dL AST (14-36) U/L ALT (7-56) U/L Alkaline Phosphatase (38-126) U/L Lactate Dehydrogenase (333-699) U/L Total Creatine Kinase (35-230) U/L Troponin I ng/mL NT-Pro-B Natriuret Pep (0-450) pg/mL Total Protein (5.8-8.3) g/dL Albumin (3.0-4.8) g/dL Globulin gm/dL Albumin/Globulin Ratio (1.1-1.8) Lipase (23-300) U/L Beta HCG, Quant < 2.39 (0-6.15) mIU/mL Urine Color Yellow (YELLOW) Urine Appearance Clear (CLEAR) Urine pH 8.0 (4.7-8.0) Ur Specific [place] 1.020 (1.005-1.035) Urine Protein >=300 H (<30 mg/dL) mg/dL Urine Glucose (UA) Negative (NEGATIVE) mg/dL Urine Ketones Negative (NEGATIVE) mg/dL Urine Blood Negative (NEGATIVE) Urine Nitrate Negative (NEGATIVE) Urine Bilirubin Negative (NEGATIVE) Urine Urobilinogen 0.2 (<1 E.U./dL) E.U./dL Ur Leukocyte Esterase Negative (NEGATIVE) Davy/uL Urine RBC 0 - 2 (0-2) /hpf Urine WBC 0 - 2 (0-6) /hpf Ur Epithelial Cells Many H (0-5) /hpf Urine Bacteria Occ (NONE) /hpf Urine Opiates Screen Positive H (NEGATIVE) Urine Methadone Screen Negative (NEGATIVE) Ur Barbiturates Screen Negative (NEGATIVE) Ur Phencyclidine Scrn Negative (NEGATIVE) Ur Amphetamines Screen Negative (NEGATIVE) U Benzodiazepines Scrn Positive H (NEGATIVE) U Oth Cocaine Metabols Negative (NEGATIVE) U Cannabinoids Screen Negative (NEGATIVE) 12/02/18 12/02/18 12/02/18 Range/Units 22:02 22:02 22:02 WBC 16.7 H D (4.5-11.0) 10^3/uL RBC 4.44 (3.5-6.1) 10^6/uL Hgb 13.7 D (12.0-16.0) g/dL Hct 40.5 (36.0-48.0) % MCV 91.2 D (80.0-105.0) fl MCH 30.9 (25.0-35.0) pg MCHC 33.8 (31.0-37.0) g/dl RDW 13.1 (11.5-14.5) % Plt Count 441 (120.0-450.0) 10^3/uL MPV 9.6 (7.0-11.0) fl Neut % (Auto) 89.4 H (50.0-68.0) % Lymph % (Auto) 6.8 L (22.0-35.0) % Cook % (Auto) 3.5 (1.0-6.0) % Eos % (Auto) 0.1 L (1.5-5.0) % Baso % (Auto) 0.2 (0.0-3.0) % Lymph # (Auto) 1.1 L (1.2-3.4) Cook # (Auto) 0.6 (0.1-0.6) Eos # (Auto) 0.0 (0.0-0.7) Baso # (Auto) 0.03 (0.0-2.0) K/mm3 Absolute Neuts (auto) 14.91 H (1.4-6.5) Neutrophils % (Manual) (50.0-70.0) % Lymphocytes % (Manual) (22.0-35.0) % Monocytes % (Manual) (1.0-6.0) % Platelet Evaluation (NORMAL) PT 12.1 (9.4-12.5) SECONDS INR 1.09 APTT 33.9 (26.9-38.3) Seconds Sodium 139 (132-148) mmol/L Potassium 3.1 L (3.6-5.0) mmol/L Chloride 98 (98-107) mmol/L Carbon Dioxide 24 (21-33) mmol/L Anion Gap 20 (10-20) BUN 23 H (7-21) mg/dL Creatinine 3.2 H (0.7-1.2) mg/dl Est GFR ( Amer) 20 Est GFR (Non-Af Amer) 16 Random Glucose 182 H (70-110) mg/dL Calcium 10.6 H (8.4-10.5) mg/dL Phosphorus 3.6 (2.5-4.5) mg/dL Magnesium 1.9 (1.7-2.2) mg/dL Total Bilirubin 0.5 (0.2-1.3) mg/dL AST 25 (14-36) U/L ALT 10 (7-56) U/L Alkaline Phosphatase 130 H D (38-126) U/L Lactate Dehydrogenase 437 (333-699) U/L Total Creatine Kinase 64 (35-230) U/L Troponin I 0.14 H* D ng/mL NT-Pro-B Natriuret Pep 94205 H (0-450) pg/mL Total Protein 8.4 H (5.8-8.3) g/dL Albumin 5.2 H (3.0-4.8) g/dL Globulin 3.2 gm/dL Albumin/Globulin Ratio 1.6 (1.1-1.8) Lipase 116 (23-300) U/L Beta HCG, Quant (0-6.15) mIU/mL Urine Color (YELLOW) Urine Appearance (CLEAR) Urine pH (4.7-8.0) Ur Specific [place] (1.005-1.035) Urine Protein (<30 mg/dL) mg/dL Urine Glucose (UA) (NEGATIVE) mg/dL Urine Ketones (NEGATIVE) mg/dL Urine Blood (NEGATIVE) Urine Nitrate (NEGATIVE) Urine Bilirubin (NEGATIVE) Urine Urobilinogen (<1 E.U./dL) E.U./dL Ur Leukocyte Esterase (NEGATIVE) Davy/uL Urine RBC (0-2) /hpf Urine WBC (0-6) /hpf Ur Epithelial Cells (0-5) /hpf Urine Bacteria (NONE) /hpf Urine Opiates Screen (NEGATIVE) Urine Methadone Screen (NEGATIVE) Ur Barbiturates Screen (NEGATIVE) Ur Phencyclidine Scrn (NEGATIVE) Ur Amphetamines Screen (NEGATIVE) U Benzodiazepines Scrn (NEGATIVE) U Oth Cocaine Metabols (NEGATIVE) U Cannabinoids Screen (NEGATIVE) Laboratory Results - last 24 hr 12/02/18 12/02/18 12/02/18 22:02 22:02 22:02 WBC 16.7 H D RBC 4.44 Hgb 13.7 D Hct 40.5 MCV 91.2 D MCH 30.9 MCHC 33.8 RDW 13.1 Plt Count 441 MPV 9.6 Neut % (Auto) 89.4 H Lymph % (Auto) 6.8 L Cook % (Auto) 3.5 Eos % (Auto) 0.1 L Baso % (Auto) 0.2 Lymph # (Auto) 1.1 L Cook # (Auto) 0.6 Eos # (Auto) 0.0 Baso # (Auto) 0.03 Absolute Neuts (auto) 14.91 H Neutrophils % (Manual) Lymphocytes % (Manual) Monocytes % (Manual) Platelet Evaluation PT 12.1 INR 1.09 APTT 33.9 Sodium 139 Potassium 3.1 L Chloride 98 Carbon Dioxide 24 Anion Gap 20 BUN 23 H Creatinine 3.2 H Est GFR ( Amer) 20 Est GFR (Non-Af Amer) 16 Random Glucose 182 H Calcium 10.6 H Phosphorus 3.6 Magnesium 1.9 Total Bilirubin 0.5 AST 25 ALT 10 Alkaline Phosphatase 130 H D Lactate Dehydrogenase 437 Total Creatine Kinase 64 Troponin I 0.14 H* D NT-Pro-B Natriuret Pep 62669 H Total Protein 8.4 H Albumin 5.2 H Globulin 3.2 Albumin/Globulin Ratio 1.6 Lipase 116 Beta HCG, Quant Urine Color Urine Appearance Urine pH Ur Specific [place] Urine Protein Urine Glucose (UA) Urine Ketones Urine Blood Urine Nitrate Urine Bilirubin Urine Urobilinogen Ur Leukocyte Esterase Urine RBC Urine WBC Ur Epithelial Cells Urine Bacteria Urine Opiates Screen Urine Methadone Screen Ur Barbiturates Screen Ur Phencyclidine Scrn Ur Amphetamines Screen U Benzodiazepines Scrn U Oth Cocaine Metabols U Cannabinoids Screen 12/02/18 12/02/18 12/03/18 22:02 23:15 01:00 WBC RBC Hgb Hct MCV MCH MCHC RDW Plt Count MPV Neut % (Auto) Lymph % (Auto) Cook % (Auto) Eos % (Auto) Baso % (Auto) Lymph # (Auto) Cook # (Auto) Eos # (Auto) Baso # (Auto) Absolute Neuts (auto) Neutrophils % (Manual) Lymphocytes % (Manual) Monocytes % (Manual) Platelet Evaluation PT INR APTT Sodium Potassium Chloride Carbon Dioxide Anion Gap BUN Creatinine Est GFR ( Amer) Est GFR (Non-Af Amer) Random Glucose Calcium Phosphorus Magnesium Total Bilirubin AST ALT Alkaline Phosphatase Lactate Dehydrogenase Total Creatine Kinase Troponin I NT-Pro-B Natriuret Pep Total Protein Albumin Globulin Albumin/Globulin Ratio Lipase Beta HCG, Quant < 2.39 Urine Color Yellow Urine Appearance Clear Urine pH 8.0 Ur Specific [place] 1.020 Urine Protein >=300 H Urine Glucose (UA) Negative Urine Ketones Negative Urine Blood Negative Urine Nitrate Negative Urine Bilirubin Negative Urine Urobilinogen 0.2 Ur Leukocyte Esterase Negative Urine RBC 0 - 2 Urine WBC 0 - 2 Ur Epithelial Cells Many H Urine Bacteria Occ Urine Opiates Screen Positive H Urine Methadone Screen Negative Ur Barbiturates Screen Negative Ur Phencyclidine Scrn Negative Ur Amphetamines Screen Negative U Benzodiazepines Scrn Positive H U Oth Cocaine Metabols Negative U Cannabinoids Screen Negative 12/03/18 12/03/18 12/03/18 02:35 05:30 05:30 WBC 18.4 H RBC 4.18 Hgb 12.6 Hct 38.5 MCV 92.1 MCH 30.1 MCHC 32.7 RDW 13.3 Plt Count 451 H MPV 9.5 Neut % (Auto) 94.4 H Lymph % (Auto) 3.4 L Cook % (Auto) 2.1 Eos % (Auto) 0.0 L Baso % (Auto) 0.1 Lymph # (Auto) 0.6 L Cook # (Auto) 0.4 Eos # (Auto) 0.0 Baso # (Auto) 0.02 Absolute Neuts (auto) 17.40 H Neutrophils % (Manual) 95 H Lymphocytes % (Manual) 4 L Monocytes % (Manual) 1 Platelet Evaluation High PT INR APTT Sodium 138 Potassium 3.4 L Chloride 98 Carbon Dioxide 26 Anion Gap 18 BUN 27 H Creatinine 3.1 H Est GFR ( Amer) 20 Est GFR (Non-Af Amer) 17 Random Glucose 158 H Calcium 10.2 Phosphorus 3.3 Magnesium 2.3 H Total Bilirubin 0.5 AST 27 ALT 10 Alkaline Phosphatase 113 Lactate Dehydrogenase Total Creatine Kinase Troponin I 0.14 H* 0.11 D NT-Pro-B Natriuret Pep 75812 H Total Protein 8.3 Albumin 5.0 H Globulin 3.3 Albumin/Globulin Ratio 1.5 Lipase Beta HCG, Quant Urine Color Urine Appearance Urine pH Ur Specific [place] Urine Protein Urine Glucose (UA) Urine Ketones Urine Blood Urine Nitrate Urine Bilirubin Urine Urobilinogen Ur Leukocyte Esterase Urine RBC Urine WBC Ur Epithelial Cells Urine Bacteria Urine Opiates Screen Urine Methadone Screen Ur Barbiturates Screen Ur Phencyclidine Scrn Ur Amphetamines Screen U Benzodiazepines Scrn U Oth Cocaine Metabols U Cannabinoids Screen EKG/Cardiology Studies: Cardiology / EKG Studies 12/02/18 21:37 ELECTROCARDIOGRAM Stat Comment: Reason For Exam: Chest Tightness 12/03/18 06:00 EKG [ELECTROCARDIOGRAM] Routine Comment: Reason For Exam: chest pain Critical Care Progress Note - Nutrition Nutrition: Nutrition Category Date Time Status NPO Diet [DIET] Diets 12/03/18 Breakfast Ordered Assessment/Plan - Assessment and Plan (Free Text) Assessment: 38 yo F with PMH of ESRD on HD MWF, diastolic CHF, HTN, constipation, depression, cholecystectomy, anxiety presents to [facility] for a one day history of intractable nausea/vomiting and abdominal pain accompanied with chest pain. Patient admitted for Hypertensive Urgency and started on Nitro drip. Will go for dialysis today. Plan: Neuro: - AOx3 Cardio: Hypertensive Urgency vs Emergency - BP on admission of 201/144 - P now is 177/111 - Will change from nitro to nicardipine drip - Will titrate nicardipine drip as needed - clonidine patch .1mg/24 hour - Will resume PO BP meds once pt can tolerate PO - Will have dialysis today, will re-assess BP after dialysis session - continue to monitor Chest Pain with positive troponin - EKG shows sinus tach - chest xray - no active disease per report. - Trop .14, likely elevated due to ESRD, trops then were .14, .11 - Cardiology consulted, Darvin, follow recs - Pain is reproducible on exam GI: Intractable Nausea and Vomiting - Reglan 5mg IV Q6H - NPO - Blood/urine cultures pending - continue to monitor - morphine 2mg Q6 PRN Nephro: ESRD on HD - HD MWF - Continue Sensipar - last HD session was 12/01 - Will go for HD dialysis today - Nephrology consulted, Dr. Gamino, follow recs Heme: Leukocytosis - likely reactive - WBC count 16.7 - afebrile - blood cultures, urine cultures pending - holding off on antibiotics for now - procal pending - continue to monitor GI Prophylaxis: Protonix 40 IV DVT Prophylaxis: Heparin Case seen and examined with Dr. Peter Miller, PGY-1 <Mason Green - Last Filed: 12/03/18 13:37> CCU Objective - Vital Signs / Intake & Output Vital Signs (Last 4 hours): Vital Signs Pulse Resp BP 12/03/18 13:15 116/60 12/03/18 13:14 85 25 H 12/03/18 13:10 76 16 12/03/18 13:00 76 18 101/48 L 12/03/18 12:50 73 17 12/03/18 12:45 73 17 102/57 L 12/03/18 12:40 72 16 12/03/18 12:39 78 18 105/62 12/03/18 12:30 74 16 97/44 L 12/03/18 12:20 72 15 12/03/18 12:15 72 16 96/47 L 12/03/18 12:10 72 20 12/03/18 12:00 69 19 107/51 L 12/03/18 11:55 76 21 101/43 L 12/03/18 11:54 82 19 12/03/18 11:50 74 19 12/03/18 11:44 73 27 H 98/47 L 12/03/18 11:40 81 13 12/03/18 11:39 79 16 95/43 L 12/03/18 11:30 72 36 H 83/38 L 12/03/18 11:20 78 21 12/03/18 11:10 85 29 H 12/03/18 11:01 87 17 122/61 12/03/18 11:00 102 H 30 H 12/03/18 10:50 93 H 20 12/03/18 10:40 93 H 20 12/03/18 10:30 103 H 21 179/113 H 12/03/18 10:20 91 H 12/03/18 10:10 89 32 H 12/03/18 10:07 180/112 H 12/03/18 10:00 89 180/112 H 12/03/18 09:50 87 49 H 12/03/18 09:40 92 H 21 Intake and Output (Last 8hrs): Intake & Output 12/02/18 12/03/18 12/03/18 22:59 06:59 14:59 Intake Total 50 Balance 50 Weight 150 lb 150 lb Intake: IV 50 - Medications Active Medications: Active Medications Generic Name Dose Route Start Last Admin Trade Name Artis PRN Reason Stop Dose Admin Alprazolam 0.5 mg 12/03/18 10:00 12/03/18 10:08 Xanax PO 0.5 mg BID [facility]ACE Administration Protocol Amlodipine Besylate 10 mg 12/03/18 10:00 12/03/18 10:07 Norvasc PO 10 mg DAILY [facility] Administration Cinacalcet 30 mg 12/03/18 10:00 12/03/18 10:07 Sensipar PO 30 mg DAILY [facility] Administration Clonidine HCl 0.2 mg 12/03/18 18:00 Catapres PO BID [facility] Heparin Sodium (Porcine) 5,000 units 12/03/18 10:00 12/03/18 10:08 Heparin SC 5,000 units Q12 [facility] Administration Protocol Hydralazine HCl 100 mg 12/03/18 10:00 Apresoline PO BID PRN SBP >160 Nicardipine HCl 20 mg in 200 mls @ 50 mls/hr 12/03/18 09:44 12/03/18 10:06 Cardene Iv Premix IV 5 mg/hr .Q4H PRN 50 mls/hr TITRATE PER MD ORDER Administration Protocol 5 MG/HR Labetalol HCl 300 mg 12/03/18 10:00 12/03/18 10:07 Trandate PO 300 mg BID K[facility]ACE Administration Labetalol HCl 10 mg 12/03/18 06:27 12/03/18 07:32 Trandate IV 10 mg Q2H PRN Administration hypotension Metoclopramide HCl 5 mg 12/03/18 01:53 12/03/18 09:11 Reglan IVP 5 mg Q6H [facility] Administration Morphine Sulfate 2 mg 12/03/18 01:27 12/03/18 09:10 Morphine IVP 2 mg Q4H PRN Administration Pain, severe (8-10) Pantoprazole Sodium 40 mg 12/03/18 01:30 12/03/18 10:08 Protonix Inj IVP 40 mg DAILY [facility]ACE Administration Spironolactone 100 mg 12/03/18 18:00 Aldactone PO DAILY K[facility] Zolpidem Tartrate 5 mg 12/03/18 22:00 Ambien PO HS [facility] Protocol - Patient Studies Lab Studies: Lab Studies 12/03/18 12/03/18 12/03/18 Range/Units 07:43 05:30 05:30 WBC 18.4 H (4.5-11.0) 10^3/uL RBC 4.18 (3.5-6.1) 10^6/uL Hgb 12.6 (12.0-16.0) g/dL Hct 38.5 (36.0-48.0) % MCV 92.1 (80.0-105.0) fl MCH 30.1 (25.0-35.0) pg MCHC 32.7 (31.0-37.0) g/dl RDW 13.3 (11.5-14.5) % Plt Count 451 H (120.0-450.0) 10^3/uL MPV 9.5 (7.0-11.0) fl Neut % (Auto) 94.4 H (50.0-68.0) % Lymph % (Auto) 3.4 L (22.0-35.0) % Cook % (Auto) 2.1 (1.0-6.0) % Eos % (Auto) 0.0 L (1.5-5.0) % Baso % (Auto) 0.1 (0.0-3.0) % Lymph # (Auto) 0.6 L (1.2-3.4) Cook # (Auto) 0.4 (0.1-0.6) Eos # (Auto) 0.0 (0.0-0.7) Baso # (Auto) 0.02 (0.0-2.0) K/mm3 Absolute Neuts (auto) 17.40 H (1.4-6.5) Neutrophils % (Manual) 95 H (50.0-70.0) % Lymphocytes % (Manual) 4 L (22.0-35.0) % Monocytes % (Manual) 1 (1.0-6.0) % Platelet Evaluation High (NORMAL) PT (9.4-12.5) SECONDS INR APTT (26.9-38.3) Seconds Sodium 138 (132-148) mmol/L Potassium 3.4 L (3.6-5.0) mmol/L Chloride 98 (98-107) mmol/L Carbon Dioxide 26 (21-33) mmol/L Anion Gap 18 (10-20) BUN 27 H (7-21) mg/dL Creatinine 3.1 H (0.7-1.2) mg/dl Est GFR ( Amer) 20 Est GFR (Non-Af Amer) 17 POC Glucose (mg/dL) 125 H (65-110) mg/dL Random Glucose 158 H (70-110) mg/dL Calcium 10.2 (8.4-10.5) mg/dL Phosphorus 3.3 (2.5-4.5) mg/dL Magnesium 2.3 H (1.7-2.2) mg/dL Total Bilirubin 0.5 (0.2-1.3) mg/dL AST 27 (14-36) U/L ALT 10 (7-56) U/L Alkaline Phosphatase 113 (38-126) U/L Lactate Dehydrogenase (333-699) U/L Total Creatine Kinase (35-230) U/L Troponin I 0.11 D ng/mL NT-Pro-B Natriuret Pep [id number] H (0-450) pg/mL Total Protein 8.3 (5.8-8.3) g/dL Albumin 5.0 H (3.0-4.8) g/dL Globulin 3.3 gm/dL Albumin/Globulin Ratio 1.5 (1.1-1.8) Lipase (23-300) U/L Beta HCG, Quant (0-6.15) mIU/mL Urine Color (YELLOW) Urine Appearance (CLEAR) Urine pH (4.7-8.0) Ur Specific [place] (1.005-1.035) Urine Protein (<30 mg/dL) mg/dL Urine Glucose (UA) (NEGATIVE) mg/dL Urine Ketones (NEGATIVE) mg/dL Urine Blood (NEGATIVE) Urine Nitrate (NEGATIVE) Urine Bilirubin (NEGATIVE) Urine Urobilinogen (<1 E.U./dL) E.U./dL Ur Leukocyte Esterase (NEGATIVE) Davy/uL Urine RBC (0-2) /hpf Urine WBC (0-6) /hpf Ur Epithelial Cells (0-5) /hpf Urine Bacteria (NONE) /hpf Urine Opiates Screen (NEGATIVE) Urine Methadone Screen (NEGATIVE) Ur Barbiturates Screen (NEGATIVE) Ur Phencyclidine Scrn (NEGATIVE) Ur Amphetamines Screen (NEGATIVE) U Benzodiazepines Scrn (NEGATIVE) U Oth Cocaine Metabols (NEGATIVE) U Cannabinoids Screen (NEGATIVE) 12/03/18 12/03/18 12/02/18 Range/Units 02:35 01:00 23:15 WBC (4.5-11.0) 10^3/uL RBC (3.5-6.1) 10^6/uL Hgb (12.0-16.0) g/dL Hct (36.0-48.0) % MCV (80.0-105.0) fl MCH (25.0-35.0) pg MCHC (31.0-37.0) g/dl RDW (11.5-14.5) % Plt Count (120.0-450.0) 10^3/uL MPV (7.0-11.0) fl Neut % (Auto) (50.0-68.0) % Lymph % (Auto) (22.0-35.0) % Cook % (Auto) (1.0-6.0) % Eos % (Auto) (1.5-5.0) % Baso % (Auto) (0.0-3.0) % Lymph # (Auto) (1.2-3.4) Cook # (Auto) (0.1-0.6) Eos # (Auto) (0.0-0.7) Baso # (Auto) (0.0-2.0) K/mm3 Absolute Neuts (auto) (1.4-6.5) Neutrophils % (Manual) (50.0-70.0) % Lymphocytes % (Manual) (22.0-35.0) % Monocytes % (Manual) (1.0-6.0) % Platelet Evaluation (NORMAL) PT (9.4-12.5) SECONDS INR APTT (26.9-38.3) Seconds Sodium (132-148) mmol/L Potassium (3.6-5.0) mmol/L Chloride (98-107) mmol/L Carbon Dioxide (21-33) mmol/L Anion Gap (10-20) BUN (7-21) mg/dL Creatinine (0.7-1.2) mg/dl Est GFR ( Amer) Est GFR (Non-Af Amer) POC Glucose (mg/dL) (65-110) mg/dL Random Glucose (70-110) mg/dL Calcium (8.4-10.5) mg/dL Phosphorus (2.5-4.5) mg/dL Magnesium (1.7-2.2) mg/dL Total Bilirubin (0.2-1.3) mg/dL AST (14-36) U/L ALT (7-56) U/L Alkaline Phosphatase (38-126) U/L Lactate Dehydrogenase (333-699) U/L Total Creatine Kinase (35-230) U/L Troponin I 0.14 H* ng/mL NT-Pro-B Natriuret Pep (0-450) pg/mL Total Protein (5.8-8.3) g/dL Albumin (3.0-4.8) g/dL Globulin gm/dL Albumin/Globulin Ratio (1.1-1.8) Lipase (23-300) U/L Beta HCG, Quant (0-6.15) mIU/mL Urine Color Yellow (YELLOW) Urine Appearance Clear (CLEAR) Urine pH 8.0 (4.7-8.0) Ur Specific [place] 1.020 (1.005-1.035) Urine Protein >=300 H (<30 mg/dL) mg/dL Urine Glucose (UA) Negative (NEGATIVE) mg/dL Urine Ketones Negative (NEGATIVE) mg/dL Urine Blood Negative (NEGATIVE) Urine Nitrate Negative (NEGATIVE) Urine Bilirubin Negative (NEGATIVE) Urine Urobilinogen 0.2 (<1 E.U./dL) E.U./dL Ur Leukocyte Esterase Negative (NEGATIVE) Davy/uL Urine RBC 0 - 2 (0-2) /hpf Urine WBC 0 - 2 (0-6) /hpf Ur Epithelial Cells Many H (0-5) /hpf Urine Bacteria Occ (NONE) /hpf Urine Opiates Screen Positive H (NEGATIVE) Urine Methadone Screen Negative (NEGATIVE) Ur Barbiturates Screen Negative (NEGATIVE) Ur Phencyclidine Scrn Negative (NEGATIVE) Ur Amphetamines Screen Negative (NEGATIVE) U Benzodiazepines Scrn Positive H (NEGATIVE) U Oth Cocaine Metabols Negative (NEGATIVE) U Cannabinoids Screen Negative (NEGATIVE) 12/02/18 12/02/18 12/02/18 Range/Units 22:02 22:02 22:02 WBC (4.5-11.0) 10^3/uL RBC (3.5-6.1) 10^6/uL Hgb (12.0-16.0) g/dL Hct (36.0-48.0) % MCV (80.0-105.0) fl MCH (25.0-35.0) pg MCHC (31.0-37.0) g/dl RDW (11.5-14.5) % Plt Count (120.0-450.0) 10^3/uL MPV (7.0-11.0) fl Neut % (Auto) (50.0-68.0) % Lymph % (Auto) (22.0-35.0) % Cook % (Auto) (1.0-6.0) % Eos % (Auto) (1.5-5.0) % Baso % (Auto) (0.0-3.0) % Lymph # (Auto) (1.2-3.4) Cook # (Auto) (0.1-0.6) Eos # (Auto) (0.0-0.7) Baso # (Auto) (0.0-2.0) K/mm3 Absolute Neuts (auto) (1.4-6.5) Neutrophils % (Manual) (50.0-70.0) % Lymphocytes % (Manual) (22.0-35.0) % Monocytes % (Manual) (1.0-6.0) % Platelet Evaluation (NORMAL) PT 12.1 (9.4-12.5) SECONDS INR 1.09 APTT 33.9 (26.9-38.3) Seconds Sodium 139 (132-148) mmol/L Potassium 3.1 L (3.6-5.0) mmol/L Chloride 98 (98-107) mmol/L Carbon Dioxide 24 (21-33) mmol/L Anion Gap 20 (10-20) BUN 23 H (7-21) mg/dL Creatinine 3.2 H (0.7-1.2) mg/dl Est GFR ( Amer) 20 Est GFR (Non-Af Amer) 16 POC Glucose (mg/dL) (65-110) mg/dL Random Glucose 182 H (70-110) mg/dL Calcium 10.6 H (8.4-10.5) mg/dL Phosphorus 3.6 (2.5-4.5) mg/dL Magnesium 1.9 (1.7-2.2) mg/dL Total Bilirubin 0.5 (0.2-1.3) mg/dL AST 25 (14-36) U/L ALT 10 (7-56) U/L Alkaline Phosphatase 130 H D (38-126) U/L Lactate Dehydrogenase 437 (333-699) U/L Total Creatine Kinase 64 (35-230) U/L Troponin I 0.14 H* D ng/mL NT-Pro-B Natriuret Pep 93442 H (0-450) pg/mL Total Protein 8.4 H (5.8-8.3) g/dL Albumin 5.2 H (3.0-4.8) g/dL Globulin 3.2 gm/dL Albumin/Globulin Ratio 1.6 (1.1-1.8) Lipase 116 (23-300) U/L Beta HCG, Quant < 2.39 (0-6.15) mIU/mL Urine Color (YELLOW) Urine Appearance (CLEAR) Urine pH (4.7-8.0) Ur Specific [place] (1.005-1.035) Urine Protein (<30 mg/dL) mg/dL Urine Glucose (UA) (NEGATIVE) mg/dL Urine Ketones (NEGATIVE) mg/dL Urine Blood (NEGATIVE) Urine Nitrate (NEGATIVE) Urine Bilirubin (NEGATIVE) Urine Urobilinogen (<1 E.U./dL) E.U./dL Ur Leukocyte Esterase (NEGATIVE) Davy/uL Urine RBC (0-2) /hpf Urine WBC (0-6) /hpf Ur Epithelial Cells (0-5) /hpf Urine Bacteria (NONE) /hpf Urine Opiates Screen (NEGATIVE) Urine Methadone Screen (NEGATIVE) Ur Barbiturates Screen (NEGATIVE) Ur Phencyclidine Scrn (NEGATIVE) Ur Amphetamines Screen (NEGATIVE) U Benzodiazepines Scrn (NEGATIVE) U Oth Cocaine Metabols (NEGATIVE) U Cannabinoids Screen (NEGATIVE) 12/02/18 Range/Units 22:02 WBC 16.7 H D (4.5-11.0) 10^3/uL RBC 4.44 (3.5-6.1) 10^6/uL Hgb 13.7 D (12.0-16.0) g/dL Hct 40.5 (36.0-48.0) % MCV 91.2 D (80.0-105.0) fl MCH 30.9 (25.0-35.0) pg MCHC 33.8 (31.0-37.0) g/dl RDW 13.1 (11.5-14.5) % Plt Count 441 (120.0-450.0) 10^3/uL MPV 9.6 (7.0-11.0) fl Neut % (Auto) 89.4 H (50.0-68.0) % Lymph % (Auto) 6.8 L (22.0-35.0) % Cook % (Auto) 3.5 (1.0-6.0) % Eos % (Auto) 0.1 L (1.5-5.0) % Baso % (Auto) 0.2 (0.0-3.0) % Lymph # (Auto) 1.1 L (1.2-3.4) Cook # (Auto) 0.6 (0.1-0.6) Eos # (Auto) 0.0 (0.0-0.7) Baso # (Auto) 0.03 (0.0-2.0) K/mm3 Absolute Neuts (auto) 14.91 H (1.4-6.5) Neutrophils % (Manual) (50.0-70.0) % Lymphocytes % (Manual) (22.0-35.0) % Monocytes % (Manual) (1.0-6.0) % Platelet Evaluation (NORMAL) PT (9.4-12.5) SECONDS INR APTT (26.9-38.3) Seconds Sodium (132-148) mmol/L Potassium (3.6-5.0) mmol/L Chloride (98-107) mmol/L Carbon Dioxide (21-33) mmol/L Anion Gap (10-20) BUN (7-21) mg/dL Creatinine (0.7-1.2) mg/dl Est GFR ( Amer) Est GFR (Non-Af Amer) POC Glucose (mg/dL) (65-110) mg/dL Random Glucose (70-110) mg/dL Calcium (8.4-10.5) mg/dL Phosphorus (2.5-4.5) mg/dL Magnesium (1.7-2.2) mg/dL Total Bilirubin (0.2-1.3) mg/dL AST (14-36) U/L ALT (7-56) U/L Alkaline Phosphatase (38-126) U/L Lactate Dehydrogenase (333-699) U/L Total Creatine Kinase (35-230) U/L Troponin I ng/mL NT-Pro-B Natriuret Pep (0-450) pg/mL Total Protein (5.8-8.3) g/dL Albumin (3.0-4.8) g/dL Globulin gm/dL Albumin/Globulin Ratio (1.1-1.8) Lipase (23-300) U/L Beta HCG, Quant (0-6.15) mIU/mL Urine Color (YELLOW) Urine Appearance (CLEAR) Urine pH (4.7-8.0) Ur Specific [place] (1.005-1.035) Urine Protein (<30 mg/dL) mg/dL Urine Glucose (UA) (NEGATIVE) mg/dL Urine Ketones (NEGATIVE) mg/dL Urine Blood (NEGATIVE) Urine Nitrate (NEGATIVE) Urine Bilirubin (NEGATIVE) Urine Urobilinogen (<1 E.U./dL) E.U./dL Ur Leukocyte Esterase (NEGATIVE) Davy/uL Urine RBC (0-2) /hpf Urine WBC (0-6) /hpf Ur Epithelial Cells (0-5) /hpf Urine Bacteria (NONE) /hpf Urine Opiates Screen (NEGATIVE) Urine Methadone Screen (NEGATIVE) Ur Barbiturates Screen (NEGATIVE) Ur Phencyclidine Scrn (NEGATIVE) Ur Amphetamines Screen (NEGATIVE) U Benzodiazepines Scrn (NEGATIVE) U Oth Cocaine Metabols (NEGATIVE) U Cannabinoids Screen (NEGATIVE) Laboratory Results - last 24 hr 12/02/18 12/02/18 12/02/18 22:02 22:02 22:02 WBC 16.7 H D RBC 4.44 Hgb 13.7 D Hct 40.5 MCV 91.2 D MCH 30.9 MCHC 33.8 RDW 13.1 Plt Count 441 MPV 9.6 Neut % (Auto) 89.4 H Lymph % (Auto) 6.8 L Cook % (Auto) 3.5 Eos % (Auto) 0.1 L Baso % (Auto) 0.2 Lymph # (Auto) 1.1 L Cook # (Auto) 0.6 Eos # (Auto) 0.0 Baso # (Auto) 0.03 Absolute Neuts (auto) 14.91 H Neutrophils % (Manual) Lymphocytes % (Manual) Monocytes % (Manual) Platelet Evaluation PT 12.1 INR 1.09 APTT 33.9 Sodium 139 Potassium 3.1 L Chloride 98 Carbon Dioxide 24 Anion Gap 20 BUN 23 H Creatinine 3.2 H Est GFR ( Amer) 20 Est GFR (Non-Af Amer) 16 POC Glucose (mg/dL) Random Glucose 182 H Calcium 10.6 H Phosphorus 3.6 Magnesium 1.9 Total Bilirubin 0.5 AST 25 ALT 10 Alkaline Phosphatase 130 H D Lactate Dehydrogenase 437 Total Creatine Kinase 64 Troponin I 0.14 H* D NT-Pro-B Natriuret Pep 30429 H Total Protein 8.4 H Albumin 5.2 H Globulin 3.2 Albumin/Globulin Ratio 1.6 Lipase 116 Beta HCG, Quant Urine Color Urine Appearance Urine pH Ur Specific [place] Urine Protein Urine Glucose (UA) Urine Ketones Urine Blood Urine Nitrate Urine Bilirubin Urine Urobilinogen Ur Leukocyte Esterase Urine RBC Urine WBC Ur Epithelial Cells Urine Bacteria Urine Opiates Screen Urine Methadone Screen Ur Barbiturates Screen Ur Phencyclidine Scrn Ur Amphetamines Screen U Benzodiazepines Scrn U Oth Cocaine Metabols U Cannabinoids Screen 12/02/18 12/02/18 12/03/18 22:02 23:15 01:00 WBC RBC Hgb Hct MCV MCH MCHC RDW Plt Count MPV Neut % (Auto) Lymph % (Auto) Cook % (Auto) Eos % (Auto) Baso % (Auto) Lymph # (Auto) Cook # (Auto) Eos # (Auto) Baso # (Auto) Absolute Neuts (auto) Neutrophils % (Manual) Lymphocytes % (Manual) Monocytes % (Manual) Platelet Evaluation PT INR APTT Sodium Potassium Chloride Carbon Dioxide Anion Gap BUN Creatinine Est GFR ( Amer) Est GFR (Non-Af Amer) POC Glucose (mg/dL) Random Glucose Calcium Phosphorus Magnesium Total Bilirubin AST ALT Alkaline Phosphatase Lactate Dehydrogenase Total Creatine Kinase Troponin I NT-Pro-B Natriuret Pep Total Protein Albumin Globulin Albumin/Globulin Ratio Lipase Beta HCG, Quant < 2.39 Urine Color Yellow Urine Appearance Clear Urine pH 8.0 Ur Specific [place] 1.020 Urine Protein >=300 H Urine Glucose (UA) Negative Urine Ketones Negative Urine Blood Negative Urine Nitrate Negative Urine Bilirubin Negative Urine Urobilinogen 0.2 Ur Leukocyte Esterase Negative Urine RBC 0 - 2 Urine WBC 0 - 2 Ur Epithelial Cells Many H Urine Bacteria Occ Urine Opiates Screen Positive H Urine Methadone Screen Negative Ur Barbiturates Screen Negative Ur Phencyclidine Scrn Negative Ur Amphetamines Screen Negative U Benzodiazepines Scrn Positive H U Oth Cocaine Metabols Negative U Cannabinoids Screen Negative 12/03/18 12/03/18 12/03/18 02:35 05:30 05:30 WBC 18.4 H RBC 4.18 Hgb 12.6 Hct 38.5 MCV 92.1 MCH 30.1 MCHC 32.7 RDW 13.3 Plt Count 451 H MPV 9.5 Neut % (Auto) 94.4 H Lymph % (Auto) 3.4 L Cook % (Auto) 2.1 Eos % (Auto) 0.0 L Baso % (Auto) 0.1 Lymph # (Auto) 0.6 L Cook # (Auto) 0.4 Eos # (Auto) 0.0 Baso # (Auto) 0.02 Absolute Neuts (auto) 17.40 H Neutrophils % (Manual) 95 H Lymphocytes % (Manual) 4 L Monocytes % (Manual) 1 Platelet Evaluation High PT INR APTT Sodium 138 Potassium 3.4 L Chloride 98 Carbon Dioxide 26 Anion Gap 18 BUN 27 H Creatinine 3.1 H Est GFR ( Amer) 20 Est GFR (Non-Af Amer) 17 POC Glucose (mg/dL) Random Glucose 158 H Calcium 10.2 Phosphorus 3.3 Magnesium 2.3 H Total Bilirubin 0.5 AST 27 ALT 10 Alkaline Phosphatase 113 Lactate Dehydrogenase Total Creatine Kinase Troponin I 0.14 H* 0.11 D NT-Pro-B Natriuret Pep 11088 H Total Protein 8.3 Albumin 5.0 H Globulin 3.3 Albumin/Globulin Ratio 1.5 Lipase Beta HCG, Quant Urine Color Urine Appearance Urine pH Ur Specific [place] Urine Protein Urine Glucose (UA) Urine Ketones Urine Blood Urine Nitrate Urine Bilirubin Urine Urobilinogen Ur Leukocyte Esterase Urine RBC Urine WBC Ur Epithelial Cells Urine Bacteria Urine Opiates Screen Urine Methadone Screen Ur Barbiturates Screen Ur Phencyclidine Scrn Ur Amphetamines Screen U Benzodiazepines Scrn U Oth Cocaine Metabols U Cannabinoids Screen 12/03/18 07:43 WBC RBC Hgb Hct MCV MCH MCHC RDW Plt Count MPV Neut % (Auto) Lymph % (Auto) Cook % (Auto) Eos % (Auto) Baso % (Auto) Lymph # (Auto) Cook # (Auto) Eos # (Auto) Baso # (Auto) Absolute Neuts (auto) Neutrophils % (Manual) Lymphocytes % (Manual) Monocytes % (Manual) Platelet Evaluation PT INR APTT Sodium Potassium Chloride Carbon Dioxide Anion Gap BUN Creatinine Est GFR ( Amer) Est GFR (Non-Af Amer) POC Glucose (mg/dL) 125 H Random Glucose Calcium Phosphorus Magnesium Total Bilirubin AST ALT Alkaline Phosphatase Lactate Dehydrogenase Total Creatine Kinase Troponin I NT-Pro-B Natriuret Pep Total Protein Albumin Globulin Albumin/Globulin Ratio Lipase Beta HCG, Quant Urine Color Urine Appearance Urine pH Ur Specific [place] Urine Protein Urine Glucose (UA) Urine Ketones Urine Blood Urine Nitrate Urine Bilirubin Urine Urobilinogen Ur Leukocyte Esterase Urine RBC Urine WBC Ur Epithelial Cells Urine Bacteria Urine Opiates Screen Urine Methadone Screen Ur Barbiturates Screen Ur Phencyclidine Scrn Ur Amphetamines Screen U Benzodiazepines Scrn U Oth Cocaine Metabols U Cannabinoids Screen Radiology Impressions: Radiology Impressions Chest X-Ray 12/02/18 21:55 IMPRESSION: No active disease. EKG/Cardiology Studies: Cardiology / EKG Studies 12/02/18 21:37 ELECTROCARDIOGRAM Stat Comment: Reason For Exam: Chest Tightness 12/03/18 06:00 EKG [ELECTROCARDIOGRAM] Routine Comment: Reason For Exam: chest pain Critical Care Progress Note - Nutrition Nutrition: Nutrition Category Date Time Status NPO Diet [DIET] Diets 12/03/18 Breakfast Ordered Assessment/Plan - Assessment and Plan (Free Text) Plan: Patient seen and examined on rounds, with resident, agree with note with pinky umanzor additions/exceptions: Patient is 38yo female, hx of non compliance, HTN, ESRD on HD TuTHSat, last HD yesterday, admitted with hypertensive urgency, placed on Nitro drip, subsequently BP improved now off all hypertensive IV agents, palced back on PO agents, with holding parameters. Troponin peak 0.14, EKG without acute ischemic changes, cardiology consulted. Plan for HD today. Currently afebrile, BP stable, SBp 120s HTN emergency ESRD on HX Hx of non compliance CP Recommend: - supp o2 as needed, duonebs PRN - NO ID issues - cardiology eval - obtain ECHO - daily EKG - resume home BP meds - HD as per renal - GI ppx - DVT ppx - Monitor in MICU
--- NOTE | 2018-12-03 09:35 | RAD ---
Date of service: 12/02/2018 HISTORY: vomit COMPARISON: 10/03/2018 FINDINGS: LUNGS: No active pulmonary disease. PLEURA: No significant pleural effusion identified, no pneumothorax apparent. CARDIOVASCULAR: No aortic atherosclerotic calcification present. Normal cardiac size. No pulmonary vascular congestion. OSSEOUS STRUCTURES: No significant abnormalities. VISUALIZED UPPER ABDOMEN: Normal. OTHER FINDINGS: Dialysis catheter unchanged IMPRESSION: No active disease.
[2018-12-03] MEDS ORDERED: Nicardipine 20 MG/200 ML 20 MG/200 ML BAG IV PRN (09:44)
--- NOTE | 2018-12-03 12:39 | CARD ---
APPROVED REPORT Date of service: 12/03/2018 EKG Measurement Heart [id number] <Conclusion> Normal sinus rhythm with sinus arrhythmia Possible Left atrial enlargement Left ventricular hypertrophy Prolonged QT Abnormal ECG
--- NOTE | 2018-12-03 13:13 | CP.PCM.CON ---
<Elyssa Miller - Last Filed: 12/03/18 13:02> History of Present Illness - History of Present Illness History of Present Illness: Nephrology Consult Note for Dr. Gamino CC: Intractable abdominal pain with nausea and vomiting x 2 days HPI: 38 F with a PMHx of ESRD on HD (MWF, dry wt 70.3 kg), CHF, HTN, uterine fibroids/cyst, and kidney stones presented to the [facility] ED with complaints of intractable abdominal pain with associated intractable nausea and vomiting for two days. Patient states she has had multiple visits for similar complaints. Patient states she started feeling nauseous and experienced multiple episodes of emesis after her most recent dialysis session. She states she has non bilious vomiting multiple times and with some blood on occasion with abdominal pain located throughout her abdomen. She also had complaints of chest tightness located in the middle of her chest, non radiating which is present at rest and is worse with palpation, however is improved since admission. Patient was unable to take her meds on account of the intractable n/v and abdominal pain and was found to be in HTN emergency in ED. Patient was seen and examined in ICU. Her SBP is in 180's this AM, Cardene drip to replace Nitro Drip. She states that her abdominal pain is better and was able to tolerate po water. She denies any fever, chills, dysuria, sick contacts, headaches, dizziness, SOB, or any other complaints at this time. Sophia PMD: Willam Nephro: Dr. Seth PMHx: ESRD on HD (MWF, dry wt 70.3 kg), CHF, HTN, uterine fibroids/cyst, and kidney stones PSHx: Cholecystectomy SHx: 3- 4 cigarettes a day, denies EtOH and illicit drug use FamHx: Mother, at 49 from DM; Father, alive has COPD Allergies: NKDA Home Meds: Sensipar 30 mg daily, Ambien 10 mg HS, Percocet 5/325 mg prn, Xanax 0.5 mg BID , Norvasc 10 mg daily, Hydralazine 100 mg BID, Clondine 0.3 mg BID, Labetalol 300 mg BID Review of Systems - Review of Systems Review of Systems: as per HPI otherwise negative Past Patient History - Infectious Disease Hx of Infectious Diseases: None - Past Medical History & Family History Past Medical History?: Yes - Past Social History Smoking Status: Current Some Days Smoker - CARDIAC Hx Congestive Heart Failure: Yes Hx Hypertension: Yes Hx Peripheral Edema: Yes - PULMONARY Hx Pneumonia: Yes - NEUROLOGICAL Hx Neurological Disorder: No - HEENT Hx HEENT Problems: Yes Other/Comment: wears glasses - RENAL Hx Chronic Kidney Disease: Yes Hx Kidney Stones: Yes - ENDOCRINE/METABOLIC Hx Endocrine Disorders: No - HEMATOLOGICAL/ONCOLOGICAL Hx Anemia: Yes - INTEGUMENTARY Hx Dermatological Problems: Yes Other/Comment: SCARRING TO LEFT UPPER ARM DUE TO PLACEMENT OF SHUNT. NF.3X HAD SURGERY. - MUSCULOSKELETAL/RHEUMATOLOGICAL Hx Arthritis: Yes (L HIP) Hx Falls: Yes - GASTROINTESTINAL Hx Gall Bladder Disease: Yes (CHOLECYSTECTOMY) Hx Pancreatitis: Yes - GENITOURINARY/GYNECOLOGICAL Hx Genitourinary Disorders: Yes - PSYCHIATRIC Hx Anxiety: Yes Hx Depression: Yes - SURGICAL HISTORY Hx Cholecystectomy: Yes - ANESTHESIA Hx Anesthesia: Yes Hx Anesthesia Reactions: No Hx Malignant Hyperthermia: No Meds Allergies/Adverse Reactions: Allergies Allergy/AdvReac Type Severity Reaction Status Date / Time No Known Allergies Allergy Verified 11/17/18 17:39 - Medications Medications: Current Medications Alprazolam (Xanax) 0.5 mg PO BID [facility]; Protocol Last Admin: 12/03/18 10:08 Dose: 0.5 mg Amlodipine Besylate (Norvasc) 10 mg PO DAILY [facility] Last Admin: 12/03/18 10:07 Dose: 10 mg Cinacalcet (Sensipar) 30 mg PO DAILY [facility] Last Admin: 12/03/18 10:07 Dose: 30 mg Clonidine HCl (Catapres) 0.2 mg PO BID [facility] Heparin Sodium (Porcine) (Heparin) 5,000 units SC Q12 [facility]; Protocol Last Admin: 12/03/18 10:08 Dose: 5,000 units Hydralazine HCl (Apresoline) 100 mg PO BID PRN PRN Reason: SBP >160 Nicardipine HCl (Cardene Iv Premix) 20 mg in 200 mls @ 50 mls/hr IV .Q4H PRN; Protocol PRN Reason: TITRATE PER MD ORDER Last Admin: 12/03/18 10:06 Dose: 5 mg/hr, 50 mls/hr Labetalol HCl (Trandate) 300 mg PO BID [facility] Last Admin: 12/03/18 10:07 Dose: 300 mg Labetalol HCl (Trandate) 10 mg IV Q2H PRN PRN Reason: hypotension Last Admin: 12/03/18 07:32 Dose: 10 mg Metoclopramide HCl (Reglan) 5 mg IVP Q6H [facility] Last Admin: 12/03/18 09:11 Dose: 5 mg Morphine Sulfate (Morphine) 2 mg IVP Q4H PRN PRN Reason: Pain, severe (8-10) Last Admin: 12/03/18 09:10 Dose: 2 mg Pantoprazole Sodium (Protonix Inj) 40 mg IVP DAILY [facility] Last Admin: 12/03/18 10:08 Dose: 40 mg Spironolactone (Aldactone) 100 mg PO DAILY [facility] Zolpidem Tartrate (Ambien) 5 mg PO HS [facility]; Protocol Physical Exam - Constitutional Appears: No Acute Distress - Head Exam Head Exam: ATRAUMATIC, NORMAL INSPECTION, NORMOCEPHALIC - Eye Exam Eye Exam: EOMI, Normal appearance, PERRL Pupil Exam: NORMAL ACCOMODATION, PERRL - ENT Exam ENT Exam: Mucous Membranes Moist, Normal Exam - Neck Exam Neck exam: Positive for: Normal Inspection - Respiratory Exam Respiratory Exam: Clear to Auscultation Bilateral, NORMAL BREATHING PATTERN - Cardiovascular Exam Cardiovascular Exam: REGULAR RHYTHM, +S1, +S2 - GI/Abdominal Exam GI & Abdominal Exam: Hypoactive Bowel Sounds, Soft. absent: Tenderness - Neurological Exam Neurological exam: Alert, CN II-XII Intact, Normal Gait, Oriented x3, Reflexes Normal - Psychiatric Exam Psychiatric exam: Normal Affect, Normal Mood - Skin Skin Exam: Dry, Intact, Normal Color, Warm Results - Vital Signs Recent Vital Signs: Last Vital Signs Temp 97.7 F 12/03/18 03:05 Pulse 73 12/03/18 12:50 Resp 17 12/03/18 12:50 BP 102/57 L 12/03/18 12:45 Pulse Ox 96 12/03/18 02:40 - Labs Result Diagrams: 12/03/18 05:30 12/03/18 05:30 Labs: Laboratory Results - last 24 hr 12/02/18 12/02/18 12/02/18 22:02 22:02 22:02 WBC 16.7 H D RBC 4.44 Hgb 13.7 D Hct 40.5 MCV 91.2 D MCH 30.9 MCHC 33.8 RDW 13.1 Plt Count 441 MPV 9.6 Neut % (Auto) 89.4 H Lymph % (Auto) 6.8 L [place] % (Auto) 3.5 Eos % (Auto) 0.1 L Baso % (Auto) 0.2 Lymph # (Auto) 1.1 L [place] # (Auto) 0.6 Eos # (Auto) 0.0 Baso # (Auto) 0.03 Absolute Neuts (auto) 14.91 H Neutrophils % (Manual) Lymphocytes % (Manual) Monocytes % (Manual) Platelet Evaluation PT 12.1 INR 1.09 APTT 33.9 Sodium 139 Potassium 3.1 L Chloride 98 Carbon Dioxide 24 Anion Gap 20 BUN 23 H Creatinine 3.2 H Est GFR ( Amer) 20 Est GFR (Non-Af Amer) 16 POC Glucose (mg/dL) Random Glucose 182 H Calcium 10.6 H Phosphorus 3.6 Magnesium 1.9 Total Bilirubin 0.5 AST 25 ALT 10 Alkaline Phosphatase 130 H D Lactate Dehydrogenase 437 Total Creatine Kinase 64 Troponin I 0.14 H* D NT-Pro-B Natriuret Pep 41335 H Total Protein 8.4 H Albumin 5.2 H Globulin 3.2 Albumin/Globulin Ratio 1.6 Lipase 116 Beta HCG, Quant Urine Color Urine Appearance Urine pH Ur Specific [place] Urine Protein Urine Glucose (UA) Urine Ketones Urine Blood Urine Nitrate Urine Bilirubin Urine Urobilinogen Ur Leukocyte Esterase Urine RBC Urine WBC Ur Epithelial Cells Urine Bacteria Urine Opiates Screen Urine Methadone Screen Ur Barbiturates Screen Ur Phencyclidine Scrn Ur Amphetamines Screen U Benzodiazepines Scrn U Oth Cocaine Metabols U Cannabinoids Screen 12/02/18 12/02/18 12/03/18 22:02 23:15 01:00 WBC RBC Hgb Hct MCV MCH MCHC RDW Plt Count MPV Neut % (Auto) Lymph % (Auto) [place] % (Auto) Eos % (Auto) Baso % (Auto) Lymph # (Auto) [place] # (Auto) Eos # (Auto) Baso # (Auto) Absolute Neuts (auto) Neutrophils % (Manual) Lymphocytes % (Manual) Monocytes % (Manual) Platelet Evaluation PT INR APTT Sodium Potassium Chloride Carbon Dioxide Anion Gap BUN Creatinine Est GFR ( Amer) Est GFR (Non-Af Amer) POC Glucose (mg/dL) Random Glucose Calcium Phosphorus Magnesium Total Bilirubin AST ALT Alkaline Phosphatase Lactate Dehydrogenase Total Creatine Kinase Troponin I NT-Pro-B Natriuret Pep Total Protein Albumin Globulin Albumin/Globulin Ratio Lipase Beta HCG, Quant < 2.39 Urine Color Yellow Urine Appearance Clear Urine pH 8.0 Ur Specific [place] 1.020 Urine Protein >=300 H Urine Glucose (UA) Negative Urine Ketones Negative Urine Blood Negative Urine Nitrate Negative Urine Bilirubin Negative Urine Urobilinogen 0.2 Ur Leukocyte Esterase Negative Urine RBC 0 - 2 Urine WBC 0 - 2 Ur Epithelial Cells Many H Urine Bacteria Occ Urine Opiates Screen Positive H Urine Methadone Screen Negative Ur Barbiturates Screen Negative Ur Phencyclidine Scrn Negative Ur Amphetamines Screen Negative U Benzodiazepines Scrn Positive H U Oth Cocaine Metabols Negative U Cannabinoids Screen Negative 12/03/18 12/03/18 12/03/18 02:35 05:30 05:30 WBC 18.4 H RBC 4.18 Hgb 12.6 Hct 38.5 MCV 92.1 MCH 30.1 MCHC 32.7 RDW 13.3 Plt Count 451 H MPV 9.5 Neut % (Auto) 94.4 H Lymph % (Auto) 3.4 L [place] % (Auto) 2.1 Eos % (Auto) 0.0 L Baso % (Auto) 0.1 Lymph # (Auto) 0.6 L [place] # (Auto) 0.4 Eos # (Auto) 0.0 Baso # (Auto) 0.02 Absolute Neuts (auto) 17.40 H Neutrophils % (Manual) 95 H Lymphocytes % (Manual) 4 L Monocytes % (Manual) 1 Platelet Evaluation High PT INR APTT Sodium 138 Potassium 3.4 L Chloride 98 Carbon Dioxide 26 Anion Gap 18 BUN 27 H Creatinine 3.1 H Est GFR ( Amer) 20 Est GFR (Non-Af Amer) 17 POC Glucose (mg/dL) Random Glucose 158 H Calcium 10.2 Phosphorus 3.3 Magnesium 2.3 H Total Bilirubin 0.5 AST 27 ALT 10 Alkaline Phosphatase 113 Lactate Dehydrogenase Total Creatine Kinase Troponin I 0.14 H* 0.11 D NT-Pro-B Natriuret Pep 60878 H Total Protein 8.3 Albumin 5.0 H Globulin 3.3 Albumin/Globulin Ratio 1.5 Lipase Beta HCG, Quant Urine Color Urine Appearance Urine pH Ur Specific [place] Urine Protein Urine Glucose (UA) Urine Ketones Urine Blood Urine Nitrate Urine Bilirubin Urine Urobilinogen Ur Leukocyte Esterase Urine RBC Urine WBC Ur Epithelial Cells Urine Bacteria Urine Opiates Screen Urine Methadone Screen Ur Barbiturates Screen Ur Phencyclidine Scrn Ur Amphetamines Screen U Benzodiazepines Scrn U Oth Cocaine Metabols U Cannabinoids Screen 12/03/18 07:43 WBC RBC Hgb Hct MCV MCH MCHC RDW Plt Count MPV Neut % (Auto) Lymph % (Auto) [place] % (Auto) Eos % (Auto) Baso % (Auto) Lymph # (Auto) [place] # (Auto) Eos # (Auto) Baso # (Auto) Absolute Neuts (auto) Neutrophils % (Manual) Lymphocytes % (Manual) Monocytes % (Manual) Platelet Evaluation PT INR APTT Sodium Potassium Chloride Carbon Dioxide Anion Gap BUN Creatinine Est GFR ( Amer) Est GFR (Non-Af Amer) POC Glucose (mg/dL) 125 H Random Glucose Calcium Phosphorus Magnesium Total Bilirubin AST ALT Alkaline Phosphatase Lactate Dehydrogenase Total Creatine Kinase Troponin I NT-Pro-B Natriuret Pep Total Protein Albumin Globulin Albumin/Globulin Ratio Lipase Beta HCG, Quant Urine Color Urine Appearance Urine pH Ur Specific [place] Urine Protein Urine Glucose (UA) Urine Ketones Urine Blood Urine Nitrate Urine Bilirubin Urine Urobilinogen Ur Leukocyte Esterase Urine RBC Urine WBC Ur Epithelial Cells Urine Bacteria Urine Opiates Screen Urine Methadone Screen Ur Barbiturates Screen Ur Phencyclidine Scrn Ur Amphetamines Screen U Benzodiazepines Scrn U Oth Cocaine Metabols U Cannabinoids Screen Assessment & Plan - Assessment and Plan (Free Text) Assessment: 38 F with PMH of ESRD on HD MWF, diastolic CHF, and benign htn kidney dz admitted to ICU for HTN emergency in the setting of intractable abdominal pain and intractable nausea/vomiting unable to tolerate po intake. Patient abdominal pain improved, avoid oversedation. Patient for dialysis today. Cardene drip to manage BP. Troponins downtrending, Cardiology following. 1. ESRD on HD - HD MWF - Continue Sensipar - last HD session was yesterday - Dialysis today - dry weight 70.3 - monitor electrolytes and supplement as needed 2. Hypertensive Emergency - BP on admission of 201/144 - hydralazine given in ED - dc nitro drip, cardene drip started - clonidine patch .3mg BID, Trandate 300mg BID, aldactone 100mg daily, hydralazine 100mg BID PRN, Trandate 10mg q2 PRN - continue to monitor 3. Chest Pain with positive troponin - EKG Normal Sinus Rhythm - chest xray pending official read - Trop downtrending, likely elevated due to ESRD - Aspirin 300 rectal given - Cardiology consulted, imer [place] 4. Intractable Nausea and Vomiting - Reglan 10mg IV Q6H - Improving, able to tolerate liquid - continue to monitor - morphine held 5. GI/DVTppx -hep/protonix <Leonardo Gamino - Last Filed: 12/04/18 06:36> Meds - Medications Medications: Current Medications Alprazolam (Xanax) 0.5 mg PO BID [facility]; Protocol Last Admin: 12/03/18 17:32 Dose: 0.5 mg Amlodipine Besylate (Norvasc) 10 mg PO DAILY [facility] Last Admin: 12/03/18 10:07 Dose: 10 mg Cinacalcet (Sensipar) 30 mg PO DAILY [facility] Last Admin: 12/03/18 10:07 Dose: 30 mg Clonidine HCl (Catapres) 0.2 mg PO BID [facility] Last Admin: 12/03/18 17:33 Dose: 0.2 mg Heparin Sodium (Porcine) (Heparin) 5,000 units SC Q12 [facility]; Protocol Last Admin: 12/03/18 21:55 Dose: 5,000 units Hydralazine HCl (Apresoline) 100 mg PO BID PRN PRN Reason: SBP >160 Labetalol HCl (Trandate) 300 mg PO BID [facility] Last Admin: 12/03/18 17:30 Dose: 300 mg Metoclopramide HCl (Reglan) 5 mg IVP Q6H [facility] Last Admin: 12/04/18 05:55 Dose: 5 mg Morphine Sulfate (Morphine) 2 mg IVP Q4H PRN PRN Reason: Pain, severe (8-10) Last Admin: 12/03/18 09:10 Dose: 2 mg Pantoprazole Sodium (Protonix Inj) 40 mg IVP DAILY [facility] Last Admin: 12/03/18 10:08 Dose: 40 mg Spironolactone (Aldactone) 100 mg PO DAILY [facility] Last Admin: 12/03/18 17:40 Dose: 100 mg Zolpidem Tartrate (Ambien) 5 mg PO HS [facility]; Protocol Last Admin: 12/03/18 21:05 Dose: Not Given Results - Vital Signs Recent Vital Signs: Last Vital Signs Temp 97.7 F 12/03/18 03:05 Pulse 68 12/04/18 02:50 Resp 20 12/04/18 02:50 BP 130/89 12/04/18 02:50 Pulse Ox 94 L 12/04/18 02:50 - Labs Result Diagrams: 12/03/18 05:30 12/03/18 05:30 Labs: Laboratory Results - last 24 hr 12/03/18 12/03/18 12/03/18 01:00 02:35 05:30 WBC RBC Hgb Hct MCV MCH MCHC RDW Plt Count MPV Neut % (Auto) Lymph % (Auto) [place] % (Auto) Eos % (Auto) Baso % (Auto) Lymph # (Auto) [place] # (Auto) Eos # (Auto) Baso # (Auto) Absolute Neuts (auto) Neutrophils % (Manual) Lymphocytes % (Manual) Monocytes % (Manual) Platelet Evaluation Sodium 138 Potassium 3.4 L Chloride 98 Carbon Dioxide 26 Anion Gap 18 BUN 27 H Creatinine 3.1 H Est GFR ( Amer) 20 Est GFR (Non-Af Amer) 17 POC Glucose (mg/dL) Random Glucose 158 H Calcium 10.2 Phosphorus 3.3 Magnesium 2.3 H Total Bilirubin 0.5 AST 27 ALT 10 Alkaline Phosphatase 113 Troponin I 0.11 D NT-Pro-B Natriuret Pep 87402 H Total Protein 8.3 Albumin 5.0 H Globulin 3.3 Albumin/Globulin Ratio 1.5 Procalcitonin 0.28 Cortisol AM Sample Urine Opiates Screen Positive H Urine Methadone Screen Negative Ur Barbiturates Screen Negative Ur Phencyclidine Scrn Negative Ur Amphetamines Screen Negative U Benzodiazepines Scrn Positive H U Oth Cocaine Metabols Negative U Cannabinoids Screen Negative 12/03/18 12/03/18 12/03/18 05:30 05:30 07:43 WBC 18.4 H RBC 4.18 Hgb 12.6 Hct 38.5 MCV 92.1 MCH 30.1 MCHC 32.7 RDW 13.3 Plt Count 451 H MPV 9.5 Neut % (Auto) 94.4 H Lymph % (Auto) 3.4 L [place] % (Auto) 2.1 Eos % (Auto) 0.0 L Baso % (Auto) 0.1 Lymph # (Auto) 0.6 L [place] # (Auto) 0.4 Eos # (Auto) 0.0 Baso # (Auto) 0.02 Absolute Neuts (auto) 17.40 H Neutrophils % (Manual) 95 H Lymphocytes % (Manual) 4 L Monocytes % (Manual) 1 Platelet Evaluation High Sodium Potassium Chloride Carbon Dioxide Anion Gap BUN Creatinine Est GFR ( Amer) Est GFR (Non-Af Amer) POC Glucose (mg/dL) 125 H Random Glucose Calcium Phosphorus Magnesium Total Bilirubin AST ALT Alkaline Phosphatase Troponin I NT-Pro-B Natriuret Pep Total Protein Albumin Globulin Albumin/Globulin Ratio Procalcitonin Cortisol AM Sample 108.0 H Urine Opiates Screen Urine Methadone Screen Ur Barbiturates Screen Ur Phencyclidine Scrn Ur Amphetamines Screen U Benzodiazepines Scrn U Oth Cocaine Metabols U Cannabinoids Screen 12/03/18 12/03/18 11:38 16:58 WBC RBC Hgb Hct MCV MCH MCHC RDW Plt Count MPV Neut % (Auto) Lymph % (Auto) [place] % (Auto) Eos % (Auto) Baso % (Auto) Lymph # (Auto) [place] # (Auto) Eos # (Auto) Baso # (Auto) Absolute Neuts (auto) Neutrophils % (Manual) Lymphocytes % (Manual) Monocytes % (Manual) Platelet Evaluation Sodium Potassium Chloride Carbon Dioxide Anion Gap BUN Creatinine Est GFR ( Amer) Est GFR (Non-Af Amer) POC Glucose (mg/dL) 139 H 81 Random Glucose Calcium Phosphorus Magnesium Total Bilirubin AST ALT Alkaline Phosphatase Troponin I NT-Pro-B Natriuret Pep Total Protein Albumin Globulin Albumin/Globulin Ratio Procalcitonin Cortisol AM Sample Urine Opiates Screen Urine Methadone Screen Ur Barbiturates Screen Ur Phencyclidine Scrn Ur Amphetamines Screen U Benzodiazepines Scrn U Oth Cocaine Metabols U Cannabinoids Screen Attending/Attestation - Attestation I have personally seen and examined this patient.: Yes I have fully participated in the care of the patient.: Yes I have reviewed all pertinent clinical information: Yes Notes (Text): Patient seen and examined; I agree with the resident's note as above with the following additions/edits: 38 yo F w/ pmh of HTN, CHF?, uterine fibroids/cyst, kidney stones and ESRD on HD (MWF at [facility], under Dr. Erick Seth), presented to ED with intractable vomiting and abd pain, also found to have hypertensive urgency/emergency (positive troponin); nephrology being consulted for ESRD care; Review of patient's medical record shows multiple ED visits/admissions for above mentioned symptoms; last GI note from just 3 weeks ago recommended repeat EGD (last in 2017 showed some gastritis); patient otherwise appears dry despite being severely hypertensive; labs are indicative of hemoconcentration (see h/h, serum albumin) which are consistent with persistent vomiting; no edema on exam and CXR clear; elevated pro-BNP noted but clinically doesn't appear volume overloaded; Uncontrolled hypertension; had been on nitro drip initially without improvement, then switched to cardene drip with significant improvement of BP but also with abd pain much better controlled with IVP morphine; htn doesn't appear to be related to volume excess and so we are dialyzing her today without any net UF; agree with endocrine service that primary hyperaldo is unlikely to be causing htn in ESRD patient but patient can still have renin mediated htn and would be nefit from ARB (not aldactone); agree with workup for pheo but also unlikely; otherwise, medication non-compliance also a possibility; -Dialyzing on higher K dialysate to avoid further hypokalemia; -Restart home meds; consider adding losartan 50 mg daily instead of aldactone; -Avoid morphine for pain relief (metabolites accumulate in renal failure), dilaudid better option; -Needs GI workup for recurrent abd pain; would also recommend ACTUARIAL ANALYST f/u given previous abd/pelvis CT findings; Thank you for this referral, we will be following closely.
--- NOTE | 2018-12-03 14:44 | CP.PCM.CON ---
History of Present Illness - History of Present Illness History of Present Illness: Endocrine Service Consult Note for Dr. Farhad George DO, PGY-3 IM This is a 38 F with a PMH of ESRD on HD (MWF, dry wt 70.3 kg), HFpEF, HTN, uterine fibroids/cyst, and kidney stones who presented to the [facility] ED with complaints of intractable abdominal pain with associated intractable nausea and vomiting for two days, and was found to be in hypertensive urgency vs emergency. Patient states she has had multiple visits for similar complaints. Patient states she started feeling nauseous and experienced multiple episodes of emesis after her most recent dialysis session. She states she has non bilious vomiting multiple times and with some blood on occasion with abdominal pain located throughout her abdomen. She also had complaints of chest tightness located in the middle of her chest, non radiating which is present at rest and is worse with palpation. She reports that her nausea/emesis prevented her from taking her antihypertensives since her last HD, 3 days prior to presentation. Of note, patient is adamant that she has been otherwise compliant with her medications and HD sessions, but there is some concern with possible medication noncompliance as per documentation during prior admissions. Patient has had multiple admissions with similar presentation, including N/V and severely elevated BP. At time of exam today, patient undergoing 2nd round of HD. Reports feeling better overall, and BP now wnl on bedside monitor. She denies current chest pain, shortness of breath, fever, chills, emesis, focal/generalized weakness. PMD: Willam Albertro: Dr. Seth PMH: as above PSH: Cholecystectomy, R chest wall port Soc Hx: 3- 4 cigarettes a day, denies EtOH and illicit drug use Fam Hx: Mother, at 49 from DM; Father, alive has COPD Home Meds: Sensipar 30 mg daily, Ambien 10 mg HS, Percocet 5/325 mg prn, Xanax 0.5 mg BID , Norvasc 10 mg daily, Hydralazine 100 mg BID, Clondine 0.3 mg BID, Labetalol 300 mg BID Review of Systems - Review of Systems All systems: reviewed and no additional remarkable complaints except (as per HPI) Past Patient History - Infectious Disease Hx of Infectious Diseases: None - Past Medical History & Family History Past Medical History?: Yes - Past Social History Smoking Status: Current Some Days Smoker - CARDIAC Hx Congestive Heart Failure: Yes Hx Hypertension: Yes Hx Peripheral Edema: Yes - PULMONARY Hx Pneumonia: Yes - NEUROLOGICAL Hx Neurological Disorder: No - HEENT Hx HEENT Problems: Yes Other/Comment: wears glasses - RENAL Hx Chronic Kidney Disease: Yes Hx Kidney Stones: Yes - ENDOCRINE/METABOLIC Hx Endocrine Disorders: No - HEMATOLOGICAL/ONCOLOGICAL Hx Anemia: Yes - INTEGUMENTARY Hx Dermatological Problems: Yes Other/Comment: SCARRING TO LEFT UPPER ARM DUE TO PLACEMENT OF SHUNT. NF.3X HAD SURGERY. - MUSCULOSKELETAL/RHEUMATOLOGICAL Hx Arthritis: Yes (L HIP) Hx Falls: Yes - GASTROINTESTINAL Hx Gall Bladder Disease: Yes (CHOLECYSTECTOMY) Hx Pancreatitis: Yes - GENITOURINARY/GYNECOLOGICAL Hx Genitourinary Disorders: Yes - PSYCHIATRIC Hx Anxiety: Yes Hx Depression: Yes - SURGICAL HISTORY Hx Cholecystectomy: Yes - ANESTHESIA Hx Anesthesia: Yes Hx Anesthesia Reactions: No Hx Malignant Hyperthermia: No Meds Allergies/Adverse Reactions: Allergies Allergy/AdvReac Type Severity Reaction Status Date / Time No Known Allergies Allergy Verified 11/17/18 17:39 - Medications Medications: Current Medications Alprazolam (Xanax) 0.5 mg PO BID FORMERLY [facility], 1928[facility]1983; Protocol Last Admin: 12/03/18 10:08 Dose: 0.5 mg Amlodipine Besylate (Norvasc) 10 mg PO DAILY FOR[facility]LY [facility], 1928–1983 Last Admin: 12/03/18 10:07 Dose: 10 mg Cinacalcet (Sensipar) 30 mg PO DAILY FOR[facility]LY [facility], 1928[facility]1983 Last Admin: 12/03/18 10:07 Dose: 30 mg Clonidine HCl (Catapres) 0.2 mg PO BID FOR[facility]LY [facility], [facility]–1983 Heparin Sodium (Porcine) (Heparin) 5,000 units SC Q12 FORMERLY [facility], 1928–1983; Protocol Last Admin: 12/03/18 10:08 Dose: 5,000 units Hydralazine HCl (Apresoline) 100 mg PO BID PRN PRN Reason: SBP >160 Nicardipine HCl (Cardene Iv Premix) 20 mg in 200 mls @ 50 mls/hr IV .Q4H PRN; Protocol PRN Reason: TITRATE PER MD ORDER Last Admin: 12/03/18 10:06 Dose: 5 mg/hr, 50 mls/hr Labetalol HCl (Trandate) 300 mg PO BID [facility], 1928[facility]1983 Last Admin: 12/03/18 10:07 Dose: 300 mg Labetalol HCl (Trandate) 10 mg IV Q2H PRN PRN Reason: hypotension Last Admin: 12/03/18 07:32 Dose: 10 mg Metoclopramide HCl (Reglan) 5 mg IVP Q6H [facility], [facility]1983 Last Admin: 12/03/18 09:11 Dose: 5 mg Morphine Sulfate (Morphine) 2 mg IVP Q4H PRN PRN Reason: Pain, severe (8-10) Last Admin: 12/03/18 09:10 Dose: 2 mg Pantoprazole Sodium (Protonix Inj) 40 mg IVP DAILY [facility], [facility] Last Admin: 12/03/18 10:08 Dose: 40 mg Spironolactone (Aldactone) 100 mg PO DAILY [facility]1983 Zolpidem Tartrate (Ambien) 5 mg PO HS KANDACE; Protocol Physical Exam - Constitutional Appears: Non-toxic, No Acute Distress Additional comments: undergoing HD at time of exam, so limited physical exam performed - Head Exam Head Exam: ATRAUMATIC, NORMAL INSPECTION, NORMOCEPHALIC - Eye Exam Eye Exam: EOMI, Normal appearance. absent: Conjunctival injection, Scleral ic terus Pupil Exam: absent: Irregular, Unequal - ENT Exam ENT Exam: Mucous Membranes Moist - Neck Exam Neck exam: Positive for: Normal Inspection Additional comments: Carotids auscultated, no bruits appreciated b/l - Respiratory Exam Respiratory Exam: Clear to Auscultation Bilateral, NORMAL BREATHING PATTERN. absent: Accessory Muscle Use, Chest Wall Tenderness, Decreased Breath Sounds, Rales, Rhonchi, Wheezes Additional comments: right chest wall port in place, no surrounding erythema/edema, undergoing HD through the chest port without apparent issue - Cardiovascular Exam Cardiovascular Exam: REGULAR RHYTHM, RRR, +S1, +S2. absent: Bradycardia, Tachycardia, Irregular Rhythm, JVD, +S4 - GI/Abdominal Exam GI & Abdominal Exam: Normal Bowel Sounds, Soft. absent: Diminished Bowel Sounds, Hyperactive Bowel Sounds, Hypoactive Bowel Sounds - Extremities Exam Extremities exam: Positive for: normal capillary refill, normal inspection, pedal pulses present. Negative for: calf tenderness, pedal edema, tenderness - Neurological Exam Additional comments: resting but immediately arousable, afterwards awake and alert, minimal spontaneous movements but able to follow all commands appropriately - Psychiatric Exam Psychiatric exam: Normal Affect, Normal Mood - Skin Skin Exam: Dry, Intact, Normal Color, Warm Results - Vital Signs Recent Vital Signs: Last Vital Signs Temp 97.7 F 12/03/18 03:05 Pulse 85 12/03/18 13:14 Resp 25 H 12/03/18 13:14 BP 116/60 12/03/18 13:15 Pulse Ox 96 12/03/18 02:40 - Labs Result Diagrams: 12/03/18 05:30 12/03/18 05:30 Labs: Laboratory Results - last 24 hr 12/02/18 12/02/18 12/02/18 22:02 22:02 22:02 WBC 16.7 H D RBC 4.44 Hgb 13.7 D Hct 40.5 MCV 91.2 D MCH 30.9 MCHC 33.8 RDW 13.1 Plt Count 441 MPV 9.6 Neut % (Auto) 89.4 H Lymph % (Auto) 6.8 L Wirt % (Auto) 3.5 Eos % (Auto) 0.1 L Baso % (Auto) 0.2 Lymph # (Auto) 1.1 L Wirt # (Auto) 0.6 Eos # (Auto) 0.0 Baso # (Auto) 0.03 Absolute Neuts (auto) 14.91 H Neutrophils % (Manual) Lymphocytes % (Manual) Monocytes % (Manual) Platelet Evaluation PT 12.1 INR 1.09 APTT 33.9 Sodium 139 Potassium 3.1 L Chloride 98 Carbon Dioxide 24 Anion Gap 20 BUN 23 H Creatinine 3.2 H Est GFR ( Amer) 20 Est GFR (Non-Af Amer) 16 POC Glucose (mg/dL) Random Glucose 182 H Calcium 10.6 H Phosphorus 3.6 Magnesium 1.9 Total Bilirubin 0.5 AST 25 ALT 10 Alkaline Phosphatase 130 H D Lactate Dehydrogenase 437 Total Creatine Kinase 64 Troponin I 0.14 H* D NT-Pro-B Natriuret Pep 64997 H Total Protein 8.4 H Albumin 5.2 H Globulin 3.2 Albumin/Globulin Ratio 1.6 Lipase 116 Procalcitonin Beta HCG, Quant Cortisol AM Sample Urine Color Urine Appearance Urine pH Ur Specific [place] Urine Protein Urine Glucose (UA) Urine Ketones Urine Blood Urine Nitrate Urine Bilirubin Urine Urobilinogen Ur Leukocyte Esterase Urine RBC Urine WBC Ur Epithelial Cells Urine Bacteria Urine Opiates Screen Urine Methadone Screen Ur Barbiturates Screen Ur Phencyclidine Scrn Ur Amphetamines Screen U Benzodiazepines Scrn U Oth Cocaine Metabols U Cannabinoids Screen 12/02/18 12/02/18 12/03/18 22:02 23:15 01:00 WBC RBC Hgb Hct MCV MCH MCHC RDW Plt Count MPV Neut % (Auto) Lymph % (Auto) Wirt % (Auto) Eos % (Auto) Baso % (Auto) Lymph # (Auto) Wirt # (Auto) Eos # (Auto) Baso # (Auto) Absolute Neuts (auto) Neutrophils % (Manual) Lymphocytes % (Manual) Monocytes % (Manual) Platelet Evaluation PT INR APTT Sodium Potassium Chloride Carbon Dioxide Anion Gap BUN Creatinine Est GFR ( Amer) Est GFR (Non-Af Amer) POC Glucose (mg/dL) Random Glucose Calcium Phosphorus Magnesium Total Bilirubin AST ALT Alkaline Phosphatase Lactate Dehydrogenase Total Creatine Kinase Troponin I NT-Pro-B Natriuret Pep Total Protein Albumin Globulin Albumin/Globulin Ratio Lipase Procalcitonin Beta HCG, Quant < 2.39 Cortisol AM Sample Urine Color Yellow Urine Appearance Clear Urine pH 8.0 Ur Specific [place] 1.020 Urine Protein >=300 H Urine Glucose (UA) Negative Urine Ketones Negative Urine Blood Negative Urine Nitrate Negative Urine Bilirubin Negative Urine Urobilinogen 0.2 Ur Leukocyte Esterase Negative Urine RBC 0 - 2 Urine WBC 0 - 2 Ur Epithelial Cells Many H Urine Bacteria Occ Urine Opiates Screen Positive H Urine Methadone Screen Negative Ur Barbiturates Screen Negative Ur Phencyclidine Scrn Negative Ur Amphetamines Screen Negative U Benzodiazepines Scrn Positive H U Oth Cocaine Metabols Negative U Cannabinoids Screen Negative 12/03/18 12/03/18 12/03/18 02:35 02:35 05:30 WBC RBC Hgb Hct MCV MCH MCHC RDW Plt Count MPV Neut % (Auto) Lymph % (Auto) Wirt % (Auto) Eos % (Auto) Baso % (Auto) Lymph # (Auto) Wirt # (Auto) Eos # (Auto) Baso # (Auto) Absolute Neuts (auto) Neutrophils % (Manual) Lymphocytes % (Manual) Monocytes % (Manual) Platelet Evaluation PT INR APTT Sodium 138 Potassium 3.4 L Chloride 98 Carbon Dioxide 26 Anion Gap 18 BUN 27 H Creatinine 3.1 H Est GFR ( Amer) 20 Est GFR (Non-Af Amer) 17 POC Glucose (mg/dL) Random Glucose 158 H Calcium 10.2 Phosphorus 3.3 Magnesium 2.3 H Total Bilirubin 0.5 AST 27 ALT 10 Alkaline Phosphatase 113 Lactate Dehydrogenase Total Creatine Kinase Troponin I 0.14 H* 0.11 D NT-Pro-B Natriuret Pep 91945 H Total Protein 8.3 Albumin 5.0 H Globulin 3.3 Albumin/Globulin Ratio 1.5 Lipase Procalcitonin 0.28 Beta HCG, Quant Cortisol AM Sample Urine Color Urine Appearance Urine pH Ur Specific [place] Urine Protein Urine Glucose (UA) Urine Ketones Urine Blood Urine Nitrate Urine Bilirubin Urine Urobilinogen Ur Leukocyte Esterase Urine RBC Urine WBC Ur Epithelial Cells Urine Bacteria Urine Opiates Screen Urine Methadone Screen Ur Barbiturates Screen Ur Phencyclidine Scrn Ur Amphetamines Screen U Benzodiazepines Scrn U Oth Cocaine Metabols U Cannabinoids Screen 12/03/18 12/03/18 12/03/18 05:30 05:30 07:43 WBC 18.4 H RBC 4.18 Hgb 12.6 Hct 38.5 MCV 92.1 MCH 30.1 MCHC 32.7 RDW 13.3 Plt Count 451 H MPV 9.5 Neut % (Auto) 94.4 H Lymph % (Auto) 3.4 L Wirt % (Auto) 2.1 Eos % (Auto) 0.0 L Baso % (Auto) 0.1 Lymph # (Auto) 0.6 L Wirt # (Auto) 0.4 Eos # (Auto) 0.0 Baso # (Auto) 0.02 Absolute Neuts (auto) 17.40 H Neutrophils % (Manual) 95 H Lymphocytes % (Manual) 4 L Monocytes % (Manual) 1 Platelet Evaluation High PT INR APTT Sodium Potassium Chloride Carbon Dioxide Anion Gap BUN Creatinine Est GFR ( Amer) Est GFR (Non-Af Amer) POC Glucose (mg/dL) 125 H Random Glucose Calcium Phosphorus Magnesium Total Bilirubin AST ALT Alkaline Phosphatase Lactate Dehydrogenase Total Creatine Kinase Troponin I NT-Pro-B Natriuret Pep Total Protein Albumin Globulin Albumin/Globulin Ratio Lipase Procalcitonin Beta HCG, Quant Cortisol AM Sample 108.0 H Urine Color Urine Appearance Urine pH Ur Specific [place] Urine Protein Urine Glucose (UA) Urine Ketones Urine Blood Urine Nitrate Urine Bilirubin Urine Urobilinogen Ur Leukocyte Esterase Urine RBC Urine WBC Ur Epithelial Cells Urine Bacteria Urine Opiates Screen Urine Methadone Screen Ur Barbiturates Screen Ur Phencyclidine Scrn Ur Amphetamines Screen U Benzodiazepines Scrn U Oth Cocaine Metabols U Cannabinoids Screen Assessment & Plan - Assessment and Plan (Free Text) Assessment: This is a 38 F with a PMH of ESRD on HD (MWF, dry wt 70.3 kg), HFpEF, HTN, uterine fibroids/cyst, and kidney stones who presented to the [facility] ED with complaints of intractable abdominal pain with associated intractable nausea and vomiting for two days, and was found to be in hypertensive urgency vs emergency. Endocrine was consulted for hypertensive urgency, concern for possible adrenal hyperplasia vs primary hyperaldosteronism. Plan: 1) Hypertensive urgency: improved, well controlled on current regimen 2) ESRD on HD MWF: session last night and again today 3) Chest pain 4) Uncontrolled Nausea and Emesis (NBNB): improved 5) HFpEF 6) Depression/anxiety 7) Possible medication/HD noncompliance -Agree with current regimen for BP control, titrate down on Cardine drip as tolerated, BP wnl currently -Hypertrophy of adrenal glands bilaterally noted on most recent CT scan of abd/pelvis (11/11/18), however, on review of prior charting, has been noted since at least March 2018, suspect more likely 2/2 ESRD -Difficult to differentiate HTN 2/2 primary hyperaldosteronism vs CKD/ESRD; more concerning would be adrenal adenoma in this setting Adenoma not visualized on CT, but if still concerned for it, Adrenal MRI would be recommended, but would wait until patient medically stable -Pending adrenal studies as per primary team, added urine metanephrines and ACTH levels, will follow up -Nephro consult noted, appreciate their insight and recs, HD as per their recs Case discussed with attending, Dr. Llamas Thank you for this consult. Twan George, IM PGY-3
--- NOTE | 2018-12-03 16:11 | CARD ---
APPROVED REPORT Date of service: 12/02/2018 EKG Measurement Heart [id number] <Conclusion> Sinus tachycardia Left ventricular hypertrophy with repolarization abnormality Possible Anterolateral infarct, age undetermined Abnormal ECG
--- NOTE | 2018-12-03 21:46 | CON ---
DATE OF CONSULTATION: 12/03/2018 HISTORY: The patient is a 38-year-old woman with a history of end-stage renal disease who presents with accelerated hypertension with access for her dialysis being in question. The patient's past medical history is free of cardiac disease. No diabetes mellitus was elicited. The patient's history is not reliable. Review of her past medical history reveals an echocardiogram done earlier this year that was unremarkable. A stress test that was done both at [facility] were unremarkable. PHYSICAL EXAMINATION: GENERAL: Currently, the patient is awake, but lethargic. VITAL SIGNS: Blood pressure is 107/51. The heart rate is in the 60s. NECK: Negative JVD. LUNGS: Without rales. HEART: S1, S2. EXTREMITIES: Without edema. DIAGNOSTIC DATA: EKG shows no acute changes. Laboratories were reviewed. IMPRESSION: 1. Accelerated hypertension. 2. End-stage renal disease. 3. History of anemia. 4. History of hypertension. 5. Lethargy. PLAN: Given these findings, the patient's blood pressure currently over corrected, we will decrease some of her medications now. We will decrease her clonidine. Yemi Boston MD
--- NOTE | 2018-12-03 22:45 | CON ---
DATE: 12/03/2018 HISTORY OF PRESENT ILLNESS: In short, the patient is a 38-year-old female with reported history of CHF, cholecystectomy, hypertension, pancreatitis, end-stage renal disease, on hemodialysis. The patient also has history of anemia, depression and anxiety. The patient presented to the emergency room complaining of nausea, vomiting and abdominal pain. The patient was admitted to ICU for hypertensive emergency, blood pressure was 201/144 at the time of admission. Psych consult was called for evaluation of depression and anxiety. The patient was seen and examined in ICU. The patient presented to be sleepy but easily arousable. During the interview, the patient was falling asleep but waking up again. The patient reported that she has history of being depressed after she got to know about her diagnosis and about her dialysis. The patient denied that she ever tried to kill herself in the past, but the patient reported that she was feeling hopeless when she got to know that she has so many medical issues. The patient reported that now she got used to her routine. The patient reported that she lives with her family, brother and sister. She reported that she is treated by them very well. The patient denied feeling depressed or hopeless or helpless. The patient denied feeling anxious. The patient reports at times she could see some male figure but it is not disturbing her and the patient reported that she got used to it. The patient reported that she is not hearing voices and does not feel paranoid. The patient reported that she came to the hospital for pain and right now she feels better. The patient denied using any drugs or alcohol. This movie writer reviewed vital signs which seem to be stable; pulse 75, blood pressure 125/77, respiration 14, oxygen saturation is 100%. Medications reviewed. The patient is on Xanax 0.5 mg twice a day, Norvasc, Sensipar, Catapres, heparin, hydralazine, labetalol, Reglan, morphine, Protonix, Aldactone and Ambien at nighttime. Labs reviewed. White blood cells elevated at 18.4. Coagulations reviewed. Chemistry reviewed. Troponin 0.14 at the time of admission, right now it is trending down. Potassium was 3.4. Urinalysis reviewed. Toxicology was positive for benzodiazepines and opioids. Microbiology reviewed. MENTAL STATUS EXAMINATION: The patient appears to be sleepy, easily arousable, acceptable personal hygiene, intermittent eye contact. Mood described as "I feel better." Affect was constricted but reactive. Mood congruent. Thought process seems to be coherent and goal directed. Thought content, the patient denied visual, auditory or tactile hallucinations. Denied paranoid ideation. The patient denied thoughts of harming herself or others. The patient denied intent or plan of harming herself or others. Insight and judgment seem to be fair. Impulses are well controlled. IMPRESSION: Rule out mood disorder and psychosis due to general medical condition, rule out adjustment disorder. PLAN: Continue current management. Continue current medication. The patient denied that she has any thoughts of harming herself or others. The patient has supportive family. The patient reported that she is not suicidal or homicidal. The patient poses no imminent danger to self or others. The patient is not agitated or aggressive. This movie writer will sign off. Thank you very much for letting me participate in care of your patient. Should you have any questions, give me a call back. Joseline Zaman MD
--- NOTE | 2018-12-03 23:14 | CON ---
DATE: 12/03/2018 ENDOCRINOLOGY CONSULT ICU 128, room 6. HISTORY OF PRESENT ILLNESS: This is a 38-year-old female with known history of hypertension and end-stage renal disease and dialysis dependent, presenting here with intractable nausea, dyspepsia and vomiting with upper abdominal pain, and is now being referred for endocrine evaluation of possible adrenal hyperplasia as noted thereof. PAST MEDICAL HISTORY: History of dyslipidemia; history of previous admissions for congestive heart failure; history of end-stage renal disease and dialysis dependent; history of generalized anxiety and depression, on psychotropic medications; history of longstanding hypertension, currently on a combination of Norvasc, hydralazine, clonidine and labetalol medications as noted. FAMILY HISTORY: Positive for diabetes and hypertension. SOCIAL HISTORY: The patient smokes a few cigarettes a day. Has a supportive family and is currently dependent on narcotic analgesics for pain relief. REVIEW OF SYSTEMS: Admits to generalized body weakness with progressive bouts of dizziness and lightheadedness and even near syncopal episodes, worse in the last few days prior to admission. Also admits to generalized body weakness with bifrontal headaches and visual blurring. No chest pains or palpitations, but admits to progressive shortness of breath, especially on exertion. Her oral intake has been variable with nausea, dyspepsia and sudden onset of diffuse upper abdominal pain with intractable vomiting episodes. PHYSICAL EXAMINATION: GENERAL: This is an average build female in no apparent distress. VITAL SIGNS: Blood pressure of 210/160, pulse of 100 beats per minute and regular, temperature 98, respirations 20, height is 5 feet 7 inches, weight is 150 pounds. HEENT: Head normocephalic. Eyes anicteric with pink conjunctivae. Funduscopy not possible at this time. Ears, nose and throat otherwise normal. NECK: Supple. Thyroid gland is normal in size. No carotid bruits or any cervical adenopathy. CARDIOPULMONARY: Some adynamic precordium. S1, S2 is rapid and regular. LUNGS: Clear to auscultation. ABDOMEN: Flat, soft, with positive bowel sounds. EXTREMITIES: No peripheral edema. Pulses are +2 bilaterally. LABORATORY DATA: WBC is 18.4, hemoglobin of 12, hematocrit of 38, MCV 92, platelets 461. Her chemistry showed BUN initially of 23, sodium 139, potassium 3.1, chloride 98, CO2 of 24, glucose 182 and creatinine 3.2. Her calcium is 10.6. ProBNP is 39,200. Her serum cortisol level is 108. ASSESSMENT: This is a 38-year-old female with malignant range hypertension with underlying dialysis-dependent chronic kidney disease, presenting here with gastrointestinal-related symptoms and intractable vomiting which may actually explain the initial presenting hypokalemia as noted thereof. There is an apparent history of adrenal hyperplasia by CAT scan as noted, but no overt presence of any adrenal adenoma or adrenal tumor as noted. In the setting of dialysis-dependent end-stage renal disease and malignant range hypertension, there is expected suppression of the ilqvb-agrdubelvmn-ycmruequbir system, and because of the incomplete feedback, we expect actually higher levels of the plasma renin and plasma aldosterone levels accordingly. So obtaining a plasma renin and plasma aldosterone level at this time will be unreliable and will not really point out the etiology of the aforementioned. Moreover, the most likely etiology of the hypokalemia would be the intractable vomiting episodes as noted thereof. It is quite remote and unlikely to present with primary hyperaldosteronism and/or Conn's syndrome with this biochemical scenario and this was also clarified by the CAT scan which did not show any adrenal adenoma at this time. There is also biochemical evidence at this time of volume overload with a very high proBNP level as noted, which will also contribute to the suppression of the fexrw-umfjhjlelzg-gjdzexazimk system. PLAN OF MANAGEMENT: A comprehensive hormonal profile has already been obtained with the plasma renin and aldosterone levels sent out. A plasma free metanephrine level will also be obtained and this will confirm any underlying possibility of a pheochromocytoma, although quite unlikely again at this time. The most common cause of malignant range hypertension would just be the recent omission of hemodialysis and poor adherence and compliance to her antihypertensive drug combination as given. We concur with the aforementioned comprehensive hormonal profile as obtained. We will add a parathyroid hormone level to screen for underlying secondary hyperparathyroidism, especially with the presence of hypercalcemia which again could be related to dehydration from the recent vomiting episodes as noted thereof. We will obtain hemoglobin A1c to confirm her prior glycemic control, especially with a mildly elevated glycemic profile as noted. We will also recommend the addition of angiotensin receptor blockers to her current antihypertensive regimen as given. We will obtain serial chemistries and supplement accordingly as needed. We will follow and advise accordingly. Sharon Llamas MD [facility] # [id number]
[2018-12-04 07:10] LABS: HEMOGLOBIN 10.9 g/dL (12.0-16.0); MEAN CELL VOLUME 93.3 fl (80.0-105.0); MEAN CORPUSCULAR HEMOGLOBIN 30.3 pg (25.0-35.0); MEAN CORPUSCULAR HGB CONC 32.4 g/dl (31.0-37.0); MEAN PLATELET VOLUME 9.4 fl (7.0-11.0); RBC 3.6 10^6/uL (3.5-6.1); RED CELL DISTRIBUTION WIDTH 13.3 % (11.5-14.5); WHITE BLOOD COUNT 10.2 10^3/uL (4.5-11.0)
--- NOTE | 2018-12-04 07:15 | CP.PCM.PN ---
Subjective - Date & Time of Evaluation Date of Evaluation: 12/04/18 Time of Evaluation: 07:30 - Subjective Subjective: Endocrine Service Progress Note for Dr. Farhad George DO, IM PGY-3 Patient seen and examined on floors. No acute complaints at time of exam, and no overnight events reported as per nursing. As per nursing notes, no fluid removed from HD session yesterday as per Nephro. Pending resumption of normal MWF HD schedule (next is Saturday). Still intermittently mildly hypertensive, but substantial improvement over BP on presentation. Objective - Vital Signs/Intake and Output Vital Signs (last 24 hours): Temp Pulse Resp BP Pulse Ox 97.7 F 71 20 130/89 94 L 12/03/18 03:05 12/04/18 06:00 12/04/18 02:50 12/04/18 02:50 12/04/18 02:50 Intake and Output: 12/04/18 12/04/18 06:59 18:59 Intake Total 300 Balance 300 - Medications Medications: Current Medications Alprazolam (Xanax) 0.5 mg PO BID [facility]; Protocol Last Admin: 12/03/18 17:32 Dose: 0.5 mg Amlodipine Besylate (Norvasc) 10 mg PO DAILY [facility] Last Admin: 12/03/18 10:07 Dose: 10 mg Cinacalcet (Sensipar) 30 mg PO DAILY [facility] Last Admin: 12/03/18 10:07 Dose: 30 mg Clonidine HCl (Catapres) 0.2 mg PO BID [facility] Last Admin: 12/03/18 17:33 Dose: 0.2 mg Heparin Sodium (Porcine) (Heparin) 5,000 units SC Q12 [facility]; Protocol Last Admin: 12/03/18 21:55 Dose: 5,000 units Hydralazine HCl (Apresoline) 100 mg PO BID PRN PRN Reason: SBP >160 Labetalol HCl (Trandate) 300 mg PO BID [facility] Last Admin: 12/03/18 17:30 Dose: 300 mg Metoclopramide HCl (Reglan) 5 mg IVP Q6H [facility] Last Admin: 12/04/18 05:55 Dose: 5 mg Morphine Sulfate (Morphine) 2 mg IVP Q4H PRN PRN Reason: Pain, severe (8-10) Last Admin: 12/03/18 09:10 Dose: 2 mg Pantoprazole Sodium (Protonix Inj) 40 mg IVP DAILY KANDACE Last Admin: 12/03/18 10:08 Dose: 40 mg Zolpidem Tartrate (Ambien) 5 mg PO HS AKNDACE; Protocol Last Admin: 12/03/18 21:05 Dose: Not Given - Labs Labs: 12/03/18 05:30 12/03/18 05:30 PT 12.1 SECONDS (9.4-12.5) 12/02/18 22:02 INR 1.09 12/02/18 22:02 APTT 33.9 Seconds (26.9-38.3) 12/02/18 22:02 - Additional Findings Additional findings: - Constitutional Appears: Non-toxic, No Acute Distress - Head Exam Head Exam: ATRAUMATIC, NORMAL INSPECTION, NORMOCEPHALIC - Eye Exam Eye Exam: EOMI, Normal appearance. absent: Conjunctival injection, Scleral icterus Pupil Exam: absent: Irregular, Unequal - ENT Exam ENT Exam: Mucous Membranes Moist - Neck Exam Neck exam: Positive for: Normal Inspection - Respiratory Exam Respiratory Exam: Clear to Auscultation Bilateral, NORMAL BREATHING PATTERN, R chest wall port noted. absent: Accessory Muscle Use, Chest Wall Tenderness, Decreased Breath Sounds, Rales, Rhonchi, Wheezes - Cardiovascular Exam Cardiovascular Exam: REGULAR RHYTHM, RRR, +S1, +S2. absent: Bradycardia, Tachycardia, Irregular Rhythm, JVD, +S4 - GI/Abdominal Exam GI & Abdominal Exam: Normal Bowel Sounds, Soft. absent: Diminished Bowel Sounds, Hyperactive Bowel Sounds, Hypoactive Bowel Sounds - Extremities Exam Extremities exam: Positive for: normal capillary refill, normal inspection, pedal pulses present. Negative for: calf tenderness, pedal edema, tenderness - Neurological Exam Neurological Exam: awake and alert, following all commands appropriately, moving all extremities spontaneously - Psychiatric Exam Psychiatric exam: Normal Affect, Normal Mood - Skin Skin Exam: Dry, Intact, Normal Color, Warm Assessment and Plan - Assessment and Plan (Free Text) Assessment: This is a 38 F with a PMH of ESRD on HD (MWF, dry wt 70.3 kg), HFpEF, HTN, uterine fibroids/cyst, and kidney stones who presented to the [facility] ED with complaints of intractable abdominal pain with associated intractable nausea and vomiting for two days, and was found to be in hypertensive urgency vs emergency. Endocrine was consulted for hypertensive urgency, concern for possible adrenal hyperplasia vs primary hyperaldosteronism. Plan: 1) Hypertensive urgency: improved, well controlled on current regimen 2) ESRD on HD MWF: session last night and again today 3) Chest pain 4) Uncontrolled Nausea and Emesis (NBNB): improved 5) HFpEF 6) Depression/anxiety 7) Possible medication/HD noncompliance -Mildly intermittently hypertensive but better controlled, rec addition of an ARB to BP control regimen -Hypertrophy of adrenal glands bilaterally noted on most recent CT scan of abd/pelvis (11/11/18), however, on review of prior charting, has been noted since at least March 2018, suspect more likely 2/2 ESRD -Most likely presentation 2/2 HD and med noncompliance, but pending hormonal workup, pending urinary and plasma metanephrines, pending parathyroid level -For definitive adrenal adenoma workup, can consider adrenal MRI, but not urgently required, can do as outpatient -Nephro consult noted, appreciate their insight and recs, HD as per their recs Will discuss with attending, Dr. Llamas. Further recs as per attending.
[2018-12-04 07:28] LABS: ALB/GLOB RATIO 1.6 (1.1-1.8); ALBUMIN 4.2 g/dL (3.0-4.8); CALCIUM 9.3 mg/dL (8.4-10.5)
[2018-12-04 09:06] VITALS: BP 148/90; PULSE 65; RESP 18; TEMP 98.4; O2SAT 99
--- NOTE | 2018-12-04 14:41 | PN ---
DATE: 12/04/2018 SUBJECTIVE: The patient is without complaints. PHYSICAL EXAMINATION: VITAL SIGNS: Blood pressure is 148/90, heart rate is in the 60s. Physical exam is unchanged. LABORATORY DATA: Hemoglobin is 10.9, BUN and creatinine are noted. IMPRESSION: 1. Accelerated hypertension. 2. End-stage renal disease. 3. Anemia. 4. Lethargy. PLAN: Given these findings, the patient's blood pressure is much better controlled. We will continue her current medications at this time. Yemi Boston MD
--- NOTE | 2018-12-04 18:35 | CP.PCM.DIS ---
<Bryant Rosales - Last Filed: 12/04/18 18:18> Provider - Provider Date of Admission: 12/03/18 01:04 Attending physician: Jabari James MD Primary care physician: Gordo Ragsdale Consults: 12/03/18 01:30 Consult [Physician Consult] Routine Comment: Consulting Provider: Leonardo Gamino Consulting Physician: Leonardo Gamino Reason for Consult: ESRD on HD Consult [Physician Consult] Routine Comment: Consulting Provider: Yemi Boston Consulting Physician: Yemi Boston Reason for Consult: chest pain, troponin elevation 12/03/18 08:16 Psychiatry Consult Routine Comment: Consulting Provider: Joseline Zaman Consulting Physician: Joseline Zaman Reason for Consult: anxiety, depression 12/03/18 08:42 Endocrinology Consult Routine Comment: Consulting Provider: Sharon Llamas Consulting Physician: Sharon Llamas Reason for Consult: hypertensive emergency, adrenal cause? Time Spent in preparation of Discharge (in minutes): 35 Hospital Course - Lab Results Lab Results: Micro Results 12/03/18 03:00 Nose MRSA Culture (Admit) - Final MRSA NOT DETECTED 12/02/18 23:15 Urine,Clean Catch Urine Culture - Final No Growth (<1,000 CFU/ML) 12/03/18 02:00 Blood Blood Culture - Preliminary NO GROWTH AFTER 24 HOURS Most Recent Lab Values WBC 10.2 10^3/uL (4.5-11.0) D 12/04/18 06:45 RBC 3.60 10^6/uL (3.5-6.1) 12/04/18 06:45 Hgb 10.9 g/dL (12.0-16.0) L 12/04/18 06:45 Hct 33.6 % (36.0-48.0) L 12/04/18 06:45 MCV 93.3 fl (80.0-105.0) 12/04/18 06:45 MCH 30.3 pg (25.0-35.0) 12/04/18 06:45 MCHC 32.4 g/dl (31.0-37.0) 12/04/18 06:45 RDW 13.3 % (11.5-14.5) 12/04/18 06:45 Plt Count 329 10^3/uL (120.0-450.0) 12/04/18 06:45 MPV 9.4 fl (7.0-11.0) 12/04/18 06:45 Neut % (Auto) 94.4 % (50.0-68.0) H 12/03/18 05:30 Lymph % (Auto) 3.4 % (22.0-35.0) L 12/03/18 05:30 Archer % (Auto) 2.1 % (1.0-6.0) 12/03/18 05:30 Eos % (Auto) 0.0 % (1.5-5.0) L 12/03/18 05:30 Baso % (Auto) 0.1 % (0.0-3.0) 12/03/18 05:30 Lymph # (Auto) 0.6 (1.2-3.4) L 12/03/18 05:30 Archer # (Auto) 0.4 (0.1-0.6) 12/03/18 05:30 Eos # (Auto) 0.0 (0.0-0.7) 12/03/18 05:30 Baso # (Auto) 0.02 K/mm3 (0.0-2.0) 12/03/18 05:30 Absolute Neuts (auto) 17.40 (1.4-6.5) H 12/03/18 05:30 Neutrophils % (Manual) 95 % (50.0-70.0) H 12/03/18 05:30 Lymphocytes % (Manual) 4 % (22.0-35.0) L 12/03/18 05:30 Monocytes % (Manual) 1 % (1.0-6.0) 12/03/18 05:30 Platelet Evaluation High (NORMAL) 12/03/18 05:30 PT 12.1 SECONDS (9.4-12.5) 12/02/18 22:02 INR 1.09 12/02/18 22:02 APTT 33.9 Seconds (26.9-38.3) 12/02/18 22:02 Sodium 137 mmol/L (132-148) 12/04/18 06:45 Potassium 3.8 mmol/L (3.6-5.0) 12/04/18 06:45 Chloride 98 mmol/L (98-107) 12/04/18 06:45 Carbon Dioxide 29 mmol/L (21-33) 12/04/18 06:45 Anion Gap 14 (10-20) 12/04/18 06:45 BUN 33 mg/dL (7-21) H 12/04/18 06:45 Creatinine 3.3 mg/dl (0.7-1.2) H 12/04/18 06:45 Est GFR ( Amer) 19 12/04/18 06:45 Est GFR (Non-Af Amer) 16 12/04/18 06:45 POC Glucose (mg/dL) 81 mg/dL (65-110) 12/03/18 16:58 Random Glucose 97 mg/dL (70-110) 12/04/18 06:45 Hemoglobin A1c 4.8 % (4.2-6.5) 12/04/18 06:45 Calcium 9.3 mg/dL (8.4-10.5) 12/04/18 06:45 Phosphorus 3.5 mg/dL (2.5-4.5) 12/04/18 06:45 Magnesium 2.2 mg/dL (1.7-2.2) 12/04/18 06:45 Total Bilirubin 0.3 mg/dL (0.2-1.3) 12/04/18 06:45 AST 24 U/L (14-36) 12/04/18 06:45 ALT 12 U/L (7-56) 12/04/18 06:45 Alkaline Phosphatase 87 U/L (38-126) 12/04/18 06:45 Lactate Dehydrogenase 437 U/L (333-699) 12/02/18 22:02 Total Creatine Kinase 64 U/L (35-230) 12/02/18 22:02 Troponin I 0.11 ng/mL D 12/03/18 05:30 NT-Pro-B Natriuret Pep 13639 pg/mL (0-450) H 12/03/18 05:30 Total Protein 6.8 g/dL (5.8-8.3) 12/04/18 06:45 Albumin 4.2 g/dL (3.0-4.8) 12/04/18 06:45 Globulin 2.6 gm/dL 12/04/18 06:45 Albumin/Globulin Ratio 1.6 (1.1-1.8) 12/04/18 06:45 Lipase 116 U/L (23-300) 12/02/18 22:02 Procalcitonin 0.28 NG/ML (0.19-0.49) 12/03/18 02:35 Free T4 1.37 ng/dL (0.78-2.19) 12/04/18 06:45 TSH 3rd Generation 0.37 mIU/mL (0.46-4.68) L 12/04/18 06:45 Beta HCG, Quant < 2.39 mIU/mL (0-6.15) 12/02/18 22:02 Cortisol AM Sample 15.5 ug/dL (4.46-22.7) 12/04/18 06:45 Urine Color Yellow (YELLOW) 12/02/18 23:15 Urine Appearance Clear (CLEAR) 12/02/18 23:15 Urine pH 8.0 (4.7-8.0) 12/02/18 23:15 Ur Specific Starbuck 1.020 (1.005-1.035) 12/02/18 23:15 Urine Protein >=300 mg/dL (<30 mg/dL) H 12/02/18 23:15 Urine Glucose (UA) Negative mg/dL (NEGATIVE) 12/02/18 23:15 Urine Ketones Negative mg/dL (NEGATIVE) 12/02/18 23:15 Urine Blood Negative (NEGATIVE) 12/02/18 23:15 Urine Nitrate Negative (NEGATIVE) 12/02/18 23:15 Urine Bilirubin Negative (NEGATIVE) 12/02/18 23:15 Urine Urobilinogen 0.2 E.U./dL (<1 E.U./dL) 12/02/18 23:15 Ur Leukocyte Esterase Negative Davy/uL (NEGATIVE) 12/02/18 23:15 Urine RBC 0 - 2 /hpf (0-2) 12/02/18 23:15 Urine WBC 0 - 2 /hpf (0-6) 12/02/18 23:15 Ur Epithelial Cells Many /hpf (0-5) H 12/02/18 23:15 Urine Bacteria Occ /hpf (NONE) 12/02/18 23:15 Urine Opiates Screen Positive (NEGATIVE) H 12/03/18 01:00 Urine Methadone Screen Negative (NEGATIVE) 12/03/18 01:00 Ur Barbiturates Screen Negative (NEGATIVE) 12/03/18 01:00 Ur Phencyclidine Scrn Negative (NEGATIVE) 12/03/18 01:00 Ur Amphetamines Screen Negative (NEGATIVE) 12/03/18 01:00 U Benzodiazepines Scrn Positive (NEGATIVE) H 12/03/18 01:00 U Oth Cocaine Metabols Negative (NEGATIVE) 12/03/18 01:00 U Cannabinoids Screen Negative (NEGATIVE) 12/03/18 01:00 - Hospital Course Hospital Course: Bryant Rosales, PGY1 Discharge Summary for Dr. James Patient is a 38 yo F with PMH of ESRD on HD MWF, diastolic CHF, HTN, constipation, depression, cholecystectomy, anxiety who presented to the ED on 12/02 for a one day history of intractable nausea/vomiting and abdominal pain accompanied with chest pain. Patient stated she started feeling nauseas and vomiting after her dialysis session from the other day. Her vomiting was non- bilious and she had multiple episodes. She also has diffuse abdominal pain. Because of her vomiting, patient was unable to take her PO BP meds at home. BP upon admission was persistently > 200/120. Medical team evaluated patient. She was admitted for chest pain - r/o ACS and HTN Urgency vs Emergency. Patient was started on nitroglycerin drip then switched to cardene drip. Her BP improved and she was restarted on her home BP meds. Cardio was placed on consult. Nephro was also consulted so she could have her scheduled HD session as inpatient. EKG did not show acute ST or T wave changes. Troponins were trended and were mildly elevated, however, it was likely due to her ESRD. Prior chart review showed that patient has presented to the ED several times for the same complaint. In the past she has had CT A/P that showed hypertrophy of bilateral adrenal glands. Given that she is on several high dose BP medications at a young age, endocrinology was consulted for possible adrenal hyperplasia vs hyperaldosteronism. Patient's neurologist was called (Dr. Fajardo) but unable to be reached in regards to obtaining further information. Since hospital course, patient's BP improved significantly and her symptoms resolved. Her renal function also improved after HD sessions. She is cleared for discharge by Nephrology, Cardiology, and Endo. She was educated on the importance of medication non-compliance and following up regularly for her HD sessions. After reviewing all labs, imaging, and vitals patient is hemodynamically stable for discharge to home. She will need to follow up with her PMD for referral to a GI doctor for her chronic history of abdominal complaints. She will also follow up with her mechanical oxidizer as outpatient. Discharge Exam - Head Exam Head Exam: ATRAUMATIC, NORMAL INSPECTION, NORMOCEPHALIC - Eye Exam Eye Exam: EOMI, Normal appearance, PERRL Pupil Exam: NORMAL ACCOMODATION - Respiratory Exam Respiratory Exam: Clear to PA & Lateral. absent: Accessory Muscle Use, Chest Wall Tenderness, Rales, Rhonchi, Wheezes, Respiratory Distress - Cardiovascular Exam Cardiovascular Exam: RRR, +S1, +S2 - GI/Abdominal Exam GI & Abdominal Exam: Normal Bowel Sounds, Soft. absent: Firm, Guarding, Rebound, Rigid - Extremities Exam Extremities exam: normal capillary refill, normal inspection, pedal pulses present - Back Exam Back exam: NORMAL INSPECTION - Neurological Exam Neurological exam: Alert, CN II-XII Intact, Normal Gait, Oriented x3 - Psychiatric Exam Psychiatric exam: Normal Affect, Normal Mood - Skin Skin Exam: Dry, Intact, Normal Color, Warm Discharge Plan - Discharge Medications Prescriptions: Losartan [Cozaar] 25 mg PO DAILY #14 tab - Follow Up Plan Condition: GOOD Disposition: HOME/ ROUTINE Instructions: High Blood Pressure in Adults, High Blood Pressure (DC), Hemodialysis (DC), High Blood Pressure Emergencies, End Stage Kidney Disease (DC) Additional Instructions: - please follow-up with your Primary Care Doctor within 3-5 days of discharge. Because of your abdominal complaints, you will need a referral to a gasteroenterologist. - please take your medications regularly; missing doses puts you at greater risk of worsened blood pressure control and further cardiac risks - please adhere to your dialysis schedule - You need to follow up your mechanical oxidizer (Dr. Oconnell) as outpatient within 1 week of discharge because of elevated troponin levels in your heart - Return to Emergency department if new or worsening symptoms Referrals: Otis Oconnell MD [Staff Provider] - Gordo Ragsdale MD [Primary Care Provider] - <Jabari James - Last Filed: 12/05/18 08:06> Provider - Provider Date of Admission: 12/03/18 01:04 Attending physician: Jabari James MD Primary care physician: Gordo Ragsdale Consults: 12/03/18 01:30 Consult [Physician Consult] Routine Comment: Consulting Provider: Leonardo Gamino Consulting Physician: Leonardo Gamino Reason for Consult: ESRD on HD Consult [Physician Consult] Routine Comment: Consulting Provider: Yemi Boston Consulting Physician: Yemi Boston Reason for Consult: chest pain, troponin elevation 12/03/18 08:16 Psychiatry Consult Routine Comment: Consulting Provider: Joseline Zaman Consulting Physician: Joseline Zaman Reason for Consult: anxiety, depression 12/03/18 08:42 Endocrinology Consult Routine Comment: Consulting Provider: Sharon Llamas Consulting Physician: Sharon Llamas Reason for Consult: hypertensive emergency, adrenal cause? Hospital Course - Lab Results Lab Results: Micro Results 12/03/18 02:00 Blood Blood Culture - Preliminary NO GROWTH AFTER 48 HOURS 12/03/18 03:00 Nose MRSA Culture (Admit) - Final MRSA NOT DETECTED 12/02/18 23:15 Urine,Clean Catch Urine Culture - Final No Growth (<1,000 CFU/ML) Most Recent Lab Values WBC 10.2 10^3/uL (4.5-11.0) D 12/04/18 06:45 RBC 3.60 10^6/uL (3.5-6.1) 12/04/18 06:45 Hgb 10.9 g/dL (12.0-16.0) L 12/04/18 06:45 Hct 33.6 % (36.0-48.0) L 12/04/18 06:45 MCV 93.3 fl (80.0-105.0) 12/04/18 06:45 MCH 30.3 pg (25.0-35.0) 12/04/18 06:45 MCHC 32.4 g/dl (31.0-37.0) 12/04/18 06:45 RDW 13.3 % (11.5-14.5) 12/04/18 06:45 Plt Count 329 10^3/uL (120.0-450.0) 12/04/18 06:45 MPV 9.4 fl (7.0-11.0) 12/04/18 06:45 Neut % (Auto) 94.4 % (50.0-68.0) H 12/03/18 05:30 Lymph % (Auto) 3.4 % (22.0-35.0) L 12/03/18 05:30 Archer % (Auto) 2.1 % (1.0-6.0) 12/03/18 05:30 Eos % (Auto) 0.0 % (1.5-5.0) L 12/03/18 05:30 Baso % (Auto) 0.1 % (0.0-3.0) 12/03/18 05:30 Lymph # (Auto) 0.6 (1.2-3.4) L 12/03/18 05:30 Archer # (Auto) 0.4 (0.1-0.6) 12/03/18 05:30 Eos # (Auto) 0.0 (0.0-0.7) 12/03/18 05:30 Baso # (Auto) 0.02 K/mm3 (0.0-2.0) 12/03/18 05:30 Absolute Neuts (auto) 17.40 (1.4-6.5) H 12/03/18 05:30 Neutrophils % (Manual) 95 % (50.0-70.0) H 12/03/18 05:30 Lymphocytes % (Manual) 4 % (22.0-35.0) L 12/03/18 05:30 Monocytes % (Manual) 1 % (1.0-6.0) 12/03/18 05:30 Platelet Evaluation High (NORMAL) 12/03/18 05:30 PT 12.1 SECONDS (9.4-12.5) 12/02/18 22:02 INR 1.09 12/02/18 22:02 APTT 33.9 Seconds (26.9-38.3) 12/02/18 22:02 Sodium 137 mmol/L (132-148) 12/04/18 06:45 Potassium 3.8 mmol/L (3.6-5.0) 12/04/18 06:45 Chloride 98 mmol/L (98-107) 12/04/18 06:45 Carbon Dioxide 29 mmol/L (21-33) 12/04/18 06:45 Anion Gap 14 (10-20) 12/04/18 06:45 BUN 33 mg/dL (7-21) H 12/04/18 06:45 Creatinine 3.3 mg/dl (0.7-1.2) H 12/04/18 06:45 Est GFR ( Amer) 19 12/04/18 06:45 Est GFR (Non-Af Amer) 16 12/04/18 06:45 POC Glucose (mg/dL) 81 mg/dL (65-110) 12/03/18 16:58 Random Glucose 97 mg/dL (70-110) 12/04/18 06:45 Hemoglobin A1c 4.8 % (4.2-6.5) 12/04/18 06:45 Calcium 9.3 mg/dL (8.4-10.5) 12/04/18 06:45 Phosphorus 3.5 mg/dL (2.5-4.5) 12/04/18 06:45 Magnesium 2.2 mg/dL (1.7-2.2) 12/04/18 06:45 Total Bilirubin 0.3 mg/dL (0.2-1.3) 12/04/18 06:45 AST 24 U/L (14-36) 12/04/18 06:45 ALT 12 U/L (7-56) 12/04/18 06:45 Alkaline Phosphatase 87 U/L (38-126) 12/04/18 06:45 Lactate Dehydrogenase 437 U/L (333-699) 12/02/18 22:02 Total Creatine Kinase 64 U/L (35-230) 12/02/18 22:02 Troponin I 0.11 ng/mL D 12/03/18 05:30 NT-Pro-B Natriuret Pep 39231 pg/mL (0-450) H 12/03/18 05:30 Total Protein 6.8 g/dL (5.8-8.3) 12/04/18 06:45 Albumin 4.2 g/dL (3.0-4.8) 12/04/18 06:45 Globulin 2.6 gm/dL 12/04/18 06:45 Albumin/Globulin Ratio 1.6 (1.1-1.8) 12/04/18 06:45 Lipase 116 U/L (23-300) 12/02/18 22:02 Procalcitonin 0.28 NG/ML (0.19-0.49) 12/03/18 02:35 Free T4 1.37 ng/dL (0.78-2.19) 12/04/18 06:45 TSH 3rd Generation 0.37 mIU/mL (0.46-4.68) L 12/04/18 06:45 Beta HCG, Quant < 2.39 mIU/mL (0-6.15) 12/02/18 22:02 Cortisol AM Sample 15.5 ug/dL (4.46-22.7) 12/04/18 06:45 ACTH 7 pg/mL (6-50) 12/03/18 15:30 Urine Color Yellow (YELLOW) 12/02/18 23:15 Urine Appearance Clear (CLEAR) 12/02/18 23:15 Urine pH 8.0 (4.7-8.0) 12/02/18 23:15 Ur Specific Starbuck 1.020 (1.005-1.035) 12/02/18 23:15 Urine Protein >=300 mg/dL (<30 mg/dL) H 12/02/18 23:15 Urine Glucose (UA) Negative mg/dL (NEGATIVE) 12/02/18 23:15 Urine Ketones Negative mg/dL (NEGATIVE) 12/02/18 23:15 Urine Blood Negative (NEGATIVE) 12/02/18 23:15 Urine Nitrate Negative (NEGATIVE) 12/02/18 23:15 Urine Bilirubin Negative (NEGATIVE) 12/02/18 23:15 Urine Urobilinogen 0.2 E.U./dL (<1 E.U./dL) 12/02/18 23:15 Ur Leukocyte Esterase Negative Davy/uL (NEGATIVE) 12/02/18 23:15 Urine RBC 0 - 2 /hpf (0-2) 12/02/18 23:15 Urine WBC 0 - 2 /hpf (0-6) 12/02/18 23:15 Ur Epithelial Cells Many /hpf (0-5) H 12/02/18 23:15 Urine Bacteria Occ /hpf (NONE) 12/02/18 23:15 Urine Opiates Screen Positive (NEGATIVE) H 12/03/18 01:00 Urine Methadone Screen Negative (NEGATIVE) 12/03/18 01:00 Ur Barbiturates Screen Negative (NEGATIVE) 12/03/18 01:00 Ur Phencyclidine Scrn Negative (NEGATIVE) 12/03/18 01:00 Ur Amphetamines Screen Negative (NEGATIVE) 12/03/18 01:00 U Benzodiazepines Scrn Positive (NEGATIVE) H 12/03/18 01:00 U Oth Cocaine Metabols Negative (NEGATIVE) 12/03/18 01:00 U Cannabinoids Screen Negative (NEGATIVE) 12/03/18 01:00 Attending/Attestation - Attestation I have personally seen and examined this patient.: Yes I have fully participated in the care of the patient.: Yes I have reviewed all pertinent clinical information, including history, physical exam and plan: Yes Notes (Text): 12/05/18 08:04 Attending note; Patient seen and examined with resident. Patient is alert and awake. Currently denies any nausea, vomiting. Denies any chest pain, shortness of breath Denies any fevers, chills. Tolerating diet well. Ambulating without any difficulty. Patient is a 38 year old female with PMH of ESRD on HD MWF, diastolic CHF, HTN, constipation, depression, cholecystectomy, anxiety who presented to the ED on 12/02 for a one day history of intractable nausea/vomiting and abdominal pain accompanied with chest pain. 1. Intractable nausea and vomiting; resolved completely. Tolerating diet well . Patient has episodes of nausea vomiting for a long time . Never had GI workup .previous CAT scans negative .Patient is advised to follow-up with PMD For outpatient GI referral. Possible psychiatric issues suspected. 2. Hypertensive Emergency Patient was started on nitroglycerin drip then switched to cardene drip. Her BP improved and she was restarted on her home BP meds. Cardio was placed on consult. Nephro was also consulted so she could have her scheduled HD session as inpatient. EKG did not show acute ST or T wave changes. Troponins were trended and were mildly elevated, however, it was likely due to her ESRD. Prior chart review showed that patient has presented to the ED several times for the same complaint. In the past she has had CT A/P that showed hypertrophy of bilateral adrenal glands. Given that she is on several high dose BP medications at a young age, endocrinology was consulted for possible adrenal hyperplasia vs hyperaldosteronism. Patient's neurologist was called (Dr. Fajardo) but unable to be reached in regards to obtaining further information. Since hospital course, patient's BP improved significantly and her symptoms resolved. Her renal function also improved after HD sessions. She is cleared for discharge by Nephrology, Cardiology, and Endo. She was educated on the importance of medication non-compliance and following up regularly for her HD sessions. After reviewing all labs, imaging, and vitals patient is hemodynamically stable for discharge to home. She will need to follow up with her PMD for referral to a GI doctor for her chronic history of abdominal complaints. She will also follow up with her mechanical oxidizer as outpatient.
--- NOTE | 2018-12-04 20:41 | CP.PCM.PN ---
Subjective - Date & Time of Evaluation Date of Evaluation: 12/04/18 Time of Evaluation: 10:00 - Subjective Subjective: Nephro progress note - Mihaela, PGY - 2 Patient seen and examined at bedside. No acute overnight events. Patient states she is feeling better. Objective - Vital Signs/Intake and Output Vital Signs (last 24 hours): Temp Pulse Resp BP Pulse Ox 98.4 F 65 18 148/90 99 12/04/18 09:05 12/04/18 10:53 12/04/18 09:05 12/04/18 10:55 12/04/18 09:05 - Labs Labs: 12/04/18 06:45 12/04/18 06:45 PT 12.1 SECONDS (9.4-12.5) 12/02/18 22:02 INR 1.09 12/02/18 22:02 APTT 33.9 Seconds (26.9-38.3) 12/02/18 22:02 - Constitutional Appears: Well - Head Exam Head Exam: ATRAUMATIC, NORMAL INSPECTION, NORMOCEPHALIC - Eye Exam Eye Exam: EOMI, Normal appearance, PERRL Pupil Exam: NORMAL ACCOMODATION, PERRL - ENT Exam ENT Exam: Mucous Membranes Moist, Normal Exam - Neck Exam Neck Exam: Full ROM, Normal Inspection. absent: Lymphadenopathy - Respiratory Exam Respiratory Exam: Clear to Ausculation Bilateral, NORMAL BREATHING PATTERN - Cardiovascular Exam Cardiovascular Exam: REGULAR RHYTHM, +S1, +S2. absent: Murmur - GI/Abdominal Exam GI & Abdominal Exam: Soft, Normal Bowel Sounds. absent: Tenderness - Extremities Exam Extremities Exam: Full ROM, Normal Capillary Refill, Normal Inspection. absent: Joint Swelling, Pedal Edema - Back Exam Back Exam: NORMAL INSPECTION - Neurological Exam Neurological Exam: Alert, Awake, CN II-XII Intact, Normal Gait, Oriented x3 - Psychiatric Exam Psychiatric exam: Normal Affect, Normal Mood - Skin Skin Exam: Dry, Intact, Normal Color, Warm Assessment and Plan - Assessment and Plan (Free Text) Assessment: 38 F with PMH of ESRD on HD MWF, diastolic CHF, and benign htn kidney dz admitted to ICU for HTN emergency in the setting of intractable abdominal pain and intractable nausea/vomiting unable to tolerate po intake. Patient abdominal pain improved, avoid oversedation. 1. ESRD on HD - HD MWF - Continue Sensipar - dry weight 70.3 - monitor electrolytes and supplement as needed; dialyzed on higher K dialysate - Avoid Morphine 2. Hypertensive Emergency - Resolved - BP on admission of 201/144 - continue clonidine patch .3mg BID, Trandate 300mg BID, aldactone 100mg daily, hydralazine 100mg BID PRN, Trandate 10mg q2 PRN
--- NOTE | 2018-12-04 21:08 | PN ---
DATE: 12/04/2018 ENDOCRINOLOGY FOLLOWUP NOTE LOCATION: Room 378. This is a 38-year-old female with hypertensive cardiovascular disease and supervening end-stage renal disease and dialysis dependence, presenting here with volume overload and congestive heart failure and also concomitant hypokalemia with malignant range hypertension as noted thereof. Her blood pressure levels have improved overnight and have ranged from 150 to 160 systolic as noted today. Her chemistry showed a BUN of 33, sodium 137, potassium 3.8, chloride 98, CO2 of 29, glucose 97 and creatinine 3.3. Her A1c is actually 4.8%. Her TSH is 0.37 with a free T4 of 1.37 indicative of so-called acute sick euthyroid syndrome and the possibility of adrenal related etiology for the malignant hypertension and hypokalemia on admission. However, she also has significant intractable vomiting episodes prior to admission which would explain her mild hypokalemia that is resolved today as noted. With the volume overload and malignant hypertension, would expect suppression of the plasma [id number] system with an incomplete inhibition of the feedback loop causing higher plasma renin levels accordingly. We will concur with the present medical management and suggest the addition of an angiotensin receptor nisha for further optimal control of malignant ranged hypertension thereafter. Sharon Llamas MD
[2018-12-05] MEDS ORDERED: Pantoprazole 40 mg EC Tab PO SCH (07:30)
== END 2018-12-04 13:51 | disposition home or self-care (01) | DRG 543 ==
LOC: ED 21:24 → ERH 12-03 01:04 → ICU 12-03 02:47 → 3RSO 12-03 18:27
PROVIDERS: ADMIT Internal Medicine; ATTEND Internal Medicine
PROC: 5A1D70Z Performance of Urinary Filtration, Intermittent, Less than 6 Hours Per Day (ICD-10-PCS; principal; 2018-12-03)
DX: I16.1 Hypertensive emergency (principal); I50.32 Chronic diastolic (congestive) heart failure; E11.22 Type 2 diabetes mellitus with diabetic chronic kidney disease; E87.6 Hypokalemia; N18.6 End stage renal disease; D64.9 Anemia, unspecified; E07.81 Sick-euthyroid syndrome; E78.5 Hyperlipidemia, unspecified; F17.210 Nicotine dependence, cigarettes, uncomplicated; F32.89 Other specified depressive episodes; F41.1 Generalized anxiety disorder; I13.2 Hypertensive heart and chronic kidney disease with heart failure and with stage 5 chronic kidney disease, or end stage renal disease; Z82.5 Family history of asthma and other chronic lower respiratory diseases; Z83.3 Family history of diabetes mellitus; Z87.01 Personal history of pneumonia (recurrent); Z87.442 Personal history of urinary calculi; Z90.49 Acquired absence of other specified parts of digestive tract; Z91.14 Patient's other noncompliance with medication regimen; Z99.2 Dependence on renal dialysis; R11.2 Nausea with vomiting, unspecified; R07.89 Other chest pain; R53.83 Other fatigue

== ENCOUNTER 2019-01-27 21:20 | Inpatient (IN) | payer MEDICAID, OTHER ==
[2019-01-27 21:20] VITALS: BMI 23.5
[2019-01-27] MEDS ORDERED: Alum-Mag Hydrox-Simethicone Susp (30 mL) PO STA (21:31)
[2019-01-27] MEDS ORDERED: Sodium Chloride 0.9% 1,000 ML IV STA (21:31)
[2019-01-27] MEDS ORDERED: Atrop/Hyosc/Scopal/PB Elixir (120 ml) PO STA (21:31)
[2019-01-27] MEDS ORDERED: Oxycodone/Acetaminophen 5/325 mg Tab PO STA (21:48)
[2019-01-27] MEDS ORDERED: Iohexol 240 (50 ml) ONE (21:50)
[2019-01-27 21:59] LABS: BASO # 0.07 K/mm3 (0.0-2.0); BASO % 0.5 % (0.0-3.0); EOS # 0.1 (0.0-0.7); EOS % 0.4 % (1.5-5.0); LYMPH # 1.6 (1.2-3.4); LYMPH % 12.1 % (22.0-35.0); MEAN CELL VOLUME 88.6 fl (80.0-105.0); MEAN CORPUSCULAR HEMOGLOBIN 30.4 pg (25.0-35.0); MEAN CORPUSCULAR HGB CONC 34.3 g/dl (31.0-37.0); MEAN PLATELET VOLUME 9.6 fl (7.0-11.0); MONO # 0.4 (0.1-0.6); MONO % 2.8 % (1.0-6.0); RBC 4.28 10^6/uL (3.5-6.1); RED CELL DISTRIBUTION WIDTH 13.8 % (11.5-14.5)
[2019-01-27 22:16] LABS: INR 1.12; PARTIAL THROMBOPLASTIN TIME 31.9 Seconds (26.9-38.3); PROTHROMBIN TIME 12.4 SECONDS (9.4-12.5)
[2019-01-27 22:17] LABS: BLOOD UREA NITROGEN 57 mg/dL (7-21); GFR NON-AFRICAN AMERICAN 12; LIPASE 198 U/L (23-300)
[2019-01-27 22:25] LABS: ALB/GLOB RATIO 1.4 (1.1-1.8); ALBUMIN 5.2 g/dL (3.0-4.8); ALT/SGPT < 6 U/L (7-56); AST/SGOT 57 U/L (14-36)
--- NOTE | 2019-01-27 22:58 | ED PDOC ---
Arrival/HPI - General Chief Complaint: Abdominal Pain Time Seen by Provider: 01/27/19 21:26 Historian: Patient - History of Present Illness Narrative History of Present Illness (Text): 01/27/19 23:04 Kristine Brizuela is a 38 year old female, whose past medical history includes anemia, anxiety, CHF, depression, choleycystectomy, hypertension, pancreatitis, ESRD on HD MWF via subclavian HD catheter, who [facility] for epigastric pain associated with nausea, vomiting for the past 2 days. Patient informs she missed the last dialysis treatment. Patient states having stomach pain secondary to epigastric pain. Patient notes subjective fever, but denies chills, wheezing, shortness of breath, diarrhea, urinary changes, back pain, neck pain, or any other associated symptoms. Time/Duration: < week (2 days.) Symptom Onset: Gradual Symptom Course: Unchanged Context: Home Past Medical History - Provider Review Nursing Documentation Reviewed: Yes - Infectious Disease Hx of Infectious Diseases: None - Cardiac Hx Cardiac Disorders: Yes Hx Congestive Heart Failure: Yes Hx MT: Yes (03/2017) Hx Hypertension: Yes Hx Peripheral Edema: Yes - Pulmonary Hx Respiratory Disorders: Yes Hx Pneumonia: Yes - Neurological Hx Neurological Disorder: No - HEENT Hx HEENT Disorder: Yes Other/Comment: wears glasses - Renal Hx Renal Disorder: Yes Date of Last Dialysis Treatment: 12/31/18 Hx Kidney Stones: Yes Hx Renal Failure: Yes - Endocrine/Metabolic Hx Endocrine Disorders: No - Hematological/Oncological Hx Blood Disorders: Yes Hx Anemia: Yes - Integumentary Hx Dermatological Disorder: Yes Other/Comment: SCARRING TO LEFT UPPER ARM DUE TO PLACEMENT OF SHUNT. NF.3X HAD SURGERY. - Musculoskeletal/Rheumatological Hx Musculoskeletal Disorders: Yes Hx Arthritis: Yes (L HIP) Hx Falls: Yes Other/Comment: sciatica - Gastrointestinal Hx Gastrointestinal Disorders: Yes Hx Gall Bladder Disease: Yes (CHOLECYSTECTOMY) Hx Pancreatitis: Yes Other/Comment: GASTROENTERITIS - Genitourinary/Gynecological Hx Genitourinary Disorders: Yes - Psychiatric Hx Psychophysiologic Disorder: Yes Hx Anxiety: Yes Hx Depression: Yes Hx Substance Use: No - Surgical History Hx Arteriovenous Shunt: Yes (LEFT ARM) Hx Cholecystectomy: Yes Hx Vascular Surgery: Yes (AV SHUNT) Hx Vascular Access Device: Yes (Perma cath) Other/Comment: 2 failed fistula left arm. Left wrist fistula not working - Anesthesia Hx Anesthesia: Yes Hx Anesthesia Reactions: No Hx Malignant Hyperthermia: No Family/Social History - Physician Review Nursing Documentation Reviewed: Yes Family/Social History: Unknown Family HX Smoking Status: Current Some Days Smoker Hx Alcohol Use: No Hx Substance Use: No Allergies/Home Meds Allergies/Adverse Reactions: Allergies No Known Allergies Allergy (Verified 11/17/18 17:39) PER PATIENT Home Medications: Home Meds Medication Instructions Recorded Confirmed Labetalol Hydrochloride [Normodyne] 300 mg PO BID 03/23/18 01/27/19 amLODIPine [Norvasc] 10 mg PO DAILY 05/08/18 01/27/19 Alprazolam [Xanax] 0.5 mg PO TID 07/11/18 01/27/19 Cinacalcet [Sensipar] 30 mg PO DAILY 10/03/18 01/27/19 Zolpidem [Ambien] 10 mg PO HS 10/03/18 01/27/19 Hydralazine HCl 100 mg PO BID 10/05/18 01/27/19 cloNIDine [Catapres] 0.3 mg PO BID 12/04/18 01/27/19 Gabapentin [Neurontin] 100 mg PO TID 01/01/19 01/27/19 Losartan [Cozaar] 12.5 mg PO BID 01/01/19 01/27/19 Pantoprazole Sodium [Protonix] 20 mg PO DAILY 01/01/19 01/27/19 oxyCODONE/Acetaminophen [Percocet 1 tab PO Q6H PRN 01/01/19 01/27/19 5/325 mg Tab] Review of Systems - Physician Review All systems were reviewed & negative as marked: Yes - Review of Systems Constitutional: Fevers (Subjective fever.). absent: Fatigue ENT: absent: Hearing Changes Respiratory: absent: SOB, Cough, Wheezing Cardiovascular: absent: Chest Pain Gastrointestinal: Nausea, Vomiting Musculoskeletal: Other (epigastric pain. ) Skin: absent: Rash Neurological: absent: Headache, Dizziness Psychiatric: absent: Anxiety, Depression Physical Exam Vital Signs Reviewed: Yes Vital Signs Temp Pulse Resp BP Pulse Ox 01/27/19 21:27 99.4 F 126 H 20 198/118 H 97 Temperature: Afebrile Blood Pressure: Hypertensive Pulse: Tachycardic Respiratory Rate: Normal Appearance: Positive for: Well-Appearing, Non-Toxic Pain Distress: None Mental Status: Positive for: Alert and Oriented X 3 - Systems Exam Head: Present: Atraumatic, Normocephalic Pupils: Present: PERRL. No: Sluggish, Non-Reactive Extroacular Muscles: Present: EOMI Conjunctiva: Present: Normal Mouth: Present: Dry Neck: Present: Normal Range of Motion. No: Meningeal Signs, JVD Respiratory/Chest: Present: Clear to Auscultation, Good Air Exchange. No: Respiratory Distress, Accessory Muscle Use, Wheezes, Decreased Breath Sounds Cardiovascular: Present: Regular Rate and Rhythm, Normal S1, S2. No: Murmurs Abdomen: Present: Tenderness (Epigastric tendernes to palpation. ), Other (no rigidity. Actively retching. ). No: Distention, Peritoneal Signs, Guarding Back: Present: Normal Inspection. No: CVA Tenderness, Midline Tenderness Upper Extremity: Present: Normal Inspection, Normal ROM. No: Cyanosis, Edema, Tenderness, Swelling Lower Extremity: Present: Normal Inspection, Normal ROM. No: Edema, Tenderness, Swelling Neurological: Present: GCS=15, Speech Normal Skin: Present: Warm, Dry, Normal Color. No: Rashes Psychiatric: Present: Alert, Oriented x 3, Normal Insight, Normal Concentration Medical Decision Making ED Course and Treatment: 01/27/19 23:14 Impression: 38 y/o female who presents to the emergency department complaining of epigastric pain with nausea, and vomiting. Plan: -- EKG -- Labs -- CT SCAN OF THE ABDOMEN AND PELVIS -- Reassess and disposition Prior Visits: Notes and results from previous visits were reviewed. Progress Notes: - Lab Interpretations Lab Results: PT 12.4 SECONDS (9.4-12.5) 01/27/19 21:40 INR 1.12 01/27/19 21:40 APTT 31.9 Seconds (26.9-38.3) 01/27/19 21:40 Total Bilirubin 1.2 mg/dL (0.2-1.3) 01/27/19 22:14 AST 57 U/L (14-36) H D 01/27/19 22:14 ALT < 6 U/L (7-56) L 01/27/19 22:14 Alkaline Phosphatase 105 U/L (38-126) 01/27/19 22:14 Total Protein 8.8 g/dL (5.8-8.3) H 01/27/19 22:14 Albumin 5.2 g/dL (3.0-4.8) H 01/27/19 22:14 Globulin 3.6 gm/dL 01/27/19 22:14 Albumin/Globulin Ratio 1.4 (1.1-1.8) 01/27/19 22:14 Lipase 198 U/L (23-300) 01/27/19 22:14 - RAD Interpretation Narrative RAD Interpretations (Text): 01/28/19 01:42 CT Abdomen and Pelvis without IV contrast IMPRESSION: 1. The visualized heart appears mildly enlarged. 2. The gallbladder is surgically absent. 3. The spleen is borderline in size measuring 12.8 cm anteroposterior. This is slightly decreased from prior study with measures 13.7 cm. 4. There is thickening of both adrenals, nonspecific but can be seen in hyperplasia. Little change from the prior study. Please correlate clinically and if indicated followup can be obtained. 5. Punctate nonobstructing left upper pole renal calculus, unchanged. 6. There is again a small hiatal hernia, unchanged. 7. 3.6 cm partially calcified fibroid from the left uterus, unchanged. 8. Questionable scattered areas of colonic wall thickening versus underdistention. Please correlate for the possibility of a mild colitis. 9. Evaluation on the study is somewhat limited without IV or oral contrast. 01/28/19 01:48 Radiology Orders: 01/27/19 21:31 ABD & PELVIS PO CONTRAST ONLY [CT] Stat CHEST PORTABLE [RAD] Stat [employer] Operator: Radiologist - EKG Interpretation EKG Interpretation (Text): 01/27/19 23:22 EKG reviewed, shows: sinus tachycardia at [address] elevations. Prolonged Q T interval. Interpreted by ED Physician: Yes Type: 12 lead EKG - Medication Orders Current Medication Orders: Sodium Chloride (Sodium Chloride 0.9%) 1,000 mls @ 100 mls/hr IV .Q10H STA Stop: 01/28/19 07:30 Last Admin: 01/27/19 22:44 Dose: Not Given Non-Admin Reason: BP Parameters Not Met Discontinued Medications Al Hydrox/Mg Hydrox/Simethicone (Maalox Plus 30 Ml) 30 ml PO STAT STA Stop: 01/27/19 21:32 Last Admin: 01/27/19 22:44 Dose: Not Given Non-Admin Reason: Nausea Belladonna/Phenobarbital ( Elixir) 10 ml PO STAT STA Stop: 01/27/19 21:32 Last Admin: 01/27/19 22:44 Dose: Not Given Non-Admin Reason: Nausea Famotidine (Pepcid) 20 mg IVP STAT STA Stop: 01/27/19 21:32 Last Admin: 01/27/19 21:50 Dose: 20 mg IVP Administration Document 01/27/19 21:50 JOL (Rec: 01/27/19 22:42 J[email or web address] Charges for Administration # of IVP Administrations 1 Hydralazine HCl (Apresoline) 10 mg IVP STAT KANDACE Hydralazine HCl (Apresoline) 10 mg IVP STAT STA Stop: 01/27/19 21:53 Last Admin: 01/27/19 22:00 Dose: 10 mg IVP Administration Document 01/27/19 22:00 JOL (Rec: 01/27/19 22:43 JOL [email or web address] Charges for Administration # of IVP Administrations 1 Metoclopramide HCl (Reglan) 10 mg IVP STAT STA Stop: 01/27/19 22:20 Last Admin: 01/27/19 22:43 Dose: 10 mg IVP Administration Document 01/27/19 22:43 JOL (Rec: 01/27/19 22:44 JOL [email or web address] Charges for Administration # of IVP Administrations 1 Ondansetron HCl (Zofran Inj) 4 mg IVP STAT STA Stop: 01/27/19 21:32 Last Admin: 01/27/19 21:50 Dose: 4 mg IVP Administration Document 01/27/19 21:50 JOL (Rec: 01/27/19 22:42 JOL [email or web address] Charges for Administration # of IVP Administrations 1 Oxycodone/Acetaminophen (Percocet 5/325 Mg Tab) 1 tab PO STAT STA Stop: 01/27/19 21:49 - Scribe Statement The provider has reviewed the documentation as recorded by the Scribe All medical record entries made by the Scribe were at my direction and personally dictated by me. I have reviewed the chart and agree that the record accurately reflects my personal performance of the history, physical exam, medical decision making, and the department course for this patient. I have also personally directed, reviewed, and agree with the discharge instructions and disposition. Disposition/Present on Arrival - Present on Arrival History of DVT/PE: No History of Uncontrolled Diabetes: No Urinary Catheter: No History of Decub. Ulcer: No History Surgical Site Infection Following: None - Disposition Disposition: HOSPITALIZED
--- NOTE | 2019-01-27 23:48 | CP.PCM.HP ---
<Faraz Strickland - Last Filed: 01/28/19 04:20> History of Present Illness - History of Present Illness History of Present Illness: PGY1 Medicine History and Physical Exam Note for Dr. Ha This is a 38-year-old F with PMH significant for ESRD on HD MWF via subclavian HD catheter, anemia, anxiety, CHF, depression, choleycystectomy, hypertension, pancreatitis who presents to [facility] ED with epigastric pain associated with nausea and non-bilious/non-bloody vomiting x2 days. Patient states she missed her dialysis appointment on Saturday due to the pain. Patient rates the pain at 10/10, describes the pain as non-radiating and sharp. Patient says the pain comes in w aves with no provoking and/or alleviating factors. Patient admits to subjective fever, but otherwise denies chills, diarrhea, hematemesis, hematochezia, wheezing, shortness of breath, diarrhea, dysuria, flank pain, rash, headache, and/or dizziness. PMH: anemia, anxiety, CHF, depression, choleycystectomy, hypertension, pancreatitis, ESRD on HD MWF via subclavian HD catheter PSH: Cholecystectomy, s/p subclavian HD catheter Allergies: NKDA Social Hx: 3- 4 cigarettes a day, denies EtOH and illicit drug use Family Hx: Mother, at 49 from DM; Father, alive has COPD Medications: Sensipar 30 mg daily, Ambien 10 mg HS, Percocet 5/325 mg prn, Xanax 0.5 mg BID , Norvasc 10 mg daily, Hydralazine 100 mg BID, Clondine 0.3 mg BID, Labetalol 300 mg BID Present on Admission - Present on Admission Any Indicators Present on Admission: No History of DVT/PE: No History of Uncontrolled Diabetes: No Urinary Catheter: No Decubitus Ulcer Present: No Review of Systems - Review of Systems All systems: reviewed and no additional remarkable complaints except (as stated in HPI) Past Patient History - Infectious Disease Hx of Infectious Diseases: None - Past Medical History & Family History Past Medical History?: Yes - Past Social History Smoking Status: Current Some Days Smoker - CARDIAC Hx Cardiac Disorders: Yes Hx Congestive Heart Failure: Yes Hx Heart Attack: Yes (03/2017) Hx Hypertension: Yes Hx Peripheral Edema: Yes - PULMONARY Hx Respiratory Disorders: Yes Hx Pneumonia: Yes - NEUROLOGICAL Hx Neurological Disorder: No - HEENT Hx HEENT Problems: Yes Other/Comment: wears glasses - RENAL Hx Chronic Kidney Disease: Yes Date of Last Dialysis Treatment: 12/31/18 Hx Kidney Stones: Yes Hx Renal Failure: Yes - ENDOCRINE/METABOLIC Hx Endocrine Disorders: No - HEMATOLOGICAL/ONCOLOGICAL Hx Blood Disorders: Yes Hx Anemia: Yes - INTEGUMENTARY Hx Dermatological Problems: Yes Other/Comment: SCARRING TO LEFT UPPER ARM DUE TO PLACEMENT OF SHUNT. NF.3X HAD SURGERY. - MUSCULOSKELETAL/RHEUMATOLOGICAL Hx Musculoskeletal Disorders: Yes Hx Arthritis: Yes (L HIP) Hx Falls: Yes Other/Comment: sciatica - GASTROINTESTINAL Hx Gastrointestinal Disorders: Yes Hx Gall Bladder Disease: Yes (CHOLECYSTECTOMY) Hx Pancreatitis: Yes Other/Comment: GASTROENTERITIS - GENITOURINARY/GYNECOLOGICAL Hx Genitourinary Disorders: Yes - PSYCHIATRIC Hx Psychophysiologic Disorder: Yes Hx Anxiety: Yes Hx Depression: Yes Hx Substance Use: No - SURGICAL HISTORY Hx Arteriovenous Shunt: Yes (LEFT ARM) Hx Cholecystectomy: Yes Hx Vascular Surgery: Yes (AV SHUNT) Hx Vascular Access Device: Yes (Perma cath) Other/Comment: 2 failed fistula left arm. Left wrist fistula not working - ANESTHESIA Hx Anesthesia: Yes Hx Anesthesia Reactions: No Hx Malignant Hyperthermia: No Meds Allergies/Adverse Reactions: Allergies Allergy/AdvReac Type Severity Reaction Status Date / Time No Known Allergies Allergy Verified 11/17/18 17:39 Physical Exam - Constitutional Appears: No Acute Distress, Chronically Ill - Head Exam Head Exam: ATRAUMATIC, NORMAL INSPECTION, NORMOCEPHALIC - Eye Exam Eye Exam: EOMI, Normal appearance, PERRL Pupil Exam: NORMAL ACCOMODATION - ENT Exam ENT Exam: Mucous Membranes Dry, Normal Exam - Respiratory Exam Respiratory Exam: Clear to Auscultation Bilateral, NORMAL BREATHING PATTERN. ab sent: Accessory Muscle Use, Rales, Rhonchi, Wheezes - Cardiovascular Exam Cardiovascular Exam: Tachycardia, +S1, +S2 - GI/Abdominal Exam GI & Abdominal Exam: Normal Bowel Sounds, Soft. absent: Bruit, Distended, Guarding, Hernia, Hyperactive Bowel Sounds, Mass, Organomegaly, Pulsatile Mass, Rebound, Rigid, Tenderness (mild tenderness to palpation of epigastrum. Abdomen tympanic to percussion. Negative barone's sign, Negative Rovsing's sign, Negative McBurny's sign) - Extremities Exam Extremities exam: Positive for: full ROM, normal capillary refill, normal inspection, pedal pulses present. Negative for: joint swelling, pedal edema, tenderness - Back Exam Back exam: NORMAL INSPECTION. absent: CVA tenderness (L), CVA tenderness (R) - Neurological Exam Neurological exam: Alert, CN II-XII Intact, Normal Gait, Oriented x3 - Psychiatric Exam Psychiatric exam: Anxious - Skin Skin Exam: Dry, Intact, Normal Color, Warm Results - Vital Signs Recent Vital Signs: Last Vital Signs Temp 99.4 F 01/27/19 21:27 Pulse 126 H 01/27/19 21:27 Resp 20 01/27/19 21:27 BP 198/118 H 01/27/19 21:27 Pulse Ox 97 01/27/19 21:27 - Labs Result Diagrams: 01/27/19 21:40 01/28/19 02:45 Labs: Laboratory Results - last 24 hr 01/27/19 01/27/19 01/27/19 21:40 21:40 22:14 WBC 13.0 H D RBC 4.28 Hgb 13.0 D Hct 37.9 MCV 88.6 D MCH 30.4 MCHC 34.3 RDW 13.8 Plt Count 488 H MPV 9.6 Neut % (Auto) 84.2 H Lymph % (Auto) 12.1 L Kinney % (Auto) 2.8 Eos % (Auto) 0.4 L Baso % (Auto) 0.5 Lymph # (Auto) 1.6 Kinney # (Auto) 0.4 Eos # (Auto) 0.1 Baso # (Auto) 0.07 Absolute Neuts (auto) 10.97 H PT 12.4 INR 1.12 APTT 31.9 Sodium 137 Potassium 4.5 Chloride 99 Carbon Dioxide 20 L Anion Gap 23 H BUN 57 H Creatinine 4.0 H Est GFR ( Amer) 15 Est GFR (Non-Af Amer) 12 Random Glucose 141 H Calcium 10.0 Magnesium 2.3 H Total Bilirubin 1.2 AST 57 H D ALT < 6 L Alkaline Phosphatase 105 Total Protein 8.8 H Albumin 5.2 H Globulin 3.6 Albumin/Globulin Ratio 1.4 Lipase 198 Assessment & Plan - Assessment and Plan (Free Text) Assessment: Epigastric pain with Intractable Nausea and Vomiting - Reglan 10mg IV Q6H - NPO - Mild hydration NS @40cc / hr - Morphine 2mg Q6 PRN - CMP, CBC, Mg, Phos in AM ESRD on HD - Patient non-compliant; missed yesterday's dialysis - HD MWF - Patient due for dialysis W - Continue Sensipar - Consult Nephro Dr. Gamino, follow recs - CMP, CBC, Mg, Phos in AM Mild Leukocytosis - Likely reactive - WBC count 13 - Patient afebrile - Holding off on antibiotics for now - F/U Procalcitonin - Monitor CBC in AM Hypertension - Labetalol 10mg IV Q6H for > 160 systolic; HOLD for HR < 60 - Hold Home PO meds at this time due to N/V - Monitor GI Prophylaxis: Protonix 40 IV BID Diet: NPO DVT Prophylaxis: SCD Discussed with Dr. Dilcia Strickland PGY1 <Nadja Ha - Last Filed: 01/28/19 22:17> Results - Vital Signs Recent Vital Signs: Last Vital Signs Temp 99 F 01/28/19 21:34 Pulse 59 L 01/28/19 21:34 Resp 18 01/28/19 21:34 BP 104/57 L 01/28/19 21:34 Pulse Ox 96 01/28/19 21:34 - Labs Result Diagrams: 01/28/19 07:30 01/28/19 02:45 Labs: Laboratory Results - last 24 hr 01/27/19 01/27/19 01/27/19 21:40 22:14 22:14 WBC RBC Hgb Hct MCV MCH MCHC RDW Plt Count MPV Neut % (Auto) Lymph % (Auto) Kinney % (Auto) Eos % (Auto) Baso % (Auto) Lymph # (Auto) Kinney # (Auto) Eos # (Auto) Baso # (Auto) Absolute Neuts (auto) Neutrophils % (Manual) Lymphocytes % (Manual) Monocytes % (Manual) Basophils % (Manual) Platelet Evaluation PT 12.4 INR 1.12 APTT 31.9 Sodium 137 Potassium 4.5 Chloride 99 Carbon Dioxide 20 L Anion Gap 23 H BUN 57 H Creatinine 4.0 H Est GFR ( Amer) 15 Est GFR (Non-Af Amer) 12 Random Glucose 141 H Calcium 10.0 Phosphorus Magnesium 2.3 H Total Bilirubin 1.2 AST 57 H D ALT < 6 L Alkaline Phosphatase 105 Total Protein 8.8 H Albumin 5.2 H Globulin 3.6 Albumin/Globulin Ratio 1.4 Lipase 198 Procalcitonin Beta HCG, Quant < 2.39 Urine Color Urine Appearance Urine pH Ur Specific [place] Urine Protein Urine Glucose (UA) Urine Ketones Urine Blood Urine Nitrate Urine Bilirubin Urine Urobilinogen Ur Leukocyte Esterase Urine RBC Urine WBC Ur Epithelial Cells Urine Bacteria Urine Opiates Screen Urine Methadone Screen Ur Barbiturates Screen Ur Phencyclidine Scrn Ur Amphetamines Screen U Benzodiazepines Scrn U Oth Cocaine Metabols U Cannabinoids Screen 01/28/19 01/28/19 01/28/19 02:45 02:45 07:30 WBC 16.7 H D RBC 4.20 Hgb 12.6 Hct 37.9 MCV 90.2 MCH 30.0 MCHC 33.2 RDW 13.6 Plt Count 402 MPV 9.5 Neut % (Auto) 94.9 H Lymph % (Auto) 4.0 L Kinney % (Auto) 0.9 L Eos % (Auto) 0.0 L Baso % (Auto) 0.2 Lymph # (Auto) 0.7 L Kinney # (Auto) 0.2 Eos # (Auto) 0.0 Baso # (Auto) 0.03 Absolute Neuts (auto) 15.85 H Neutrophils % (Manual) 97 H Lymphocytes % (Manual) 1 L Monocytes % (Manual) TEST NOT PERFORMED Basophils % (Manual) 2 H Platelet Evaluation Normal PT INR APTT Sodium 140 Potassium 3.3 L Chloride 100 Carbon Dioxide 22 Anion Gap 21 H BUN 53 H Creatinine 3.9 H Est GFR ( Amer) 16 Est GFR (Non-Af Amer) 13 Random Glucose 145 H Calcium 10.2 Phosphorus Magnesium Total Bilirubin 0.5 AST 26 ALT 14 Alkaline Phosphatase 102 Total Protein 8.4 H Albumin 5.1 H Globulin 3.3 Albumin/Globulin Ratio 1.5 Lipase Procalcitonin 0.11 L Beta HCG, Quant Urine Color Urine Appearance Urine pH Ur Specific [place] Urine Protein Urine Glucose (UA) Urine Ketones Urine Blood Urine Nitrate Urine Bilirubin Urine Urobilinogen Ur Leukocyte Esterase Urine RBC Urine WBC Ur Epithelial Cells Urine Bacteria Urine Opiates Screen Urine Methadone Screen Ur Barbiturates Screen Ur Phencyclidine Scrn Ur Amphetamines Screen U Benzodiazepines Scrn U Oth Cocaine Metabols U Cannabinoids Screen 01/28/19 01/28/1919 07:30 20:10 20:10 WBC RBC Hgb Hct MCV MCH MCHC RDW Plt Count MPV Neut % (Auto) Lymph % (Auto) Kinney % (Auto) Eos % (Auto) Baso % (Auto) Lymph # (Auto) Kinney # (Auto) Eos # (Auto) Baso # (Auto) Absolute Neuts (auto) Neutrophils % (Manual) Lymphocytes % (Manual) Monocytes % (Manual) Basophils % (Manual) Platelet Evaluation PT INR APTT Sodium Potassium Chloride Carbon Dioxide Anion Gap BUN Creatinine Est GFR ( Amer) Est GFR (Non-Af Amer) Random Glucose Calcium Phosphorus 4.7 H Magnesium Total Bilirubin AST ALT Alkaline Phosphatase Total Protein Albumin Globulin Albumin/Globulin Ratio Lipase Procalcitonin Beta HCG, Quant Urine Color Yellow Urine Appearance Sl cloudy Urine pH 6.0 Ur Specific [place] 1.025 Urine Protein >=300 H Urine Glucose (UA) Negative Urine Ketones 15 H Urine Blood Negative Urine Nitrate Negative Urine Bilirubin Small H Urine Urobilinogen 0.2 Ur Leukocyte Esterase Negative Urine RBC None Urine WBC 10 - 15 H Ur Epithelial Cells 10 - 12 H Urine Bacteria Many Urine Opiates Screen Positive H Urine Methadone Screen Negative Ur Barbiturates Screen Negative Ur Phencyclidine Scrn Negative Ur Amphetamines Screen Negative U Benzodiazepines Scrn Negative U Oth Cocaine Metabols Negative U Cannabinoids Screen Negative Attending/Attestation - Attestation I have personally seen and examined this patient.: Yes I have fully participated in the care of the patient.: Yes I have reviewed all pertinent clinical information: Yes Notes (Text): 01/28/19 22:16 Seen and examined. Discussed with resident. Exam significant for mild tenderness in epigastric region. A&P as above.
[2019-01-27] MEDS ORDERED: Labetalol 5mg/ml (4ml) IV STA (23:59)
[2019-01-28] MEDS ORDERED: Morphine 2 mg/ml ISec IVP PRN (00:09)
[2019-01-28] MEDS ORDERED: Labetalol 5mg/ml (4ml) IV STA ×2 (00:09→02:51)
[2019-01-28] MEDS ORDERED: Morphine 2 mg/ml ISec IVP STA (00:09)
[2019-01-28] MEDS: Sodium Chloride 0.9% 1,000 ML IV SCH ×2 (01:46→23:38)
[2019-01-28 04:15] LABS: ALB/GLOB RATIO 1.5 (1.1-1.8); ALBUMIN 5.1 g/dL (3.0-4.8); CALCIUM 10.2 mg/dL (8.4-10.5)
[2019-01-28] MEDS ORDERED: HYDROmorphone 0.5 mg/0.5 ml ISec IVP PRN (06:56)
[2019-01-28 07:57] LABS: BASO # 0.03 K/mm3 (0.0-2.0); BASO % 0.2 % (0.0-3.0); HEMOGLOBIN 12.6 g/dL (12.0-16.0); LYMPH # 0.7 (1.2-3.4); MEAN CELL VOLUME 90.2 fl (80.0-105.0); MEAN CORPUSCULAR HGB CONC 33.2 g/dl (31.0-37.0); MEAN PLATELET VOLUME 9.5 fl (7.0-11.0); MONO # 0.2 (0.1-0.6); MONO % 0.9 % (1.0-6.0); PLATELET COUNT 402 10^3/uL (120.0-450.0); RED CELL DISTRIBUTION WIDTH 13.6 % (11.5-14.5); WHITE BLOOD COUNT 16.7 10^3/uL (4.5-11.0)
[2019-01-28 08:36] LABS: BASOPHIL 2 % (0.0-1.0); LYMPHOCYTE 1 % (22.0-35.0); NEUTROPHIL 97 % (50.0-70.0)
[2019-01-28 08:37] LABS: PLATELET ESTIMATE NORMAL (NORMAL)
[2019-01-28] MEDS: Labetalol 5mg/ml (4ml) IV PRN ×2 (08:57→16:38)
--- NOTE | 2019-01-28 09:05 | CP.PCM.CON ---
<Twan George - Last Filed: 01/28/19 14:58> History of Present Illness - History of Present Illness History of Present Illness: Nephro Consult Note for Dr. Gamino Service Twan George DO, PGY-3 Consulted for: ESRD on HD This is a 38 yo F with PMH ESRD on HD MWF, HTN, HFpEF, anemia, anxie ty/depression, and chronic pancreatitis who presents again with complaint of uncontrolled abd pain, nausea, and non-bloody/non-bilious emesis x2 days. Nephro was consulted for continuation of HD. As per patient, symptoms began 2 days prior, and has since been unable to tolerate her PO medications. Also missed her Saturday (01/26) HD session due to the pain. Reports no recent med changes, no recent illnesses/fevers/chills. Other than Saturday, has been compliant with HD sessions (last was last Saturday, 01/23). Denies new or unusual foods. Makes some urine, denies hematuria, dysuria, frequency. Denies chest pain, shortness of breath, diarrhea, radiation of abdominal pain (epigatric only), or generalized/focal weakness. 12-system ROS negative except as above PMH: as above PSH: Cholecystectomy, s/p subclavian HD catheter Soc Hx: 5-6 cigarettes a day for > 10 yrs, denies EtOH and illicit drug use Fam Hx: Mother, at 49 from DM; Father, alive has COPD Review of Systems - Review of Systems All systems: reviewed and no additional remarkable complaints except (as per HPI) Past Patient History - Infectious Disease Hx of Infectious Diseases: None - Past Medical History & Family History Past Medical History?: Yes - Past Social History Smoking Status: Current Some Days Smoker - CARDIAC Hx Cardiac Disorders: Yes Hx Congestive Heart Failure: Yes Hx Heart Attack: Yes (03/2017) Hx Hypertension: Yes Hx Peripheral Edema: Yes - PULMONARY Hx Respiratory Disorders: Yes Hx Pneumonia: Yes - NEUROLOGICAL Hx Neurological Disorder: No - HEENT Hx HEENT Problems: Yes Other/Comment: wears glasses - RENAL Hx Chronic Kidney Disease: Yes Date of Last Dialysis Treatment: 12/31/18 Hx Kidney Stones: Yes Hx Renal Failure: Yes - ENDOCRINE/METABOLIC Hx Endocrine Disorders: No - HEMATOLOGICAL/ONCOLOGICAL Hx Blood Disorders: Yes Hx Anemia: Yes - INTEGUMENTARY Hx Dermatological Problems: Yes Other/Comment: SCARRING TO LEFT UPPER ARM DUE TO PLACEMENT OF SHUNT. NF.3X HAD SURGERY. - MUSCULOSKELETAL/RHEUMATOLOGICAL Hx Musculoskeletal Disorders: Yes Hx Arthritis: Yes (L HIP) Hx Falls: Yes Other/Comment: sciatica - GASTROINTESTINAL Hx Gastrointestinal Disorders: Yes Hx Gall Bladder Disease: Yes (CHOLECYSTECTOMY) Hx Pancreatitis: Yes Other/Comment: GASTROENTERITIS - GENITOURINARY/GYNECOLOGICAL Hx Genitourinary Disorders: Yes - PSYCHIATRIC Hx Psychophysiologic Disorder: Yes Hx Anxiety: Yes Hx Depression: Yes Hx Substance Use: No - SURGICAL HISTORY Hx Arteriovenous Shunt: Yes (LEFT ARM) Hx Cholecystectomy: Yes Hx Vascular Surgery: Yes (AV SHUNT) Hx Vascular Access Device: Yes (Perma cath) Other/Comment: 2 failed fistula left arm. Left wrist fistula not working - ANESTHESIA Hx Anesthesia: Yes Hx Anesthesia Reactions: No Hx Malignant Hyperthermia: No Meds Allergies/Adverse Reactions: Allergies Allergy/AdvReac Type Severity Reaction Status Date / Time No Known Allergies Allergy Verified 11/17/18 17:39 - Medications Medications: Current Medications Amlodipine Besylate (Norvasc) 10 mg PO DAILY [facility] Docusate Sodium (Colace) 100 mg PO DAILY [facility] Hydralazine HCl (Apresoline) 100 mg PO BID [facility] Hydromorphone HCl (Dilaudid) 0.5 mg IVP Q6H PRN PRN Reason: Pain, moderate (4-7) Last Admin: 01/28/19 08:11 Dose: 0.5 mg Sodium Chloride (Sodium Chloride 0.9%) 1,000 mls @ 40 mls/hr IV .Q24H [facility] Last Admin: 01/28/19 01:46 Dose: 40 mls/hr Labetalol HCl (Trandate) 10 mg IV Q6 PRN PRN Reason: Systolic Blood Pressure Last Admin: 01/28/19 08:57 Dose: 10 mg Labetalol HCl (Trandate) 300 mg PO BID [facility] Metoclopramide HCl (Reglan) 10 mg IVP Q6H [facility] Last Admin: 01/28/19 08:10 Dose: 10 mg Pantoprazole Sodium (Protonix Inj) 40 mg IVP DAILY [facility] Physical Exam - Constitutional Appears: Non-toxic, Chronically Ill - Head Exam Head Exam: ATRAUMATIC, NORMAL INSPECTION, NORMOCEPHALIC - Eye Exam Eye Exam: Normal appearance. absent: Conjunctival injection, Scleral icterus Pupil Exam: absent: Irregular, Unequal - ENT Exam ENT Exam: Mucous Membranes Moist - Neck Exam Neck exam: Negative for: Lymphadenopathy, Thyromegaly - Respiratory Exam Respiratory Exam: Clear to Auscultation Bilateral, NORMAL BREATHING PATTERN. absent: Accessory Muscle Use, Chest Wall Tenderness, Decreased Breath Sounds, Rales, Rhonchi, Wheezes - Cardiovascular Exam Cardiovascular Exam: Tachycardia, REGULAR RHYTHM, +S1, +S2, Systolic Murmur. absent: Bradycardia, JVD - GI/Abdominal Exam GI & Abdominal Exam: Guarding, Hyperactive Bowel Sounds, Soft, Tenderness. absent: Diminished Bowel Sounds, Distended, Firm, Hypoactive Bowel Sounds, Normal Bowel Sounds, Rigid Additional comments: bucket at bedside with ~200-300cc's of yellow emesis - Extremities Exam Extremities exam: Positive for: pedal pulses present. Negative for: calf tenderness, pedal edema, tenderness - Back Exam Back exam: absent: CVA tenderness (L), CVA tenderness (R) - Neurological Exam Additional comments: awake and alert, moving extremities spontaneously, following commands appropriately - Psychiatric Exam Psychiatric exam: Normal Affect, Normal Mood - Skin Skin Exam: Dry, Intact, Normal Color, Warm Results - Vital Signs Recent Vital Signs: Last Vital Signs Temp 98.2 F 01/28/19 06:00 Pulse 103 H 01/28/19 08:57 Resp 20 01/28/19 06:00 BP 199/114 H 01/28/19 08:57 Pulse Ox 98 01/28/19 06:00 - Labs Result Diagrams: 01/28/19 07:30 01/28/19 02:45 Labs: Laboratory Results - last 24 hr 01/27/19 01/27/19 01/27/19 21:40 21:40 22:14 WBC 13.0 H D RBC 4.28 Hgb 13.0 D Hct 37.9 MCV 88.6 D MCH 30.4 MCHC 34.3 RDW 13.8 Plt Count 488 H MPV 9.6 Neut % (Auto) 84.2 H Lymph % (Auto) 12.1 L [place] % (Auto) 2.8 Eos % (Auto) 0.4 L Baso % (Auto) 0.5 Lymph # (Auto) 1.6 [place] # (Auto) 0.4 Eos # (Auto) 0.1 Baso # (Auto) 0.07 Absolute Neuts (auto) 10.97 H Neutrophils % (Manual) Lymphocytes % (Manual) Monocytes % (Manual) Basophils % (Manual) Platelet Evaluation PT 12.4 INR 1.12 APTT 31.9 Sodium 137 Potassium 4.5 Chloride 99 Carbon Dioxide 20 L Anion Gap 23 H BUN 57 H Creatinine 4.0 H Est GFR ( Amer) 15 Est GFR (Non-Af Amer) 12 Random Glucose 141 H Calcium 10.0 Phosphorus Magnesium 2.3 H Total Bilirubin 1.2 AST 57 H D ALT < 6 L Alkaline Phosphatase 105 Total Protein 8.8 H Albumin 5.2 H Globulin 3.6 Albumin/Globulin Ratio 1.4 Lipase 198 Beta HCG, Quant 01/27/19 01/28/19 01/28/19 22:14 02:45 07:30 WBC 16.7 H D RBC 4.20 Hgb 12.6 Hct 37.9 MCV 90.2 MCH 30.0 MCHC 33.2 RDW 13.6 Plt Count 402 MPV 9.5 Neut % (Auto) 94.9 H Lymph % (Auto) 4.0 L [place] % (Auto) 0.9 L Eos % (Auto) 0.0 L Baso % (Auto) 0.2 Lymph # (Auto) 0.7 L [place] # (Auto) 0.2 Eos # (Auto) 0.0 Baso # (Auto) 0.03 Absolute Neuts (auto) 15.85 H Neutrophils % (Manual) 97 H Lymphocytes % (Manual) 1 L Monocytes % (Manual) TEST NOT PERFORMED Basophils % (Manual) 2 H Platelet Evaluation Normal PT INR APTT Sodium 140 Potassium 3.3 L Chloride 100 Carbon Dioxide 22 Anion Gap 21 H BUN 53 H Creatinine 3.9 H Est GFR ( Amer) 16 Est GFR (Non-Af Amer) 13 Random Glucose 145 H Calcium 10.2 Phosphorus Magnesium Total Bilirubin 0.5 AST 26 ALT 14 Alkaline Phosphatase 102 Total Protein 8.4 H Albumin 5.1 H Globulin 3.3 Albumin/Globulin Ratio 1.5 Lipase Beta HCG, Quant < 2.39 01/28/19 07:30 WBC RBC Hgb Hct MCV MCH MCHC RDW Plt Count MPV Neut % (Auto) Lymph % (Auto) [place] % (Auto) Eos % (Auto) Baso % (Auto) Lymph # (Auto) [place] # (Auto) Eos # (Auto) Baso # (Auto) Absolute Neuts (auto) Neutrophils % (Manual) Lymphocytes % (Manual) Monocytes % (Manual) Basophils % (Manual) Platelet Evaluation PT INR APTT Sodium Potassium Chloride Carbon Dioxide Anion Gap BUN Creatinine Est GFR ( Amer) Est GFR (Non-Af Amer) Random Glucose Calcium Phosphorus 4.7 H Magnesium Total Bilirubin AST ALT Alkaline Phosphatase Total Protein Albumin Globulin Albumin/Globulin Ratio Lipase Beta HCG, Quant Assessment & Plan - Assessment and Plan (Free Text) Assessment: This is a 38 yo F with PMH ESRD on HD MWF, HTN, HFpEF, anemia, anxiety/depression, and chronic pancreatitis who presents again with complaint of uncontrolled abd pain, nausea, and non-bloody/non-bilious emesis x2 days. Nephro was consulted for continuation of HD. Plan: 1) uncontrolled nausea/emesis, unable to tolerate PO 2) ESRD on HD, missed last session 3) HTN urgency - SBP 190's-210's since admit 4) HFpEF 5) anxiety/depression hx 6) hx chronic pancreatitis -pending HD episode today appears fluid depleted, agree with initial fluid rehydration strategy, and will give some fluid with HD today K decreased from 4.5 to 3.3, avoid K repletion in ESRD pts avoid nephrotoxic drugs as feasible avoid morphine for pain control given ESRD, recommend using equivalent dosing of diluadid instead -N/V may be 2/2 chronic pancreatitis vs HTN urgency vs underlying enteritis CT abd/pelvis notable for bilateral adrenal adenopathy, uterine fibroids Lipase not elevated, but may not be in chronic pancreatitis Given similar prior presentations, recommend GI consult and evaluation Abx as per GI/Primary team -BP remains uncontrolled, similar to prior presentations Recommend adding ACEi/ARB to regimen for improved control Patient was discharged last admission with Cozaar, but admits to not taking it, reinforced need for medication compliance given HTN/CHF/ESRD Patient reviewed and discussed with attending, Dr. Gamino <Leonardo Gamino - Last Filed: 01/29/19 08:07> Meds - Medications Medications: Current Medications Acetaminophen (Tylenol 325mg Tab) 650 mg PO Q6H PRN PRN Reason: Fever >100.4 F Last Admin: 01/28/19 17:17 Dose: 650 mg Amlodipine Besylate (Norvasc) 10 mg PO DAILY [facility] Last Admin: 01/28/19 10:19 Dose: Not Given Cinacalcet (Sensipar) 30 mg PO DAILY [facility] Clonidine HCl (Catapres) 0.2 mg PO ONCE PRN PRN Reason: Systolic Blood Pressure Stop: 01/29/19 08:00 Last Admin: 01/28/19 12:04 Dose: 0.2 mg Clonidine HCl (Catapres) 0.3 mg PO BID [facility] Docusate Sodium (Colace) 100 mg PO DAILY [facility] Last Admin: 01/28/19 10:17 Dose: Not Given Hydralazine HCl (Apresoline) 100 mg PO BID [facility] Last Admin: 01/28/19 18:26 Dose: 100 mg Hydromorphone HCl (Dilaudid) 0.5 mg IVP Q6H PRN PRN Reason: Pain, moderate (4-7) Last Admin: 01/28/19 08:11 Dose: 0.5 mg Sodium Chloride (Sodium Chloride 0.9%) 1,000 mls @ 40 mls/hr IV .Q24H [facility] Last Admin: 01/28/19 23:38 Dose: 40 mls/hr Metronidazole (Flagyl) 500 mg in 100 mls @ 100 mls/hr IVPB Q8 [facility]; Protocol Last Admin: 01/29/19 05:44 Dose: 100 mls/hr Levofloxacin/Dextrose (Levaquin 250mg) 250 mg in 50 mls @ 100 mls/hr IVPB Q48H [facility]; Protocol Labetalol HCl (Trandate) 10 mg IV Q6 PRN PRN Reason: Systolic Blood Pressure Last Admin: 01/28/19 16:38 Dose: 10 mg Labetalol HCl (Trandate) 300 mg PO BID [facility] Last Admin: 01/28/19 18:27 Dose: 300 mg Losartan Potassium (Cozaar) 50 mg PO BID [facility] Last Admin: 01/28/19 18:28 Dose: 50 mg Metoclopramide HCl (Reglan) 5 mg IVP Q6H [facility] Last Admin: 01/29/19 05:44 Dose: 5 mg Pantoprazole Sodium (Protonix Inj) 40 mg IVP DAILY [facility] Last Admin: 01/28/19 18:19 Dose: 40 mg Results - Vital Signs Recent Vital Signs: Last Vital Signs Temp 98.8 F 01/29/19 06:00 Pulse 71 04/18/19 06:00 Resp 20 01/29/19 06:00 BP 151/83 H 01/29/19 06:00 Pulse Ox 97 01/29/19 06:00 - Labs Result Diagrams: 01/29/19 07:00 01/29/19 07:00 Labs: Laboratory Results - last 24 hr 01/28/19 01/28/19 01/28/19 02:45 07:30 07:30 WBC 16.7 H D RBC 4.20 Hgb 12.6 Hct 37.9 MCV 90.2 MCH 30.0 MCHC 33.2 RDW 13.6 Plt Count 402 MPV 9.5 Neut % (Auto) 94.9 H Lymph % (Auto) 4.0 L [place] % (Auto) 0.9 L Eos % (Auto) 0.0 L Baso % (Auto) 0.2 Lymph # (Auto) 0.7 L [place] # (Auto) 0.2 Eos # (Auto) 0.0 Baso # (Auto) 0.03 Absolute Neuts (auto) 15.85 H Neutrophils % (Manual) 97 H Lymphocytes % (Manual) 1 L Monocytes % (Manual) TEST NOT PERFORMED Basophils % (Manual) 2 H Platelet Evaluation Normal Sodium Potassium Chloride Carbon Dioxide Anion Gap BUN Creatinine Est GFR ( Amer) Est GFR (Non-Af Amer) Random Glucose Calcium Phosphorus 4.7 H Magnesium Total Bilirubin AST ALT Alkaline Phosphatase Total Protein Albumin Globulin Albumin/Globulin Ratio Procalcitonin 0.11 L Urine Color Urine Appearance Urine pH Ur Specific [place] Urine Protein Urine Glucose (UA) Urine Ketones Urine Blood Urine Nitrate Urine Bilirubin Urine Urobilinogen Ur Leukocyte Esterase Urine RBC Urine WBC Ur Epithelial Cells Urine Bacteria Urine Opiates Screen Urine Methadone Screen Ur Barbiturates Screen Ur Phencyclidine Scrn Ur Amphetamines Screen U Benzodiazepines Scrn U Oth Cocaine Metabols U Cannabinoids Screen 01/28/19 01/28/19 01/29/19 20:10 20:10 07:00 WBC 8.9 D RBC 3.89 Hgb 11.4 L Hct 35.8 L MCV 92.0 MCH 29.3 MCHC 31.8 RDW 14.1 Plt Count 354 MPV 9.3 Neut % (Auto) 60.4 Lymph % (Auto) 29.2 [place] % (Auto) 7.9 H Eos % (Auto) 1.7 Baso % (Auto) 0.8 Lymph # (Auto) 2.6 [place] # (Auto) 0.7 H Eos # (Auto) 0.2 Baso # (Auto) 0.07 Absolute Neuts (auto) 5.35 Neutrophils % (Manual) Lymphocytes % (Manual) Monocytes % (Manual) Basophils % (Manual) Platelet Evaluation Sodium Potassium Chloride Carbon Dioxide Anion Gap BUN Creatinine Est GFR ( Amer) Est GFR (Non-Af Amer) Random Glucose Calcium Phosphorus Magnesium Total Bilirubin AST ALT Alkaline Phosphatase Total Protein Albumin Globulin Albumin/Globulin Ratio Procalcitonin Urine Color Yellow Urine Appearance Sl cloudy Urine pH 6.0 Ur Specific [place] 1.025 Urine Protein >=300 H Urine Glucose (UA) Negative Urine Ketones 15 H Urine Blood Negative Urine Nitrate Negative Urine Bilirubin Small H Urine Urobilinogen 0.2 Ur Leukocyte Esterase Negative Urine RBC None Urine WBC 10 - 15 H Ur Epithelial Cells 10 - 12 H Urine Bacteria Many Urine Opiates Screen Positive H Urine Methadone Screen Negative Ur Barbiturates Screen Negative Ur Phencyclidine Scrn Negative Ur Amphetamines Screen Negative U Benzodiazepines Scrn Negative U Oth Cocaine Metabols Negative U Cannabinoids Screen Negative 01/29/19 07:00 WBC RBC Hgb Hct MCV MCH MCHC RDW Plt Count MPV Neut % (Auto) Lymph % (Auto) [place] % (Auto) Eos % (Auto) Baso % (Auto) Lymph # (Auto) [place] # (Auto) Eos # (Auto) Baso # (Auto) Absolute Neuts (auto) Neutrophils % (Manual) Lymphocytes % (Manual) Monocytes % (Manual) Basophils % (Manual) Platelet Evaluation Sodium 138 Potassium 3.2 L Chloride 99 Carbon Dioxide 26 Anion Gap 16 BUN 26 H Creatinine 3.6 H Est GFR ( Amer) 17 Est GFR (Non-Af Amer) 14 Random Glucose 84 Calcium 9.2 Phosphorus 4.4 Magnesium 2.3 H Total Bilirubin 0.5 AST 29 ALT 8 Alkaline Phosphatase 70 Total Protein 6.7 Albumin 4.1 Globulin 2.5 Albumin/Globulin Ratio 1.6 Procalcitonin Urine Color Urine Appearance Urine pH Ur Specific [place] Urine Protein Urine Glucose (UA) Urine Ketones Urine Blood Urine Nitrate Urine Bilirubin Urine Urobilinogen Ur Leukocyte Esterase Urine RBC Urine WBC Ur Epithelial Cells Urine Bacteria Urine Opiates Screen Urine Methadone Screen Ur Barbiturates Screen Ur Phencyclidine Scrn Ur Amphetamines Screen U Benzodiazepines Scrn U Oth Cocaine Metabols U Cannabinoids Screen Attending/Attestation - Attestation I have personally seen and examined this patient.: Yes I have fully participated in the care of the patient.: Yes I have reviewed all pertinent clinical information: Yes Notes (Text): Patient seen and examined; I agree with the resident's note as above with the following additions/edits: 38 yo F w/ pmh of htn, ESRD on HD (MWF, at [facility], under Dr. Erick Seth), admitted with intractable vomiting and hyperensive urgency, nephrology being consulted for ESRD care; This is patient's third admission this year with similar presentation; labs indicative of hemoconcentration and patient is likely overall intravscularly volume depleted which is causing renin mediated hypertensive response (renin level was checked on previous admission and was significantly elevated); otherwi se with mild hypokalemia; GI was consulted on 1st admission and was contemplating outpatient EGD; will recommend to re-consult GI as patient has poor outpatient f/u record (of note, has not followed up with her vascular surgeon either for new AVF creation after previous one failed); -HD today mainly for clearance, zero UF goal (will actually give back 500 cc in order to shut off renin-mediated hypertensive drive); -Agree with restarting PO meds; -Increasing losartan to 50 mg bid; -Keep on maintenance IVF w/ NS at 40 cc/hr;
--- NOTE | 2019-01-28 09:20 | RAD ---
Date of service: 01/28/2019 HISTORY: abd pain COMPARISON: 12/02/2018 TECHNIQUE: 1 view obtained. FINDINGS: LUNGS: No active pulmonary disease. PLEURA: No significant pleural effusion identified, no pneumothorax apparent. CARDIOVASCULAR: No aortic atherosclerotic calcification present. Normal cardiac size. No pulmonary vascular congestion. OSSEOUS STRUCTURES: No significant abnormalities. VISUALIZED UPPER ABDOMEN: Normal. OTHER FINDINGS: Right-sided dialysis catheter IMPRESSION: No active disease.
--- NOTE | 2019-01-28 10:12 | CP.PCM.PN ---
<Roel Dhaliwal - Last Filed: 01/28/19 13:00> Subjective - Date & Time of Evaluation Date of Evaluation: 01/28/19 Time of Evaluation: 08:00 - Subjective Subjective: Roel Dhaliwal PGY-1 Progress Note for Hospitalist Service Patient seen and evaluated at bedside. Patient reports abdominal pain and nausea. Circle with nonbloody vomitus at bedside. Denies chest pain, palpitations, dizziness, leg pain, fevers and chills. Objective - Vital Signs/Intake and Output Vital Signs (last 24 hours): Temp Pulse Resp BP Pulse Ox 98.2 F 103 H 20 199/114 H 98 01/28/19 06:00 01/28/19 08:57 01/28/19 06:00 01/28/19 08:57 01/28/19 06:00 Intake and Output: 01/28/19 01/28/19 06:59 18:59 Intake Total 0 Balance 0 - Medications Medications: Current Medications Amlodipine Besylate (Norvasc) 10 mg PO DAILY [facility] Docusate Sodium (Colace) 100 mg PO DAILY [facility] Hydralazine HCl (Apresoline) 100 mg PO BID [facility] Hydromorphone HCl (Dilaudid) 0.5 mg IVP Q6H PRN PRN Reason: Pain, moderate (4-7) Last Admin: 01/28/19 08:11 Dose: 0.5 mg Sodium Chloride (Sodium Chloride 0.9%) 1,000 mls @ 40 mls/hr IV .Q24H [facility] Last Admin: 01/28/19 01:46 Dose: 40 mls/hr Labetalol HCl (Trandate) 10 mg IV Q6 PRN PRN Reason: Systolic Blood Pressure Last Admin: 01/28/19 08:57 Dose: 10 mg Labetalol HCl (Trandate) 300 mg PO BID [facility] Metoclopramide HCl (Reglan) 10 mg IVP Q6H [facility] Last Admin: 01/28/19 08:10 Dose: 10 mg Pantoprazole Sodium (Protonix Inj) 40 mg IVP DAILY [facility] - Labs Labs: 01/28/19 07:30 01/28/19 02:45 PT 12.4 SECONDS (9.4-12.5) 01/27/19 21:40 INR 1.12 01/27/19 21:40 APTT 31.9 Seconds (26.9-38.3) 01/27/19 21:40 - Additional Findings Additional findings: - Constitutional Appears: No Acute Distress - Head Exam Head Exam: ATRAUMATIC, NORMAL INSPECTION, NORMOCEPHALIC - Eye Exam Eye Exam: EOMI, Normal appearance, PERRL Pupil Exam: NORMAL ACCOMODATION - ENT Exam ENT Exam: Mucous Membranes Dry, Normal Exam - Respiratory Exam Respiratory Exam: Clear to Auscultation Bilateral, NORMAL BREATHING PATTERN. absent: Accessory Muscle Use, Rales, Rhonchi, Wheezes - Cardiovascular Exam Cardiovascular Exam: Tachycardia, +S1, +S2 - GI/Abdominal Exam GI & Abdominal Exam: Normal Bowel Sounds, Soft. absent: Bruit, Distended, Guarding, Hernia, Hyperactive Bowel Sounds, Mass, Organomegaly, Pulsatile Mass, Rebound, Rigid, Tenderness (mild tenderness to palpation of epigastrum. Abdomen tympanic to percussion. Negative barone's sign, Negative Rovsing's sign, Negative McBurny's sign) - Extremities Exam Extremities exam: Positive for: full ROM, normal capillary refill, normal inspection, pedal pulses present. Negative for: joint swelling, pedal edema, tenderness - Back Exam Back exam: NORMAL INSPECTION. absent: CVA tenderness (L), CVA tenderness (R) - Neurological Exam Neurological exam: Alert, CN II-XII Intact, Normal Gait, Oriented x3 - Psychiatric Exam Psychiatric exam: Anxious - Skin Skin Exam: Dry, Intact, Normal Color, Warm Assessment and Plan - Assessment and Plan (Free Text) Assessment: 38-year-old F with PMH significant for ESRD on HD MWF via subclavian HD catheter, anemia, anxiety, CHF, depression, choleycystectomy, hypertension, pancreatitis who presents with intractable vomiting. Epigastric pain with Intractable Nausea and Vomiting- improving - Reglan 10mg IV Q6H - Mild hydration NS @40cc / hr - Morphine 2mg Q6 PRN - Start CLD - ADAT - F/u UDS - F/U GI consult - Dr. Arreola - recs appreciated Uncontrolled Hypertension - Continue Home PO meds at this time- Norvasc, Clonidine, Labetalol, Cozaar, Hydralazine - Monitor ESRD on HD - Patient non-compliant - HD MWF - Patient to go for HD today, consent obtained - Continue Sensipar - Consult Nephro Dr. Gamino, follow recs - CMP, CBC, Mg, Phos in AM Mild Leukocytosis - Likely reactive to vomiting - WBC count 16.7 - F/U Procalcitonin - Monitor CBC in AM GI Prophylaxis: Protonix 40 IV daily Diet: CLD DVT Prophylaxis: SCD Patient seen, case reviewed and plan approved by Dr. Fernandez. Roel Dhaliwal, PGY-1 <Mamadou Fernandez - Last Filed: 01/30/19 16:58> Objective - Vital Signs/Intake and Output Vital Signs (last 24 hours): Temp Pulse Resp BP Pulse Ox 98.5 F 81 18 136/89 96 01/30/19 06:00 01/30/19 14:45 01/30/19 06:00 01/30/19 14:45 01/30/19 06:00 Intake and Output: 01/30/19 01/30/19 06:59 18:59 Intake Total 240 Balance 240 - Labs Labs: 01/30/19 07:00 01/30/19 07:00 PT 12.4 SECONDS (9.4-12.5) 01/27/19 21:40 INR 1.12 01/27/19 21:40 APTT 31.9 Seconds (26.9-38.3) 01/27/19 21:40 Attending/Attestation - Attestation I have personally seen and examined this patient.: Yes I have fully participated in the care of the patient.: Yes I have reviewed all pertinent clinical information, including history, physical exam and plan: Yes Notes (Text): 01/30/19 16:58 Medical record note made by the resident after discussion with my direction and input after the patient was personally seen and examined by me. I have reviewed the chart and agree that the record accurately reflects by personal performance of the history, physical exam, data review, and medical decision-making, in the course for the patient. I have also personally directed the plan of care.
[2019-01-28] MEDS ORDERED: levoFLOXacin 500 mg in D5W 500 MG/100 ML BAG IVPB SCH (11:15)
--- NOTE | 2019-01-28 13:34 | CT ---
Date of service: 01/28/2019 PROCEDURE: CT Abdomen and Pelvis without intravenous contrast HISTORY: intractable emesis w/ abdominal pain COMPARISON: None. TECHNIQUE: Technique. Contrast dose: Radiation dose: Total exam DLP = 368.09 mGy-cm. This CT exam was performed using one or more of the following dose reduction techniques: Automated exposure control, adjustment of the mA and/or kV according to patient size, and/or use of iterative reconstruction technique. FINDINGS: LOWER THORAX: Small hiatal hernia. LIVER: Unremarkable. No gross lesion or ductal dilatation. GALLBLADDER AND BILE DUCTS: Cholecystectomy. PANCREAS: Unremarkable. No gross lesion or ductal dilatation. SPLEEN: Unremarkable. ADRENALS: Bilateral adrenal nodularity, nonspecific but may be secondary to adenomatous changes. KIDNEYS AND URETERS: Bilateral small kidney; correlate with renal function studies. VASCULATURE: Unremarkable. No aortic aneurysm. No aortic atherosclerotic calcification or mural plaque present. BOWEL: Unremarkable. No obstruction. No gross mural thickening. APPENDIX: Unremarkable. Normal appendix. PERITONEUM: Unremarkable. No free fluid. No free air. LYMPH NODES: Unremarkable. No enlarged lymph nodes. BLADDER: Unremarkable. REPRODUCTIVE: Calcified fibroid uterus. BONES: No acute fracture. OTHER FINDINGS: None. IMPRESSION: Bilateral adrenal nodularity, nonspecific but may be secondary to adenomatous changes. Bilateral small kidney; correlate with renal function studies.Calcified fibroid uterus. Small hiatal hernia.
[2019-01-28] MEDS: metroNIDAZOLE IV 500 mg/100 ml 500 MG/100 ML BAG IVPB SCH ×2 (14:18→21:09)
--- NOTE | 2019-01-28 20:13 | CARD ---
APPROVED REPORT Date of service: 01/27/2019 EKG Measurement Heart [id number] <Conclusion> Sinus tachycardia Prolonged QT interval Abnormal Electrocardiogram
[2019-01-28 20:25] LABS: URINE BILIRUBIN SMALL (NEGATIVE); URINE BLOOD NEGATIVE (NEGATIVE); URINE GLUCOSE (UA) NEGATIVE (NEGATIVE); URINE LEUKOCYTE ESTERASE NEGATIVE Leu/uL (NEGATIVE); URINE PROTEIN >=300 mg/dL (<30 mg/dL); URINE UROBILINOGEN 0.2 E.U./dL (<1 E.U./dL)
[2019-01-28 20:26] LABS: URINE APPEARANCE SL CLOUDY (CLEAR); URINE COLOR YELLOW (YELLOW)
[2019-01-28 20:45] LABS: BENZODIAZEPINES, UR NEGATIVE (NEGATIVE)
[2019-01-28 20:57] LABS: BARBITURATES, UR NEGATIVE (NEGATIVE); OPIATES, UR POSITIVE (NEGATIVE); PHENCYCLIDINE, UR NEGATIVE (NEGATIVE)
[2019-01-28 21:50] LABS: URINE BACTERIA MANY /hpf
[2019-01-29] MEDS: metroNIDAZOLE IV 500 mg/100 ml 500 MG/100 ML BAG IVPB SCH (05:44)
[2019-01-29 07:16] LABS: BASO # 0.07 K/mm3 (0.0-2.0); BASO % 0.8 % (0.0-3.0); EOS # 0.2 (0.0-0.7); EOS % 1.7 % (1.5-5.0); HEMOGLOBIN 11.4 g/dL (12.0-16.0); LYMPH # 2.6 (1.2-3.4); LYMPH % 29.2 % (22.0-35.0); MEAN CORPUSCULAR HEMOGLOBIN 29.3 pg (25.0-35.0); MEAN CORPUSCULAR HGB CONC 31.8 g/dl (31.0-37.0); MEAN PLATELET VOLUME 9.3 fl (7.0-11.0); MONO # 0.7 (0.1-0.6); MONO % 7.9 % (1.0-6.0); RBC 3.89 10^6/uL (3.5-6.1); RED CELL DISTRIBUTION WIDTH 14.1 % (11.5-14.5); WHITE BLOOD COUNT 8.9 10^3/uL (4.5-11.0)
[2019-01-29 07:41] LABS: ALB/GLOB RATIO 1.6 (1.1-1.8); ALBUMIN 4.1 g/dL (3.0-4.8); CALCIUM 9.2 mg/dL (8.4-10.5)
[2019-01-29] MEDS ORDERED: levoFLOXacin 250 mg in D5W 250 MG/50 ML BAG IVPB SCH (10:00)
--- NOTE | 2019-01-29 10:00 | CON ---
DATE OF CONSULTATION: 01/29/2019 GASTROENTEROLOGY CONSULTATION REQUESTING PHYSICIAN: Dr. James. REASON FOR CONSULTATION: I have been asked to see this 38-year-old female with end-stage renal disease with chronic abdominal pain, nausea and vomiting. The patient states that she has episodes of nausea and vomiting every several months for the last 3 years. She denies any hematemesis, melena or rectal bleeding. She has a history of anxiety and depression. She missed her last dialysis due to her abdominal pain, nausea and vomiting. This morning the patient states that she does not have any abdominal pain, and has not had any vomiting in 24 hours. The patient is on Percocet and Neurontin at home for chronic pain. She is also on Xanax three times a day for anxiety. PAST MEDICAL HISTORY: As above. Again, she has a history of end-stage renal disease on hemodialysis, depression, anxiety disorder, congestive heart failure, chronic anemia, chronic abdominal pain, chronic vomiting, pancreatitis. PAST SURGICAL HISTORY: Notable for cholecystectomy and subclavian hemodialysis catheter placement. SOCIAL HISTORY: She smokes under half a pack of cigarettes per day. She denies alcohol use. She denies marijuana use or other illicit drug use. FAMILY HISTORY: Notable for mother, who from diabetes mellitus complications. Father with COPD. REVIEW OF SYSTEMS: Review of systems is notable for abdominal pain, nausea, and vomiting. MEDICATIONS: Medications at home include Sensipar, Percocet, Xanax, Norvasc, hydralazine, clonidine, labetalol, and Ambien. PHYSICAL EXAMINATION: GENERAL: Well-developed female, lying in bed, in no acute distress. VITAL SIGNS: Reveal a temperature of 98.8, blood pressure 151/83, heart rate of 56. HEENT: Reveal sclerae to be white. Conjunctivae pink. NECK: Supple. CHEST: Lungs are clear. HEART: Exam reveals regular rate and rhythm. ABDOMEN: Soft, nontender. EXTREMITIES: Show no edema. LABORATORY DATA: Revealed a white blood cell count of 8.9, hemoglobin 11.4. Chemistries reveal potassium 3.2, BUN 26, creatinine 3.6. AST, ALT, and alk phos were all normal. Serum lipase is normal. IMPRESSION: A 38-year-old female with end-stage renal disease, depression, anxiety disorder, hypertension with chronic abdominal pain associated with nausea and vomiting. The patient may have cyclical vomiting syndrome. Her symptoms have resolved at this point. RECOMMENDATIONS: 1. We will advance to a low-fat, low-residue diet. 2. Continue Reglan and PPI. If diet is tolerated, the patient can be discharged home with outpatient followup. Jose Arreola MD
--- NOTE | 2019-01-29 12:48 | CP.PCM.PN ---
<Shabbir Argueta - Last Filed: 01/29/19 13:28> Subjective - Date & Time of Evaluation Date of Evaluation: 01/29/19 Time of Evaluation: 12:44 - Subjective Subjective: Shabbir Argueta PGY1 Progress Note for Dr. Fernandez Pt was examined at bedside this morning. She reports improvement in her symptoms, denying any nausea or vomiting. She denies any abdominal pain currently. Patient denies fever, chills, shortness of breath, chest pain, diarrhea, constipation. Objective - Vital Signs/Intake and Output Vital Signs (last 24 hours): Temp Pulse Resp BP Pulse Ox 98.8 F 64 20 148/79 97 01/29/19 06:00 01/29/19 11:06 01/29/19 06:00 01/29/19 11:06 01/29/19 06:00 Intake and Output: 01/29/19 01/29/19 06:59 18:59 Intake Total 680 200 Output Total 0 Balance 680 200 - Medications Medications: Current Medications Acetaminophen (Tylenol 325mg Tab) 650 mg PO Q6H PRN PRN Reason: Fever >100.4 F Last Admin: 01/28/19 17:17 Dose: 650 mg Amlodipine Besylate (Norvasc) 10 mg PO DAILY [facility] Last Admin: 01/29/19 11:06 Dose: 10 mg Cinacalcet (Sensipar) 30 mg PO DAILY [facility] Last Admin: 01/29/19 11:06 Dose: 30 mg Clonidine HCl (Catapres) 0.3 mg PO BID [facility] Last Admin: 01/29/19 11:06 Dose: 0.3 mg Docusate Sodium (Colace) 100 mg PO DAILY [facility] Last Admin: 01/29/19 11:06 Dose: 100 mg Hydralazine HCl (Apresoline) 100 mg PO BID [facility] Last Admin: 01/29/19 11:05 Dose: 100 mg Sodium Chloride (Sodium Chloride 0.9%) 1,000 mls @ 40 mls/hr IV .Q24H [facility] Last Admin: 01/28/19 23:38 Dose: 40 mls/hr Labetalol HCl (Trandate) 10 mg IV Q6 PRN PRN Reason: Systolic Blood Pressure Last Admin: 01/28/19 16:38 Dose: 10 mg Labetalol HCl (Trandate) 300 mg PO BID [facility] Last Admin: 01/29/19 11:04 Dose: 300 mg Losartan Potassium (Cozaar) 50 mg PO BID [facility] Last Admin: 01/29/19 11:05 Dose: 50 mg Metoclopramide HCl (Reglan) 5 mg IVP Q6H [facility] Last Admin: 01/29/19 05:44 Dose: 5 mg Pantoprazole Sodium (Protonix Ec Tab) 40 mg PO ACB [facility] - Labs Labs: 01/29/19 07:00 01/29/19 07:00 PT 12.4 SECONDS (9.4-12.5) 01/27/19 21:40 INR 1.12 01/27/19 21:40 APTT 31.9 Seconds (26.9-38.3) 01/27/19 21:40 - Additional Findings Additional findings: - Constitutional Appears: No Acute Distress - Head Exam Head Exam: ATRAUMATIC, NORMAL INSPECTION, NORMOCEPHALIC - Eye Exam Eye Exam: EOMI, Normal appearance, PERRL Pupil Exam: NORMAL ACCOMODATION - ENT Exam ENT Exam: Mucous Membranes Dry, Normal Exam - Respiratory Exam Respiratory Exam: Clear to Auscultation Bilateral, NORMAL BREATHING PATTERN. absent: Accessory Muscle Use, Rales, Rhonchi, Wheezes - Cardiovascular Exam Cardiovascular Exam: Tachycardia, +S1, +S2 - GI/Abdominal Exam GI & Abdominal Exam: Normal Bowel Sounds, Soft. absent: Tenderness, Bruit, Distended, Guarding, Hernia, Hyperactive Bowel Sounds, Mass, Organomegaly, Pulsatile Mass, Rebound, Rigid - Extremities Exam Extremities exam: Positive for: full ROM, normal capillary refill, normal inspection, pedal pulses present. Negative for: joint swelling, pedal edema, tenderness - Back Exam Back exam: NORMAL INSPECTION. - Neurological Exam Neurological exam: Alert, CN II-XII Intact, Normal Gait, Oriented x3 - Psychiatric Exam Psychiatric exam: Normal Affect, Normal Mood. - Skin Skin Exam: Dry, Intact, Normal Color, Warm Permacath site clean/dry/intact Assessment and Plan - Assessment and Plan (Free Text) Assessment: 38-year-old F with PMH significant for ESRD on HD MWF via subclavian HD catheter, anemia, anxiety, CHF, depression, choleycystectomy, hypertension, pancreatitis who presents with intractable vomiting. Symptoms resolved. Patient received HD 01/28. Plan: Epigastric pain with Intractable Nausea and Vomiting- resolved - CT abd/pel: adrenal nodularity, small hiatal hernia - Reglan 10mg IV Q6H - Protonix 40mg PO qACB - start low fat diet, as per GI. Advance as tolerated. - GI consulted - Dr. Maxwell osborn appreciated continue reglan and PPI, follow up outpatient Uncontrolled Hypertension- resolved - Norvasc 10mg PO daily - Clonidine 0.3mg PO BID - Labetalol 300mg PO BID - Hydralazine 100mg PO BID - Losartan decreased to 25mg PO BID as pt was hypotensive - consider labetalol IV PRN SBP>160 - continue to monitor - d/c tele ESRD on HD- improved - BUN/Cr 26/3.6 - Patient non-compliant with HD MWF - received HD 01/28, tolerated well - Continue Sensipar - Consult Nephro Dr. Stevenson osborn appreciated Mild Leukocytosis- resolved - Likely reactive to vomiting - WBC count down to 8.9 today - patient afebrile today - Procalcitonin within normal limits - f/u BC[facility] GI Prophylaxis: Protonix 40mg PO Diet: Low-fat DVT Prophylaxis: SCD Dispo: If patient continues to remain afebrile and blood cultures result as negative, plan for d/c tomorrow. Patient seen, case reviewed and plan approved by Dr. Fernandez. <Mamadou Fernandez - Last Filed: 01/30/19 16:57> Objective - Vital Signs/Intake and Output Vital Signs (last 24 hours): Temp Pulse Resp BP Pulse Ox 98.5 F 81 18 136/89 96 01/30/19 06:00 01/30/19 14:45 01/30/19 06:00 01/30/19 14:45 01/30/19 06:00 Intake and Output: 01/30/19 01/30/19 06:59 18:59 Intake Total 240 Balance 240 - Labs Labs: 01/30/19 07:00 01/30/19 07:00 PT 12.4 SECONDS (9.4-12.5) 01/27/19 21:40 INR 1.12 01/27/19 21:40 APTT 31.9 Seconds (26.9-38.3) 01/27/19 21:40 Attending/Attestation - Attestation I have personally seen and examined this patient.: Yes I have fully participated in the care of the patient.: Yes I have reviewed all pertinent clinical information, including history, physical exam and plan: Yes Notes (Text): 01/30/19 16:54 Patient was seen and examined with medical intern. 38-year-old F with PMH significant for ESRD on HD MWF via subclavian HD catheter, anemia, anxiety, CHF, depression, choleycystectomy, hypertension, pancreatitis who presents with intractable vomiting.She was also found to have hypertensive urgency secondary to non compliance with medication. Nausea and vomiting has resolved.Patient is tolerating food. Patient received HD 01/28. Blood pressure is better controlled. Patient had fever spike yesterday, afebrile since then.Etiology is unclear.Chest X ray is negative. Catheter site looks clean.We will follow up cultures. Management plan was discussed in detail with patient. Education was provided.
[2019-01-29] MEDS ORDERED: Sodium Chloride 0.9% 500 ML IV STA (14:15)
[2019-01-29 14:49] VITALS: RESP 18
[2019-01-29 21:26] VITALS: O2SAT 96
--- NOTE | 2019-01-29 23:44 | CP.PCM.PN ---
Subjective - Date & Time of Evaluation Date of Evaluation: 01/29/19 Time of Evaluation: 11:00 - Subjective Subjective: Patient reports feeling well; tolerating diet; no more nausea/vomiting; Objective - Vital Signs/Intake and Output Vital Signs (last 24 hours): Temp Pulse Resp BP Pulse Ox 98.2 F 69 18 108/65 96 01/29/19 21:25 01/29/19 21:25 01/29/19 21:25 01/29/19 21:25 01/29/19 21:25 Intake and Output: 01/29/19 01/30/19 18:59 06:59 Intake Total 560 Balance 560 - Medications Medications: Current Medications Acetaminophen (Tylenol 325mg Tab) 650 mg PO Q6H PRN PRN Reason: Fever >100.4 F Last Admin: 01/28/19 17:17 Dose: 650 mg Amlodipine Besylate (Norvasc) 10 mg PO DAILY [facility] Last Admin: 01/29/19 11:06 Dose: 10 mg Cinacalcet (Sensipar) 30 mg PO DAILY [facility] Last Admin: 01/29/19 11:06 Dose: 30 mg Clonidine HCl (Catapres) 0.3 mg PO BID [facility] Last Admin: 01/29/19 17:18 Dose: Not Given Docusate Sodium (Colace) 100 mg PO DAILY [facility] Last Admin: 01/29/19 11:06 Dose: 100 mg Hydralazine HCl (Apresoline) 100 mg PO BID [facility] Last Admin: 01/29/19 17:17 Dose: Not Given Labetalol HCl (Trandate) 300 mg PO BID [facility] Last Admin: 01/29/19 17:19 Dose: Not Given Losartan Potassium (Cozaar) 25 mg PO BID [facility] Last Admin: 01/29/19 17:18 Dose: Not Given Metoclopramide HCl (Reglan) 5 mg IVP Q6H [facility] Last Admin: 01/29/19 20:41 Dose: Not Given Pantoprazole Sodium (Protonix Ec Tab) 40 mg PO ACB [facility] - Labs Labs: 01/29/19 07:00 01/29/19 07:00 PT 12.4 SECONDS (9.4-12.5) 01/27/19 21:40 INR 1.12 01/27/19 21:40 APTT 31.9 Seconds (26.9-38.3) 01/27/19 21:40 - Constitutional Appears: Non-toxic, No Acute Distress - Eye Exam Eye Exam: Normal appearance - Respiratory Exam Respiratory Exam: Clear to Ausculation Bilateral. absent: Respiratory Distress - Cardiovascular Exam Cardiovascular Exam: RRR, +S1, +S2 - GI/Abdominal Exam GI & Abdominal Exam: Soft. absent: Distended, Tenderness - Extremities Exam Additional comments: no leg edema - Neurological Exam Neurological Exam: Alert, Awake - Psychiatric Exam Psychiatric exam: Normal Mood. absent: Agitated - Skin Skin Exam: Warm. absent: Cyanosis Assessment and Plan (1) ESRD (end stage renal disease) Assessment & Plan: s/p HD treatment yesterday with no UF; stable lytes and volume status; next HD tomorrow per routine; Status: Acute (2) Hypertensive CKD, ESRD on dialysis Assessment & Plan: BP improved; losartan 50 mg bid added, rest of home meds started; monitor; Status: Acute
--- NOTE | 2019-01-30 07:07 | CP.PCM.PN ---
Subjective - Date & Time of Evaluation Date of Evaluation: 01/30/19 Time of Evaluation: 07:06 Objective - Vital Signs/Intake and Output Vital Signs (last 24 hours): Temp Pulse Resp BP Pulse Ox 98.2 F 69 18 108/65 96 01/29/19 21:25 01/29/19 21:25 01/29/19 21:25 01/29/19 21:25 01/29/19 21:25 Intake and Output: 01/30/19 01/30/19 06:59 18:59 Intake Total 240 Balance 240 - Medications Medications: Current Medications Acetaminophen (Tylenol 325mg Tab) 650 mg PO Q6H PRN PRN Reason: Fever >100.4 F Last Admin: 01/28/19 17:17 Dose: 650 mg Amlodipine Besylate (Norvasc) 10 mg PO DAILY [facility] Last Admin: 01/29/19 11:06 Dose: 10 mg Cinacalcet (Sensipar) 30 mg PO DAILY [facility] Last Admin: 01/29/19 11:06 Dose: 30 mg Clonidine HCl (Catapres) 0.3 mg PO BID [facility] Last Admin: 01/29/19 17:18 Dose: Not Given Docusate Sodium (Colace) 100 mg PO DAILY [facility] Last Admin: 01/29/19 11:06 Dose: 100 mg Hydralazine HCl (Apresoline) 100 mg PO BID [facility] Last Admin: 01/29/19 17:17 Dose: Not Given Labetalol HCl (Trandate) 300 mg PO BID [facility] Last Admin: 01/29/19 17:19 Dose: Not Given Losartan Potassium (Cozaar) 25 mg PO BID [facility] Last Admin: 01/29/19 17:18 Dose: Not Given Metoclopramide HCl (Reglan) 5 mg IVP Q6H [facility] Last Admin: 01/30/19 01:09 Dose: Not Given Pantoprazole Sodium (Protonix Ec Tab) 40 mg PO ACB [facility] Last Admin: 01/30/19 06:30 Dose: 40 mg - Labs Labs: 01/29/19 07:00 01/29/19 07:00 PT 12.4 SECONDS (9.4-12.5) 01/27/19 21:40 INR 1.12 01/27/19 21:40 APTT 31.9 Seconds (26.9-38.3) 01/27/19 21:40
[2019-01-30 07:20] LABS: BASO # 0.08 K/mm3 (0.0-2.0); BASO % 0.9 % (0.0-3.0); EOS # 0.2 (0.0-0.7); EOS % 2.4 % (1.5-5.0); HEMOGLOBIN 11.5 g/dL (12.0-16.0); LYMPH # 2.5 (1.2-3.4); LYMPH % 28.5 % (22.0-35.0); MEAN CELL VOLUME 91.8 fl (80.0-105.0); MEAN CORPUSCULAR HEMOGLOBIN 29.3 pg (25.0-35.0); MEAN CORPUSCULAR HGB CONC 31.9 g/dl (31.0-37.0); MEAN PLATELET VOLUME 9.4 fl (7.0-11.0); MONO # 0.5 (0.1-0.6); MONO % 5.4 % (1.0-6.0); RBC 3.92 10^6/uL (3.5-6.1); RED CELL DISTRIBUTION WIDTH 13.8 % (11.5-14.5); WHITE BLOOD COUNT 8.7 10^3/uL (4.5-11.0)
[2019-01-30] MEDS ORDERED: Pantoprazole 40 mg EC Tab PO SCH (07:30)
[2019-01-30 07:47] LABS: ALB/GLOB RATIO 1.6 (1.1-1.8); ALBUMIN 4.1 g/dL (3.0-4.8)
[2019-01-30 07:51] VITALS: TEMP 98.5
--- NOTE | 2019-01-30 09:04 | PN ---
DATE: 01/30/2019 SUBJECTIVE: The patient is lying in bed. She denies any further nausea or vomiting. She is tolerating solid food. She denies any abdominal pain. OBJECTIVE: VITAL SIGNS: Reveal temperature of 98.5, blood pressure 157/96, heart rate of 69. HEENT: Reveals sclerae to be white. Conjunctivae pink. NECK: Supple. CHEST: Lungs are clear. HEART: Reveals regular rate and rhythm. ABDOMEN: Soft, nontender. No mass. EXTREMITIES: Show no edema. LABORATORY DATA: Revealed white blood cell count 8.7, hemoglobin 11.5. Chemistries reveal potassium of 3.5, BUN 41, creatinine 4.8. IMPRESSION: A 38-year-old female with end-stage renal disease on hemodialysis with chronic nausea, vomiting and abdominal pain. The patient may have cyclical vomiting syndrome. Clinically she is improved. RECOMMENDATIONS: The patient could be discharged home with outpatient medical followup. Jose Arreola MD
--- NOTE | 2019-01-30 11:25 | CP.PCM.PN ---
Subjective - Date & Time of Evaluation Date of Evaluation: 01/30/19 Time of Evaluation: 11:21 - Subjective Subjective: Patient seen on HD; reports feeling well; no vomiting, tolerating diet well; no sob; Objective - Vital Signs/Intake and Output Vital Signs (last 24 hours): Temp Pulse Resp BP Pulse Ox 98.5 F 69 18 157/96 H 96 01/30/19 06:00 01/30/19 06:00 01/30/19 06:00 01/30/19 06:00 01/30/19 06:00 Intake and Output: 01/30/19 01/30/19 06:59 18:59 Intake Total 240 Balance 240 - Medications Medications: Current Medications Acetaminophen (Tylenol 325mg Tab) 650 mg PO Q6H PRN PRN Reason: Fever >100.4 F Last Admin: 01/28/19 17:17 Dose: 650 mg Amlodipine Besylate (Norvasc) 10 mg PO DAILY [facility] Last Admin: 01/29/19 11:06 Dose: 10 mg Cinacalcet (Sensipar) 30 mg PO DAILY [facility] Last Admin: 01/29/19 11:06 Dose: 30 mg Clonidine HCl (Catapres) 0.2 mg PO BID [facility] Docusate Sodium (Colace) 100 mg PO DAILY [facility] Last Admin: 01/29/19 11:06 Dose: 100 mg Hydralazine HCl (Apresoline) 100 mg PO BID [facility] Last Admin: 01/29/19 17:17 Dose: Not Given Labetalol HCl (Trandate) 300 mg PO BID [facility] Last Admin: 01/29/19 17:19 Dose: Not Given Losartan Potassium (Cozaar) 25 mg PO BID [facility] Last Admin: 01/29/19 17:18 Dose: Not Given Metoclopramide HCl (Reglan) 5 mg PO Q6H [facility] Pantoprazole Sodium (Protonix Ec Tab) 40 mg PO ACB [facility] Last Admin: 01/30/19 06:30 Dose: 40 mg - Labs Labs: 01/30/19 07:00 01/30/19 07:00 PT 12.4 SECONDS (9.4-12.5) 01/27/19 21:40 INR 1.12 01/27/19 21:40 APTT 31.9 Seconds (26.9-38.3) 01/27/19 21:40 - Constitutional Appears: Non-toxic, No Acute Distress - Eye Exam Eye Exam: Normal appearance. absent: Scleral icterus - Respiratory Exam Respiratory Exam: Clear to Ausculation Bilateral. absent: Respiratory Distress - Cardiovascular Exam Cardiovascular Exam: RRR, +S1, +S2. absent: Gallop, Rubs - GI/Abdominal Exam GI & Abdominal Exam: Soft. absent: Distended, Tenderness - Extremities Exam Additional comments: no leg edema; - Neurological Exam Neurological Exam: Alert, Awake - Psychiatric Exam Psychiatric exam: Normal Affect, Normal Mood. absent: Agitated - Skin Skin Exam: Warm. absent: Cyanosis Assessment and Plan (1) Hypertensive CKD, ESRD on dialysis Assessment & Plan: Symptomatic hypotension yesterday evening after being markedly hypertensive; drop in BP likely due to losartan which blocks renin mediated htn; recommend to continue losartan 25 mg bid and decrease clonidine dose to 0.2 mg bid, continue rest of meds; will give patient script for clonidine 0.1 mg tabs on d/c; Status: Acute (2) ESRD (end stage renal disease) Assessment & Plan: Stable volume and electrolyte status; dialyzing today per routine with 2.5L UF goal; counseled that she needs to f/u with vasc surgery for AVF creation; Status: Chronic (3) Intractable vomiting Assessment & Plan: Symptomatically improved but patient counseled that she needs close outpatient GI f/u as this is third such admission in 3 months; Status: Resolved
[2019-01-30 15:03] VITALS: BP 136/89; PULSE 81
--- NOTE | 2019-01-30 16:52 | CP.PCM.DIS ---
<PowellNery L - Last Filed: 01/30/19 16:49> Provider - Provider Date of Admission: 01/27/19 23:28 Attending physician: Mamadou Fernandez MD Primary care physician: Dr. Quarles Consults: 01/28/19 06:00 Nephrology Consult ROUTINE AM Comment: Consulting Provider: Leonardo Gamino Consulting Physician: Leonardo Gamino Reason for Consult: ESRD missed dialysis on Saturday Physician Consult ROUTINE AM Comment: Consulting Provider: Leonardo Gamino Consulting Physician: Leonardo Gamino Reason for Consult: ckd, HTN Additional Comments: 01/28/19 10:57 Gastroenterology Consult Routine Comment: Consulting Provider: Jose Arreola Consulting Physician: Jose Arreola Reason for Consult: intractable N/V Time Spent in preparation of Discharge (in minutes): 35 Diagnosis - Discharge Diagnosis (1) Vomiting Status: Resolved (2) Abdominal pain Status: Resolved (3) ESRD (end stage renal disease) on dialysis Status: Chronic Hospital Course - Lab Results Lab Results: Micro Results 01/28/19 20:02 Blood Blood Culture - Preliminary NO GROWTH AFTER 24 HOURS 01/28/19 20:02 Blood Blood Culture - Preliminary NO GROWTH AFTER 24 HOURS Most Recent Lab Values WBC 8.7 10^3/uL (4.5-11.0) 01/30/19 07:00 RBC 3.92 10^6/uL (3.5-6.1) 01/30/19 07:00 Hgb 11.5 g/dL (12.0-16.0) L 01/30/19 07:00 Hct 36.0 % (36.0-48.0) 01/30/19 07:00 MCV 91.8 fl (80.0-105.0) 01/30/19 07:00 MCH 29.3 pg (25.0-35.0) 01/30/19 07:00 MCHC 31.9 g/dl (31.0-37.0) 01/30/19 07:00 RDW 13.8 % (11.5-14.5) 01/30/19 07:00 Plt Count 365 10^3/uL (120.0-450.0) 01/30/19 07:00 MPV 9.4 fl (7.0-11.0) 01/30/19 07:00 Neut % (Auto) 62.8 % (50.0-68.0) 01/30/19 07:00 Lymph % (Auto) 28.5 % (22.0-35.0) 01/30/19 07:00 [place] % (Auto) 5.4 % (1.0-6.0) 01/30/19 07:00 Eos % (Auto) 2.4 % (1.5-5.0) 01/30/19 07:00 Baso % (Auto) 0.9 % (0.0-3.0) 01/30/19 07:00 Lymph # (Auto) 2.5 (1.2-3.4) 01/30/19 07:00 [place] # (Auto) 0.5 (0.1-0.6) 01/30/19 07:00 Eos # (Auto) 0.2 (0.0-0.7) 01/30/19 07:00 Baso # (Auto) 0.08 K/mm3 (0.0-2.0) 01/30/19 07:00 Absolute Neuts (auto) 5.45 (1.4-6.5) 01/30/19 07:00 Neutrophils % (Manual) 97 % (50.0-70.0) H 01/28/19 07:30 Lymphocytes % (Manual) 1 % (22.0-35.0) L 01/28/19 07:30 Monocytes % (Manual) TEST NOT PERFORMED 01/28/19 07:30 Basophils % (Manual) 2 % (0.0-1.0) H 01/28/19 07:30 Platelet Evaluation Normal (NORMAL) 01/28/19 07:30 PT 12.4 SECONDS (9.4-12.5) 01/27/19 21:40 INR 1.12 01/27/19 21:40 APTT 31.9 Seconds (26.9-38.3) 01/27/19 21:40 Sodium 138 mmol/L (132-148) 01/30/19 07:00 Potassium 3.5 mmol/L (3.6-5.0) L 01/30/19 07:00 Chloride 101 mmol/L (98-107) 01/30/19 07:00 Carbon Dioxide 23 mmol/L (21-33) 01/30/19 07:00 Anion Gap 18 (10-20) 01/30/19 07:00 BUN 41 mg/dL (7-21) H 01/30/19 07:00 Creatinine 4.8 mg/dl (0.7-1.2) H 01/30/19 07:00 Est GFR ( Amer) 12 01/30/19 07:00 Est GFR (Non-Af Amer) 10 01/30/19 07:00 Random Glucose 84 mg/dL (70-110) 01/30/19 07:00 Calcium 9.0 mg/dL (8.4-10.5) 01/30/19 07:00 Phosphorus 4.4 mg/dL (2.5-4.5) 01/30/19 07:00 Magnesium 2.3 mg/dL (1.7-2.2) H 01/30/19 07:00 Total Bilirubin 0.3 mg/dL (0.2-1.3) 01/30/19 07:00 AST 32 U/L (14-36) 01/30/19 07:00 ALT 8 U/L (7-56) 01/30/19 07:00 Alkaline Phosphatase 73 U/L (38-126) 01/30/19 07:00 Total Protein 6.6 g/dL (5.8-8.3) 01/30/19 07:00 Albumin 4.1 g/dL (3.0-4.8) 01/30/19 07:00 Globulin 2.5 gm/dL 01/30/19 07:00 Albumin/Globulin Ratio 1.6 (1.1-1.8) 01/30/19 07:00 Lipase 198 U/L (23-300) 01/27/19 22:14 Procalcitonin 0.11 NG/ML (0.19-0.49) L 01/28/19 02:45 Beta HCG, Quant < 2.39 mIU/mL (0-6.15) 01/27/19 22:14 Urine Color Yellow (YELLOW) 01/28/19 20:10 Urine Appearance Sl cloudy (CLEAR) 01/28/19 20:10 Urine pH 6.0 (4.7-8.0) 01/28/19 20:10 Ur Specific Talmage 1.025 (1.005-1.035) 04/17/19 20:10 Urine Protein >=300 mg/dL (<30 mg/dL) H 01/28/19 20:10 Urine Glucose (UA) Negative mg/dL (NEGATIVE) 01/28/19 20:10 Urine Ketones 15 mg/dL (NEGATIVE) H 01/28/19 20:10 Urine Blood Negative (NEGATIVE) 01/28/19 20:10 Urine Nitrate Negative (NEGATIVE) 01/28/19 20:10 Urine Bilirubin Small (NEGATIVE) H 01/28/19 20:10 Urine Urobilinogen 0.2 E.U./dL (<1 E.U./dL) 01/28/19 20:10 Ur Leukocyte Esterase Negative Davy/uL (NEGATIVE) 01/28/19 20:10 Urine RBC None /hpf (0-2) 01/28/19 20:10 Urine WBC 10 - 15 /hpf (0-6) H 01/28/19 20:10 Ur Epithelial Cells 10 - 12 /hpf (0-5) H 01/28/19 20:10 Urine Bacteria Many /hpf (NONE) 01/28/19 20:10 Urine Opiates Screen Positive (NEGATIVE) H 01/28/19 20:10 Urine Methadone Screen Negative (NEGATIVE) 01/28/19 20:10 Ur Barbiturates Screen Negative (NEGATIVE) 01/28/19 20:10 Ur Phencyclidine Scrn Negative (NEGATIVE) 01/28/19 20:10 Ur Amphetamines Screen Negative (NEGATIVE) 01/28/19 20:10 U Benzodiazepines Scrn Negative (NEGATIVE) 01/28/19 20:10 U Oth Cocaine Metabols Negative (NEGATIVE) 01/28/19 20:10 U Cannabinoids Screen Negative (NEGATIVE) 01/28/19 20:10 - Hospital Course Hospital Course: On admission: This is a 38-year-old F with PMH significant for ESRD on HD MWF via subclavian HD catheter, anemia, anxiety, CHF, depression, choleycystectomy, hypertension, pancreatitis who presents to [facility] ED with epigastric pain associated with nausea and non-bilious/non-bloody vomiting x2 days. Patient states she missed her dialysis appointment on Saturday due to the pain. Patient rates the pain at 10/10, describes the pain as non-radiating and sharp. Patient says the pain comes in waves with no provoking and/or alleviating factors. Patient admits to subjective fever, but otherwise denies chills, diarrhea, hematemesis, hematochezia, whe ezing, shortness of breath, diarrhea, dysuria, flank pain, rash, headache, and/or dizziness. During hospital stay: Patient was started on reglan, IVF. Nephrology and GI were consulted. CT abdomen pelvis showed bilateral adrenal nodularaity, bilateral small kidney, calcified fibroid uterus, small hiatal hernia. CXR was unremarkable. Patient improved clinically, leukocytosis resolved. Patient's diet was slowly advanced which she tolerated well with no nausea, vomiting, abdominal pain, diarrhea. Patient also underwent dialysis. Patient was optimized for discharge and given prescriptions for Losartan and Clonidine as per Nephrology recommendations. Discharge Exam - Additional Findings Additional findings: - Constitutional Appears: No Acute Distress - Head Exam Head Exam: ATRAUMATIC, NORMOCEPHALIC - Eye Exam Eye Exam: EOMI - Respiratory Exam Respiratory Exam: Clear to Auscultation Bilateral, NORMAL BREATHING PATTERN. absent: Accessory Muscle Use, Rales, Rhonchi, Wheezes - Cardiovascular Exam Cardiovascular Exam: REGULAR RHYTHM, +S1, +S2 - GI/Abdominal Exam GI & Abdominal Exam: Normal Bowel Sounds, Soft. absent: Tenderness, Bruit, Distended, Guarding, Rebound, Rigid - Extremities Exam Extremities exam: Positive for: full ROM, normal capillary refill, normal inspection. Negative for: pedal edema, tenderness - Neurological Exam Neurological exam: Alert, CN II-XII Intact, Normal Gait, Oriented x3 - Psychiatric Exam Psychiatric exam: Normal Affect, Normal Mood. - Skin Skin Exam: Dry, Intact, Normal Color Permacath site clean/dry/intact Discharge Plan - Discharge Medications Prescriptions: Losartan [Cozaar] 25 mg PO BID 14 Days #28 tab - Follow Up Plan Condition: GOOD Disposition: HOME/ ROUTINE Patient education suggested?: Yes Instructions: Nausea and Vomiting, Adult (DC), Chronic Kidney Disease (DC), Dialysis Catheter (DC), Renal Failure Diet (DC), Hypertension (GEN) Additional Instructions: Please follow up with your primary medical doctor within one week Also follow up with your GI doctor and day spa manager within one week You have been prescribed Losartan and Clonidine. Take these medications as prescribed. Return to ED if symptoms return or worsen Referrals: Suzette Quarles MD [Non-Staff] - Jose Arreola MD [Staff Provider] - Leonardo Gamino MD [Staff Provider] - <Mamadou Fernandez - Last Filed: 01/30/19 17:35> Provider - Provider Date of Admission: 01/27/19 23:28 Attending physician: Mamadou Fernandez MD Consults: 01/28/19 06:00 Nephrology Consult ROUTINE AM Comment: Consulting Provider: Leonardo Gamino Consulting Physician: Leonardo Gamino Reason for Consult: ESRD missed dialysis on Saturday Physician Consult ROUTINE AM Comment: Consulting Provider: Leonardo Gamino Consulting Physician: Leonardo Gamino Reason for Consult: ckd, HTN Additional Comments: 01/28/19 10:57 Gastroenterology Consult Routine Comment: Consulting Provider: Jose Arreola Consulting Physician: Jose Arreola Reason for Consult: intractable N/V Hospital Course - Lab Results Lab Results: Micro Results 01/28/19 20:02 Blood Blood Culture - Preliminary NO GROWTH AFTER 24 HOURS 01/28/19 20:02 Blood Blood Culture - Preliminary NO GROWTH AFTER 24 HOURS Most Recent Lab Values WBC 8.7 10^3/uL (4.5-11.0) 01/30/19 07:00 RBC 3.92 10^6/uL (3.5-6.1) 01/30/19 07:00 Hgb 11.5 g/dL (12.0-16.0) L 01/30/19 07:00 Hct 36.0 % (36.0-48.0) 01/30/19 07:00 MCV 91.8 fl (80.0-105.0) 01/30/19 07:00 MCH 29.3 pg (25.0-35.0) 01/30/19 07:00 MCHC 31.9 g/dl (31.0-37.0) 01/30/19 07:00 RDW 13.8 % (11.5-14.5) 01/30/19 07:00 Plt Count 365 10^3/uL (120.0-450.0) 01/30/19 07:00 MPV 9.4 fl (7.0-11.0) 01/30/19 07:00 Neut % (Auto) 62.8 % (50.0-68.0) 01/30/19 07:00 Lymph % (Auto) 28.5 % (22.0-35.0) 01/30/19 07:00 [place] % (Auto) 5.4 % (1.0-6.0) 01/30/19 07:00 Eos % (Auto) 2.4 % (1.5-5.0) 01/30/19 07:00 Baso % (Auto) 0.9 % (0.0-3.0) 01/30/19 07:00 Lymph # (Auto) 2.5 (1.2-3.4) 01/30/19 07:00 [place] # (Auto) 0.5 (0.1-0.6) 01/30/19 07:00 Eos # (Auto) 0.2 (0.0-0.7) 01/30/19 07:00 Baso # (Auto) 0.08 K/mm3 (0.0-2.0) 01/30/19 07:00 Absolute Neuts (auto) 5.45 (1.4-6.5) 01/30/19 07:00 Neutrophils % (Manual) 97 % (50.0-70.0) H 01/28/19 07:30 Lymphocytes % (Manual) 1 % (22.0-35.0) L 01/28/19 07:30 Monocytes % (Manual) TEST NOT PERFORMED 01/28/19 07:30 Basophils % (Manual) 2 % (0.0-1.0) H 01/28/19 07:30 Platelet Evaluation Normal (NORMAL) 01/28/19 07:30 PT 12.4 SECONDS (9.4-12.5) 01/27/19 21:40 INR 1.12 01/27/19 21:40 APTT 31.9 Seconds (26.9-38.3) 01/27/19 21:40 Sodium 138 mmol/L (132-148) 01/30/19 07:00 Potassium 3.5 mmol/L (3.6-5.0) L 01/30/19 07:00 Chloride 101 mmol/L (98-107) 01/30/19 07:00 Carbon Dioxide 23 mmol/L (21-33) 01/30/19 07:00 Anion Gap 18 (10-20) 01/30/19 07:00 BUN 41 mg/dL (7-21) H 01/30/19 07:00 Creatinine 4.8 mg/dl (0.7-1.2) H 01/30/19 07:00 Est GFR ( Amer) 12 01/30/19 07:00 Est GFR (Non-Af Amer) 10 01/30/19 07:00 Random Glucose 84 mg/dL (70-110) 01/30/19 07:00 Calcium 9.0 mg/dL (8.4-10.5) 01/30/19 07:00 Phosphorus 4.4 mg/dL (2.5-4.5) 01/30/19 07:00 Magnesium 2.3 mg/dL (1.7-2.2) H 01/30/19 07:00 Total Bilirubin 0.3 mg/dL (0.2-1.3) 01/30/19 07:00 AST 32 U/L (14-36) 01/30/19 07:00 ALT 8 U/L (7-56) 01/30/19 07:00 Alkaline Phosphatase 73 U/L (38-126) 01/30/19 07:00 Total Protein 6.6 g/dL (5.8-8.3) 01/30/19 07:00 Albumin 4.1 g/dL (3.0-4.8) 01/30/19 07:00 Globulin 2.5 gm/dL 01/30/19 07:00 Albumin/Globulin Ratio 1.6 (1.1-1.8) 01/30/19 07:00 Lipase 198 U/L (23-300) 01/27/19 22:14 Procalcitonin 0.11 NG/ML (0.19-0.49) L 01/28/19 02:45 Beta HCG, Quant < 2.39 mIU/mL (0-6.15) 01/27/19 22:14 Urine Color Yellow (YELLOW) 01/28/19 20:10 Urine Appearance Sl cloudy (CLEAR) 01/28/19 20:10 Urine pH 6.0 (4.7-8.0) 01/28/19 20:10 Ur Specific [place] 1.025 (1.005-1.035) 01/28/19 20:10 Urine Protein >=300 mg/dL (<30 mg/dL) H 01/28/19 20:10 Urine Glucose (UA) Negative mg/dL (NEGATIVE) 01/28/19 20:10 Urine Ketones 15 mg/dL (NEGATIVE) H 01/28/19 20:10 Urine Blood Negative (NEGATIVE) 01/28/19 20:10 Urine Nitrate Negative (NEGATIVE) 01/28/19 20:10 Urine Bilirubin Small (NEGATIVE) H 01/28/19 20:10 Urine Urobilinogen 0.2 E.U./dL (<1 E.U./dL) 01/28/19 20:10 Ur Leukocyte Esterase Negative Davy/uL (NEGATIVE) 01/28/19 20:10 Urine RBC None /hpf (0-2) 01/28/19 20:10 Urine WBC 10 - 15 /hpf (0-6) H 01/28/19 20:10 Ur Epithelial Cells 10 - 12 /hpf (0-5) H 01/28/19 20:10 Urine Bacteria Many /hpf (NONE) 01/28/19 20:10 Urine Opiates Screen Positive (NEGATIVE) H 01/28/19 20:10 Urine Methadone Screen Negative (NEGATIVE) 01/28/19 20:10 Ur Barbiturates Screen Negative (NEGATIVE) 01/28/19 20:10 Ur Phencyclidine Scrn Negative (NEGATIVE) 01/28/19 20:10 Ur Amphetamines Screen Negative (NEGATIVE) 01/28/19 20:10 U Benzodiazepines Scrn Negative (NEGATIVE) 01/28/19 20:10 U Oth Cocaine Metabols Negative (NEGATIVE) 01/28/19 20:10 U Cannabinoids Screen Negative (NEGATIVE) 01/28/19 20:10 Attending/Attestation - Attestation I have personally seen and examined this patient.: Yes I have fully participated in the care of the patient.: Yes I have reviewed all pertinent clinical information, including history, physical exam and plan: Yes Notes (Text): 01/30/19 17:31 Medical record note made by the resident after discussion with my direction and input after the patient was personally seen and examined by me. I have reviewed the chart and agree that the record accurately reflects by personal performance of the history, physical exam, data review, and medical decision-making, in the course for the patient. I have also personally directed the plan of care. 38-year-old F with PMH significant for ESRD on HD MWF via subclavian HD catheter, anemia, anxiety, CHF, depression, choleycystectomy, hypertension, pancreatitis who presents with intractable vomiting.She was also found to have hypertensive urgency due to non compliance with medication. Nausea and vomiting has resolved.Patient is tolerating food. Blood pressure is better controlled. Patient had fever spike 0n 01/28/19, she is afebrile since then.Etiology is unclear.Chest X ray is negative. Catheter site looks clean.Blood cultures remain negative. Patient is feeling better and is close to his base line. She will be discharged home and will follow up with PCP and Nephrology. Issue of compliance with medication was discussed in detail with her. Management plan was discussed in detail with patient. Education was provided.
== END 2019-01-30 14:57 | disposition home or self-care (01) | DRG 543 ==
LOC: ED 21:20 → ERH 23:28 → 3RNO 01-28 01:17 → 2RNO 01-28 20:48 → 5RNO 01-29 13:26
PROVIDERS: ADMIT Internal Medicine; ATTEND Internal Medicine
PROC: 5A1D70Z Performance of Urinary Filtration, Intermittent, Less than 6 Hours Per Day (ICD-10-PCS; principal; 2019-01-28)
PROC: 5A1D70Z Performance of Urinary Filtration, Intermittent, Less than 6 Hours Per Day (ICD-10-PCS; 2019-01-30)
DX: I16.0 Hypertensive urgency (principal); I50.32 Chronic diastolic (congestive) heart failure; N18.6 End stage renal disease; I13.2 Hypertensive heart and chronic kidney disease with heart failure and with stage 5 chronic kidney disease, or end stage renal disease; R10.13 Epigastric pain; Z99.2 Dependence on renal dialysis; D25.9 Leiomyoma of uterus, unspecified; F32.9 Major depressive disorder, single episode, unspecified; F41.9 Anxiety disorder, unspecified; K86.1 Other chronic pancreatitis; F17.210 Nicotine dependence, cigarettes, uncomplicated; G89.29 Other chronic pain; N27.1 Small kidney, bilateral; Z91.14 Patient's other noncompliance with medication regimen; I25.2 Old myocardial infarction; K44.9 Diaphragmatic hernia without obstruction or gangrene; Z91.19 Patient's noncompliance with other medical treatment and regimen

== ENCOUNTER 2019-02-15 16:45 | Inpatient (IN) | payer MEDICAID ==
[2019-02-15 16:45] VITALS: BMI 23.5
--- NOTE | 2019-02-15 17:38 | ED PDOC ---
Arrival/HPI - General Chief Complaint: GI Problem Time Seen by Provider: 02/15/19 17:17 Historian: Patient - History of Present Illness Narrative History of Present Illness (Text): 02/15/19 17:35 A 38 year old female, whose past medical history includes anemia, anxiety, CHF, depression, choleycystectomy, hypertension, pancreatitis, ESRD on HD MWF via subclavian HD catheter (last dialysis was yesterday somewhere in [place], [place]), and hypertension, presents to the emergency department complaining of vomiting last night. Patient reports vomit appears to be black in color. Patient notes also experiencing a fever. Patient denies any diarrhea, abdominal pain, or any other complaints at this time. PMD: Dr. Avalos Past Medical History - Provider Review Nursing Documentation Reviewed: Yes - Infectious Disease Hx of Infectious Diseases: None - Cardiac Hx Cardiac Disorders: Yes Hx Congestive Heart Failure: Yes Hx NH: Yes (03/2017) Hx Hypertension: Yes Hx Peripheral Edema: Yes - Pulmonary Hx Respiratory Disorders: Yes Hx Pneumonia: Yes - Neurological Hx Neurological Disorder: No - HEENT Hx HEENT Disorder: Yes Other/Comment: wears glasses - Renal Hx Renal Disorder: Yes Date of Last Dialysis Treatment: 12/31/18 Hx Kidney Stones: Yes Hx Renal Failure: Yes - Endocrine/Metabolic Hx Endocrine Disorders: No - Hematological/Oncological Hx Blood Disorders: Yes Hx Anemia: Yes - Integumentary Hx Dermatological Disorder: Yes Other/Comment: SCARRING TO LEFT UPPER ARM DUE TO PLACEMENT OF SHUNT. NF.3X HAD SURGERY. - Musculoskeletal/Rheumatological Hx Musculoskeletal Disorders: Yes Hx Arthritis: Yes (L HIP) Hx Falls: Yes Other/Comment: sciatica - Gastrointestinal Hx Gastrointestinal Disorders: Yes Hx Gall Bladder Disease: Yes (CHOLECYSTECTOMY) Hx Pancreatitis: Yes Other/Comment: GASTROENTERITIS - Genitourinary/Gynecological Hx Genitourinary Disorders: Yes - Psychiatric Hx Psychophysiologic Disorder: Yes Hx Anxiety: Yes Hx Depression: Yes Hx Substance Use: No - Surgical History Hx Arteriovenous Shunt: Yes (LEFT ARM) Hx Cholecystectomy: Yes Hx Vascular Surgery: Yes (AV SHUNT) Hx Vascular Access Device: Yes (Perma cath) Other/Comment: 2 failed fistula left arm. Left wrist fistula not working - Anesthesia Hx Anesthesia: Yes Hx Anesthesia Reactions: No Hx Malignant Hyperthermia: No Family/Social History - Physician Review Nursing Documentation Reviewed: Yes Family/Social History: No Known Family HX Smoking Status: Current Some Days Smoker Hx Alcohol Use: No Hx Substance Use: No Allergies/Home Meds Allergies/Adverse Reactions: Allergies No Known Allergies Allergy (Verified 02/15/19 17:04) PER PATIENT Home Medications: Home Meds Medication Instructions Recorded Confirmed Labetalol Hydrochloride [Normodyne] 300 mg PO BID 03/23/18 02/15/19 amLODIPine [Norvasc] 10 mg PO DAILY 05/08/18 02/17/19 Alprazolam [Xanax] 0.5 mg PO TID 07/11/18 02/15/19 Cinacalcet [Sensipar] 30 mg PO DAILY 10/03/18 02/15/19 Zolpidem [Ambien] 10 mg PO HS 10/03/18 02/15/19 Hydralazine HCl 100 mg PO BID 10/05/18 02/15/19 Gabapentin [Neurontin] 100 mg PO TID 01/01/19 02/15/19 oxyCODONE/Acetaminophen [Percocet 1 tab PO Q6H PRN 01/01/19 02/15/19 5/325 mg Tab] cloNIDine [Catapres] 0.1 mg PO BID 02/15/19 02/17/19 Review of Systems - Physician Review All systems were reviewed & negative as marked: Yes - Review of Systems Constitutional: Fevers Gastrointestinal: Vomiting (black in color). absent: Abdominal Pain, Diarrhea Physical Exam Vital Signs Reviewed: Yes Vital Signs Temp Pulse Resp BP Pulse Ox 02/15/19 17:05 100.8 F H 126 H 19 147/103 H 93 L Temperature: Febrile Blood Pressure: Normal Pulse: Regular Respiratory Rate: Normal Appearance: Positive for: Well-Appearing, Non-Toxic, Comfortable Pain Distress: None Mental Status: Positive for: Alert and Oriented X 3 - Systems Exam Head: Present: Atraumatic, Normocephalic Pupils: Present: PERRL Extroacular Muscles: Present: EOMI Conjunctiva: Present: Normal Mouth: Present: Moist Mucous Membranes Pharnyx: Present: Normal Neck: Present: Normal Range of Motion. No: JVD Respiratory/Chest: Present: Clear to Auscultation, Good Air Exchange. No: Respiratory Distress, Accessory Muscle Use Cardiovascular: Present: Regular Rate and Rhythm, Normal S1, S2. No: Murmurs Abdomen: No: Tenderness, Distention, Peritoneal Signs Rectal: Present: Occult Blood (FOB+) Back: Present: Normal Inspection Upper Extremity: Present: Normal Inspection. No: Cyanosis, Edema Lower Extremity: Present: Normal Inspection. No: Edema (no pitting edema) Neurological: Present: GCS=15, CN II-XII Intact, Speech Normal Skin: Present: Warm, Dry, Normal Color. No: Rashes Psychiatric: Present: Alert, Oriented x 3, Normal Insight, Normal Concentration Medical Decision Making ED Course and Treatment: 02/15/19 17:36 Impression: 38 year old female with vomit (black in color). Plan: -- Labs -- Chest X-ray -- Reassess and disposition Progress Notes: 02/15/19 19:57 Patient continues to have fever and has leukocytosis. Patient admitted for GI Bleed and Sepsis. Discussed case with Dr. Ha and medicine resident. - Medication Orders Current Medication Orders: Discontinued Medications Acetaminophen (Tylenol 325mg Tab) 975 mg PO STAT STA Stop: 02/15/19 17:18 - Scribe Statement The provider has reviewed the documentation as recorded by the Claire Savage Provider Scribe Attestation: All medical record entries made by the Trishaibcarline were at my direction and personally dictated by me. I have reviewed the chart and agree that the record accurately reflects my personal performance of the history, physical exam, medical decision making, and the department course for this patient. I have also personally directed, reviewed, and agree with the discharge instructions and disposition. Disposition/Present on Arrival - Present on Arrival Any Indicators Present on Arrival: No History of DVT/PE: No History of Uncontrolled Diabetes: No Urinary Catheter: No History of Decub. Ulcer: No History Surgical Site Infection Following: None - Disposition Have Diagnosis and Disposition been Completed?: Yes Diagnosis: GI bleed, Sepsis, ESRD (end stage renal disease) Disposition: HOSPITALIZED Disposition Time: 19:52 Patient Plan: Admission Condition: UNKNOWN
[2019-02-15 18:03] LABS: VENOUS BLOOD GAS BASE EXCESS -0.3 mmol/L (0.0-2.0); VENOUS BLOOD GAS PO2 59 mm/Hg (30-55); VENOUS BLOOD PH 7.41 (7.32-7.43)
[2019-02-15 19:12] LABS: TROPONIN I 0.05 ng/mL
[2019-02-15 19:15] LABS: BASO # 0.03 K/mm3 (0.0-2.0); BASO % 0.2 % (0.0-3.0); EOS # 0.1 (0.0-0.7); EOS % 0.7 % (1.5-5.0); HEMOGLOBIN 9.3 g/dL (12.0-16.0); LYMPH # 1.3 (1.2-3.4); LYMPH % 6.9 % (22.0-35.0); MEAN CELL VOLUME 92.7 fl (80.0-105.0); MEAN CORPUSCULAR HEMOGLOBIN 29.6 pg (25.0-35.0); MEAN PLATELET VOLUME 9.3 fl (7.0-11.0); MONO # 0.9 (0.1-0.6); MONO % 4.9 % (1.0-6.0); RBC 3.14 10^6/uL (3.5-6.1); RED CELL DISTRIBUTION WIDTH 14.2 % (11.5-14.5); WHITE BLOOD COUNT 19.3 10^3/uL (4.5-11.0)
[2019-02-15 19:19] LABS: INR 1.07; PARTIAL THROMBOPLASTIN TIME 33.7 Seconds (26.9-38.3); PROTHROMBIN TIME 11.9 SECONDS (9.4-12.5)
[2019-02-15 19:20] LABS: ALB/GLOB RATIO 1.4 (1.1-1.8); ALBUMIN 3.9 g/dL (3.0-4.8); CALCIUM 8.7 mg/dL (8.4-10.5)
[2019-02-15] MEDS ORDERED: Vancomycin 1.5 GM in Sodium Chloride 0.9% 500 ML IVPB ONE (19:45)
[2019-02-15] MEDS ORDERED: Cefepime IV 2 gm in NS 2 GM/100 ML BAG IVPB STA (19:46)
[2019-02-15] MEDS ORDERED: Sodium Chloride 0.9% 500 ML IV STA (19:52)
[2019-02-15] MEDS ORDERED: Vancomycin 1 g Inj IVPB ONE (20:29)
[2019-02-15] MEDS ORDERED: Vancomycin 1gm in NS 250ml 1 GM/250 ML BAG IVPB STA (20:32)
--- NOTE | 2019-02-15 20:46 | CP.PCM.HP ---
<Franny Gr - Last Filed: 02/16/19 05:14> History of Present Illness - History of Present Illness History of Present Illness: HISTORY & PHYSICAL NOTE FOR HOSPITALIST SERVICE- Dr. Dilcia Gr PGY1 38 y/o F with PMH significant for hypertensive ESRD on HD MWF via subclavian HD catheter (hx of peritoneal dialysis), hx of AV fistula infection, anemia, an xiety, CHF, depression, choleycystectomy, hypertension, pancreatitis, substance abuse, cyclical vomiting syndrome who presents to [facility] with boyfriend at bedside presenting with 4 episodes of "black vomiting" that occurred yesterday and has subsequently resolved today. Pt is very lethargic upon interview, and provides limited history. She says she doesn't currently feel nauseous and hasn't vomited today. She denies passing stool in about a week and denies hematochezia. She reports she doesn't currently have abdominal pain or tenderness. Patient is currently on her period however history of menstrual cycles unable to obtained. Boyfriend at bedside reports pt's lethargy started once patient arrived in ED. ED physician reports pt was awake and more talkative upon initial arrival to ED. Pt was recently admitted for epigastric pain. She did not follow-up with GI outpatient d/t insurance issues. Complete 12 ROS unable to be obtained except as mentioned above. Of note: rectal exam performed at bedside in ED, negative FOBT, no overt blood per rectum noted. PMH: anemia, anxiety, CHF, depression, choleycystectomy, hypertension, pancre atitis, ESRD on HD MWF via subclavian HD catheter PSH: radio-cephalic AVF creation (10/2018), cholecystectomy, s/p R subclavian HD catheter, PD cath insertion/removal, Hx of AVF, permacath Allergies: NKDA Social Hx: 3- 4 cigarettes a day, denies EtOH and illicit drug use Family Hx: Mother, at 49 from DM; Father, alive has COPD Medications: Sensipar 30 mg daily, Ambien 10 mg HS, Percocet 5/325 mg prn, Xanax 0.5 mg BID , Norvasc 10 mg daily, Hydralazine 100 mg BID, Clondine 0.3 mg BID, Labetalol 300 mg BID Digital Associate: Madiha Alcantara PMD: Willam Present on Admission - Present on Admission Any Indicators Present on Admission: No Review of Systems - Review of Systems Review of Systems: per HPI Past Patient History - Infectious Disease Hx of Infectious Diseases: None - Past Medical History & Family History Past Medical History?: Yes - Past Social History Smoking Status: Current Some Days Smoker - CARDIAC Hx Cardiac Disorders: Yes Hx Congestive Heart Failure: Yes Hx Heart Attack: Yes (03/2017) Hx Hypertension: Yes Hx Peripheral Edema: Yes - PULMONARY Hx Respiratory Disorders: Yes Hx Pneumonia: Yes - NEUROLOGICAL Hx Neurological Disorder: No - HEENT Hx HEENT Problems: Yes Other/Comment: wears glasses - RENAL Hx Chronic Kidney Disease: Yes Date of Last Dialysis Treatment: 12/31/18 Hx Kidney Stones: Yes Hx Renal Failure: Yes - ENDOCRINE/METABOLIC Hx Endocrine Disorders: No - HEMATOLOGICAL/ONCOLOGICAL Hx Blood Disorders: Yes Hx Anemia: Yes - INTEGUMENTARY Hx Dermatological Problems: Yes Other/Comment: SCARRING TO LEFT UPPER ARM DUE TO PLACEMENT OF SHUNT. NF.3X HAD SURGERY. - MUSCULOSKELETAL/RHEUMATOLOGICAL Hx Musculoskeletal Disorders: Yes Hx Arthritis: Yes (L HIP) Hx Falls: Yes Other/Comment: sciatica - GASTROINTESTINAL Hx Gastrointestinal Disorders: Yes Hx Gall Bladder Disease: Yes (CHOLECYSTECTOMY) Hx Pancreatitis: Yes Other/Comment: GASTROENTERITIS - GENITOURINARY/GYNECOLOGICAL Hx Genitourinary Disorders: Yes - PSYCHIATRIC Hx Psychophysiologic Disorder: Yes Hx Anxiety: Yes Hx Depression: Yes Hx Substance Use: No - SURGICAL HISTORY Hx Arteriovenous Shunt: Yes (LEFT ARM) Hx Cholecystectomy: Yes Hx Vascular Surgery: Yes (AV SHUNT) Hx Vascular Access Device: Yes (Perma cath) Other/Comment: 2 failed fistula left arm. Left wrist fistula not working - ANESTHESIA Hx Anesthesia: Yes Hx Anesthesia Reactions: No Hx Malignant Hyperthermia: No Meds Allergies/Adverse Reactions: Allergies Allergy/AdvReac Type Severity Reaction Status Date / Time No Known Allergies Allergy Verified 02/15/19 17:04 Physical Exam - Constitutional Appears: No Acute Distress Additional comments: lethargic, sleeping - Head Exam Head Exam: NORMAL INSPECTION, NORMOCEPHALIC - Eye Exam Eye Exam: EOMI, Normal appearance - ENT Exam ENT Exam: Mucous Membranes Moist, Normal Exam - Neck Exam Neck exam: Positive for: Normal Inspection. Negative for: Meningismus, Tenderness Additional comments: R subclavian catheter catheter noted. No purulence, erythema, fluctuance noted. - Respiratory Exam Respiratory Exam: Clear to Auscultation Bilateral, NORMAL BREATHING PATTERN - Cardiovascular Exam Cardiovascular Exam: REGULAR RHYTHM, +S1, +S2. absent: Diastolic murmur, Systolic Murmur - GI/Abdominal Exam GI & Abdominal Exam: Soft. absent: Distended, Guarding, Hernia, Rebound, Ten derness Additional comments: scars noted on abdomen from prior laparoscopy surgery. C/D/I - Rectal Exam Rectal Exam: NORMAL INSPECTION. absent: Black Stool, Bloody Stool, Hemorrhoids, Fecal Impaction - Exam Additional comments: Pad saturated with blood - Extremities Exam Extremities exam: Positive for: normal inspection. Negative for: calf tendern ess, joint swelling, pedal edema Additional comments: L wrist fistula scar noted. No erythema, TTP. No bruit noted. L elbow fistula scar noted. No erythema, TTP. No bruit noted. - Back Exam Back exam: NORMAL INSPECTION - Neurological Exam Neurological exam: Alert Additional comments: lethargic, sleeping - Skin Skin Exam: Dry, Intact, Warm Results - Vital Signs Recent Vital Signs: Last Vital Signs Temp 100.2 F H 02/15/19 19:01 Pulse 102 H 02/15/19 19:01 Resp 19 02/15/19 19:01 BP 140/78 02/15/19 19:01 Pulse Ox 99 02/15/19 19:01 - Labs Result Diagrams: 02/15/19 22:35 02/15/19 18:00 Labs: Laboratory Results - last 24 hr 02/15/19 02/15/19 02/15/19 17:55 18:00 18:00 WBC 19.3 H D RBC 3.14 L Hgb 9.3 L D Hct 29.1 L MCV 92.7 MCH 29.6 MCHC 32.0 RDW 14.2 Plt Count 338 MPV 9.3 Neut % (Auto) 87.3 H Lymph % (Auto) 6.9 L [place] % (Auto) 4.9 Eos % (Auto) 0.7 L Baso % (Auto) 0.2 Lymph # (Auto) 1.3 [place] # (Auto) 0.9 H Eos # (Auto) 0.1 Baso # (Auto) 0.03 Absolute Neuts (auto) 16.82 H PT 11.9 INR 1.07 APTT 33.7 pO2 59 H VBG pH 7.41 VBG pCO2 38.0 L VBG HCO3 24.1 VBG Total CO2 25.3 VBG O2 Sat (Calc) 93.6 H VBG Base Excess -0.3 L VBG Potassium 3.8 Sodium 135.0 Chloride 104.0 Glucose 110 H Lactate 0.6 L FiO2 21.0 Potassium Carbon Dioxide Anion Gap BUN Creatinine Est GFR ( Amer) Est GFR (Non-Af Amer) Random Glucose Calcium Total Bilirubin AST ALT Alkaline Phosphatase Lactate Dehydrogenase Total Creatine Kinase Troponin I Total Protein Albumin Globulin Albumin/Globulin Ratio Amylase Lipase Beta HCG, Quant Venous Blood Potassium 3.8 BBK History Checked 02/15/19 02/15/19 02/15/19 18:00 18:00 19:00 WBC RBC Hgb Hct MCV MCH MCHC RDW Plt Count MPV Neut % (Auto) Lymph % (Auto) [place] % (Auto) Eos % (Auto) Baso % (Auto) Lymph # (Auto) [place] # (Auto) Eos # (Auto) Baso # (Auto) Absolute Neuts (auto) PT INR APTT pO2 VBG pH VBG pCO2 VBG HCO3 VBG Total CO2 VBG O2 Sat (Calc) VBG Base Excess VBG Potassium Sodium 136 Chloride 101 Glucose Lactate FiO2 Potassium 4.0 Carbon Dioxide 23 Anion Gap 16 BUN 55 H Creatinine 4.2 H Est GFR ( Amer) 14 Est GFR (Non-Af Amer) 12 Random Glucose 111 H Calcium 8.7 Total Bilirubin 0.3 AST 27 ALT 59 H Alkaline Phosphatase 104 Lactate Dehydrogenase 355 Total Creatine Kinase 105 Troponin I 0.05 D Total Protein 6.6 Albumin 3.9 Globulin 2.7 Albumin/Globulin Ratio 1.4 Amylase 58 Lipase 56 Beta HCG, Quant < 2.39 Venous Blood Potassium BBK History Checked Patient has bt Assessment & Plan - Assessment and Plan (Free Text) Assessment: 38 y/o F with PMH significant for hypertensive ESRD on HD MWF via subclavian HD catheter (hx of peritoneal dialysis), hx of AV fistula infection, anemia, anxiety, CHF, depression, choleycystectomy, hypertension, pancreatitis, substance abuse, cyclical vomiting syndrome Plan: SIRS r/o Sepsis febrile, leukocytosis, HR>90. CXR: No acute findings. vascular congestion noted Given empiric vanc/cefepime in ED, 1L IVF bolus in ED. Maintainence IVF on hold d/t congestion noted on CXR. Lungs were CTA on exam Pending CT A/P w/o contrast f/u pancultures. U/A pending (patient still makes urine), procalcitonin added on. R subclavian catheter doesn't appear infected. No erythema, fluctuance, TTP on L snuffbox AVF (failed no bruit) Continue empiric vanc/zosyn tylenol prn for fever HEMATEMSESIS No history of bright red blood emesis. Normotensive, hemodynamically stable H&H Q4H Keep NPO execept meds GI evaluation in am Prolonged QTc, avoid QTc prolonging agent. Will start diphenhydramine prn nausea NORMOCYTIC ANEMIA Multifactorial. Likely 2/2 menstruation vs ACD (ESRD) Bedside FOBT (-). No overt blood per rectum noted on rectal exam r/o Upper GI bleed Continue protonix drip H&H Q4H Iron studies pending AMS 2/2 sepsis vs substance abuse. Unknown if patient took sedatives, analgesics Awakens however lethargic Treat underlying sepsis with close re-evaluation Avoid sedating medications UDS pending ESRD ON HD Pt still makes urine HD via R subclavian port. Hx of failed peritoneal dialysis (poor catheter function), was also non-compliant. L cephalo-radial fistula (failed, no bruit noted) Nephrology consulted CHFpEF Last echo 05/31: LVEF 58%, mild-mod pulm HTN, RVSP 43mmHg [place] 05/31: No evidence of endocarditis HTN Holding anti-hypertensives d/t suspected upper GIB continue hydralazine IVP prn HX OF SUBSTANCE ABUSE Unknown if patient took sedatives, analgesics UDS pending Avoid sedatives GI/DVT PPx: SCD/Protonix Case reviewed with attending physician, Dr. Dilcia Gr PGY1 <Nadja Ha - Last Filed: 02/16/19 06:06> Results - Vital Signs Recent Vital Signs: Last Vital Signs Temp 98.2 F 02/16/19 00:01 Pulse 115 H 02/16/19 02:00 Resp 19 02/16/19 00:01 BP 162/96 H 02/16/19 00:01 Pulse Ox 96 02/16/19 00:01 - Labs Result Diagrams: 02/16/19 02:35 02/15/19 18:00 Labs: Laboratory Results - last 24 hr 02/15/19 02/15/19 02/15/19 17:55 18:00 18:00 WBC 19.3 H D RBC 3.14 L Hgb 9.3 L D Hct 29.1 L MCV 92.7 MCH 29.6 MCHC 32.0 RDW 14.2 Plt Count 338 MPV 9.3 Neut % (Auto) 87.3 H Lymph % (Auto) 6.9 L [place] % (Auto) 4.9 Eos % (Auto) 0.7 L Baso % (Auto) 0.2 Lymph # (Auto) 1.3 [place] # (Auto) 0.9 H Eos # (Auto) 0.1 Baso # (Auto) 0.03 Absolute Neuts (auto) 16.82 H PT 11.9 INR 1.07 APTT 33.7 pO2 59 H VBG pH 7.41 VBG pCO2 38.0 L VBG HCO3 24.1 VBG Total CO2 25.3 VBG O2 Sat (Calc) 93.6 H VBG Base Excess -0.3 L VBG Potassium 3.8 Sodium 135.0 Chloride 104.0 Glucose 110 H Lactate 0.6 L FiO2 21.0 Potassium Carbon Dioxide Anion Gap BUN Creatinine Est GFR ( Amer) Est GFR (Non-Af Amer) Random Glucose Calcium Iron TIBC % Saturation Total Bilirubin AST ALT Alkaline Phosphatase Lactate Dehydrogenase Total Creatine Kinase Troponin I Total Protein Albumin Globulin Albumin/Globulin Ratio Amylase Lipase Beta HCG, Quant Venous Blood Potassium 3.8 Blood Type Antibody Screen BBK History Checked 02/15/19 02/15/19 02/15/19 18:00 18:00 19:00 WBC RBC Hgb Hct MCV MCH MCHC RDW Plt Count MPV Neut % (Auto) Lymph % (Auto) [place] % (Auto) Eos % (Auto) Baso % (Auto) Lymph # (Auto) [place] # (Auto) Eos # (Auto) Baso # (Auto) Absolute Neuts (auto) PT INR APTT pO2 VBG pH VBG pCO2 VBG HCO3 VBG Total CO2 VBG O2 Sat (Calc) VBG Base Excess VBG Potassium Sodium 136 Chloride 101 Glucose Lactate FiO2 Potassium 4.0 Carbon Dioxide 23 Anion Gap 16 BUN 55 H Creatinine 4.2 H Est GFR ( Amer) 14 Est GFR (Non-Af Amer) 12 Random Glucose 111 H Calcium 8.7 Iron TIBC % Saturation Total Bilirubin 0.3 AST 27 ALT 59 H Alkaline Phosphatase 104 Lactate Dehydrogenase 355 Total Creatine Kinase 105 Troponin I 0.05 D Total Protein 6.6 Albumin 3.9 Globulin 2.7 Albumin/Globulin Ratio 1.4 Amylase 58 Lipase 56 Beta HCG, Quant < 2.39 Venous Blood Potassium Blood Type A POSITIVE Antibody Screen Negative BBK History Checked Patient has bt 02/15/19 02/15/19 02/16/19 22:35 22:35 02:35 WBC RBC Hgb 9.5 L 9.3 L Hct 29.6 L 29.3 L MCV MCH MCHC RDW Plt Count MPV Neut % (Auto) Lymph % (Auto) [place] % (Auto) Eos % (Auto) Baso % (Auto) Lymph # (Auto) [place] # (Auto) Eos # (Auto) Baso # (Auto) Absolute Neuts (auto) PT INR APTT pO2 VBG pH VBG pCO2 VBG HCO3 VBG Total CO2 VBG O2 Sat (Calc) VBG Base Excess VBG Potassium Sodium Chloride Glucose Lactate FiO2 Potassium Carbon Dioxide Anion Gap BUN Creatinine Est GFR ( Amer) Est GFR (Non-Af Amer) Random Glucose Calcium Iron 21 L TIBC 233 L % Saturation 9 L Total Bilirubin AST ALT Alkaline Phosphatase Lactate Dehydrogenase Total Creatine Kinase Troponin I Total Protein Albumin Globulin Albumin/Globulin Ratio Amylase Lipase Beta HCG, Quant Venous Blood Potassium Blood Type Antibody Screen BBK History Checked Attending/Attestation - Attestation I have personally seen and examined this patient.: Yes I have fully participated in the care of the patient.: Yes I have reviewed all pertinent clinical information: Yes Notes (Text): 02/16/19 06:05 Seen and examined. discussed with resident. Pt. is very somnolent, but arousable. History from ER physician and significant other. A&P as above.
[2019-02-15] MEDS ORDERED: DiphenhydrAMINE 50 mg/ml Inj IVP PRN (21:12)
[2019-02-15 22:49] LABS: HEMOGLOBIN 9.5 g/dL (12.0-16.0)
[2019-02-15 23:08] LABS: IRON 21 ug/dL (45-180)
[2019-02-15 23:17] LABS: % IRON SATURATION 9 % (20-55); TOTAL IRON BINDING CAPACITY 233 ug/dL (265-497)
[2019-02-16] MEDS: POLYETHYLENE GLYCOL 3350 17 GM/Dose PACKET PO SCH ×3 (00:02→21:33)
[2019-02-16] MEDS: Pantoprazole 40mg/100mL NS 40 MG/100 ML BAG IVPB SCH ×2 (00:32→05:57)
[2019-02-16 02:53] LABS: HEMOGLOBIN 9.3 g/dL (12.0-16.0)
[2019-02-16 07:47] LABS: HEMOGLOBIN 9.4 g/dL (12.0-16.0); MEAN CELL VOLUME 92.2 fl (80.0-105.0); MEAN CORPUSCULAR HEMOGLOBIN 29.5 pg (25.0-35.0); MEAN PLATELET VOLUME 9.1 fl (7.0-11.0); RBC 3.19 10^6/uL (3.5-6.1); RED CELL DISTRIBUTION WIDTH 14.4 % (11.5-14.5); WHITE BLOOD COUNT 15.9 10^3/uL (4.5-11.0)
[2019-02-16 07:57] LABS: ALB/GLOB RATIO 1.3 (1.1-1.8); ALBUMIN 3.9 g/dL (3.0-4.8)
--- NOTE | 2019-02-16 09:25 | RAD ---
Date of service: 02/15/2019 HISTORY: r/o infiltrate COMPARISON: 01/28/2019 TECHNIQUE: 1 view obtained. FINDINGS: LUNGS: Ill-defined increased opacity at right base, possible infiltrate. This is unchanged compared to the prior radiographic examination. No other abnormal opacity elsewhere. PLEURA: No significant pleural effusion identified, no pneumothorax apparent. CARDIOVASCULAR: No aortic atherosclerotic calcification present. Normal cardiac size. No congestive change. Right tunneled central venous dialysis catheter. OSSEOUS STRUCTURES: No significant abnormalities. VISUALIZED UPPER ABDOMEN: Normal. OTHER FINDINGS: None. IMPRESSION: Ill-defined opacity at right base. Possible pneumonia. Follow-up advised.
--- NOTE | 2019-02-16 09:38 | CP.PCM.CON ---
<Twan Thomas - Last Filed: 02/16/19 16:07> History of Present Illness - History of Present Illness History of Present Illness: PGY6 GI Fellow Consult Note Patient is a 38yo female with PMHx significant for ESRD on HD (previously on PD, stopped 2/2 peritonitis), uncontrolled HTN, depression/anxiety who presents to the hospital with nausea, vomiting and constipation. Saturday morning, the patient woke up with dark secretions on her pillow and proceeded to have intense nausea following by vomiting of "dark, black/maroon, clot-like" emesis. As she remained nauseated, vomited twice more and could not tolerate her oral medications, she came to the hospital for further evaluation. Notes that she had developed epigastric stabbing pain 1-2 weeks prior to this event and had been using Zantac with some modest improvement in symptoms. Moreover, she admits to recently developing a cough and left ear pain 3-4 days prior to admission which has improved. Admits to severe constipation, only passing stool once weekly with the aid of Lactulose. Denies melena, hematochezia as well as any known sick contacts, travel or recent antibiotic use. 12 system ROS performed and negative except where stated PMHx: See HPI PSHx: Left AVF (failed to mature), Cholecystectomy FHx: Mother - DM, ESRD Social: +Tobacco, EtOH use, denies illicit drug use Endo: April 2017 - EGD - hiatal hernia - mild gastritis Past Patient History - Infectious Disease Hx of Infectious Diseases: None - Past Medical History & Family History Past Medical History?: Yes - Past Social History Smoking Status: Current Some Days Smoker - CARDIAC Hx Cardiac Disorders: Yes Hx Congestive Heart Failure: Yes Hx Heart Attack: Yes (03/2017) Hx Hypertension: Yes Hx Peripheral Edema: Yes - PULMONARY Hx Respiratory Disorders: Yes Hx Pneumonia: Yes - NEUROLOGICAL Hx Neurological Disorder: No - HEENT Hx HEENT Problems: Yes Other/Comment: wears glasses - RENAL Hx Chronic Kidney Disease: Yes Date of Last Dialysis Treatment: 12/31/18 Hx Kidney Stones: Yes Hx Renal Failure: Yes - ENDOCRINE/METABOLIC Hx Endocrine Disorders: No - HEMATOLOGICAL/ONCOLOGICAL Hx Blood Disorders: Yes Hx Anemia: Yes - INTEGUMENTARY Hx Dermatological Problems: Yes Other/Comment: SCARRING TO LEFT UPPER ARM DUE TO PLACEMENT OF SHUNT. NF.3X HAD SURGERY. - MUSCULOSKELETAL/RHEUMATOLOGICAL Hx Musculoskeletal Disorders: Yes Hx Arthritis: Yes (L HIP) Hx Falls: Yes Other/Comment: sciatica - GASTROINTESTINAL Hx Gastrointestinal Disorders: Yes Hx Gall Bladder Disease: Yes (CHOLECYSTECTOMY) Hx Pancreatitis: Yes Other/Comment: GASTROENTERITIS - GENITOURINARY/GYNECOLOGICAL Hx Genitourinary Disorders: Yes - PSYCHIATRIC Hx Psychophysiologic Disorder: Yes Hx Anxiety: Yes Hx Depression: Yes Hx Substance Use: No - SURGICAL HISTORY Hx Arteriovenous Shunt: Yes (LEFT ARM) Hx Cholecystectomy: Yes Hx Vascular Surgery: Yes (AV SHUNT) Hx Vascular Access Device: Yes (Perma cath) Other/Comment: 2 failed fistula left arm. Left wrist fistula not working - ANESTHESIA Hx Anesthesia: Yes Hx Anesthesia Reactions: No Hx Malignant Hyperthermia: No Meds Allergies/Adverse Reactions: Allergies Allergy/AdvReac Type Severity Reaction Status Date / Time No Known Allergies Allergy Verified 02/15/19 17:04 - Medications Medications: Current Medications Acetaminophen (Tylenol 325mg Tab) 650 mg PO Q6H PRN PRN Reason: Fever >100.4 F Last Admin: 02/16/19 09:36 Dose: 650 mg Acetaminophen (Tylenol 120mg Supp) 120 mg RC Q6 PRN PRN Reason: Fever >100.4 F Diphenhydramine HCl (Benadryl) 25 mg IVP Q6H PRN PRN Reason: Nausea/Vomiting Hydralazine HCl (Apresoline) 10 mg IVP Q6 PRN PRN Reason: Systolic Blood Pressure Last Admin: 02/16/19 06:32 Dose: 10 mg Pantoprazole Sodium (Protonix 40mg Ivpb) 40 mg in 100 mls @ 20 mls/hr IVPB .Q5H [facility] Last Admin: 02/16/19 05:57 Dose: 20 mls/hr Piperacillin Sod/Tazobactam Sod (Zosyn 3.375 In Ns 100ml) 100 mls @ 25 mls/hr IVPB Q12 [facility] Stop: 02/17/19 01:59 Last Admin: 02/16/19 09:36 Dose: 25 mls/hr Polyethylene Glycol (Miralax) 17 gm PO BID [facility] Last Admin: 02/16/19 09:36 Dose: 17 gm Physical Exam - Constitutional Appears: Non-toxic, No Acute Distress - Eye Exam Eye Exam: EOMI, PERRL - ENT Exam ENT Exam: Mucous Membranes Moist - Respiratory Exam Respiratory Exam: Clear to Auscultation Bilateral. absent: Rales, Rhonchi, Wheezes - Cardiovascular Exam Cardiovascular Exam: RRR, +S1, +S2 - GI/Abdominal Exam GI & Abdominal Exam: Normal Bowel Sounds, Soft, Tenderness (epigastric). absent: Distended, Firm, Guarding, Hernia, Mass - Extremities Exam Extremities exam: Negative for: pedal edema Additional comments: LUE AVF - Neurological Exam Neurological exam: Alert, Oriented x3 - Psychiatric Exam Psychiatric exam: Anxious - Skin Skin Exam: Dry, Warm Results - Vital Signs Recent Vital Signs: Last Vital Signs Temp 100.2 F H 02/16/19 09:36 Pulse 119 H 02/16/19 09:15 Resp 18 02/16/19 09:15 BP 156/102 H 02/16/19 09:15 Pulse Ox 98 02/16/19 09:15 - Labs Result Diagrams: 02/16/19 07:00 02/16/19 07:00 Labs: Laboratory Results - last 24 hr 02/15/19 02/15/19 02/15/19 17:55 18:00 18:00 WBC 19.3 H D RBC 3.14 L Hgb 9.3 L D Hct 29.1 L MCV 92.7 MCH 29.6 MCHC 32.0 RDW 14.2 Plt Count 338 MPV 9.3 Neut % (Auto) 87.3 H Lymph % (Auto) 6.9 L [place] % (Auto) 4.9 Eos % (Auto) 0.7 L Baso % (Auto) 0.2 Lymph # (Auto) 1.3 [place] # (Auto) 0.9 H Eos # (Auto) 0.1 Baso # (Auto) 0.03 Absolute Neuts (auto) 16.82 H PT 11.9 INR 1.07 APTT 33.7 pO2 59 H VBG pH 7.41 VBG pCO2 38.0 L VBG HCO3 24.1 VBG Total CO2 25.3 VBG O2 Sat (Calc) 93.6 H VBG Base Excess -0.3 L VBG Potassium 3.8 Sodium 135.0 Chloride 104.0 Glucose 110 H Lactate 0.6 L FiO2 21.0 Potassium Carbon Dioxide Anion Gap BUN Creatinine Est GFR ( Amer) Est GFR (Non-Af Amer) Random Glucose Calcium Phosphorus Magnesium Iron TIBC % Saturation Total Bilirubin AST ALT Alkaline Phosphatase Lactate Dehydrogenase Total Creatine Kinase Troponin I Total Protein Albumin Globulin Albumin/Globulin Ratio Amylase Lipase Beta HCG, Quant Venous Blood Potassium 3.8 Blood Type Antibody Screen BBK History Checked 02/15/19 02/15/19 02/15/19 18:00 18:00 19:00 WBC RBC Hgb Hct MCV MCH MCHC RDW Plt Count MPV Neut % (Auto) Lymph % (Auto) [place] % (Auto) Eos % (Auto) Baso % (Auto) Lymph # (Auto) [place] # (Auto) Eos # (Auto) Baso # (Auto) Absolute Neuts (auto) PT INR APTT pO2 VBG pH VBG pCO2 VBG HCO3 VBG Total CO2 VBG O2 Sat (Calc) VBG Base Excess VBG Potassium Sodium 136 Chloride 101 Glucose Lactate FiO2 Potassium 4.0 Carbon Dioxide 23 Anion Gap 16 BUN 55 H Creatinine 4.2 H Est GFR ( Amer) 14 Est GFR (Non-Af Amer) 12 Random Glucose 111 H Calcium 8.7 Phosphorus Magnesium Iron TIBC % Saturation Total Bilirubin 0.3 AST 27 ALT 59 H Alkaline Phosphatase 104 Lactate Dehydrogenase 355 Total Creatine Kinase 105 Troponin I 0.05 D Total Protein 6.6 Albumin 3.9 Globulin 2.7 Albumin/Globulin Ratio 1.4 Amylase 58 Lipase 56 Beta HCG, Quant < 2.39 Venous Blood Potassium Blood Type A POSITIVE Antibody Screen Negative BBK History Checked Patient has bt 02/15/19 02/15/19 02/16/19 22:35 22:35 02:35 WBC RBC Hgb 9.5 L 9.3 L Hct 29.6 L 29.3 L MCV MCH MCHC RDW Plt Count MPV Neut % (Auto) Lymph % (Auto) [place] % (Auto) Eos % (Auto) Baso % (Auto) Lymph # (Auto) [place] # (Auto) Eos # (Auto) Baso # (Auto) Absolute Neuts (auto) PT INR APTT pO2 VBG pH VBG pCO2 VBG HCO3 VBG Total CO2 VBG O2 Sat (Calc) VBG Base Excess VBG Potassium Sodium Chloride Glucose Lactate FiO2 Potassium Carbon Dioxide Anion Gap BUN Creatinine Est GFR ( Amer) Est GFR (Non-Af Amer) Random Glucose Calcium Phosphorus Magnesium Iron 21 L TIBC 233 L % Saturation 9 L Total Bilirubin AST ALT Alkaline Phosphatase Lactate Dehydrogenase Total Creatine Kinase Troponin I Total Protein Albumin Globulin Albumin/Globulin Ratio Amylase Lipase Beta HCG, Quant Venous Blood Potassium Blood Type Antibody Screen BBK History Checked 02/16/19 02/16/19 07:00 07:00 WBC 15.9 H RBC 3.19 L Hgb 9.4 L Hct 29.4 L MCV 92.2 MCH 29.5 MCHC 32.0 RDW 14.4 Plt Count 339 MPV 9.1 Neut % (Auto) Lymph % (Auto) [place] % (Auto) Eos % (Auto) Baso % (Auto) Lymph # (Auto) [place] # (Auto) Eos # (Auto) Baso # (Auto) Absolute Neuts (auto) PT INR APTT pO2 VBG pH VBG pCO2 VBG HCO3 VBG Total CO2 VBG O2 Sat (Calc) VBG Base Excess VBG Potassium Sodium 141 Chloride 107 Glucose Lactate FiO2 Potassium 3.9 Carbon Dioxide 23 Anion Gap 15 BUN 53 H Creatinine 4.0 H Est GFR ( Amer) 15 Est GFR (Non-Af Amer) 12 Random Glucose 87 Calcium 9.0 Phosphorus 3.8 Magnesium 2.6 H Iron TIBC % Saturation Total Bilirubin 0.3 AST 24 ALT 48 Alkaline Phosphatase 102 Lactate Dehydrogenase Total Creatine Kinase Troponin I Total Protein 6.7 Albumin 3.9 Globulin 2.9 Albumin/Globulin Ratio 1.3 Amylase Lipase Beta HCG, Quant Venous Blood Potassium Blood Type Antibody Screen BBK History Checked Assessment & Plan - Assessment and Plan (Free Text) Assessment: Patient is a 38yo female with PMHx significant for ESRD on HD (previously on PD, stopped 2/2 peritonitis), uncontrolled HTN, depression/anxiety who presents to the hospital with nausea, vomiting and constipation -Nausea, vomiting - subjective hematemesis -Anemia, R/O acute blood loss anemia vs anemia of chronic illness -ESRD on HD MWF -Uncontrolled HTN -Leukocytosis with concern for URI Plan: -HGB reveiwed from prior admission, dropped from 13 to 9.4 since January 27 -Given patient reported new onset epigastric abdominal pain and subjective hematemesis - recommend EGD this afternoon -Maintain PPI gtt -H/H, vitals stable -HD per primary team, ideally to follow EGD -Leukocytosis noted; concern for URI given cough/left ear pain vs RLL pneumonia as noted on CXR - on Zosyn -Maintain NPO except meds - Date & Time Date: 02/16/19 Time: 07:30 <Aletha Barboza - Last Filed: 02/16/19 19:58> Meds - Medications Medications: Current Medications Acetaminophen (Tylenol 325mg Tab) 650 mg PO Q6H PRN PRN Reason: Fever >100.4 F Last Admin: 02/16/19 09:36 Dose: 650 mg Acetaminophen (Tylenol 120mg Supp) 120 mg RC Q6 PRN PRN Reason: Fever >100.4 F Darbepoetin Nikolai (Aranesp) 60 mcg IVP QWK [facility] Diphenhydramine HCl (Benadryl) 25 mg IVP Q6H PRN PRN Reason: Nausea/Vomiting Hydralazine HCl (Apresoline) 10 mg IVP Q6 PRN PRN Reason: Systolic Blood Pressure Last Admin: 02/16/19 06:32 Dose: 10 mg Doxycycline Hyclate 100 mg/ (Sodium Chloride) 100 mls @ 100 mls/hr IVPB Q12 [facility]; Protocol Stop: 02/21/19 22:01 Cefepime HCl (Maxipime 1gm) 1 gm in 100 mls @ 100 mls/hr IVPB Q24H [facility]; Protocol Stop: 02/21/19 17:46 Pantoprazole Sodium (Protonix Ec Tab) 40 mg PO 0600,1600 [facility] Polyethylene Glycol (Miralax) 17 gm PO BID [facility] Last Admin: 02/16/19 09:36 Dose: 17 gm Sucralfate (Carafate Oral Susp) 1 gm PO QID [facility] Vitamin B Complex/Vit C/Folic Acid (Nephro-[place]) 1 tab PO 0800 [facility] Results - Vital Signs Recent Vital Signs: Last Vital Signs Temp 98 F 02/16/19 16:30 Pulse 103 H 02/16/19 16:30 Resp 18 02/16/19 16:30 BP 160/100 H 02/16/19 16:30 Pulse Ox 98 02/16/19 16:30 - Labs Result Diagrams: 02/16/19 07:00 02/16/19 07:00 Labs: Laboratory Results - last 24 hr 02/15/19 02/15/19 02/15/19 18:00 19:00 22:35 WBC RBC Hgb 9.5 L Hct 29.6 L MCV MCH MCHC RDW Plt Count MPV Sodium Potassium Chloride Carbon Dioxide Anion Gap BUN Creatinine Est GFR ( Amer) Est GFR (Non-Af Amer) Random Glucose Calcium Phosphorus Magnesium Iron TIBC % Saturation Transferrin Ferritin Total Bilirubin AST ALT Alkaline Phosphatase Total Protein Albumin Globulin Albumin/Globulin Ratio Procalcitonin 1.43 H Blood Type A POSITIVE Antibody Screen Negative BBK History Checked Patient has bt 02/15/19 02/15/19 02/15/19 22:35 22:35 22:35 WBC RBC Hgb Hct MCV MCH MCHC RDW Plt Count MPV Sodium Potassium Chloride Carbon Dioxide Anion Gap BUN Creatinine Est GFR ( Amer) Est GFR (Non-Af Amer) Random Glucose Calcium Phosphorus Magnesium Iron 21 L TIBC 233 L % Saturation 9 L Transferrin 152.58 L Ferritin 129.0 Total Bilirubin AST ALT Alkaline Phosphatase Total Protein Albumin Globulin Albumin/Globulin Ratio Procalcitonin Blood Type Antibody Screen BBK History Checked 02/16/19 02/16/19 02/16/19 02:35 07:00 07:00 WBC 15.9 H RBC 3.19 L Hgb 9.3 L 9.4 L Hct 29.3 L 29.4 L MCV 92.2 MCH 29.5 MCHC 32.0 RDW 14.4 Plt Count 339 MPV 9.1 Sodium 141 Potassium 3.9 Chloride 107 Carbon Dioxide 23 Anion Gap 15 BUN 53 H Creatinine 4.0 H Est GFR ( Amer) 15 Est GFR (Non-Af Amer) 12 Random Glucose 87 Calcium 9.0 Phosphorus 3.8 Magnesium 2.6 H Iron TIBC % Saturation Transferrin Ferritin Total Bilirubin 0.3 AST 24 ALT 48 Alkaline Phosphatase 102 Total Protein 6.7 Albumin 3.9 Globulin 2.9 Albumin/Globulin Ratio 1.3 Procalcitonin Blood Type Antibody Screen BBK History Checked Attending/Attestation - Attestation I have personally seen and examined this patient.: Yes I have fully participated in the care of the patient.: Yes I have reviewed all pertinent clinical information: Yes Notes (Text): 02/16/19 19:45 I have seen and examined the patient with the GI fellow. This is a 38 yo F with ESRD on HD (MWF, previously on PD), uncontrolled HTN and anxiety/depression p/w a combination of coffee ground emesis and hematesis associated with Hb drop. No evidence of GIB since admission. Normal BMs. No family h/o colon cancer or colon polyps. No NSAID use. General: appears lethargic Abd: soft, nt, nd Plan: -s/p EGD today showing multiple linear ulcers in the distal esophagus (see report for further details) likely cause of UGIB -protonix 40 mg po bid -carafate 1 gm po suspension qid -will f/u bx of ulcers -recommend outpt GI f/u with repeat EGD in 8 wks --> this was d/w pt -resume regular diet -Hb has remained stable --> stable from GI standpoint -remainder of care as per primary team 02/16/19 19:57
[2019-02-16] MEDS ORDERED: Piperacillin/Tazobact 3.375 gm 100 ML IVPB SCH (10:00)
--- NOTE | 2019-02-16 10:19 | CT ---
Date of service: 02/15/2019 PROCEDURE: CT Abdomen and Pelvis without intravenous contrast HISTORY: n/v COMPARISON: None. TECHNIQUE: Technique. Contrast dose: Radiation dose: Total exam DLP = 486.41 mGy-cm. This CT exam was performed using one or more of the following dose reduction techniques: Automated exposure control, adjustment of the mA and/or kV according to patient size, and/or use of iterative reconstruction technique. FINDINGS: LOWER THORAX: Unremarkable. LIVER: Unremarkable. No gross lesion or ductal dilatation. GALLBLADDER AND BILE DUCTS: Unremarkable. PANCREAS: Unremarkable. No gross lesion or ductal dilatation. SPLEEN: Unremarkable. ADRENALS: Unremarkable. No mass. KIDNEYS AND URETERS: Unremarkable. No hydronephrosis. No solid mass. There is a 3 mm nonobstructing stone in the upper pole of the left kidney VASCULATURE: Unremarkable. No aortic aneurysm. No aortic atherosclerotic calcification or mural plaque present. BOWEL: Unremarkable. No obstruction. No gross mural thickening. Constipation APPENDIX: Unremarkable. Normal appendix. PERITONEUM: Unremarkable. No free fluid. No free air. LYMPH NODES: Unremarkable. No enlarged lymph nodes. BLADDER: Unremarkable. REPRODUCTIVE: 3.4 x 4.4 cm left ovarian cyst BONES: No acute fracture. OTHER FINDINGS: The report concurs with the preliminary [facility] report IMPRESSION: No acute findings
--- NOTE | 2019-02-16 11:55 | CP.PCM.CON ---
History of Present Illness - History of Present Illness History of Present Illness: Nephrology Consultation Note: Assessment: stable sepsis with pneumonia r/o permacath sepsis b/l adrenal hypertrophy Hypertensive Chronic Kidney Disease (I12.0) End stage renal disease (N18.6) dependence on hemodialysis (Z99.2) (MWF) via PC Anemia (D64.9), Hyperphosphatemia (E83.39), Secondary Hyperparathyroidism (E21.1), HTN (I12.0) Plan: Will plan for HD as per MWF schedule. Continue with Nephrovite 1 tab/day. PRBC as needed for anemia. on GOYO with dialysis as last Hb 9.4 HTN control with home meds, resume renin/vic and metanephrines, renal artery doppler for sec HTN work up NEGATIVE in past. Outpt Dexamethasone suppression test for hypercortisolism eval per PMD. Continue with phos binders when able to take orally Glycemic control, Dialysis consistent diet Further work up/management as per primary team Dose meds/antibiotics (if needed) for ESRD status. Avoid fleets enema/magnesium based laxatives. Thanks for allowing me to participate in care of your patient. Will follow with you. Please call if any Qs. had d/w team Dr Pramod Bobo Office: [phone] Chief Complaint: abdomen pain and vomiting reason for consult; ESRD management HPI: Pt is a 38 F with hx of ESRD on hemodialysis (MWF) via pc @ [facility] with Dr Seth (was also on PD in between but switched to HD due to recurrent p eritonitis) , chronic anemia, hyperphosphatemia, secondary hyperparathyroidism, hypertension presented with complaints of pain abdomen and nausea/vomitting, found to have sepsis and admitted to hospital Renal consult requested for ESRD management. Pt feels better. denies SOB. pain abdomen and nausea/vomitting much better ROS: Cardiovascular: No chest pain. Pulmonary: No shortness of breath Gastrointestinal: better abdominal pain no nausea. no vomiting. Genitourinary: No pain while urinating. Denies blood in urine. All other negative except as mentioned in HPI Physical Examination: General Appearance: comfortable, in no acute respiratory distress, co-operative . Vitals reviewed and noted as below Head; Atraumatic, normocephalic ENT: no ulcers no thrush. Tongue is midline. Oropharynx: no rash or ulcers. EYES: Pupils are equal, round and reactive to light accommodation. Eye muscles and extraocular movement intact. Sclera is anicteric. Neck; supple no lymphadenopathy, no thyromegaly or bruit Lungs: Normal respiratory rate/effort. Breath sounds bilateral equal and clear except occasional basal crackle Heart: Normal rate. s1s2 normal. No rub or gallop. Extremities: no edema. No varicose veins Neurological: Patient is alert, awake and oriented to person, place and time. No focal deficit. Strength bilateral appropriate and equal Skin: Warm and dry. Normal turgor. No rash. Palpitation: Normal elasticity for age Abdomen: Abdomen is soft. Bowel sounds +. There is no abdominal tenderness, no guarding/rigidity or organomegaly Psych: normal insight and normal affect/mood MSK: no joint tenderness or swelling. Digits and nails normal, no deformity : kidney or bladder not palpable Access: Rt permacath. no exit site drainage or tunnel tenderness Labs/imaging reviewed. Past medical history, past surgical history, family history, social history, allergy reviewed and noted as below Family Hx: mother was on HD due to DM. rest Non contributory Past Patient History - Infectious Disease Hx of Infectious Diseases: None - Past Medical History & Family History Past Medical History?: Yes - Past Social History Smoking Status: Current Some Days Smoker - CARDIAC Hx Cardiac Disorders: Yes Hx Congestive Heart Failure: Yes Hx Heart Attack: Yes (03/2017) Hx Hypertension: Yes Hx Peripheral Edema: Yes - PULMONARY Hx Respiratory Disorders: Yes Hx Pneumonia: Yes - NEUROLOGICAL Hx Neurological Disorder: No - HEENT Hx HEENT Problems: Yes Other/Comment: wears glasses - RENAL Hx Chronic Kidney Disease: Yes Date of Last Dialysis Treatment: 12/31/18 Hx Kidney Stones: Yes Hx Renal Failure: Yes - ENDOCRINE/METABOLIC Hx Endocrine Disorders: No - HEMATOLOGICAL/ONCOLOGICAL Hx Blood Disorders: Yes Hx Anemia: Yes - INTEGUMENTARY Hx Dermatological Problems: Yes Other/Comment: SCARRING TO LEFT UPPER ARM DUE TO PLACEMENT OF SHUNT. NF.3X HAD SURGERY. - MUSCULOSKELETAL/RHEUMATOLOGICAL Hx Musculoskeletal Disorders: Yes Hx Arthritis: Yes (L HIP) Hx Falls: Yes Other/Comment: sciatica - GASTROINTESTINAL Hx Gastrointestinal Disorders: Yes Hx Gall Bladder Disease: Yes (CHOLECYSTECTOMY) Hx Pancreatitis: Yes Other/Comment: GASTROENTERITIS - GENITOURINARY/GYNECOLOGICAL Hx Genitourinary Disorders: Yes - PSYCHIATRIC Hx Psychophysiologic Disorder: Yes Hx Anxiety: Yes Hx Depression: Yes Hx Substance Use: No - SURGICAL HISTORY Hx Arteriovenous Shunt: Yes (LEFT ARM) Hx Cholecystectomy: Yes Hx Vascular Surgery: Yes (AV SHUNT) Hx Vascular Access Device: Yes (Perma cath) Other/Comment: 2 failed fistula left arm. Left wrist fistula not working - ANESTHESIA Hx Anesthesia: Yes Hx Anesthesia Reactions: No Hx Malignant Hyperthermia: No Meds Allergies/Adverse Reactions: Allergies Allergy/AdvReac Type Severity Reaction Status Date / Time No Known Allergies Allergy Verified 02/15/19 17:04 - Medications Medications: Current Medications Acetaminophen (Tylenol 325mg Tab) 650 mg PO Q6H PRN PRN Reason: Fever >100.4 F Last Admin: 02/16/19 09:36 Dose: 650 mg Acetaminophen (Tylenol 120mg Supp) 120 mg RC Q6 PRN PRN Reason: Fever >100.4 F Darbepoetin Nikolai (Aranesp) 60 mcg IVP QWK [facility] Diphenhydramine HCl (Benadryl) 25 mg IVP Q6H PRN PRN Reason: Nausea/Vomiting Hydralazine HCl (Apresoline) 10 mg IVP Q6 PRN PRN Reason: Systolic Blood Pressure Last Admin: 02/16/19 06:32 Dose: 10 mg Pantoprazole Sodium (Protonix 40mg Ivpb) 40 mg in 100 mls @ 20 mls/hr IVPB .Q5H [facility] Last Admin: 02/16/19 05:57 Dose: 20 mls/hr Piperacillin Sod/Tazobactam Sod (Zosyn 3.375 In Ns 100ml) 100 mls @ 25 mls/hr IVPB Q12 [facility] Stop: 02/17/19 01:59 Last Admin: 02/16/19 09:36 Dose: 25 mls/hr Polyethylene Glycol (Miralax) 17 gm PO BID [facility] Last Admin: 02/16/19 09:36 Dose: 17 gm Vitamin B Complex/Vit C/Folic Acid (Nephro-[place]) 1 tab PO 0800 [facility] Results - Vital Signs Recent Vital Signs: Last Vital Signs Temp 100.2 F H 02/16/19 09:36 Pulse 119 H 02/16/19 09:15 Resp 18 02/16/19 09:15 BP 156/102 H 02/16/19 09:15 Pulse Ox 98 02/16/19 09:15 - Labs Result Diagrams: 02/16/19 07:00 02/16/19 07:00 Labs: Laboratory Results - last 24 hr 02/15/19 02/15/19 02/15/19 17:55 18:00 18:00 WBC 19.3 H D RBC 3.14 L Hgb 9.3 L D Hct 29.1 L MCV 92.7 MCH 29.6 MCHC 32.0 RDW 14.2 Plt Count 338 MPV 9.3 Neut % (Auto) 87.3 H Lymph % (Auto) 6.9 L [place] % (Auto) 4.9 Eos % (Auto) 0.7 L Baso % (Auto) 0.2 Lymph # (Auto) 1.3 [place] # (Auto) 0.9 H Eos # (Auto) 0.1 Baso # (Auto) 0.03 Absolute Neuts (auto) 16.82 H PT 11.9 INR 1.07 APTT 33.7 pO2 59 H VBG pH 7.41 VBG pCO2 38.0 L VBG HCO3 24.1 VBG Total CO2 25.3 VBG O2 Sat (Calc) 93.6 H VBG Base Excess -0.3 L VBG Potassium 3.8 Sodium 135.0 Chloride 104.0 Glucose 110 H Lactate 0.6 L FiO2 21.0 Potassium Carbon Dioxide Anion Gap BUN Creatinine Est GFR ( Amer) Est GFR (Non-Af Amer) Random Glucose Calcium Phosphorus Magnesium Iron TIBC % Saturation Total Bilirubin AST ALT Alkaline Phosphatase Lactate Dehydrogenase Total Creatine Kinase Troponin I Total Protein Albumin Globulin Albumin/Globulin Ratio Amylase Lipase Beta HCG, Quant Venous Blood Potassium 3.8 Blood Type Antibody Screen BBK History Checked 02/15/19 02/15/19 02/15/19 18:00 18:00 19:00 WBC RBC Hgb Hct MCV MCH MCHC RDW Plt Count MPV Neut % (Auto) Lymph % (Auto) [place] % (Auto) Eos % (Auto) Baso % (Auto) Lymph # (Auto) [place] # (Auto) Eos # (Auto) Baso # (Auto) Absolute Neuts (auto) PT INR APTT pO2 VBG pH VBG pCO2 VBG HCO3 VBG Total CO2 VBG O2 Sat (Calc) VBG Base Excess VBG Potassium Sodium 136 Chloride 101 Glucose Lactate FiO2 Potassium 4.0 Carbon Dioxide 23 Anion Gap 16 BUN 55 H Creatinine 4.2 H Est GFR ( Amer) 14 Est GFR (Non-Af Amer) 12 Random Glucose 111 H Calcium 8.7 Phosphorus Magnesium Iron TIBC % Saturation Total Bilirubin 0.3 AST 27 ALT 59 H Alkaline Phosphatase 104 Lactate Dehydrogenase 355 Total Creatine Kinase 105 Troponin I 0.05 D Total Protein 6.6 Albumin 3.9 Globulin 2.7 Albumin/Globulin Ratio 1.4 Amylase 58 Lipase 56 Beta HCG, Quant < 2.39 Venous Blood Potassium Blood Type A POSITIVE Antibody Screen Negative BBK History Checked Patient has bt 02/15/19 02/15/19 02/16/19 22:35 22:35 02:35 WBC RBC Hgb 9.5 L 9.3 L Hct 29.6 L 29.3 L MCV MCH MCHC RDW Plt Count MPV Neut % (Auto) Lymph % (Auto) [place] % (Auto) Eos % (Auto) Baso % (Auto) Lymph # (Auto) [place] # (Auto) Eos # (Auto) Baso # (Auto) Absolute Neuts (auto) PT INR APTT pO2 VBG pH VBG pCO2 VBG HCO3 VBG Total CO2 VBG O2 Sat (Calc) VBG Base Excess VBG Potassium Sodium Chloride Glucose Lactate FiO2 Potassium Carbon Dioxide Anion Gap BUN Creatinine Est GFR ( Amer) Est GFR (Non-Af Amer) Random Glucose Calcium Phosphorus Magnesium Iron 21 L TIBC 233 L % Saturation 9 L Total Bilirubin AST ALT Alkaline Phosphatase Lactate Dehydrogenase Total Creatine Kinase Troponin I Total Protein Albumin Globulin Albumin/Globulin Ratio Amylase Lipase Beta HCG, Quant Venous Blood Potassium Blood Type Antibody Screen BBK History Checked 02/16/19 02/16/19 07:00 07:00 WBC 15.9 H RBC 3.19 L Hgb 9.4 L Hct 29.4 L MCV 92.2 MCH 29.5 MCHC 32.0 RDW 14.4 Plt Count 339 MPV 9.1 Neut % (Auto) Lymph % (Auto) [place] % (Auto) Eos % (Auto) Baso % (Auto) Lymph # (Auto) [place] # (Auto) Eos # (Auto) Baso # (Auto) Absolute Neuts (auto) PT INR APTT pO2 VBG pH VBG pCO2 VBG HCO3 VBG Total CO2 VBG O2 Sat (Calc) VBG Base Excess VBG Potassium Sodium 141 Chloride 107 Glucose Lactate FiO2 Potassium 3.9 Carbon Dioxide 23 Anion Gap 15 BUN 53 H Creatinine 4.0 H Est GFR ( Amer) 15 Est GFR (Non-Af Amer) 12 Random Glucose 87 Calcium 9.0 Phosphorus 3.8 Magnesium 2.6 H Iron TIBC % Saturation Total Bilirubin 0.3 AST 24 ALT 48 Alkaline Phosphatase 102 Lactate Dehydrogenase Total Creatine Kinase Troponin I Total Protein 6.7 Albumin 3.9 Globulin 2.9 Albumin/Globulin Ratio 1.3 Amylase Lipase Beta HCG, Quant Venous Blood Potassium Blood Type Antibody Screen BBK History Checked
--- NOTE | 2019-02-16 13:09 | CP.PCM.CON ---
<Dany Hong - Last Filed: 02/16/19 17:41> History of Present Illness - History of Present Illness History of Present Illness: Infectious disease consult note: 38-year-old female with past medical history of ESRD on HD, uncontrolled hypertension, depression who presents to the hospital with nausea, vomiting, and hematemesis. Patient states that her symptoms started 2 days ago and has gotten progressively worse. She complains of multiple episodes of vomiting that was black and maroon-colored. Patient does also admit to abdominal pain for the past 1 to 2 weeks, pain mildly alleviated with Zantac. She also complains of a cough and left ear pain for the past 4 days. Admits to fevers. Denies chills or shortness of breath. ID has been consulted for sepsis. 12 point ROS performed and negative unless stated above PMH: As above PSH: Unsuccessful left aVF x3, cholecystectomy FH: Mother with diabetes and ESRD SH: Admits to smoking, social alcohol use, denies any drug use Allergies: No known allergies Medication: Refer to [facility] Review of Systems - Review of Systems All systems: reviewed and no additional remarkable complaints except Past Patient History - Infectious Disease Hx of Infectious Diseases: None - Past Medical History & Family History Past Medical History?: Yes - Past Social History Smoking Status: Current Some Days Smoker - CARDIAC Hx Cardiac Disorders: Yes Hx Congestive Heart Failure: Yes Hx Heart Attack: Yes (03/2017) Hx Hypertension: Yes Hx Peripheral Edema: Yes - PULMONARY Hx Respiratory Disorders: Yes Hx Pneumonia: Yes - NEUROLOGICAL Hx Neurological Disorder: No - HEENT Hx HEENT Problems: Yes Other/Comment: wears glasses - RENAL Hx Chronic Kidney Disease: Yes Date of Last Dialysis Treatment: 12/31/18 Hx Kidney Stones: Yes Hx Renal Failure: Yes - ENDOCRINE/METABOLIC Hx Endocrine Disorders: No - HEMATOLOGICAL/ONCOLOGICAL Hx Blood Disorders: Yes Hx Anemia: Yes - INTEGUMENTARY Hx Dermatological Problems: Yes Other/Comment: SCARRING TO LEFT UPPER ARM DUE TO PLACEMENT OF SHUNT. NF.3X HAD SURGERY. - MUSCULOSKELETAL/RHEUMATOLOGICAL Hx Musculoskeletal Disorders: Yes Hx Arthritis: Yes (L HIP) Hx Falls: Yes Other/Comment: sciatica - GASTROINTESTINAL Hx Gastrointestinal Disorders: Yes Hx Gall Bladder Disease: Yes (CHOLECYSTECTOMY) Hx Pancreatitis: Yes Other/Comment: GASTROENTERITIS - GENITOURINARY/GYNECOLOGICAL Hx Genitourinary Disorders: Yes - PSYCHIATRIC Hx Psychophysiologic Disorder: Yes Hx Anxiety: Yes Hx Depression: Yes Hx Substance Use: No - SURGICAL HISTORY Hx Arteriovenous Shunt: Yes (LEFT ARM) Hx Cholecystectomy: Yes Hx Vascular Surgery: Yes (AV SHUNT) Hx Vascular Access Device: Yes (Perma cath) Other/Comment: 2 failed fistula left arm. Left wrist fistula not working - ANESTHESIA Hx Anesthesia: Yes Hx Anesthesia Reactions: No Hx Malignant Hyperthermia: No Meds Allergies/Adverse Reactions: Allergies Allergy/AdvReac Type Severity Reaction Status Date / Time No Known Allergies Allergy Verified 02/15/19 17:04 - Medications Medications: Current Medications Acetaminophen (Tylenol 325mg Tab) 650 mg PO Q6H PRN PRN Reason: Fever >100.4 F Last Admin: 02/16/19 09:36 Dose: 650 mg Acetaminophen (Tylenol 120mg Supp) 120 mg RC Q6 PRN PRN Reason: Fever >100.4 F Darbepoetin Nikolai (Aranesp) 60 mcg IVP QWK [facility] Diphenhydramine HCl (Benadryl) 25 mg IVP Q6H PRN PRN Reason: Nausea/Vomiting Hydralazine HCl (Apresoline) 10 mg IVP Q6 PRN PRN Reason: Systolic Blood Pressure Last Admin: 02/16/19 06:32 Dose: 10 mg Pantoprazole Sodium (Protonix 40mg Ivpb) 40 mg in 100 mls @ 20 mls/hr IVPB .Q5H [facility] Last Admin: 02/16/19 05:57 Dose: 20 mls/hr Piperacillin Sod/Tazobactam Sod (Zosyn 3.375 In Ns 100ml) 100 mls @ 25 mls/hr IVPB Q12 [facility] Stop: 02/17/19 01:59 Last Admin: 02/16/19 09:36 Dose: 25 mls/hr Polyethylene Glycol (Miralax) 17 gm PO BID [facility] Last Admin: 02/16/19 09:36 Dose: 17 gm Vitamin B Complex/Vit C/Folic Acid (Nephro-Socorro) 1 tab PO 0800 [facility] Physical Exam - Constitutional Appears: No Acute Distress - Head Exam Head Exam: ATRAUMATIC, NORMOCEPHALIC - Eye Exam Eye Exam: EOMI - ENT Exam ENT Exam: Mucous Membranes Moist - Respiratory Exam Respiratory Exam: Clear to Auscultation Bilateral. absent: Wheezes - Cardiovascular Exam Cardiovascular Exam: REGULAR RHYTHM, RRR, +S1, +S2 - GI/Abdominal Exam GI & Abdominal Exam: Normal Bowel Sounds, Soft. absent: Tenderness - Extremities Exam Extremities exam: Negative for: calf tenderness, pedal edema - Neurological Exam Neurological exam: Alert, CN II-XII Intact, Oriented x3 - Psychiatric Exam Psychiatric exam: Normal Mood - Skin Skin Exam: Dry, Warm Results - Vital Signs Recent Vital Signs: Last Vital Signs Temp 99 F 02/16/19 12:00 Pulse 111 H 02/16/19 12:00 Resp 20 02/16/19 12:00 BP 156/100 H 02/16/19 12:00 Pulse Ox 98 02/16/19 09:15 - Labs Result Diagrams: 02/16/19 07:00 02/16/19 07:00 Labs: Laboratory Results - last 24 hr 02/15/19 02/15/19 02/15/19 17:55 18:00 18:00 WBC 19.3 H D RBC 3.14 L Hgb 9.3 L D Hct 29.1 L MCV 92.7 MCH 29.6 MCHC 32.0 RDW 14.2 Plt Count 338 MPV 9.3 Neut % (Auto) 87.3 H Lymph % (Auto) 6.9 L [place] % (Auto) 4.9 Eos % (Auto) 0.7 L Baso % (Auto) 0.2 Lymph # (Auto) 1.3 [place] # (Auto) 0.9 H Eos # (Auto) 0.1 Baso # (Auto) 0.03 Absolute Neuts (auto) 16.82 H PT 11.9 INR 1.07 APTT 33.7 pO2 59 H VBG pH 7.41 VBG pCO2 38.0 L VBG HCO3 24.1 VBG Total CO2 25.3 VBG O2 Sat (Calc) 93.6 H VBG Base Excess -0.3 L VBG Potassium 3.8 Sodium 135.0 Chloride 104.0 Glucose 110 H Lactate 0.6 L FiO2 21.0 Potassium Carbon Dioxide Anion Gap BUN Creatinine Est GFR ( Amer) Est GFR (Non-Af Amer) Random Glucose Calcium Phosphorus Magnesium Iron TIBC % Saturation Transferrin Ferritin Total Bilirubin AST ALT Alkaline Phosphatase Lactate Dehydrogenase Total Creatine Kinase Troponin I Total Protein Albumin Globulin Albumin/Globulin Ratio Amylase Lipase Procalcitonin Beta HCG, Quant Venous Blood Potassium 3.8 Blood Type Antibody Screen BBK History Checked 02/15/19 02/15/19 02/15/19 18:00 18:00 19:00 WBC RBC Hgb Hct MCV MCH MCHC RDW Plt Count MPV Neut % (Auto) Lymph % (Auto) [place] % (Auto) Eos % (Auto) Baso % (Auto) Lymph # (Auto) [place] # (Auto) Eos # (Auto) Baso # (Auto) Absolute Neuts (auto) PT INR APTT pO2 VBG pH VBG pCO2 VBG HCO3 VBG Total CO2 VBG O2 Sat (Calc) VBG Base Excess VBG Potassium Sodium 136 Chloride 101 Glucose Lactate FiO2 Potassium 4.0 Carbon Dioxide 23 Anion Gap 16 BUN 55 H Creatinine 4.2 H Est GFR ( Amer) 14 Est GFR (Non-Af Amer) 12 Random Glucose 111 H Calcium 8.7 Phosphorus Magnesium Iron TIBC % Saturation Transferrin Ferritin Total Bilirubin 0.3 AST 27 ALT 59 H Alkaline Phosphatase 104 Lactate Dehydrogenase 355 Total Creatine Kinase 105 Troponin I 0.05 D Total Protein 6.6 Albumin 3.9 Globulin 2.7 Albumin/Globulin Ratio 1.4 Amylase 58 Lipase 56 Procalcitonin Beta HCG, Quant < 2.39 Venous Blood Potassium Blood Type A POSITIVE Antibody Screen Negative BBK History Checked Patient has bt 02/15/19 02/15/19 02/15/19 19:00 22:35 22:35 WBC RBC Hgb 9.5 L Hct 29.6 L MCV MCH MCHC RDW Plt Count MPV Neut % (Auto) Lymph % (Auto) [place] % (Auto) Eos % (Auto) Baso % (Auto) Lymph # (Auto) [place] # (Auto) Eos # (Auto) Baso # (Auto) Absolute Neuts (auto) PT INR APTT pO2 VBG pH VBG pCO2 VBG HCO3 VBG Total CO2 VBG O2 Sat (Calc) VBG Base Excess VBG Potassium Sodium Chloride Glucose Lactate FiO2 Potassium Carbon Dioxide Anion Gap BUN Creatinine Est GFR ( Amer) Est GFR (Non-Af Amer) Random Glucose Calcium Phosphorus Magnesium Iron 21 L TIBC 233 L % Saturation 9 L Transferrin Ferritin Total Bilirubin AST ALT Alkaline Phosphatase Lactate Dehydrogenase Total Creatine Kinase Troponin I Total Protein Albumin Globulin Albumin/Globulin Ratio Amylase Lipase Procalcitonin 1.43 H Beta HCG, Quant Venous Blood Potassium Blood Type Antibody Screen BBK History Checked 0502/15/19 02/16/19 22:35 22:35 02:35 WBC RBC Hgb 9.3 L Hct 29.3 L MCV MCH MCHC RDW Plt Count MPV Neut % (Auto) Lymph % (Auto) [place] % (Auto) Eos % (Auto) Baso % (Auto) Lymph # (Auto) [place] # (Auto) Eos # (Auto) Baso # (Auto) Absolute Neuts (auto) PT INR APTT pO2 VBG pH VBG pCO2 VBG HCO3 VBG Total CO2 VBG O2 Sat (Calc) VBG Base Excess VBG Potassium Sodium Chloride Glucose Lactate FiO2 Potassium Carbon Dioxide Anion Gap BUN Creatinine Est GFR ( Amer) Est GFR (Non-Af Amer) Random Glucose Calcium Phosphorus Magnesium Iron TIBC % Saturation Transferrin 152.58 L Ferritin 129.0 Total Bilirubin AST ALT Alkaline Phosphatase Lactate Dehydrogenase Total Creatine Kinase Troponin I Total Protein Albumin Globulin Albumin/Globulin Ratio Amylase Lipase Procalcitonin Beta HCG, Quant Venous Blood Potassium Blood Type Antibody Screen BBK History Checked 02/16/19 02/16/19 07:00 07:00 WBC 15.9 H RBC 3.19 L Hgb 9.4 L Hct 29.4 L MCV 92.2 MCH 29.5 MCHC 32.0 RDW 14.4 Plt Count 339 MPV 9.1 Neut % (Auto) Lymph % (Auto) [place] % (Auto) Eos % (Auto) Baso % (Auto) Lymph # (Auto) [place] # (Auto) Eos # (Auto) Baso # (Auto) Absolute Neuts (auto) PT INR APTT pO2 VBG pH VBG pCO2 VBG HCO3 VBG Total CO2 VBG O2 Sat (Calc) VBG Base Excess VBG Potassium Sodium 141 Chloride 107 Glucose Lactate FiO2 Potassium 3.9 Carbon Dioxide 23 Anion Gap 15 BUN 53 H Creatinine 4.0 H Est GFR ( Amer) 15 Est GFR (Non-Af Amer) 12 Random Glucose 87 Calcium 9.0 Phosphorus 3.8 Magnesium 2.6 H Iron TIBC % Saturation Transferrin Ferritin Total Bilirubin 0.3 AST 24 ALT 48 Alkaline Phosphatase 102 Lactate Dehydrogenase Total Creatine Kinase Troponin I Total Protein 6.7 Albumin 3.9 Globulin 2.9 Albumin/Globulin Ratio 1.3 Amylase Lipase Procalcitonin Beta HCG, Quant Venous Blood Potassium Blood Type Antibody Screen BBK History Checked Assessment & Plan - Assessment and Plan (Free Text) Assessment: 1. Sepsis with Right base infiltrate consistent with HCAP r/o bacteremia due to subclavian line 2. Nausea and vomiting 3. ESRD on HD 4. Hypertension 5. Anemia 6. Depression 7. History of substance abuse 8. History of pancreatitis Patient received vancomycin and cefepime x1 in the ED, discontinued Zosyn due to hx of cardiomyopathy Started on Cefepime and Doxy for abx Chest x-ray showed right base infiltrate consistent with pneumonia CT abdomen shows no acute abnormality Follow-up gastroenterology consult- EGD shows esophageal ulcer Follow-up septic work-up, patient had elevated procal of 1.4 Continue to monitor for any changes Case and plan to be reviewed and discussed with Dr. Rollins <Lucho Rollins - Last Filed: 02/16/19 17:47> Meds - Medications Medications: Current Medications Acetaminophen (Tylenol 325mg Tab) 650 mg PO Q6H PRN PRN Reason: Fever >100.4 F Last Admin: 02/16/19 09:36 Dose: 650 mg Acetaminophen (Tylenol 120mg Supp) 120 mg RC Q6 PRN PRN Reason: Fever >100.4 F Darbepoetin Nikolai (Aranesp) 60 mcg IVP QWK [facility] Diphenhydramine HCl (Benadryl) 25 mg IVP Q6H PRN PRN Reason: Nausea/Vomiting Hydralazine HCl (Apresoline) 10 mg IVP Q6 PRN PRN Reason: Systolic Blood Pressure Last Admin: 02/16/19 06:32 Dose: 10 mg Sodium Chloride (Sodium Chloride 0.9%) 1,000 mls @ 100 mls/hr IV .Q10H [facility] Stop: 02/16/19 18:05 Doxycycline Hyclate 100 mg/ (Sodium Chloride) 100 mls @ 100 mls/hr IVPB Q12 [facility]; Protocol Stop: 02/21/19 22:01 Cefepime HCl (Maxipime 1gm) 1 gm in 100 mls @ 100 mls/hr IVPB Q24H [facility]; Protocol Stop: 02/21/19 17:46 Pantoprazole Sodium (Protonix Ec Tab) 40 mg PO 0600,1600 [facility] Polyethylene Glycol (Miralax) 17 gm PO BID [facility] Last Admin: 02/16/19 09:36 Dose: 17 gm Sucralfate (Carafate Oral Susp) 1 gm PO QID [facility] Vitamin B Complex/Vit C/Folic Acid (Nephro-Socorro) 1 tab PO 0800 [facility] Results - Vital Signs Recent Vital Signs: Last Vital Signs Temp 98 F 02/16/19 16:30 Pulse 103 H 02/16/19 16:30 Resp 18 02/16/19 16:30 BP 160/100 H 02/16/19 16:30 Pulse Ox 98 02/16/19 16:30 - Labs Result Diagrams: 02/16/19 07:00 02/16/19 07:00 Labs: Laboratory Results - last 24 hr 02/15/19 02/15/19 02/15/19 17:55 18:00 18:00 WBC 19.3 H D RBC 3.14 L Hgb 9.3 L D Hct 29.1 L MCV 92.7 MCH 29.6 MCHC 32.0 RDW 14.2 Plt Count 338 MPV 9.3 Neut % (Auto) 87.3 H Lymph % (Auto) 6.9 L [place] % (Auto) 4.9 Eos % (Auto) 0.7 L Baso % (Auto) 0.2 Lymph # (Auto) 1.3 [place] # (Auto) 0.9 H Eos # (Auto) 0.1 Baso # (Auto) 0.03 Absolute Neuts (auto) 16.82 H PT 11.9 INR 1.07 APTT 33.7 pO2 59 H VBG pH 7.41 VBG pCO2 38.0 L VBG HCO3 24.1 VBG Total CO2 25.3 VBG O2 Sat (Calc) 93.6 H VBG Base Excess -0.3 L VBG Potassium 3.8 Sodium 135.0 Chloride 104.0 Glucose 110 H Lactate 0.6 L FiO2 21.0 Potassium Carbon Dioxide Anion Gap BUN Creatinine Est GFR ( Amer) Est GFR (Non-Af Amer) Random Glucose Calcium Phosphorus Magnesium Iron TIBC % Saturation Transferrin Ferritin Total Bilirubin AST ALT Alkaline Phosphatase Lactate Dehydrogenase Total Creatine Kinase Troponin I Total Protein Albumin Globulin Albumin/Globulin Ratio Amylase Lipase Procalcitonin Beta HCG, Quant Venous Blood Potassium 3.8 Blood Type Antibody Screen BBK History Checked 02/15/19 02/15/19 02/15/19 18:00 18:00 19:00 WBC RBC Hgb Hct MCV MCH MCHC RDW Plt Count MPV Neut % (Auto) Lymph % (Auto) [place] % (Auto) Eos % (Auto) Baso % (Auto) Lymph # (Auto) [place] # (Auto) Eos # (Auto) Baso # (Auto) Absolute Neuts (auto) PT INR APTT pO2 VBG pH VBG pCO2 VBG HCO3 VBG Total CO2 VBG O2 Sat (Calc) VBG Base Excess VBG Potassium Sodium 136 Chloride 101 Glucose Lactate FiO2 Potassium 4.0 Carbon Dioxide 23 Anion Gap 16 BUN 55 H Creatinine 4.2 H Est GFR ( Amer) 14 Est GFR (Non-Af Amer) 12 Random Glucose 111 H Calcium 8.7 Phosphorus Magnesium Iron TIBC % Saturation Transferrin Ferritin Total Bilirubin 0.3 AST 27 ALT 59 H Alkaline Phosphatase 104 Lactate Dehydrogenase 355 Total Creatine Kinase 105 Troponin I 0.05 D Total Protein 6.6 Albumin 3.9 Globulin 2.7 Albumin/Globulin Ratio 1.4 Amylase 58 Lipase 56 Procalcitonin Beta HCG, Quant < 2.39 Venous Blood Potassium Blood Type A POSITIVE Antibody Screen Negative BBK History Checked Patient has bt 02/15/19 02/15/19 02/15/19 19:00 22:35 22:35 WBC RBC Hgb 9.5 L Hct 29.6 L MCV MCH MCHC RDW Plt Count MPV Neut % (Auto) Lymph % (Auto) [place] % (Auto) Eos % (Auto) Baso % (Auto) Lymph # (Auto) [place] # (Auto) Eos # (Auto) Baso # (Auto) Absolute Neuts (auto) PT INR APTT pO2 VBG pH VBG pCO2 VBG HCO3 VBG Total CO2 VBG O2 Sat (Calc) VBG Base Excess VBG Potassium Sodium Chloride Glucose Lactate FiO2 Potassium Carbon Dioxide Anion Gap BUN Creatinine Est GFR ( Amer) Est GFR (Non-Af Amer) Random Glucose Calcium Phosphorus Magnesium Iron 21 L TIBC 233 L % Saturation 9 L Transferrin Ferritin Total Bilirubin AST ALT Alkaline Phosphatase Lactate Dehydrogenase Total Creatine Kinase Troponin I Total Protein Albumin Globulin Albumin/Globulin Ratio Amylase Lipase Procalcitonin 1.43 H Beta HCG, Quant Venous Blood Potassium Blood Type Antibody Screen BBK History Checked 02/15/19 02/15/19 02/16/19 22:35 22:35 02:35 WBC RBC Hgb 9.3 L Hct 29.3 L MCV MCH MCHC RDW Plt Count MPV Neut % (Auto) Lymph % (Auto) [place] % (Auto) Eos % (Auto) Baso % (Auto) Lymph # (Auto) [place] # (Auto) Eos # (Auto) Baso # (Auto) Absolute Neuts (auto) PT INR APTT pO2 VBG pH VBG pCO2 VBG HCO3 VBG Total CO2 VBG O2 Sat (Calc) VBG Base Excess VBG Potassium Sodium Chloride Glucose Lactate FiO2 Potassium Carbon Dioxide Anion Gap BUN Creatinine Est GFR ( Amer) Est GFR (Non-Af Amer) Random Glucose Calcium Phosphorus Magnesium Iron TIBC % Saturation Transferrin 152.58 L Ferritin 129.0 Total Bilirubin AST ALT Alkaline Phosphatase Lactate Dehydrogenase Total Creatine Kinase Troponin I Total Protein Albumin Globulin Albumin/Globulin Ratio Amylase Lipase Procalcitonin Beta HCG, Quant Venous Blood Potassium Blood Type Antibody Screen BBK History Checked 02/16/19 02/16/19 07:00 07:00 WBC 15.9 H RBC 3.19 L Hgb 9.4 L Hct 29.4 L MCV 92.2 MCH 29.5 MCHC 32.0 RDW 14.4 Plt Count 339 MPV 9.1 Neut % (Auto) Lymph % (Auto) [place] % (Auto) Eos % (Auto) Baso % (Auto) Lymph # (Auto) [place] # (Auto) Eos # (Auto) Baso # (Auto) Absolute Neuts (auto) PT INR APTT pO2 VBG pH VBG pCO2 VBG HCO3 VBG Total CO2 VBG O2 Sat (Calc) VBG Base Excess VBG Potassium Sodium 141 Chloride 107 Glucose Lactate FiO2 Potassium 3.9 Carbon Dioxide 23 Anion Gap 15 BUN 53 H Creatinine 4.0 H Est GFR ( Amer) 15 Est GFR (Non-Af Amer) 12 Random Glucose 87 Calcium 9.0 Phosphorus 3.8 Magnesium 2.6 H Iron TIBC % Saturation Transferrin Ferritin Total Bilirubin 0.3 AST 24 ALT 48 Alkaline Phosphatase 102 Lactate Dehydrogenase Total Creatine Kinase Troponin I Total Protein 6.7 Albumin 3.9 Globulin 2.9 Albumin/Globulin Ratio 1.3 Amylase Lipase Procalcitonin Beta HCG, Quant Venous Blood Potassium Blood Type Antibody Screen BBK History Checked Attending/Attestation - Attestation I have personally seen and examined this patient.: Yes I have fully participated in the care of the patient.: Yes I have reviewed all pertinent clinical information: Yes
--- NOTE | 2019-02-16 13:41 | CARD ---
APPROVED REPORT Date of service: 02/15/2019 EKG Measurement Heart [id number] <Conclusion> Sinus tachycardia Otherwise normal ECG
[2019-02-16] MEDS ORDERED: Propofol 10 mg/ml Inj (20 ML) ONE (15:35)
[2019-02-16] MEDS ORDERED: Etomidate 20 mg/10ml Inj IV ONE (15:52)
[2019-02-16] MEDS ORDERED: Sodium Chloride 0.9% 1,000 ML IV SCH (16:15)
[2019-02-16 16:24] VITALS: O2SAT 98
[2019-02-16] MEDS ORDERED: Cefepime 1gm in NS 100ml 1 GM/100 ML BAG IVPB SCH (17:45)
[2019-02-16] MEDS: Sucralfate 1 gm/10 ml Oral Susp UD PO SCH ×2 (21:32→21:33)
[2019-02-17] MEDS ORDERED: Pantoprazole 40 mg EC Tab PO SCH (06:00)
[2019-02-17] MEDS ORDERED: Piperacillin/Tazobact 2.25gm 2.25 GM/100 ML BAG IVPB SCH ×2 (06:00→12:00)
[2019-02-17 06:13] VITALS: RESP 20
[2019-02-17] MEDS ORDERED: Multivitamin Vitamin B Complex (Nephro-Vite) Tab PO SCH (08:00)
[2019-02-17 08:12] LABS: HEMOGLOBIN 9.8 g/dL (12.0-16.0); MEAN CORPUSCULAR HEMOGLOBIN 29.3 pg (25.0-35.0); MEAN CORPUSCULAR HGB CONC 32.1 g/dl (31.0-37.0); RBC 3.35 10^6/uL (3.5-6.1); RED CELL DISTRIBUTION WIDTH 14.2 % (11.5-14.5); WHITE BLOOD COUNT 13.8 10^3/uL (4.5-11.0)
[2019-02-17 08:20] LABS: ALB/GLOB RATIO 1.3 (1.1-1.8); ALBUMIN 4.1 g/dL (3.0-4.8); CALCIUM 9.6 mg/dL (8.4-10.5)
[2019-02-17] MEDS: Sucralfate 1 gm/10 ml Oral Susp UD PO SCH ×2 (09:07→13:00)
[2019-02-17] MEDS: POLYETHYLENE GLYCOL 3350 17 GM/Dose PACKET PO SCH (09:08)
[2019-02-17] MEDS ORDERED: Darbepoetin Alfa 60 mcg/ml Inj IVP SCH (10:20)
[2019-02-17] MEDS ORDERED: Vancomycin 1gm in NS 250ml 1 GM/250 ML BAG IVPB STA (11:30)
[2019-02-17 11:55] LABS: HEPATITIS B SURFACE AG Negative (NEGATIVE)
[2019-02-17 12:00] LABS: HEPATITIS B CORE AB NEGATIVE (NEGATIVE)
--- NOTE | 2019-02-17 12:02 | CP.PCM.DIS ---
<Charline Rudd - Last Filed: 02/17/19 12:36> Provider - Provider Date of Admission: 02/15/19 19:52 Attending physician: Migdalia Chamberlain MD Primary care physician: Michelle Quarles MD Consults: 02/15/19 20:34 Consult [Physician Consult] Routine Comment: Consulting Provider: Easton Marsh Consulting Physician: Easton Marsh Reason for Consult: HD MWF, nephro: Dr. Seth 02/15/19 20:35 Consult [Physician Consult] Routine Comment: Consulting Provider: Aletha Barboza Consulting Physician: Aletha Barboza Reason for Consult: hematemesis, anemia, QTc prolong 02/15/19 21:07 Consult [Physician Consult] Routine Comment: Consulting Provider: Antonio Khalil Consulting Physician: Antonio Khalil Reason for Consult: sepsis 02/15/19 23:23 Social Work Referral Routine Comment: Kelechi score 9 Physician Instructions: Reason For Exam: Protocol Time Spent in preparation of Discharge (in minutes): 35 Hospital Course - Lab Results Lab Results: Micro Results 02/15/19 18:00 Blood Blood Culture - Preliminary NO GROWTH AFTER 24 HOURS 02/15/19 17:45 Blood Blood Culture - Preliminary NO GROWTH AFTER 24 HOURS Most Recent Lab Values WBC 13.8 10^3/uL (4.5-11.0) H 02/17/19 07:30 RBC 3.35 10^6/uL (3.5-6.1) L 02/17/19 07:30 Hgb 9.8 g/dL (12.0-16.0) L 02/17/19 07:30 Hct 30.5 % (36.0-48.0) L 02/17/19 07:30 MCV 91.0 fl (80.0-105.0) 02/17/19 07:30 MCH 29.3 pg (25.0-35.0) 02/17/19 07:30 MCHC 32.1 g/dl (31.0-37.0) 02/17/19 07:30 RDW 14.2 % (11.5-14.5) 02/17/19 07:30 Plt Count 330 10^3/uL (120.0-450.0) 02/17/19 07:30 MPV 9.0 fl (7.0-11.0) 02/17/19 07:30 Neut % (Auto) 87.3 % (50.0-68.0) H 02/15/19 18:00 Lymph % (Auto) 6.9 % (22.0-35.0) L 02/15/19 18:00 [place] % (Auto) 4.9 % (1.0-6.0) 02/15/19 18:00 Eos % (Auto) 0.7 % (1.5-5.0) L 02/15/19 18:00 Baso % (Auto) 0.2 % (0.0-3.0) 02/15/19 18:00 Lymph # (Auto) 1.3 (1.2-3.4) 02/15/19 18:00 [place] # (Auto) 0.9 (0.1-0.6) H 02/15/19 18:00 Eos # (Auto) 0.1 (0.0-0.7) 02/15/19 18:00 Baso # (Auto) 0.03 K/mm3 (0.0-2.0) 02/15/19 18:00 Absolute Neuts (auto) 16.82 (1.4-6.5) H 02/15/19 18:00 PT 11.9 SECONDS (9.4-12.5) 02/15/19 18:00 INR 1.07 02/15/19 18:00 APTT 33.7 Seconds (26.9-38.3) 02/15/19 18:00 pO2 59 mm/Hg (30-55) H 02/15/19 17:55 VBG pH 7.41 (7.32-7.43) 02/15/19 17:55 VBG pCO2 38.0 (40-60) L 02/15/19 17:55 VBG HCO3 24.1 mmol/l (21-28) 02/15/19 17:55 VBG Total CO2 25.3 mmol.L (22-28) 02/15/19 17:55 VBG O2 Sat (Calc) 93.6 % (40-65) H 02/15/19 17:55 VBG Base Excess -0.3 mmol/L (0.0-2.0) L 02/15/19 17:55 VBG Potassium 3.8 mmol/L (3.6-5.2) 02/15/19 17:55 Sodium 135.0 mmol/L (132-148) 02/15/19 17:55 Chloride 104.0 mmol/L (98-107) 02/15/19 17:55 Glucose 110 mg/dl (65-105) H 02/15/19 17:55 Lactate 0.6 mmol/L (0.7-2.1) L 02/15/19 17:55 FiO2 21.0 % 02/15/19 17:55 Sodium 140 mmol/L (132-148) 02/17/19 07:30 Potassium 3.7 mmol/L (3.6-5.0) 02/17/19 07:30 Chloride 102 mmol/L (98-107) 02/17/19 07:30 Carbon Dioxide 26 mmol/L (21-33) 02/17/19 07:30 Anion Gap 15 (10-20) 02/17/19 07:30 BUN 22 mg/dL (7-21) H 02/17/19 07:30 Creatinine 2.6 mg/dl (0.7-1.2) H 02/17/19 07:30 Est GFR ( Amer) 25 02/17/19 07:30 Est GFR (Non-Af Amer) 20 02/17/19 07:30 Random Glucose 104 mg/dL (70-110) 02/17/19 07:30 Calcium 9.6 mg/dL (8.4-10.5) 02/17/19 07:30 Phosphorus 2.8 mg/dL (2.5-4.5) 02/17/19 07:30 Magnesium 2.1 mg/dL (1.7-2.2) 02/17/19 07:30 Iron 21 ug/dL (45-180) L 02/15/19 22:35 TIBC 233 ug/dL (265-497) L 02/15/19 22:35 % Saturation 9 % (20-55) L 02/15/19 22:35 Transferrin 152.58 mg/dL (206-381) L 02/15/19 22:35 Ferritin 129.0 ng/mL 02/15/19 22:35 Total Bilirubin 0.3 mg/dL (0.2-1.3) 02/17/19 07:30 AST 19 U/L (14-36) 02/17/19 07:30 ALT 33 U/L (7-56) 02/17/19 07:30 Alkaline Phosphatase 109 U/L (38-126) 02/17/19 07:30 Lactate Dehydrogenase 355 U/L (333-699) 02/15/19 18:00 Total Creatine Kinase 105 U/L (35-230) 02/15/19 18:00 Troponin I 0.05 ng/mL D 02/15/19 18:00 Total Protein 7.3 g/dL (5.8-8.3) 02/17/19 07:30 Albumin 4.1 g/dL (3.0-4.8) 02/17/19 07:30 Globulin 3.2 gm/dL 02/17/19 07:30 Albumin/Globulin Ratio 1.3 (1.1-1.8) 02/17/19 07:30 Amylase 58 U/L (35-125) 02/15/19 18:00 Lipase 56 U/L (23-300) 02/15/19 18:00 Procalcitonin 1.43 NG/ML (0.19-0.49) H 02/15/19 19:00 Beta HCG, Quant < 2.39 mIU/mL (0-6.15) 02/15/19 19:00 Venous Blood Potassium 3.8 mmol/L (3.6-5.2) 02/15/19 17:55 Blood Type A POSITIVE 02/15/19 18:00 Antibody Screen Negative 02/15/19 18:00 BBK History Checked Patient has bt 02/15/19 18:00 Physical Exam - Constitutional Appears: No Acute Distress Additional comments: - Head Exam Head Exam: NORMAL INSPECTION, NORMOCEPHALIC - Eye Exam Eye Exam: EOMI, Normal appearance - ENT Exam ENT Exam: Mucous Membranes Moist, Normal Exam - Neck Exam Neck exam: Positive for: Normal Inspection. Additional comments: R subclavian catheter catheter noted. No bleeding/discharge noted - Respiratory Exam Respiratory Exam: Clear to Auscultation Bilateral, NORMAL BREATHING PATTERN, No respiratory distress - Cardiovascular Exam Cardiovascular Exam: REGULAR RHYTHM, +S1, +S2. absent: Systolic Murmur - GI/Abdominal Exam GI & Abdominal Exam: Soft. absent: Distended, Guarding, Hernia, Rebound, Tenderness Additional comments: laparoscopic scar noted - Extremities Exam Extremities exam: Positive for: normal inspection. Negative for: calf tenderness, joint swelling Additional comments: L wrist fistula scar L elbow fistula scar - Back Exam Back exam: NORMAL INSPECTION - Neurological Exam Neurological exam: AO x3, CN II-XII in tact Additional comments: - Skin Skin Exam: Dry, Intact, Warm - Hospital Course Hospital Course: Upon hospital admission, this is a 38 y/o F with PMH significant for hypertensive ESRD on HD MWF via subclavian HD catheter (hx of peritoneal dialysis), hx of AV fistula infection, anemia, anxiety, CHF, depression, choleycystectomy, hypertension, pancreatitis, substance abuse, cyclical vomiting syndrome who presents [place] [facility] with boyfriend at bedside presenting with 4 episodes of "black vomiting" that occurred yesterday and has subsequently resolved today. Pt is very lethargic upon interview, and provides limited history. She says she doesn't currently feel nauseous and hasn't vomited today. She denies passing stool in about a week and denies hematochezia. She reports she doesn't currently have abdominal pain or tenderness. Boyfriend at bedside reports pt's lethargy started once patient arrived in ED. During hospital course, patient noted to be febrile with tachycardia and elevated WBC and started on empiric vancomycin and cefepime. CXR shows ill defined opacity at right base and possible pneumonia. CTAP showed no acute findings. Hemoglobin noted to be stable. Procalcitonin noted to be 1.43. Patient had EGD done which showed linear ulcers in distal esophagus as well as esophagitis which was biopsied and patient to follow up with flux tube attendant. Upper GI bleeding likely from multiple linear ulcers in distal esophagus. Patient agreed with discharge today and all of her questions were answered to satisfaction and patient agreed to follow up with PMD, storyboard artist and flux tube attendant. Discharge Plan - Discharge Medications Prescriptions: Benzonatate [Tessalon Perles] 100 mg PO TID #20 sgl Doxycycline Hyclate 100 mg PO BID #10 capsule guaiFENesin/Dextromethorphan [guaiFENesin-DM] 5 ml PO Q4 PRN #1 bottle PRN Reason: Cough Pantoprazole [Protonix EC Tab] 40 mg PO 0600,1600 #60 ect Sucralfate [Carafate Oral Susp] 1 gm PO QID 30 Days #120 udc Vitamin B Complex/Vit C/Folic [Nephro-Socorro] 1 tab PO 0800 #30 tab - Follow Up Plan Condition: UNKNOWN Disposition: HOME/ ROUTINE Instructions: Gastrointestinal Bleeding (DC) Additional Instructions: Please follow up with your primary care doctor, Dr. Quarles within 4-5 days of discharge. Please follow up with your storyboard artist, Dr. Bobo within 5-7 days of discharge. Please follow up with your flux tube attendant, Dr. Barboza within 5-7 days. You will need a repeat EGD endoscopy in 9 weeks. Please follow up biopsy with your flux tube attendant. Please continue your medications as previously taken. As per our discussion, you do not need any refills at this time. Please do not take non steroidal anti inflammatory medications. Pleave avoid smoking and alcohol as per our discussion. You will be started on protonix twice daily. You will be started on carafate 1gram four times daily. Please obtain refills from your primary care doctor. You will be started on doxycycline (antibiotic) twice daily for 5 days. Please return to the ED for any new or worsening symptoms. Referrals: Michelle Quarles MD [Primary Care Provider] - Pramod Bobo MD [Staff Provider] - Aletha Barboza MD [Staff Provider] - <Migdalia Chamberlain - Last Filed: 02/17/19 13:25> Provider - Provider Date of Admission: 02/15/19 19:52 Attending physician: Migdalia Chamberlain MD Primary care physician: Michelle Quarles MD Consults: 02/15/19 20:34 Consult [Physician Consult] Routine Comment: Consulting Provider: Easton Marsh Consulting Physician: Easton Marsh Reason for Consult: HD MWF, nephro: Dr. Seth 02/15/19 20:35 Consult [Physician Consult] Routine Comment: Consulting Provider: Aletha Barboza Consulting Physician: Aletha Barboza Reason for Consult: hematemesis, anemia, QTc prolong 02/15/19 21:07 Consult [Physician Consult] Routine Comment: Consulting Provider: Antonio Khalil Consulting Physician: Antonio Khalil Reason for Consult: sepsis 02/15/19 23:23 Social Work Referral Routine Comment: Kelechi score 9 Physician Instructions: Reason For Exam: Protocol Hospital Course - Lab Results Lab Results: Micro Results 02/15/19 18:00 Blood Blood Culture - Preliminary NO GROWTH AFTER 24 HOURS 02/15/19 17:45 Blood Blood Culture - Preliminary NO GROWTH AFTER 24 HOURS Most Recent Lab Values WBC 13.8 10^3/uL (4.5-11.0) H 02/17/19 07:30 RBC 3.35 10^6/uL (3.5-6.1) L 02/17/19 07:30 Hgb 9.8 g/dL (12.0-16.0) L 02/17/19 07:30 Hct 30.5 % (36.0-48.0) L 02/17/19 07:30 MCV 91.0 fl (80.0-105.0) 02/17/19 07:30 MCH 29.3 pg (25.0-35.0) 02/17/19 07:30 MCHC 32.1 g/dl (31.0-37.0) 02/17/19 07:30 RDW 14.2 % (11.5-14.5) 02/17/19 07:30 Plt Count 330 10^3/uL (120.0-450.0) 02/17/19 07:30 MPV 9.0 fl (7.0-11.0) 02/17/19 07:30 Neut % (Auto) 87.3 % (50.0-68.0) H 02/15/19 18:00 Lymph % (Auto) 6.9 % (22.0-35.0) L 02/15/19 18:00 [place] % (Auto) 4.9 % (1.0-6.0) 02/15/19 18:00 Eos % (Auto) 0.7 % (1.5-5.0) L 02/15/19 18:00 Baso % (Auto) 0.2 % (0.0-3.0) 02/15/19 18:00 Lymph # (Auto) 1.3 (1.2-3.4) 02/15/19 18:00 [place] # (Auto) 0.9 (0.1-0.6) H 02/15/19 18:00 Eos # (Auto) 0.1 (0.0-0.7) 02/15/19 18:00 Baso # (Auto) 0.03 K/mm3 (0.0-2.0) 02/15/19 18:00 Absolute Neuts (auto) 16.82 (1.4-6.5) H 02/15/19 18:00 PT 11.9 SECONDS (9.4-12.5) 02/15/19 18:00 INR 1.07 02/15/19 18:00 APTT 33.7 Seconds (26.9-38.3) 02/15/19 18:00 pO2 59 mm/Hg (30-55) H 02/15/19 17:55 VBG pH 7.41 (7.32-7.43) 02/15/19 17:55 VBG pCO2 38.0 (40-60) L 02/15/19 17:55 VBG HCO3 24.1 mmol/l (21-28) 02/15/19 17:55 VBG Total CO2 25.3 mmol.L (22-28) 02/15/19 17:55 VBG O2 Sat (Calc) 93.6 % (40-65) H 02/15/19 17:55 VBG Base Excess -0.3 mmol/L (0.0-2.0) L 02/15/19 17:55 VBG Potassium 3.8 mmol/L (3.6-5.2) 02/15/19 17:55 Sodium 135.0 mmol/L (132-148) 02/15/19 17:55 Chloride 104.0 mmol/L (98-107) 02/15/19 17:55 Glucose 110 mg/dl (65-105) H 02/15/19 17:55 Lactate 0.6 mmol/L (0.7-2.1) L 02/15/19 17:55 FiO2 21.0 % 02/15/19 17:55 Sodium 140 mmol/L (132-148) 02/17/19 07:30 Potassium 3.7 mmol/L (3.6-5.0) 02/17/19 07:30 Chloride 102 mmol/L (98-107) 02/17/19 07:30 Carbon Dioxide 26 mmol/L (21-33) 02/17/19 07:30 Anion Gap 15 (10-20) 02/17/19 07:30 BUN 22 mg/dL (7-21) H 02/17/19 07:30 Creatinine 2.6 mg/dl (0.7-1.2) H 02/17/19 07:30 Est GFR ( Amer) 25 02/17/19 07:30 Est GFR (Non-Af Amer) 20 02/17/19 07:30 Random Glucose 104 mg/dL (70-110) 02/17/19 07:30 Calcium 9.6 mg/dL (8.4-10.5) 02/17/19 07:30 Phosphorus 2.8 mg/dL (2.5-4.5) 02/17/19 07:30 Magnesium 2.1 mg/dL (1.7-2.2) 02/17/19 07:30 Iron 21 ug/dL (45-180) L 02/15/19 22:35 TIBC 233 ug/dL (265-497) L 02/15/19 22:35 % Saturation 9 % (20-55) L 02/15/19 22:35 Transferrin 152.58 mg/dL (206-381) L 02/15/19 22:35 Ferritin 129.0 ng/mL 02/15/19 22:35 Total Bilirubin 0.3 mg/dL (0.2-1.3) 02/17/19 07:30 AST 19 U/L (14-36) 02/17/19 07:30 ALT 33 U/L (7-56) 02/17/19 07:30 Alkaline Phosphatase 109 U/L (38-126) 02/17/19 07:30 Lactate Dehydrogenase 355 U/L (333-699) 02/15/19 18:00 Total Creatine Kinase 105 U/L (35-230) 02/15/19 18:00 Troponin I 0.05 ng/mL D 02/15/19 18:00 Total Protein 7.3 g/dL (5.8-8.3) 02/17/19 07:30 Albumin 4.1 g/dL (3.0-4.8) 02/17/19 07:30 Globulin 3.2 gm/dL 02/17/19 07:30 Albumin/Globulin Ratio 1.3 (1.1-1.8) 02/17/19 07:30 Amylase 58 U/L (35-125) 02/15/19 18:00 Lipase 56 U/L (23-300) 02/15/19 18:00 Procalcitonin 1.43 NG/ML (0.19-0.49) H 02/15/19 19:00 Beta HCG, Quant < 2.39 mIU/mL (0-6.15) 02/15/19 19:00 Venous Blood Potassium 3.8 mmol/L (3.6-5.2) 02/15/19 17:55 Hep Bs Antigen Negative (NEGATIVE) 02/15/19 18:00 Hep Bs Antibody Negative (NEGATIVE) 02/15/19 18:00 Hep B Core IgM Ab Negative (NEGATIVE) 02/15/19 18:00 HIV 1&2 Ag/Ab, 4th Gen Nonreactive (Nonreactive) 02/15/19 22:35 Blood Type A POSITIVE 02/15/19 18:00 Antibody Screen Negative 02/15/19 18:00 BBK History Checked Patient has bt 02/15/19 18:00 Attending/Attestation - Attestation I have personally seen and examined this patient.: Yes I have fully participated in the care of the patient.: Yes I have reviewed all pertinent clinical information, including history, physical exam and plan: Yes Notes (Text): 02/17/19 13:18 38 year old female with past medical history of ESRD on HD, CHF, depression, hypertension and substance abuse who presented with complaint of hematemesis. She was started on protonix and seen by GI. EGD was performed which showed esophagitis and esophageal ulcer. Her symptoms improved and her diet was advanced which she tolerated. She also initially had fever and leukocytosis which improved. CXR showed possible right base pneumonia and patient was started on iv antiobiotics. Cultures were negative to date. She is cleared by ID with one additional dose of vancomycin today followed by 5 days of po doxycycline. Patient is discharged home to follow up with pmd. Follow up with nephrology for HD. Follow up with GI to repeat EGD in 8-9 weeks. Follow up on biopsy results. Continue with protonix and carafate as per GI. Continue with po doxycycline. Counselled on risks of continued substance abuse. Counselled on avoiding NSAIDs. Counselled on smoking cessation. Counselled on GERD precautions. Migdalia Chamberlain MD Hospitalist.
--- NOTE | 2019-02-17 12:14 | CP.PCM.PN ---
Subjective - Date & Time of Evaluation Date of Evaluation: 02/17/19 Time of Evaluation: 12:13 - Subjective Subjective: Nephrology Consultation Note: Assessment: stable sepsis with pneumonia b/l adrenal hypertrophy Hypertensive Chronic Kidney Disease (I12.0) End stage renal disease (N18.6) dependence on hemodialysis (Z99.2) (MWF) via PC Anemia (D64.9), Hyperphosphatemia (E83.39), Secondary Hyperparathyroidism (E21.1), HTN (I12.0) Plan: Will plan for HD as per MWF schedule. Continue with Nephrovite 1 tab/day. PRBC as needed for anemia. on GOYO with dialysis as last Hb 9.4 HTN control with home meds, resume renin/vic and metanephrines, renal artery doppler for sec HTN work up NEGATIVE in past. Outpt Dexamethasone suppression test for hypercortisolism eval per PMD. Continue with phos binders when able to take orally Glycemic control, Dialysis consistent diet Further work up/management as per primary team Dose meds/antibiotics (if needed) for ESRD status. Avoid fleets enema/magnesium based laxatives. Stop carafate (avoid in ESRD) Thanks for allowing me to participate in care of your patient. Will follow with you. Please call if any Qs. had d/w team Dr Pramod Bobo Office: [phone] Chief Complaint: abdomen pain and vomiting reason for consult; ESRD management HPI: Pt is a 38 F with hx of ESRD on hemodialysis (MWF) via TRA @ [facility] with Dr Seth (was also on PD in between but switched to HD due to recurrent peritonitis) , chronic anemia, hyperphosphatemia, secondary hyperparathyroidism, hypertension presented with complaints of pain abdomen and nausea/vomitting, found to have sepsis and admitted to hospital Renal consult requested for ESRD management. Pt feels better. denies SOB. pain abdomen and nausea/vomitting much better ROS: Cardiovascular: No chest pain. Pulmonary: No shortness of breath Gastrointestinal: better abdominal pain no nausea. no vomiting. Genitourinary: No pain while urinating. Denies blood in urine. All other negative except as mentioned in HPI Physical Examination: General Appearance: comfortable, in no acute respiratory distress, co-operative . Vitals reviewed and noted as below Head; Atraumatic, normocephalic ENT: no ulcers no thrush. Tongue is midline. Oropharynx: no rash or ulcers. EYES: Pupils are equal, round and reactive to light accommodation. Eye muscles and extraocular movement intact. Sclera is anicteric. Neck; supple no lymphadenopathy, no thyromegaly or bruit Lungs: Normal respiratory rate/effort. Breath sounds bilateral equal and clear Heart: Normal rate. s1s2 normal. No rub or gallop. Extremities: no edema. No varicose veins Neurological: Patient is alert, awake and oriented to person, place and time. No focal deficit. Strength bilateral appropriate and equal Skin: Warm and dry. Normal turgor. No rash. Palpitation: Normal elasticity for age Abdomen: Abdomen is soft. Bowel sounds +. There is no abdominal tenderness, no guarding/rigidity or organomegaly Psych: normal insight and normal affect/mood MSK: no joint tenderness or swelling. Digits and nails normal, no deformity : kidney or bladder not palpable Access: Rt permacath. no exit site drainage or tunnel tenderness Labs/imaging reviewed. Past medical history, past surgical history, family history, social history, allergy reviewed and noted as below Family Hx: mother was on HD due to DM. rest Non contributory Objective - Vital Signs/Intake and Output Vital Signs (last 24 hours): Temp Pulse Resp BP Pulse Ox 98.9 F 114 H 20 161/113 H 98 02/17/19 06:00 02/17/19 06:00 02/17/19 06:00 02/17/19 10:51 02/17/19 06:00 Intake and Output: 02/17/19 02/17/19 06:59 18:59 Intake Total 440 Balance 440 - Medications Medications: Current Medications Acetaminophen (Tylenol 325mg Tab) 650 mg PO Q6H PRN PRN Reason: Fever >100.4 F Last Admin: 02/16/19 09:36 Dose: 650 mg Acetaminophen (Tylenol 120mg Supp) 120 mg RC Q6 PRN PRN Reason: Fever >100.4 F Amlodipine Besylate (Norvasc) 10 mg PO DAILY [facility] Last Admin: 02/17/19 09:07 Dose: 10 mg Clonidine HCl (Catapres) 0.1 mg PO BID [facility] Last Admin: 02/17/19 10:50 Dose: 0.1 mg Darbepoetin Nikolai (Aranesp) 60 mcg IVP QWK [facility] Last Admin: 02/17/19 10:53 Dose: 60 mcg Diphenhydramine HCl (Benadryl) 25 mg IVP Q6H PRN PRN Reason: Nausea/Vomiting Hydralazine HCl (Apresoline) 10 mg IVP Q6 PRN PRN Reason: Systolic Blood Pressure Last Admin: 02/17/19 05:44 Dose: 10 mg Doxycycline Hyclate 100 mg/ (Sodium Chloride) 100 mls @ 100 mls/hr IVPB Q12 [facility]; Protocol Stop: 02/21/19 22:01 Last Admin: 02/17/19 09:08 Dose: 100 mls/hr Cefepime HCl (Maxipime 1gm) 1 gm in 100 mls @ 100 mls/hr IVPB Q24H [facility]; Protocol Stop: 02/21/19 17:46 Last Admin: 02/16/19 21:32 Dose: 100 mls/hr Vancomycin HCl (Vancomycin 1gm) 1 gm in 250 mls @ 167 mls/hr IVPB STAT STA; Protocol Stop: 02/17/19 12:59 Last Admin: 02/17/19 12:01 Dose: 167 mls/hr Labetalol HCl (Trandate) 300 mg PO BID [facility] Last Admin: 02/17/19 10:51 Dose: 300 mg Losartan Potassium (Cozaar) 100 mg PO DAILY [facility] Last Admin: 02/17/19 10:50 Dose: 100 mg Pantoprazole Sodium (Protonix Ec Tab) 40 mg PO 0600,1600 [facility] Last Admin: 02/17/19 05:44 Dose: 40 mg Polyethylene Glycol (Miralax) 17 gm PO BID [facility] Last Admin: 02/17/19 09:08 Dose: 17 gm Sucralfate (Carafate Oral Susp) 1 gm PO QID [facility] Last Admin: 02/17/19 09:07 Dose: 1 gm Vitamin B Complex/Vit C/Folic Acid (Nephro-Socorro) 1 tab PO 0800 [facility] Last Admin: 02/17/19 09:07 Dose: 1 tab - Labs Labs: 02/17/19 07:30 02/17/19 07:30 PT 11.9 SECONDS (9.4-12.5) 02/15/19 18:00 INR 1.07 02/15/19 18:00 APTT 33.7 Seconds (26.9-38.3) 02/15/19 18:00
[2019-02-17 12:20] VITALS: PULSE 100; TEMP 97.9
[2019-02-17] MEDS ORDERED: guaiFENesin DM 100 mg-10 mg/5 ml UD PO PRN (12:29)
[2019-02-17 13:39] VITALS: BP 121/78
--- NOTE | 2019-02-17 22:27 | PN ---
DATE: 02/17/2019 SUBJECTIVE: The patient is seen early this morning. She was in room 272, bed 2. She states she is feeling better. She tolerated her breakfast. There is no nausea, no vomiting. Abdominal discomfort has resolved. PHYSICAL EXAMINATION: VITAL SIGNS: Temperature is 98, blood pressure is 120/70, respiratory rate of 20, and heart rate of 100. HEENT: Unremarkable. NECK: Supple. LUNGS: Decreased breath sounds. HEART: Normal S1 and S2. ABDOMEN: Soft and nontender. LABORATORY DATA: Reveals the blood cultures are negative. Urine culture is not done. White count is 13,800, hemoglobin of 9, and platelets of 330. Chemistries reveal BUN of 22, creatinine of 2.6, and procalcitonin is 1.43. X-rays noted. ASSESSMENT AND PLAN: This is a 38-year-old female with end-stage renal disease, uncontrolled hypertension, and depression, admitted with nausea, vomiting, and hematemesis, started two days ago, progressive, worsening, multiple episodes of vomiting. She had fever and leukocytosis and infiltrate with sepsis, right basilar infiltrates consistent with healthcare-associated pneumonia. Blood cultures are negative. We will check on the final culture results and follow WBC's. Lucho Rollins MD
== END 2019-02-17 16:55 | disposition home or self-care (01) | DRG 552 ==
LOC: ED 16:45 → ERH 19:52 → 2RSO 23:00
PROVIDERS: ADMIT Internal Medicine; ATTEND Internal Medicine
PROC: 0DB58ZX Excision of Esophagus, Via Natural or Artificial Opening Endoscopic, Diagnostic (ICD-10-PCS; principal; 2019-02-16 14:15)
DX: K22.11 Ulcer of esophagus with bleeding (principal); A41.9 Sepsis, unspecified organism; J18.9 Pneumonia, unspecified organism; I50.30 Unspecified diastolic (congestive) heart failure; N18.6 End stage renal disease; I13.2 Hypertensive heart and chronic kidney disease with heart failure and with stage 5 chronic kidney disease, or end stage renal disease; I42.9 Cardiomyopathy, unspecified; K20.9 Esophagitis, unspecified; K44.9 Diaphragmatic hernia without obstruction or gangrene; Y95 Nosocomial condition; N25.81 Secondary hyperparathyroidism of renal origin; F32.9 Major depressive disorder, single episode, unspecified; F41.9 Anxiety disorder, unspecified; I25.2 Old myocardial infarction; K59.00 Constipation, unspecified; D63.1 Anemia in chronic kidney disease; I27.20 Pulmonary hypertension, unspecified; E83.39 Other disorders of phosphorus metabolism; F17.210 Nicotine dependence, cigarettes, uncomplicated; K29.70 Gastritis, unspecified, without bleeding; E27.8 Other specified disorders of adrenal gland; Z99.2 Dependence on renal dialysis

== ENCOUNTER 2019-02-27 16:09 | Emergency (ER) | payer MEDICAID ==
[2019-02-27 16:09] VITALS: BMI 23.5
--- NOTE | 2019-02-27 17:01 | ED PDOC ---
Arrival/HPI - General Time Seen by Provider: 02/27/19 16:50 Historian: Patient - History of Present Illness Narrative History of Present Illness (Text): 02/27/19 16:50 Kristine Brizuela is a 38 year old female, with a past medical history of ESRD (on hemodialysis MWF) anemia, anxiety, CHF, depression, cholecystectomy, hypertension, pancreatitis, and hypertension who presents to the emergency department complaining of hearing loss since 3 weeks. 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 Patient denies fevers, chills, headaches, dizziness, chest pain, shortness of breath, abdominal pain, nausea, vomiting, diarrhea, dysuria, hematuria, frequency, flank pain, or any other complaint. Time/Duration: > week, < month (3 weeks) Symptom Onset: Gradual Activities at Onset: Light Context: Home Past Medical History - Provider Review Nursing Documentation Reviewed: Yes - Infectious Disease Hx of Infectious Diseases: None - Cardiac Hx Cardiac Disorders: Yes Hx Congestive Heart Failure: Yes Hx HI: Yes (03/2017) Hx Hypertension: Yes Hx Peripheral Edema: Yes - Pulmonary Hx Respiratory Disorders: Yes Hx Pneumonia: Yes - Neurological Hx Neurological Disorder: No - HEENT Hx HEENT Disorder: Yes Other/Comment: wears glasses - Renal Hx Renal Disorder: Yes Date of Last Dialysis Treatment: 12/31/18 Hx Kidney Stones: Yes Hx Renal Failure: Yes - Endocrine/Metabolic Hx Endocrine Disorders: No - Hematological/Oncological Hx Blood Disorders: Yes Hx Anemia: Yes - Integumentary Hx Dermatological Disorder: Yes Other/Comment: SCARRING TO LEFT UPPER ARM DUE TO PLACEMENT OF SHUNT. NF.3X HAD SURGERY. - Musculoskeletal/Rheumatological Hx Musculoskeletal Disorders: Yes Hx Arthritis: Yes (L HIP) Hx Falls: Yes Other/Comment: sciatica - Gastrointestinal Hx Gastrointestinal Disorders: Yes Hx Gall Bladder Disease: Yes (CHOLECYSTECTOMY) Hx Pancreatitis: Yes Other/Comment: GASTROENTERITIS - Genitourinary/Gynecological Hx Genitourinary Disorders: Yes - Psychiatric Hx Psychophysiologic Disorder: Yes Hx Anxiety: Yes Hx Depression: Yes Hx Substance Use: No - Surgical History Hx Arteriovenous Shunt: Yes (LEFT ARM) Hx Cholecystectomy: Yes Hx Vascular Surgery: Yes (AV SHUNT) Hx Vascular Access Device: Yes (Perma cath) Other/Comment: 2 failed fistula left arm. Left wrist fistula not working - Anesthesia Hx Anesthesia: Yes Hx Anesthesia Reactions: No Hx Malignant Hyperthermia: No Family/Social History - Physician Review Nursing Documentation Reviewed: Yes Family/Social History: Unknown Family HX Smoking Status: Current Some Days Smoker Hx Alcohol Use: No Hx Substance Use: No Allergies/Home Meds Allergies/Adverse Reactions: Allergies No Known Allergies Allergy (Verified 02/15/19 17:04) PER PATIENT Home Medications: Home Meds Medication Instructions Recorded Confirmed Labetalol Hydrochloride [Normodyne] 300 mg PO BID 03/23/18 02/15/19 amLODIPine [Norvasc] 10 mg PO DAILY 05/08/18 02/17/19 Alprazolam [Xanax] 0.5 mg PO TID 07/11/18 02/15/19 Cinacalcet [Sensipar] 30 mg PO DAILY 10/03/18 02/15/19 Zolpidem [Ambien] 10 mg PO HS 10/03/18 02/15/19 Hydralazine HCl 100 mg PO BID 10/05/18 02/15/19 Gabapentin [Neurontin] 100 mg PO TID 01/01/19 02/15/19 oxyCODONE/Acetaminophen [Percocet 1 tab PO Q6H PRN 01/01/19 02/15/19 5/325 mg Tab] cloNIDine [Catapres] 0.1 mg PO BID 02/15/19 02/17/19 Review of Systems - Physician Review All systems were reviewed & negative as marked: Yes - Review of Systems Constitutional: absent: Fevers, Other (chills) Respiratory: absent: SOB Cardiovascular: absent: Chest Pain Gastrointestinal: absent: Abdominal Pain, Nausea, Vomiting Genitourinary Female: absent: Dysuria, Frequency, Hematuria Musculoskeletal: absent: Other (flank pain) Physical Exam Vital Signs Reviewed: Yes Temperature: Afebrile Blood Pressure: Normal Pulse: Regular Respiratory Rate: Normal Appearance: Positive for: Well-Appearing, Non-Toxic, Comfortable Pain Distress: None Mental Status: Positive for: Alert and Oriented X 3 - Systems Exam Head: Present: Atraumatic, Normocephalic Pupils: Present: PERRL Extroacular Muscles: Present: EOMI Conjunctiva: Present: Normal Ears: Present: NORMAL TM (TM's intact bilaterally), Other (cerumen present but not obstructing TM ) Mouth: Present: Moist Mucous Membranes Pharnyx: Present: Normal Neck: Present: Normal Range of Motion Respiratory/Chest: Present: Clear to Auscultation, Good Air Exchange. No: Respiratory Distress, Accessory Muscle Use, Wheezes, Rales, Rhonchi Cardiovascular: Present: Regular Rate and Rhythm, Normal S1, S2. No: Murmurs, Rub, Gallop Abdomen: Present: Normal Bowel Sounds. No: Tenderness, Distention, Peritoneal Signs, Rebound, Guarding Back: Present: Normal Inspection Upper Extremity: Present: Normal Inspection. No: Cyanosis, Edema Lower Extremity: Present: Normal Inspection. No: Edema Neurological: Present: GCS=15, CN II-XII Intact, Speech Normal Skin: Present: Warm, Dry, Normal Color. No: Rashes Psychiatric: Present: Alert, Oriented x 3, Normal Insight, Normal Concentration Medical Decision Making ED Course and Treatment: 02/27/19 16:50 Impression: Kristine Brizuela is a 38 year old female, with a past medical history of ESRD (on hemodialysis MWF) anemia, anxiety, CHF, depression, cholecystectomy, hypertension, pancreatitis, and hypertension who presents to the emergency department complaining of hearing loss since 3 weeks. Plan: -- Reassess and disposition Prior Visits: Notes and results from previous visits were reviewed. Progress Notes: 02/27/19 17:00 Counseled importance of patient follow up w/ PMD - Scribe Statement The provider has reviewed the documentation as recorded by the Scribe Otis Gordon All medical record entries made by the Scribe were at my direction and personally dictated by me. I have reviewed the chart and agree that the record accurately reflects my personal performance of the history, physical exam, medical decision making, and the department course for this patient. I have also personally directed, reviewed, and agree with the discharge instructions and disposition. Disposition/Present on Arrival - Present on Arrival Any Indicators Present on Arrival: No History of DVT/PE: No History of Uncontrolled Diabetes: No Urinary Catheter: No History Surgical Site Infection Following: None - Disposition Have Diagnosis and Disposition been Completed?: Yes Diagnosis: Hearing loss Disposition: HOME/ ROUTINE Disposition Time: 17:00 Patient Plan: Discharge Condition: GOOD Discharge Instructions (ExitCare): Hearing Loss in Adults Additional Instructions: Call Dr June for an appointment as soon as possible Prescriptions: Carbamide Peroxide [Debrox 15 Ml] 15 ml OT Q12 4 Days #1 bottle Referrals: Keenan June DO [Staff Provider] - Follow up with primary Forms: [employer] ([employer])
[2019-02-27 17:22] VITALS: BP 129/87
[2019-02-27 17:24] VITALS: PULSE 66; RESP 19; TEMP 98.3; O2SAT 99
== END 2019-02-27 17:24 | disposition home or self-care (01) ==
LOC: ED 16:09
DX: H91.90 Unspecified hearing loss, unspecified ear (principal); I50.9 Heart failure, unspecified; I12.0 Hypertensive chronic kidney disease with stage 5 chronic kidney disease or end stage renal disease; N18.6 End stage renal disease; Z99.2 Dependence on renal dialysis; I25.2 Old myocardial infarction